=== PATIENT | male | born 1960 | race American Indian/Alaskan Native ===

== ENCOUNTER 2024-01-06 06:36 | Inpatient (IN) | payer MEDICAID, MEDICARE, OTHER ==
[~2024-01-06] VITALS: Ht 188 cm; Wt 108.5 kg
[2024-01-06] VITALS (63 sets, daily range): BP systolic 81–131; BP diastolic 34–87; PULSE 62–128; RESP 12–26; TEMP 96.3–98.6; O2SAT 79–99
[2024-01-06] MEDS: ROCURONIUM 10MG/ML 10ML VIAL IV ONE ×2 (06:48→06:50)
[2024-01-06] MEDS: ETOMIDATE (2MG/ML) 20ML VIAL IV ONE ×2 (06:48→06:50)
[2024-01-06] MEDS: MIDAZOLAM HCL 5 MG/ML-1ML VIAL IV ONE (06:55)
[2024-01-06] MEDS: MIDAZOLAM DRIP 50 mg/50mL 50 ML IV ONE ×3 (06:55→16:11)
[2024-01-06] MEDS: MIDAZOLAM DRIP 50 mg/50mL 50 ML IV SCH (06:55)
[2024-01-06] MEDS ORDERED: ALBUTEROL SULF 2.5 MG/0.5ML(0.5%) NEB SOLN NEB ONE (07:00)
[2024-01-06] MEDS: IPRATROPIUM BROM 0.5 MG/2.5ML INH SOL NEB ONE (07:02)
[2024-01-06] MEDS: ALBUTEROL SULF 2.5 MG/0.5ML(0.5%) NEB SOLN NEB ONE (07:03)
[2024-01-06] MEDS: FUROSEMIDE 40 MG/4 ML VIAL IV ONE (07:07)
[2024-01-06] MEDS: methylPREDNISolone SOD SUCC 125 MG/2 ML VL IV ONE (07:07)
--- NOTE | 2024-01-06 07:13 | ED.PDOC ---
History of Present Illness HPI Comments 63 y/o, with a Hx of ascites w/paracentesis, liver cirrhosis, COPD, GERD, and esophageal disorder, is BIBA for c/o ALOC w/abnormal behavior, shortness of breath, and abdominal distension, today. Per EMS report, patient's family called after finding patient in altered state on the floor after having an unwitnessed ground-level fall, this morning, after c/o of other remaining symptoms for 1.5x days. Patient is stated to only say "baby" only on scene in addition to last receiving paracentesis on 01/04/24. Further Hx cannot be obtained at this time, due to patient's altered state and absence of family/terminal make up operator historians. Chief Complaint: ALOC Time Seen by MD: 06:36 Reviewed Notes: Nurses Notes, Pastry Artist Notes, Medications, Allergies Allergies: Coded Allergies: UNOBTAINABLE (Unverified , 01/06/24) Information Source: Emergency Med Personnel Mode of Arrival: EMS Severity: Moderate Timing: Hours Duration: Since onset Prehospital treatment: 12 Lead EKG, Accucheck, Breathing Tx, Band Presser, Oxygen Past Medical History PAST MEDICAL HISTORY: COPD, GERD, Liver (cirrhosis) Past Medical History (Other): ascites, esophageal disorder Surgical History (Other): paracentesis Family History Family History: Unknown, Unobtainable Social History Smoker: Unknown, Unobtainable Alcohol: Unknown, Unobtainable Drugs: Unknown, Unobtainable Lives In: Home Constitutional: denies: chills, diaphoresis, fatigue, fever, malaise, sweats, weakness, others EENTM: denies: blurred vision, double vision, ear bleeding, ear discharge, ear drainage, ear pain, ear ringing, eye pain, eye redness, hearing loss, mouth pain, mouth swelling, nasal discharge, nose bleeding, nose congestion, nose pain, photophobia, tearing, throat pain, throat swelling, voice changes, others Respiratory: reports: shortness of breath; denies: cough, hemoptysis, orthopnea, SOB at rest, SOB with excertion, stridor, wheezing, others Cardiovascular: denies: chest pain, dizzy spells, diaphoresis, Dyspnea on exertion, edema, irregular heart beat, left arm pain, lightheadedness, palpitations, PND, syncope, others Gastrointestinal: reports: abdomen distended; denies: abdominal pain, blood streaked bowels, constipated, diarrhea, dysphagia, difficulty swallowing, hematemesis, melena, nausea, poor appetite, poor fluid intake, rectal bleeding, rectal pain, vomiting, others Genitourinary: denies: burning, dysuria, flank pain, frequency, hematuria, incontinence, penile discharge, penile sore, pain, testicle pain, testicle swelling, urgency, others Neurological: reports: others (ALOC); denies: dizziness, fainting, headache, left sided numbness, left sided weakness, numbness, paresthesia, pre-existing deficit, right sided numbness, right sided weakness, seizure, speech problems, tingling, tremors, weakness Musculoskeletal: denies: back pain, gout, joint pain, joint swelling, muscle pain, muscle stiffness, neck pain, others Integumetry: denies: bruises, change in color, change in hair/nails, dryness, laceration, lesions, lumps, rash, wounds, others Allergic/Immunocompromised: denies: Difficulty Healing, Frequent Infections, Hives, Itching, others Hematologic/Lymphatic: denies: anemia, blood clots, easy bleeding, easy bruising, swollen glands, others Endocrine: denies: excessive hunger, excessive sweating, excessive thirst, excessive urination, flushing, intolerance to cold, intolerance to heat, un explained weight gain, unexplained weight loss, others Psychiatric: denies: anxiety, bipolar disorder, depression, hopeless, panic disorder, schizophrenia, sleepless, suicidal, others All Other Systems: Reviewed and Negative Physical Exam General Appearance: Severe Distress HEENT: Normal ENT Inspection, Pharynx Normal, TMs Normal Neck: Full Range of Motion, Non-Tender, Normal, Normal Inspection Respiratory: Accessory Muscle Use, Respiratory Distress, Wheezing Cardiovascular: Tachycardia Breast Exam: Deferred Gastrointestinal: Distended, Other (Hernia) Genitalia: Deferred Pelvic: Deferred Rectal: Deferred Extremities: No calf tenderness, Normal capillary refill, Normal inspection, Normal range of motion, Non-tender, No pedal edema Musculoskeletal : Apperance: Normal Neurologic: Disoriented Cerebellar Function: NOT DONE Reflexes: NOT DONE Skin: Pallor Peripheral Pulses: 3+ Radial (R), 3+ Radial (L) Lymphatic: No Adenopathy Was a procedure done? Was a procedure done?: Yes Sedation Sedation?: Yes Informed consent obtained: No Sedation start time: 06:40 Sedation end time: 07:05 Sedation total time: 15 minutes Central Line Recorder of insertion practice: Fusion Operator Occupation of electric well logging operator: Other medical staff (Monitoring the resident teaching), Name of electric well logging operator (resident Win Leyva M.D.) Indication: Inability to obtain IV Room prepared for procedure: Yes Maximal sterile barrier precau: Mask/Eye shield, Sterile gown, Cap, Sterlie gloves, Large sterlie drape Skin Preparation: Chlorhexidine gluconate Skin preparation completely dr: Yes Insertion site: Right, Internal jugular Central line catheter type: [id number] dialysis Number of lumens: 3 Central line exchanged over a: No Antiseptic ointment applied to: No Post Assessment: Chest X-Ray, Proper placement Informed consent obtained: No Risks/benefits/alt described: No Intubation Indication: Respiratory Insufficiency, Altered Mental Status, Airway Protection Prep: Preoxygenation Pretreated with: Sedation Medicated with: Other (etomidate and rocuronium) Intubation Approach: Orotracheal (8.0) Intubation size: cm (24 cm at the lip) Informed consent obtained: No Risks/benefits/alt described: No Notes intubated at 0650, observed resident performing EKG EKG : Pulse Rate (adult): 125 [place]: Normal Cardiac Rhythm: ST Block: None Hypertrophy: None ST: Normal Differential Dx Considerations may include: viral syndrome, electrolyte imbalance, fluid overload, ascites, liver cirrhosis, COPD exacerbation X-Ray, Labs, Meds, VS Vital Signs Date Time Temp Pulse Resp B/P (MAP) Pulse Ox O2 Delivery O2 Flow Rate FiO2 01/06/24 07:31 62 19 97 Room Air* 0 21 01/06/24 07:30 97.6 62 19 136/64 (88) 97 97.6 01/06/24 07:25 146/76 01/06/24 07:13 125 01/06/24 07:07 146/76 01/06/24 07:02 125 01/06/24 06:55 138/88 01/06/24 06:50 126 18 146/76 (99) 99 60 01/06/24 06:48 138/88 01/06/24 06:45 120 24 138/88 (105) 95 01/06/24 06:45 114 22 118/68 (85) 94 01/06/24 06:45 120 26 95 Non-Rebreather 10 N/A Lab Test 01/06/24 07:15 Range/Units White Blood Count Pending Red Blood Count Pending Hemoglobin Pending Hematocrit Pending Mean Corpuscular Volume Pending Mean Corpuscular Hemoglobin Pending Mean Corpuscular Hemoglobin Concent Pending Red Cell Distribution Width Pending Platelet Count Pending Mean Platelet Volume Pending Neutrophils (%) (Auto) Pending Lymphocytes (%) (Auto) Pending Monocytes (%) (Auto) Pending Basophils (%) (Auto) Pending Neutrophils # (Auto) Pending Lymphocytes # (Auto) Pending Monocytes # (Auto) Pending Prothrombin Time Pending Prothrombin Time INR Pending Activated Partial Thromboplast Time Pending Sodium Level Pending Potassium Level Pending Chloride Level Pending Carbon Dioxide Level Pending Anion Gap Pending Blood Urea Nitrogen Pending Creatinine Pending Glomerular Filtration Rate Calc Pending BUN/Creatinine Ratio Pending Serum Glucose Pending Lactic Acid Level Pending Calcium Level Pending Total Bilirubin Pending Aspartate Amino Transferase (AST) Pending Alanine Aminotransferase (ALT) Pending Alkaline Phosphatase Pending Ammonia Pending Troponin I High Sensitivity Pending Total Protein Pending Albumin Pending Plasma/Serum Blood Alcohol Pending Current Medications Medications (Trade) Dose Ordered Sig/Salena Route Start Time Stop Time Status Last Admin Albuterol (Ventolin Medneb) 10 mg ONCE ONCE NEB 01/06/24 06:45 01/06/24 06:46 DC 01/06/24 07:03 Etomidate 20 mg ONCE ONCE IV 01/06/24 07:00 01/06/24 07:01 DC 01/06/24 06:48 Rocuronium [place] 100 mg ONCE ONCE IV 01/06/24 07:00 01/06/24 07:01 DC 01/06/24 06:48 Midazolam HCl (Versed Injection) 5 mg ONCE ONCE IV 01/06/24 07:00 01/06/24 07:01 DC 01/06/24 06:55 Midazolam HCl 50 ml @ 1 mls/hr Q24H IV 01/06/24 07:00 01/06/24 06:55 Methylprednisolone Sodium Succinate (Solu Medrol) 125 mg ONCE ONCE IV 01/06/24 07:00 01/06/24 07:01 DC 01/06/24 07:07 Ipratropium [place] (Atrovent Medneb) 0.5 mg ONCE ONCE NEB 01/06/24 07:00 01/06/24 07:01 DC 01/06/24 07:02 Furosemide (Lasix Injection) 40 mg ONCE ONCE IV 01/06/24 07:00 01/06/24 07:01 DC 01/06/24 07:07 Patient disoriented. Unable to answering any questions. Acute respiratory distress. Using accessory muscles. Establish intravenous access. Was given sedation. Intubated the patient. Central line. Ventilator settings. Was given Lasix. Was given breathing treatment. Was given steroid. He did have a run of V-tach possibly from wire insertion into the ventricle. Sinus rhythm after the line was pulled. EKG reviewed does not show any acute changes. Reviewed his previous visit. Liver disease. Recently had paracentesis. Possible hepatic encephalopathy. Possibly will need paracentesis. Time of 1ST Reevaluation: 07:06 Reevaluation 1ST: Unchanged Patient Education/Counseling: Other (patient is altered ) Family Education/Counseling: No Family Present Departure 1 Departure Time of Disposition: 07:57 Impression: Primary Impression: Acute respiratory failure Qualified Codes: J96.01 - Acute respiratory failure with hypoxia Additional Impressions: Hepatic encephalopathy Liver disease Disposition: ADMITTED INPATIENT Admit to: ICU Condition: Guarded Critical Care Note Critical Care Time?: Yes (55 min-critical care time only) Stability Stability form required: No Heart Score Heart Score: Heart Score Response (Comments) Value History Highly Suspicious 2 EKG Normal 0 Age 45-64 1 Risk Factors >3 or Hx ASHD 2 Troponin Normal limit 0 Total 5 I personally scribed for ANTHONY NEWMAN MD ([email or web address]) on 01/06/24 at 07:13. Electronically submitted by Jr Ruff ([email or web address]). I personally scribed for ANTHONY NEWMAN MD ([email or web address]) on 01/06/24 at 07:25. Electronically submitted by Jr Ruff ([email or web address]). ANTHONY NEWMAN MD Jan 06, 2024 07:13
--- NOTE | 2024-01-06 07:13 | ECG ---
[facility] Test Date: 2024-01-06 Test Time: 07:02:14 Pat Name: YASEMIN CAR Department: ED Room: [address] [place] [address] Gender: M Passenger Rate Clerk: ALKA : 1960 Requested By: ANTHONY NEWMAN Order Number: [id number] Reading MD: Joon Zhang Measurements Intervals [place] Rate: 125 P: 84 CA: 192 QRS: 69 QRSD: 76 T: 224 QT: 258 QTc: 372 Interpretive Statements Sinus tachycardia Low voltage, extremity and precordial leads Anteroseptal infarct, old Nonspecific T abnormalities, lateral leads Baseline wander in lead(s) V1 Electronically Signed On 01-08-2024 11:52:57 PST by Joon Zhang Please click the below link to view image of tracing.
--- NOTE | 2024-01-06 07:38 | DVH ---
CLINICAL INFORMATION: 63 years old, Male; shortness of breath. TECHNIQUE: Single AP portable chest radiograph was obtained. COMPARISON: Chest radiographs dated 05/28/2023. FINDINGS: Lungs: Atelectasis in the lung bases. No focal consolidation visualized. No pneumothorax. No visualiz ed pleural effusion. Cardiac: Heart size is within normal limits. Pulmonary vasculature: Unremarkable. Mediastinum/shiv: Distal tip of the endotracheal tube is 6 cm above the level of the john. Enteric tube reaches the stomach and extends below the [id number]-swis of the exam. Bones: No acute osseous abnormality identified. Other: No other significant findings. IMPRESSION: 1. Endotracheal tube is approximately 6 cm above the level of the john. Advancement by 2 cm could b e considered to optimize positioning. 2. Enteric tube reaches the stomach. 3. Atelectasis in the lung bases. No focal consolidation or other acute radiographic abnormality iden tified in the chest.
[2024-01-06 08:10] LABS: Alanine Aminotransferase 45 U/L (7-40); Albumin 2.4 g/dL (3.2-4.8); Alkaline Phosphatase 192 U/L (46-116); Anion Gap 13 (5-15); Aspartate Aminotransferase 87 U/L (13-40); BUN/Creatinine Ratio 24.3 (10.0-20.0); Blood Alcohol < 3.0 mg/dL (<10); Blood Urea Nitrogen 25 mg/dL (9-23); Calcium 8.9 mg/dL (8.7-10.4); Carbon Dioxide 19 mmol/L (20-31); Chloride 109 mmol/L (98-107); Glucose 118 mg/dL (74-106); Potassium 4.5 mmol/L (3.5-5.1); Sodium 141 mmol/L (136-145)
[2024-01-06 08:11] LABS: Bilirubin, Total 3.7 mg/dL (0.2-1.0); Total Protein 6.3 g/dL (5.7-8.2)
[2024-01-06 08:33] LABS: INR 1.43 (0.9-1.15); Partial Thromboplastin Time 29.9 SEC (24.5-34.5); Prothrombin Time 14.8 sec (9.3-11.8)
[2024-01-06 08:38] LABS: Lactic Acid w/Reflex 6.5 mmol/L (0.4-2.0)
[2024-01-06 08:46] LABS: Nucleated Red Blood Cells % 0.2 %
[2024-01-06 08:48] LABS: Basophils # (auto) 0 10 ^3/uL (0-0.2); Basophils % (auto) 0.1 % (0.0-2.0); Eosinophils # (auto) 0 10 ^3/uL (0-0.8); Eosinophils % (auto) 0.2 % (0.0-7.0); Hematocrit 40.1 % (41.0-53.0); Hemoglobin 13.5 g/dL (13.5-17.5); Lymphocytes # (auto) 0.5 10 ^3/uL (0.4-5.4); Lymphocytes % (auto) 6.3 % (10.0-50.0); Mean Corpuscular Hgb Conc. 33.7 g/dL (32.0-36.0); Mean Corpuscular Volume 109.7 fL (80.0-100.0); Monocytes # (auto) 0.4 10 ^3/uL (0-1.3); Monocytes % (auto) 4.7 % (0.0-12.0); Neutrophils # (auto) 6.6 10 ^3/uL (1.6-8.6); Neutrophils % (auto) 88.7 % (37.0-80.0); Red Blood Cells 3.66 10^6/uL (4.5-5.90); Red Cell Distribution Width 15.2 % (11.8-14.3); White Blood Cell 7.5 10^3/uL (4.4-10.8)
[2024-01-06 08:52] LABS: Platelet Count (auto) 106 10^3/uL (140-450)
[2024-01-06] MEDS ORDERED: IBUPROFEN 100MG/5ML ORAL SUSP 100 MG/5 ML UD NG PRN (09:00)
[2024-01-06] MEDS ORDERED: ONDANSETRON HCL 4 MG/2 ML VIAL IV PRN (09:00)
[2024-01-06] MEDS: fentaNYL Drip 2500mCg/250mlNS 250 ML IV SCH (09:01)
[2024-01-06 09:31] LABS: Urine Bacteria None Seen /hpf (None Seen)
[2024-01-06 09:35] LABS: Base Excess -5.7 mmol/L (-2.0-3.0)
--- NOTE | 2024-01-06 09:36 | DVHNC2 ---
Intubation Indication: Altered Mental Status, Airway Protection Prep: Preoxygenation Pretreated with: Sedation Medicated with: Other (Etomidate and rocuronium) Intubation Approach: Orotracheal Intubation size: cm (Eight) Informed consent obtained: Yes Risks/benefits/alt described: Yes Notes Supervised by Dr. Newman Date of Service: Jan 06, 2024 Billing Provider: ANTHONY NEWMAN MD Common Visit Codes: PROCEDURE ONLY TERESA OLVERA RESIDENT Jan 06, 2024 09:36
--- NOTE | 2024-01-06 09:38 | DVHNC2 ---
Arterial Puncture Indication: Assess ventilatory status, Assess acid-base status Procedure: Sterile Preparation, Arterial Punct Obtained Location: Right Radial Informed consent obtained: Yes Risks/benefits/alt described: Yes Notes Supervised by Dr. Newman Date of Service: Jan 06, 2024 Billing Provider: ANTHONY NEWMAN MD Common Visit Codes: PROCEDURE ONLY TERESA OLVERA RESIDENT Jan 06, 2024 09:38
--- NOTE | 2024-01-06 09:38 | DVHNC2 ---
Central Line Recorder of insertion practice: Assembler [employer] Battery Occupation of pallet stone inserter: Attending Physician, Name of pallet stone inserter (Dr. Leyva) Indication: Hypotension, CVP monitoring, Volume resuscitation Room prepared for procedure: Yes Assembler [employer] Cell [employer] performed hand hygien: Yes Maximal sterile barrier precau: Mask/Eye shield, Sterile gown, Cap, Sterlie gloves, Large sterlie drape Skin Preparation: Providine iodine Skin preparation completely dr: Yes Insertion site: Right, Internal jugular Central line catheter type: [id number] dialysis Number of lumens: 3 Central line exchanged over a: No Antiseptic ointment applied to: No Post Assessment: Chest X-Ray, Proper placement, No Pneumothorax Informed consent obtained: Yes Notes Supervised by Date of Service: Jan 06, 2024 Billing Provider: ANTHONY NEWMAN MD Common Visit Codes: PROCEDURE ONLY TERESA OLVERA RESIDENT Jan 06, 2024 09:38
[2024-01-06 09:40] LABS: Urine Blood Negative /uL (Negative); Urine Clarity Clear (Clear); Urine Color Yellow (Yellow); Urine Hyaline Cast MANY /lpf (0 - 2); Urine Mucus FEW (None Seen); Urine Protein, UAD TRACE (Negative); Urine Specific Gravity 1.025 (1.001-1.035); Urine Urobilinogen 8 mg/dL (Negative); Urine WBC 2 /hpf (0 - 3); Urine pH 6.5 (5.0-9.0)
[2024-01-06] MEDS: fentaNYL Drip 2500mCg/250mlNS 250 ML IV ONE ×2 (09:43→16:10)
[2024-01-06] MEDS ORDERED: NOREPINEPHRINE 8 MG/250ML KIT 250 ML IV SCH (09:45)
[2024-01-06] MEDS: metroNIDAZOLE 500MG/100ML 100 ML IV ONE (09:53)
[2024-01-06] MEDS: FUROSEMIDE 40 MG/4 ML VIAL IV SCH (10:00)
[2024-01-06] MEDS: PROPOFOL 100 ML IV SCH (10:00)
[2024-01-06] MEDS: SPIRONOLACTONE 25 MG TAB PO SCH (10:00)
--- NOTE | 2024-01-06 10:14 | DVH ---
EXAM: XY CHEST XRAY 1 VIEW Indication:CHECK PLACEMENT OF CENTRAL LINE AND NG TUBE Technique: Single AP portable chest radiograph was obtained. Comparison: XY CHEST PORTABLE on DOS: 01/06/24, XY CHEST PORTABLE on DOS: 01/06/24 FINDINGS: Lungs: Atelectasis in the lung bases. No focal consolidation visualized. No pneumothorax. No visualiz ed pleural effusion. Cardiac: Heart size is within normal limits. Pulmonary vasculature: Unremarkable. Mediastinum/shiv: Distal tip of the endotracheal tube is 6 cm above the level of the john. Enteric tube reaches the stomach and extends below the [id number] of the exam. Right internal jugular cent ral venous catheter tip projects over the superior vena cava. Bones: No acute osseous abnormality identified. Other: No other significant findings. IMPRESSION: Interval placement of a right internal jugular central venous catheter with tip in appropriate positi on. Otherwise no significant change compared to prior exam.
[2024-01-06] MEDS: PHENYLEPHRINE IV 250 ML IV SCH (10:20)
[2024-01-06] MEDS: ALBUMIN 25% 100 ML IV ONE (10:20)
--- NOTE | 2024-01-06 10:35 | DVHHP2 ---
History of Present Illness Reason for Visit: Acute respiratory failure History of Present Illness The patient is a 63-year-old male with past medical history of liver cirrhosis, ascites, esophageal disorder, GERD, and COPD who presented to [facility] ED for evaluation of altered level of consciousness. As reported by EMS, patient's family called finding patient in altered state on the floor after having an unwitnessed ground level fall, shortness of breaths, abdominal distention, getting worse that prompted this visit. Patient's last paracentesis was on 01/04/2024. Patient was seen and evaluated in the ED, he continues to be disoriented, unable to answering any question, develop acute respiratory distress, using accessory muscles, and subsequently intubated. Laboratory data shows WBC 7.5, platelets 106, sodium 141, potassium 4.5 BUN 25, creatinine 103, glucose 118, lactic acid 7.3, albumin 2.4, troponin 6, total bilirubin 3.7, AST 87, ALT 45, ammonia 330, blood pressure 131/69, heart rate 62, temperature 97.6, O2 saturation 97% on ventilator. Please see medication orders section in the computer. On my assessment, patient is fully intubated, no diaphoresis, no vomiting, no fever, no chills. Patient was admitted for further evaluation and medical management. Past Medical History COPD, GERD, Liver (cirrhosis), ascites, esophageal disorder Past Surgical History Paracentesis Family History Reviewed, noncontributory to the management of this case. Past Social History The patient lives at home, denies smoking, alcohol or illicit drugs abuse. Review of Systems Constitutional: Yes: Weakness; No: Fever, Chills, Sweats, Malaise, Other Eyes: No: Pain, Vision change, Conjunctivae inflammation, Eyelid inflammation, Other, Redness ENT: No: Ear pain, Ear discharge, Nose pain, Nose discharge, Nose congestion, Mouth pain, Mouth swelling, Throat pain, Throat swelling, Other Respiratory: Shortness of breath, SOB with excertion; No: Cough, Dry, Wheezing, Hemoptysis, Pleuritic Pain, Sputum, Wheezing, Other Cardiovascular: No: Chest Pain, Palpitations, Orthopnea, Paroxysmal Noc. Dyspnea, Edema, Lt Headedness, Other Gastrointestinal: No: Nausea, Vomiting, Abdominal Pain, Diarrhea, Constipation, Melena, Hematochezia, Other Genitourinary: No Dysuria, No Frequency, No Incontinence, No Hematuria, No Retention, No Other Musculoskeletal: No: other, neck pain, shoulder pain, arm pain, back pain, hand pain, leg pain, foot pain Skin: No: Rash, Lesions, Jaundice, Bruising, Other Neurological: No: Weakness, Numbness, Incoordination, Change in speech, Confusion, Seizures, Other Allergies: Coded Allergies: UNOBTAINABLE (Unverified , 01/06/24) Medications Current Medications Medications Dose Ordered Sig/Salena Route Start Time Stop Time Status Last Admin Dose Admin Midazolam HCl 50 ml @ 1 mls/hr Q24H IV 01/06/24 07:00 01/06/24 06:55 1 MLS/HR Fentanyl Citrate 250 ml @ 2.5 mls/hr Q24H IV 01/06/24 08:30 01/06/24 09:01 2.5 MLS/HR Furosemide 40 mg DAILY IV 01/06/24 10:00 Spironolactone 25 mg DAILY PO 01/06/24 10:00 Methylprednisolone Sodium Succinate 40 mg Q8HR IV 01/06/24 14:00 Ibuprofen 600 mg Q6HP PRN NG 01/06/24 09:00 Sodium Chloride 10 ml Q8HR IV 01/06/24 14:00 Ondansetron HCl 4 mg Q4HP PRN IV 01/06/24 09:00 Famotidine 20 mg DAILY IV 01/06/24 10:00 Phenylephrine HCl 250 ml @ 30 mls/hr Q8H20M IV 01/06/24 10:00 01/06/24 10:20 30 MLS/HR Propofol 100 ml @ 3.135 mls/ hr Q24H IV 01/06/24 10:00 Exam Vital Signs Vital Signs Date Time Temp Pulse Resp B/P (MAP) Pulse Ox O2 Delivery O2 Flow Rate FiO2 01/06/24 10:25 84/37 01/06/24 10:23 103 21 97 Mechanical Ventilator+ 40 40 01/06/24 06:45 10 General Appearance: Other (Fully intubated) HEENT: Atraumatic, PERRLA, EOMI, Mucous membr. moist/pink Respiratory: Clear to auscultation, Normal air movement Cardiovascular: Regular rate, Normal S1, Normal S2, No murmurs Abdominal: Normal bowel sounds, Soft, No tenderness, No hepatospenomegaly, No masses, Other (Distended abdomen) Extremities: No clubbing, No cyanosis, No edema, Normal pulses, No tenderness/swelling Skin: No rashes, No breakdown, No significant lesion Neuro: Normal tone, Sensation intact, Other (Generalized weakness) Psych/Mental Status: Mental status NL, Mood NL Labs/Xrays Labs Test 01/06/24 09:28 01/06/24 09:15 01/06/24 08:42 01/06/24 08:22 Range/Units Blood Gas Specimen Type Arterial Blood Gas Sample Site Arterial line Blood Gas Patient Temperature 37.0 Arterial Blood Date Drawn [id number] Arterial Blood pH 7.400 7.350-7.450 Arterial Blood Partial Pressure CO2 29.4 L 35.0-48.0 mmHg Arterial Blood Partial Pressure O2 121.8 H 83.0-108.0 mmHg Arterial Blood HCO3 17.8 L 21.0-28.0 mmol/L Arterial Blood Oxygen Saturation 98.3 H 94.0-98.0 % Arterial Blood Base Excess -5.7 L -2.0-3.0 mmol/L Arterial Blood Oxyhemoglobin 96.6 94.0-98.0 % Arterial Blood Carboxyhemoglobin 1.0 0.5-1.5 % Arterial Blood Methemoglobin 0.7 0.0-1.5 % Dusty Test N/a Blood Gas Total Hemoglobin 13.70 13.5-17.5 g/dL Blood Gas Set Respiration Rate 18.0 Blood Gas Modality Vent - ac FiO2 % 60.0 Blood Gas Tidal Volume 600.0 Blood Gas PEEP or CPAP 5.0 Lactic Acid Level 7.3 *H 0.4-2.0 mmol/L Urine Color Yellow Yellow Urine Clarity Clear Clear Urine pH 6.5 5.0-9.0 Urine Specific [place] 1.025 1.001-1.035 Urine Protein Trace H Negative Urine Ketones Trace Negative Urine Blood Negative Negative /uL Urine Nitrite Negative Negative Urine Bilirubin Negative Negative Urine Urobilinogen 8 H Negative mg/dL Urine Leukocyte Esterase Negative Negative /uL Urine RBC 1 0 - 3 /hpf Urine WBC 2 0 - 3 /hpf Urine Squamous Epithelial Cells Few <5 /hpf Urine Bacteria None seen None Seen /hpf Urine Hyaline Casts Many 0 - 2 /lpf Urine Mucus Few None Seen Urine Glucose Normal Normal mg/dL White Blood Count 7.5 4.4-10.8 10^3/uL Red Blood Count 3.66 L 4.5-5.90 10^6/uL Hemoglobin 13.5 13.5-17.5 g/dL Hematocrit 40.1 L 41.0-53.0 % Mean Corpuscular Volume 109.7 H 80.0-100.0 fL Mean Corpuscular Hemoglobin 37.0 H 28.0-32.0 pg Mean Corpuscular Hemoglobin Concent 33.7 32.0-36.0 g/dL Red Cell Distribution Width 15.2 H 11.8-14.3 % Platelet Count 106 L 140-450 10^3/uL Mean Platelet Volume 8.8 6.9-10.8 fL Neutrophils (%) (Auto) 88.7 H 37.0-80.0 % Lymphocytes (%) (Auto) 6.3 L 10.0-50.0 % Monocytes (%) (Auto) 4.7 0.0-12.0 % Eosinophils (%) (Auto) 0.2 0.0-7.0 % Basophils (%) (Auto) 0.1 0.0-2.0 % Neutrophils # (Auto) 6.6 1.6-8.6 10 ^3/uL Lymphocytes # (Auto) 0.5 0.4-5.4 10 ^3/uL Monocytes # (Auto) 0.4 0-1.3 10 ^3/uL Eosinophils # (Auto) 0 0-0.8 10 ^3/uL Basophils # (Auto) 0 0-0.2 10 ^3/uL Nucleated Red Blood Cells 0.2 % Test 01/06/24 07:15 Range/Units Prothrombin Time 14.8 H 9.3-11.8 sec Prothrombin Time INR 1.43 H 0.9-1.15 Activated Partial Thromboplast Time 29.9 24.5-34.5 SEC Sodium Level 141 136-145 mmol/L Potassium Level 4.5 3.5-5.1 mmol/L Chloride Level 109 H 98-107 mmol/L Carbon Dioxide Level 19 L 20-31 mmol/L Anion Gap 13 5-15 Blood Urea Nitrogen 25 H 9-23 mg/dL Creatinine 1.03 0.700-1.30 mg/dL Glomerular Filtration Rate Calc 81 >90 mL/min BUN/Creatinine Ratio 24.3 H 10.0-20.0 Serum Glucose 118 H 74-106 mg/dL Calcium Level 8.9 8.7-10.4 mg/dL Total Bilirubin 3.7 H 0.2-1.0 mg/dL Aspartate Amino Transferase (AST) 87 H 13-40 U/L Alanine Aminotransferase (ALT) 45 H 7-40 U/L Alkaline Phosphatase 192 H 46-116 U/L Ammonia 330 *H 11-32 umol/L Troponin I High Sensitivity 6 </=54 ng/L Total Protein 6.3 5.7-8.2 g/dL Albumin 2.4 L 3.2-4.8 g/dL Plasma/Serum Blood Alcohol < 3.0 <10 mg/dL PATIENT: YASEMIN CAR ACCT: [id number] UNIT: [id number] : 1960 LOC: ER ROOM / BED: / AGE / SEX: 63 / M ADM STATUS: REG ER SERVICE [id number] ORDERING PHYSICIAN: ANTHONY NEWMAN MD PROCEDURE(s): CXRP - CHEST PORTABLE REASON: sob ORDER NUMBER(s): [id number], ACCESSION NUMBER(s): [id number] CLINICAL INFORMATION: 63 years old, Male; shortness of breath. TECHNIQUE: Single AP portable chest radiograph was obtained. COMPARISON: Chest radiographs dated 05/28/2023. FINDINGS: Lungs: Atelectasis in the lung bases. No focal consolidation visualized. No pneumothorax. No visualized pleural effusion. Cardiac: Heart size is within normal limits. Pulmonary vasculature: Unremarkable. Mediastinum/shiv: Distal tip of the endotracheal tube is 6 cm above the level of the john. Enteric tube reaches the stomach and extends below the [id number] of the exam. Bones: No acute osseous abnormality identified. Other: No other significant findings. IMPRESSION: 1. Endotracheal tube is approximately 6 cm above the level of the john. Adva ncement by 2 cm could be considered to optimize positioning. 2. Enteric tube reaches the stomach. 3. Atelectasis in the lung bases. No focal consolidation or other acute radiographic abnormality identified in the chest. ORDERING PHYSICIAN: ANTHONY NEWMAN MD PROCEDURE(s): CXR1 - CHEST XRAY 1 VIEW REASON: CHECK PLACEMENT OF CENTRAL LINE AND NG TUBE ORDER NUMBER(s): [id number], ACCESSION NUMBER(s): [id number] EXAM: XY CHEST XRAY 1 VIEW Indication:CHECK PLACEMENT OF CENTRAL LINE AND NG TUBE Technique: Single AP portable chest radiograph was obtained. Comparison: XY CHEST PORTABLE on DOS: 01/06/24, XY CHEST PORTABLE on DOS: 01/06/24 FINDINGS: Lungs: Atelectasis in the lung bases. No focal consolidation visualized. No pneumothorax. No visualized pleural effusion. Cardiac: Heart size is within normal limits. Pulmonary vasculature: Unremarkable. Mediastinum/shiv: Distal tip of the endotracheal tube is 6 cm above the level of the john. Enteric tube reaches the stomach and extends below the [id number] of the exam. Right internal jugular central venous catheter tip projects over the superior vena cava. Bones: No acute osseous abnormality identified. Other: No other significant findings. IMPRESSION: Interval placement of a right internal jugular central venous catheter with tip in appropriate position. Otherwise no significant change compared to prior exam. Assessment/Plan Assessment/Plan Acute respiratory failure Liver disease Hepatic encephalopathy Elevated lactic acid Hypoalbuminemia Elevated liver enzymes Generalized weakness Acute respiratory failure with hypoxia Plan 1. Admit to intensive care unit 2. Breathing treatment 3. Pain control management 4. IV antibiotic management 5. Management of fluids and electrolytes 6. Consultation for GI/pulmonology 7. Diagnostic test chest x-ray 8. DVT prophylaxis-on SCDs 9. Repeat labs CBC, CMP in a.m. 10. Home medication reviewed and reconciled 11. Continue with current medical management 12. Treatment plan discussed with patient and RN. Patient verbalized understanding. Plan discussed with: Patient, Other (RN) My Orders Orders - CISCO LEGGETT DNP Procedure Category Date Status Time Furosemide Injection PHA 01/06/24 In Process (Lasix Injection) 10:00 Spironolactone PHA 01/06/24 In Process (Aldactone) 10:00 Methylprednisolone PHA 01/06/24 In Process Sod Succ (Solu Medrol 14:00 Ibuprofen 100mg/5 Ml PHA 01/06/24 In Process Oral Susp (Motrin 1 09:00 Allergies RAKESH 01/06/24 In Process 08:53 Code Status CODE 01/06/24 Transmitted 08:53 Sodium Chloride Lock PHA 01/06/24 In Process (Saline Lock Ns) 14:00 Oxygen Per Hour RT 01/06/24 Transmitted 08:53 Ondansetron Hcl PHA 01/06/24 In Process (Zofran) 09:00 Fall Risk Precautions RAKESH 01/06/[address] 08:53 Complete Blood Count LAB 01/07/24 Verified 04:00 Comprehensive LAB 01/07/24 Verified Metabolic Panel 04:00 Cardiac DIET 01/06/24 Transmitted Diet-2gna,Lofat,Lochol Breakfast Condition: Serious RAKESH 01/06/24 In Process 08:53 Sequential RAKESH 01/06/24 In Process Compression Device Famotidine Injection PHA 01/06/24 In Process (Pepcid Injection) 10:00 Problem List: (1) Generalized weakness (2) Hypoalbuminemia (3) Elevated lactic acid level (4) Hepatic encephalopathy (5) Liver disease (6) Acute respiratory failure (7) Acute respiratory failure with hypoxia (8) Elevated liver enzymes Date of Service: Jan 06, 2024 Billing Provider: CISCO LEGGETT DNP Common Visit Codes: [id number] INP/OBS CARE (HIGH) CISCO LEGGETT DNP Jan 06, 2024 10:35
[2024-01-06] MEDS ORDERED: MORPHINE SULFATE INJ 2 MG/ml SYRG IV PRN (10:45)
[2024-01-06] MEDS ORDERED: NITROGLYCERIN 0.4 MG SL TAB SL PRN (10:45)
[2024-01-06] MEDS: PIPERACILLIN-TAZOB 3.375GM 100 ML IV ONE (10:49)
[2024-01-06] MEDS: FAMOTIDINE (10MG/ML) 2ML VL IV SCH (10:49)
[2024-01-06] MEDS: PHENYLEPHRINE IV 250 ML IV ONE ×2 (11:05→16:10)
--- NOTE | 2024-01-06 13:14 | DVH ---
EXAM: CT HEAD WITHOUT CONTRAST HISTORY: altered COMPARISON: None TECHNIQUE: Axial images were obtained and reformatted in coronal and sagittal planes. All CT scans at this medical facility are performed using dose modulation techniques as appropriate t o a performed exam including the following: Automated exposure control was utilized; adjustment of th e MA and/or KV according to patient size; and use of iterative reconstruction technique. CT Dose: CTDI volume is 64.96 mGy. Dose-length product is 1279.89 mGy*cm FINDINGS: There is no evidence of acute intracranial hemorrhage, mass, mass effect midline shift. There is no h ydrocephalus or extra-axial fluid collection. Fabian-white matter differentiation is maintained.. Calvarium is intact. The visualized paranasal sinuses and mastoid air cells are clear. The nasal pass ageway is obstructed. An endotracheal tube in place. IMPRESSION: 1. No acute intracranial process. HS:Y
[2024-01-06] MEDS: methylPREDNISolone SOD SUCC 40 MG/ML VL IV SCH (16:19)
[2024-01-06] MEDS: PIPERACILLIN-TAZOB 3.375GM 100 ML IV SCH (16:20)
[2024-01-06] MEDS: SODIUM CHLOR 0.9% PF (SALINE LOCK) 10ML VIAL/SYR IV SCH (16:37)
[2024-01-06] MEDS ORDERED: LACTULOSE 10g/15ml SOLN 473ML PR SCH (18:00)
[2024-01-06] MEDS: SODIUM CHLORIDE 0.9% 500 ML IV ONE ×3 (18:38→20:26)
[2024-01-06 19:13] LABS: Basophils # (auto) 0 10 ^3/uL (0-0.2); Eosinophils # (auto) 0 10 ^3/uL (0-0.8); Monocytes # (auto) 0.4 10 ^3/uL (0-1.3); Nucleated Red Blood Cells % 0.1 %; White Blood Cell 11.1 10^3/uL (4.4-10.8)
[2024-01-06 19:15] LABS: Basophils % (auto) 0.1 % (0.0-2.0); Hematocrit 35.6 % (41.0-53.0); Lymphocytes # (auto) 0.7 10 ^3/uL (0.4-5.4); Lymphocytes % (auto) 6.1 % (10.0-50.0); Mean Corpuscular Hemoglobin 37.2 pg (28.0-32.0); Mean Corpuscular Hgb Conc. 33.7 g/dL (32.0-36.0); Mean Corpuscular Volume 110.4 fL (80.0-100.0); Monocytes % (auto) 3.9 % (0.0-12.0); Neutrophils % (auto) 89.9 % (37.0-80.0); Platelet Count (auto) 118 10^3/uL (140-450); Red Blood Cells 3.23 10^6/uL (4.5-5.90); Red Cell Distribution Width 15.4 % (11.8-14.3)
[2024-01-06 19:32] LABS: Alanine Aminotransferase 35 U/L (7-40); Alkaline Phosphatase 151 U/L (46-116); Anion Gap 12 (5-15); Aspartate Aminotransferase 63 U/L (13-40); BUN/Creatinine Ratio 14.4 (10.0-20.0); Blood Urea Nitrogen 24 mg/dL (9-23); Carbon Dioxide 19 mmol/L (20-31); Chloride 111 mmol/L (98-107); Glucose 142 mg/dL (74-106); Potassium 4.9 mmol/L (3.5-5.1); Sodium 142 mmol/L (136-145)
[2024-01-06 19:33] LABS: Albumin 2.3 g/dL (3.2-4.8); Magnesium 1.9 mg/dL (1.6-2.6)
[2024-01-06 19:34] LABS: Bilirubin, Total 3.6 mg/dL (0.2-1.0); Phosphorus 6.4 mg/dL (2.4-5.1); Total Protein 5.8 g/dL (5.7-8.2)
[2024-01-06 19:46] LABS: Lactic Acid w/Reflex 8.4 mmol/L (0.4-2.0)
[2024-01-06 19:55] LABS: Amphetamine Screen, Urine Neg (NEGATIVE); Barbiturate Scree,Urine Neg (NEGATIVE); Benzodiazephine Screen, Urine Pos (NEGATIVE); Cannabinoid Screen, Urine Neg (NEGATIVE); Cocaine Screen, Urine Neg (NEGATIVE); Opiate Scree,Urine Neg (NEGATIVE); Phencyclidine Screen, Urine Neg (NEGATIVE)
[2024-01-06] MEDS: VASOPRESSIN 20 UNITS in SODIUM CHL 0.9% 99 ML IV SCH (20:10)
--- NOTE | 2024-01-06 21:02 | DVHINCON2 ---
Date of service: Jan 06, 2024 Referring Physician Damian Watson NP Reason for Consultation Acute hypoxic respiratory failure requiring mechanical ventilator. History of Present Illness A 63-year-old man with past medical history of COPD, liver cirrhosis, ascites, esophageal disorder and GERD, who presented to the ED today for evaluation of altered level of consciousness. As reported by EMS, patient's family found patient in altered state on the floor s/p unwitnessed ground level fall. He was noted to have shortness of breath and abdominal distention, getting worse that prompted this visit. Patient's last paracentesis was on 01/04/2024. In the ED, patient developed acute respiratory distress and subsequently was intubated and placed on mechanical vent. Patient was admitted for further care and pulmonary consultation is requested for evaluation and management due to these findings. Review of Systems: Unable to be obtained due to intubated status. Past Medical History: COPD, GERD, Liver (cirrhosis), ascites, esophageal disorder. Past Surgical History: Paracentesis. Medications: Reviewed. Allergies: Unobtainable. Family History: No family history of premature CAD. No family history of lung disorders. Social History: Nonsmoker. No alcohol or illicit drug use. Allergies: Coded Allergies: UNOBTAINABLE (Unverified , 01/06/24) Current Medications Current Medications Medications (Trade) Dose Ordered Sig/Salena Route PRN Reason Start Time Stop Time Status Last Admin Midazolam HCl 50 ml @ 1 mls/hr Q24H IV 01/06/24 07:00 01/06/24 18:55 Fentanyl Citrate 250 ml @ 2.5 mls/hr Q24H IV 01/06/24 08:30 01/06/24 15:47 Furosemide (Lasix Injection) 40 mg DAILY IV 01/06/24 10:00 Spironolactone (Aldactone) 25 mg DAILY PO 01/06/24 10:00 Methylprednisolone Sodium Succinate (Solu Medrol) 40 mg Q8HR IV 01/06/24 14:00 01/06/24 16:19 Ibuprofen (MOTRIN 100MG/5 mL ORAL SUSP) 600 mg Q6HP PRN NG TEMP GREATER THAN 100.4 01/06/24 09:00 Sodium Chloride (Saline Lock Ns) 10 ml Q8HR IV 01/06/24 14:00 01/06/24 16:37 Ondansetron HCl (Zofran) 4 mg Q4HP PRN IV NAUSEA / VOMITING 01/06/24 09:00 Famotidine (Pepcid Injection) 20 mg DAILY IV 01/06/24 10:00 01/06/24 10:49 Norepinephrine Bitartrate 250 ml @ 3.75 mls/hr Q24H IV 01/06/24 09:45 01/06/24 09:52 DC Phenylephrine HCl 250 ml @ 30 mls/hr Q8H20M IV 01/06/24 10:00 01/06/24 18:55 Propofol 100 ml @ 3.135 mls/ hr Q24H IV 01/06/24 10:00 Nitroglycerin (Ntrostat Sublingual) 0.4 mg Q5MINP PRN SL FOR CHEST PAIN 01/06/24 10:45 Morphine Sulfate 2 mg Q30M PRN IV FOR CHEST PAIN 01/06/24 10:45 Lactulose 300 ml Q6HR IA 01/06/24 18:00 01/06/24 18:09 DC Piperacillin Sod/ Tazobactam Sod 100 ml @ 25 mls/hr Q8HR IV 01/06/24 14:00 01/06/24 16:20 Lactulose 30 ml Q6HR PO 01/07/24 00:00 Vasopressin 20 units/Sodium Chloride 100 ml @ 9 mls/hr Q11H7M IV 01/06/24 19:45 01/06/24 20:10 Vital Signs Vital Signs Date Time Temp Pulse Resp B/P (MAP) Pulse Ox O2 Delivery O2 Flow Rate FiO2 01/06/24 20:20 90 18 93/54 (67) 93 40 01/06/24 19:30 98.2 208.8 01/06/24 18:55 Mechanical Ventilator+ 40 Physical Exam Gen.: Patient lying in bed in medical ICU. Sedated, intubated on mechanical ventilator. Head: Normocephalic, atraumatic. Eyes: PERRLA. Ears: Normal external anatomy. Throat: Endotracheal tube and orogastric tube in place. Neck: Supple, trachea midline. Chest: Transmitted breath sounds bilaterally. Decreased air entry bilaterally. No wheezing. Bibasilar crackles. Cardiovascular: Positive S1, positive S2. Regular rate and rhythm. Abdomen: Positive bowel sounds in all 4 quadrants. Soft, nontender, nondistended. : Sunshine in place. Normal external genitalia. Rectal: Deferred. Skin: Warm, dry. Intact. Extremities: 2+ radial pulses bilaterally. No lower extremity edema. Neuro: Sedated. Labs/Diagnostic Data Labs Test 01/06/24 18:44 01/06/24 09:28 01/06/24 08:42 01/06/24 07:15 Range/Units White Blood Count 11.1 #H 4.4-10.8 10^3/uL Red Blood Count 3.23 L 4.5-5.90 10^6/uL Hemoglobin 12.0 L 13.5-17.5 g/dL Hematocrit 35.6 #L 41.0-53.0 % Mean Corpuscular Volume 110.4 H 80.0-100.0 fL Mean Corpuscular Hemoglobin 37.2 H 28.0-32.0 pg Mean Corpuscular Hemoglobin Concent 33.7 32.0-36.0 g/dL Red Cell Distribution Width 15.4 H 11.8-14.3 % Platelet Count 118 L 140-450 10^3/uL Mean Platelet Volume 8.5 6.9-10.8 fL Neutrophils (%) (Auto) 89.9 H 37.0-80.0 % Lymphocytes (%) (Auto) 6.1 L 10.0-50.0 % Monocytes (%) (Auto) 3.9 0.0-12.0 % Eosinophils (%) (Auto) 0.0 0.0-7.0 % Basophils (%) (Auto) 0.1 0.0-2.0 % Neutrophils # (Auto) 10.0 H 1.6-8.6 10 ^3/uL Lymphocytes # (Auto) 0.7 0.4-5.4 10 ^3/uL Monocytes # (Auto) 0.4 0-1.3 10 ^3/uL Eosinophils # (Auto) 0 0-0.8 10 ^3/uL Basophils # (Auto) 0 0-0.2 10 ^3/uL Nucleated Red Blood Cells 0.1 % Sodium Level 142 136-145 mmol/L Potassium Level 4.9 3.5-5.1 mmol/L Chloride Level 111 H 98-107 mmol/L Carbon Dioxide Level 19 L 20-31 mmol/L Anion Gap 12 5-15 Blood Urea Nitrogen 24 H 9-23 mg/dL Creatinine 1.67 H 0.700-1.30 mg/dL Glomerular Filtration Rate Calc 45 >90 mL/min BUN/Creatinine Ratio 14.4 10.0-20.0 Serum Glucose 142 H 74-106 mg/dL Lactic Acid Level 8.4 *H 0.4-2.0 mmol/L Calcium Level 8.0 L 8.7-10.4 mg/dL Phosphorus Level 6.4 H 2.4-5.1 mg/dL Magnesium Level 1.9 1.6-2.6 mg/dL Total Bilirubin 3.6 H 0.2-1.0 mg/dL Aspartate Amino Transferase (AST) 63 H 13-40 U/L Alanine Aminotransferase (ALT) 35 7-40 U/L Alkaline Phosphatase 151 H 46-116 U/L Total Protein 5.8 5.7-8.2 g/dL Albumin 2.3 L 3.2-4.8 g/dL Blood Gas Specimen Type Arterial Blood Gas Sample Site Arterial line Blood Gas Patient Temperature 37.0 Arterial Blood Date Drawn [id number] Arterial Blood pH 7.400 7.350-7.450 Arterial Blood Partial Pressure CO2 29.4 L 35.0-48.0 mmHg Arterial Blood Partial Pressure O2 121.8 H 83.0-108.0 mmHg Arterial Blood HCO3 17.8 L 21.0-28.0 mmol/L Arterial Blood Oxygen Saturation 98.3 H 94.0-98.0 % Arterial Blood Base Excess -5.7 L -2.0-3.0 mmol/L Arterial Blood Oxyhemoglobin 96.6 94.0-98.0 % Arterial Blood Carboxyhemoglobin 1.0 0.5-1.5 % Arterial Blood Methemoglobin 0.7 0.0-1.5 % Dusty Test N/a Blood Gas Total Hemoglobin 13.70 13.5-17.5 g/dL Blood Gas Set Respiration Rate 18.0 Blood Gas Modality Vent - ac FiO2 % 60.0 Blood Gas Tidal Volume 600.0 Blood Gas PEEP or CPAP 5.0 Urine Color Yellow Yellow Urine Clarity Clear Clear Urine pH 6.5 5.0-9.0 Urine Specific [place] 1.025 1.001-1.035 Urine Protein Trace H Negative Urine Ketones Trace Negative Urine Blood Negative Negative /uL Urine Nitrite Negative Negative Urine Bilirubin Negative Negative Urine Urobilinogen 8 H Negative mg/dL Urine Leukocyte Esterase Negative Negative /uL Urine RBC 1 0 - 3 /hpf Urine WBC 2 0 - 3 /hpf Urine Squamous Epithelial Cells Few <5 /hpf Urine Bacteria None seen None Seen /hpf Urine Hyaline Casts Many 0 - 2 /lpf Urine Mucus Few None Seen Urine Glucose Normal Normal mg/dL Urine Opiates Screen Neg NEGATIVE Urine Fentanyl Screen Neg NEGATIVE Urine Barbiturates Screen Neg NEGATIVE Urine Phencyclidine Screen Neg NEGATIVE Urine Amphetamines Screen Neg NEGATIVE Urine Benzodiazepines Screen Pos NEGATIVE Urine Cocaine Screen Neg NEGATIVE Urine Cannabinoids Screen Neg NEGATIVE Prothrombin Time 14.8 H 9.3-11.8 sec Prothrombin Time INR 1.43 H 0.9-1.15 Activated Partial Thromboplast Time 29.9 24.5-34.5 SEC Ammonia 330 *H 11-32 umol/L Troponin I High Sensitivity 6 </=54 ng/L Plasma/Serum Blood Alcohol < 3.0 <10 mg/dL Assessment Impression: Acute hypoxic respiratory failure On mechanical ventilator Shock Elevated ammonia Lactic acidosis Metabolic acidosis Lower GI hemorrhage Cirrhosis Ascites IV drug use (methamphetamine) Overweight, BMI 29.6 Plan: s/p intubation on mechanical ventilator. Obtain STAT labs including CBC, BMP, mag and phos. CXR image and report reviewed. Devices in place. Atelectasis in the lung bases. No focal consolidation. No pneumothorax. No pleural effusion. ABG reviewed. Obtain CVP measurements. On AC mode; RR 18, VT 600, PEEP 5, FiO2 of 40%. Titrate FIO2 to keep O2 saturation above 90%. VAP bundle. Daily ABG and CXR while intubated Sedated for ventilatory synchrony Bronchodilators. Continue antibiotics - Zosyn. Continue IV steroids On pressors for hemodynamic support Michael-Synephrine 165 mcg/min Titrate to keep mean arterial pressure greater than 65 mmHg Lactulose Repeat LA level. Repeat BMP. Monitor hemoglobin Transfuse if less than 7.0 g/dL Monitor renal function Monitor electrolytes. Supplement as necessary. Monitor ins and outs. Maintain euvolemia. GI prophylaxis. DVT prophylaxis. Prognosis: Poor given patient's multiple co-morbidities. Condition: Critical Rest of plan per hospitalist and other consultants. A total of 36 minutes of critical care time was spent reviewing the patient record, examining the patient, making a diagnostic and therapeutic plan, discussing this plan with the medical personnel, following up on diagnostic kathleen dies and following the patient for clinical stability excluding any and all procedures. At least 50% of this time was spent in direct, [id number] contact. Thank you Damian Watson NP, for allowing me to participate in this patient's care. Further recommendations will depend on the patient's clinical course. Please do not hesitate to contact me if you have any questions or concerns. This medical document was created using an electronic medical record system with [employer] computerized dictation system. Although these documentations are being carefully reviewed, there may still be some phonetic and typographical changes. The errors are purely typographical, due to imperfection on the software program, and do not reflect any compromise in the patient's medical care. Plan discussed with: Other (KIRILL Hanna, AZIZA Watson MD) PETEY SOLANO MD Jan 06, 2024 21:02
[2024-01-06 21:38] LABS: Base Excess -11.3 mmol/L (-2.0-3.0)
[2024-01-06 22:09] LABS: Lactic Acid w/Reflex 7.5 mmol/L (0.4-2.0)
[2024-01-07] VITALS (104 sets, daily range): BP systolic 86–121; BP diastolic 35–112; PULSE 63–97; RESP 12–21; TEMP 96.3–98.8; O2SAT 88–100
[2024-01-07] MEDS: LACTULOSE 20Gm/30ML SOLN PO SCH ×2 (00:11→14:00)
[2024-01-07 03:41] LABS: Basophils # (auto) 0 10 ^3/uL (0-0.2); Basophils % (auto) 0.1 % (0.0-2.0); Eosinophils # (auto) 0 10 ^3/uL (0-0.8); Hematocrit 34.2 % (41.0-53.0); Hemoglobin 11.5 g/dL (13.5-17.5); Lymphocytes # (auto) 0.9 10 ^3/uL (0.4-5.4); Lymphocytes % (auto) 4.6 % (10.0-50.0); Mean Corpuscular Hemoglobin 37.1 pg (28.0-32.0); Mean Corpuscular Hgb Conc. 33.7 g/dL (32.0-36.0); Monocytes # (auto) 0.7 10 ^3/uL (0-1.3); Monocytes % (auto) 3.9 % (0.0-12.0); Neutrophils # (auto) 17.5 10 ^3/uL (1.6-8.6); Neutrophils % (auto) 91.4 % (37.0-80.0); Nucleated Red Blood Cells % 0.1 %; Platelet Count (auto) 101 10^3/uL (140-450); Red Blood Cells 3.11 10^6/uL (4.5-5.90); Red Cell Distribution Width 15.4 % (11.8-14.3); White Blood Cell 19.1 10^3/uL (4.4-10.8)
[2024-01-07 03:46] LABS: Alanine Aminotransferase 32 U/L (7-40); Albumin 2.3 g/dL (3.2-4.8); Alkaline Phosphatase 138 U/L (46-116); Anion Gap 8 (5-15); Aspartate Aminotransferase 63 U/L (13-40); BUN/Creatinine Ratio 14.8 (10.0-20.0); Blood Urea Nitrogen 24 mg/dL (9-23); Carbon Dioxide 21 mmol/L (20-31); Chloride 111 mmol/L (98-107); Glucose 153 mg/dL (74-106); Magnesium 1.8 mg/dL (1.6-2.6); Potassium 5.2 mmol/L (3.5-5.1); Sodium 140 mmol/L (136-145)
[2024-01-07 03:47] LABS: Bilirubin, Total 3.8 mg/dL (0.2-1.0); Total Protein 5.4 g/dL (5.7-8.2)
[2024-01-07 04:08] LABS: Lactic Acid w/Reflex 5.5 mmol/L (0.4-2.0)
--- NOTE | 2024-01-07 04:42 | DVH ---
CHEST RADIOGRAPH Indication:INTUBATED Technique: Single frontal view of the chest was obtained Comparison: XY CHEST XRAY 1 VIEW on DOS: 01/06/24 FINDINGS: Lines and Tubes: The endotracheal tube terminates 2.6 cm above the john. The right central venous catheter terminates in the superior vena cava. The enteric tube courses below the left hemidiaphragm and the tip extends outside the field of view. Lungs: Bibasilar atelectasis. Pleura: No effusion. No pneumothorax. Cardiomediastinal contours: Unremarkable Bones: No acute osseous abnormality. IMPRESSION: 1. Endotracheal tube terminates 2.6 cm above the john. 2. Bibasilar atelectasis similar to prior study.
[2024-01-07] MEDS: SODIUM ZIRCONIUM CYCL 10 GM PAK PO ONE (06:13)
[2024-01-07] MEDS: MAGNESIUM SULFATE 1GM/100ML 100 ML IV ONE (06:14)
[2024-01-07] MEDS: ACCU-CHEK COMFORT CURVE STRIP VI SCH (07:00)
[2024-01-07] MEDS: MEROPENEM 1GM IVPB 50 ML IV ONE (07:30)
[2024-01-07] MEDS ORDERED: SODIUM BICARB 50mEq/50ml Vial 150 ML in D5W 5% 1,000 ML IV SCH (07:30)
[2024-01-07] MEDS ORDERED: VANCOMYCIN PER PHARMACY 0 MG IV SCH (07:30)
[2024-01-07 08:01] LABS: Base Excess -4.1 mmol/L (-2.0-3.0)
[2024-01-07] MEDS: DEXTROSE (50%) 50ML SYRG IV ONE (08:15)
--- NOTE | 2024-01-07 09:16 | DVH ---
INDICATION: Cirrhosis. Ascites. TECHNIQUE: Multiple real-time sonographic images of the abdomen were obtained. COMPARISON: None FINDINGS: The liver is nodular in contour an echogenic. The liver measures 10.0 cm. No intrahepatic biliary ductal dilatation is noted. Turbulent flow in the main portal vein. The gallbladder wall measures 0.4 cm and is unremarkable. Sludge and stones in the gallbladder. Th e common duct is not visualized. Negative sonographic alexis's sign. The right kidney measures 11.9 cm. No hydronephrosis. The left kidney measures 12.0 cm. No hydronep hrosis. The spleen measures 13.2 cm, within normal limits. The echogenicity is within normal limits. Hypoechoic mass near the pancreatic tail versus bowel loop. The visualized portions of the IVC and aorta are grossly unremarkable. Moderate ascites. IMPRESSION: 1. Cirrhosis. Turbulent flow in the main portal vein. 2. Moderate ascites. 3. Cholelithiasis and sludge. 4. Hypoechoic mass in the pancreas versus a bowel loop. CT of the abdomen pelvis with IV contrast is recommended.
[2024-01-07] MEDS: VANCOMYCIN 1GM/200ML PREMIX 200 ML IV SCH (09:56)
[2024-01-07] MEDS: ALBUTEROL SULF 2.5 MG/0.5ML(0.5%) NEB SOLN NEB ONE (10:00)
[2024-01-07] MEDS ORDERED: HYDROCORTISONE SOD SUCC 100 MG/2ML INJ VIAL IV SCH ×2 (10:00→12:00)
[2024-01-07] MEDS ORDERED: ALBUMIN 25% 100 ML IV SCH (10:00)
--- NOTE | 2024-01-07 11:25 | DVHINCON2 ---
GI Consult Consult Note GI consult note Date of Consultation: 01/07/2024 Chief Complaint: Elevated ammonia levels Referring Physician: Walter ERVIN H&P: 63-year-old male admitted with altered level of consciousness. Patient is intubated and sedated. History from chart,, RN and girlfriend at bedside Patient has history of liver cirrhosis, history of alcohol use, sober for one year now Recent admission to [facility], , discharged on Friday status post paracentesis with 4 L removed Slight red blood noted one time with BM per RN, none now. No melena Past Medical History: COPD, GERD, Liver (cirrhosis), ascites, esophageal disorder Past Surgical History: Paracentesis Social History: NO smoking, sober drinking ETOH Family History: Noncontributory Review of Systems: Constitutional: no fever, chill, weight loss Heart: no chest pain, no chest pressure Lung: no cough, no dyspnea with exertion Abdomen: see HPI Physical exam: General: NAD, AAOX3 Chest: lung lópez clear to auscultation Heart: RRR, no murmur Abdomen: Mild-distended, soft, +BS Labs: Labs/Diagnostic Data Labs Test 01/06/24 18:44 01/06/24 09:28 01/06/24 08:42 01/06/24 07:15 Range/Units White Blood Count 11.1 #H 4.4-10.8 10^3/uL Red Blood Count 3.23 L 4.5-5.90 10^6/uL Hemoglobin 12.0 L 13.5-17.5 g/dL Hematocrit 35.6 #L 41.0-53.0 % Mean Corpuscular Volume 110.4 H 80.0-100.0 fL Mean Corpuscular Hemoglobin 37.2 H 28.0-32.0 pg Mean Corpuscular Hemoglobin Concent 33.7 32.0-36.0 g/dL Red Cell Distribution Width 15.4 H 11.8-14.3 % Platelet Count 118 L 140-450 10^3/uL Mean Platelet Volume 8.5 6.9-10.8 fL Neutrophils (%) (Auto) 89.9 H 37.0-80.0 % Lymphocytes (%) (Auto) 6.1 L 10.0-50.0 % Monocytes (%) (Auto) 3.9 0.0-12.0 % Eosinophils (%) (Auto) 0.0 0.0-7.0 % Basophils (%) (Auto) 0.1 0.0-2.0 % Neutrophils # (Auto) 10.0 H 1.6-8.6 10 ^3/uL Lymphocytes # (Auto) 0.7 0.4-5.4 10 ^3/uL Monocytes # (Auto) 0.4 0-1.3 10 ^3/uL Eosinophils # (Auto) 0 0-0.8 10 ^3/uL Basophils # (Auto) 0 0-0.2 10 ^3/uL Nucleated Red Blood Cells 0.1 % Sodium Level 142 136-145 mmol/L Potassium Level 4.9 3.5-5.1 mmol/L Chloride Level 111 H 98-107 mmol/L Carbon Dioxide Level 19 L 20-31 mmol/L Anion Gap 12 5-15 Blood Urea Nitrogen 24 H 9-23 mg/dL Creatinine 1.67 H 0.700-1.30 mg/dL Glomerular Filtration Rate Calc 45 >90 mL/min BUN/Creatinine Ratio 14.4 10.0-20.0 Serum Glucose 142 H 74-106 mg/dL Lactic Acid Level 8.4 *H 0.4-2.0 mmol/L Calcium Level 8.0 L 8.7-10.4 mg/dL Phosphorus Level 6.4 H 2.4-5.1 mg/dL Magnesium Level 1.9 1.6-2.6 mg/dL Total Bilirubin 3.6 H 0.2-1.0 mg/dL Aspartate Amino Transferase (AST) 63 H 13-40 U/L Alanine Aminotransferase (ALT) 35 7-40 U/L Alkaline Phosphatase 151 H 46-116 U/L Total Protein 5.8 5.7-8.2 g/dL Albumin 2.3 L 3.2-4.8 g/dL Blood Gas Specimen Type Arterial Blood Gas Sample Site Arterial line Blood Gas Patient Temperature 37.0 Arterial Blood Date Drawn [id number] Arterial Blood pH 7.400 7.350-7.450 Arterial Blood Partial Pressure CO2 29.4 L 35.0-48.0 mmHg Arterial Blood Partial Pressure O2 121.8 H 83.0-108.0 mmHg Arterial Blood HCO3 17.8 L 21.0-28.0 mmol/L Arterial Blood Oxygen Saturation 98.3 H 94.0-98.0 % Arterial Blood Base Excess -5.7 L -2.0-3.0 mmol/L Arterial Blood Oxyhemoglobin 96.6 94.0-98.0 % Arterial Blood Carboxyhemoglobin 1.0 0.5-1.5 % Arterial Blood Methemoglobin 0.7 0.0-1.5 % Dusty Test N/a Blood Gas Total Hemoglobin 13.70 13.5-17.5 g/dL Blood Gas Set Respiration Rate 18.0 Blood Gas Modality Vent - ac FiO2 % 60.0 Blood Gas Tidal Volume 600.0 Blood Gas PEEP or CPAP 5.0 Urine Color Yellow Yellow Urine Clarity Clear Clear Urine pH 6.5 5.0-9.0 Urine Specific Rayle 1.025 1.001-1.035 Urine Protein Trace H Negative Urine Ketones Trace Negative Urine Blood Negative Negative /uL Urine Nitrite Negative Negative Urine Bilirubin Negative Negative Urine Urobilinogen 8 H Negative mg/dL Urine Leukocyte Esterase Negative Negative /uL Urine RBC 1 0 - 3 /hpf Urine WBC 2 0 - 3 /hpf Urine Squamous Epithelial Cells Few <5 /hpf Urine Bacteria None seen None Seen /hpf Urine Hyaline Casts Many 0 - 2 /lpf Urine Mucus Few None Seen Urine Glucose Normal Normal mg/dL Urine Opiates Screen Neg NEGATIVE Urine Fentanyl Screen Neg NEGATIVE Urine Barbiturates Screen Neg NEGATIVE Urine Phencyclidine Screen Neg NEGATIVE Urine Amphetamines Screen Neg NEGATIVE Urine Benzodiazepines Screen Pos NEGATIVE Urine Cocaine Screen Neg NEGATIVE Urine Cannabinoids Screen Neg NEGATIVE Prothrombin Time 14.8 H 9.3-11.8 sec Prothrombin Time INR 1.43 H 0.9-1.15 Activated Partial Thromboplast Time 29.9 24.5-34.5 SEC Ammonia 330 *H 11-32 umol/L Troponin I High Sensitivity 6 </=54 ng/L Plasma/Serum Blood Alcohol < 3.0 <10 mg/dL Imaging: Abdominal ultrasound IMPRESSION: 1. Cirrhosis. Turbulent flow in the main portal vein. 2. Moderate ascites. 3. Cholelithiasis and sludge. 4. Hypoechoic mass in the pancreas versus a bowel loop. CT of the abdomen pelvis with IV contrast is recommended. Assessment: Liver cirrhosis Ascites History heavy alcohol Acute respiratory failure Elevated ammonia Plan: -discussed with Dr. Britt hepatitis panel ,ammonia level, monitor labs Protonix IV Lactulose Paracentesis Discussed plan with girlfriend at bedside and RN Thank you for this consult Date of Service: Jan 07, 2024 Billing Provider: CHRIS MADERA Common Visit Codes: CONSULT ONLY Consultation Codes: [id number] CONSULT <60MIN CHRIS MADERA Jan 07, 2024 11:25
[2024-01-07] MEDS: NOREPINEPHRINE 8 MG/250ML KIT 250 ML IV SCH (11:33)
[2024-01-07] MEDS: rifAXIMin 550 MG TAB PO ONE (12:21)
[2024-01-07 12:31] LABS: Basophils # (auto) 0 10 ^3/uL (0-0.2); Eosinophils # (auto) 0 10 ^3/uL (0-0.8); Hematocrit 28.8 % (41.0-53.0); Hemoglobin 9.6 g/dL (13.5-17.5); Lymphocytes # (auto) 0.5 10 ^3/uL (0.4-5.4); Mean Corpuscular Hgb Conc. 33.4 g/dL (32.0-36.0); Monocytes # (auto) 0.6 10 ^3/uL (0-1.3); Monocytes % (auto) 3.8 % (0.0-12.0); Red Cell Distribution Width 15.3 % (11.8-14.3); White Blood Cell 14.7 10^3/uL (4.4-10.8)
[2024-01-07 12:34] LABS: Basophils % (auto) 0.1 % (0.0-2.0); Lymphocytes % (auto) 3.3 % (10.0-50.0); Mean Corpuscular Hemoglobin 36.7 pg (28.0-32.0); Neutrophils # (auto) 13.7 10 ^3/uL (1.6-8.6); Neutrophils % (auto) 92.8 % (37.0-80.0); Platelet Count (auto) 71 10^3/uL (140-450); Red Blood Cells 2.62 10^6/uL (4.5-5.90)
[2024-01-07 13:06] LABS: Partial Thromboplastin Time 46.6 SEC (24.5-34.5); Prothrombin Time 21.6 sec (9.3-11.8)
[2024-01-07 13:08] LABS: INR 2.16 (0.9-1.15)
[2024-01-07 13:09] LABS: Lactic Acid w/Reflex 2.9 mmol/L (0.4-2.0)
[2024-01-07 13:11] LABS: Alanine Aminotransferase 24 U/L (7-40); Alkaline Phosphatase 102 U/L (46-116); Anion Gap 6 (5-15); Blood Urea Nitrogen 25 mg/dL (9-23); Calcium 6.2 mg/dL (8.7-10.4); Carbon Dioxide 20 mmol/L (20-31); Chloride 118 mmol/L (98-107); Glucose 122 mg/dL (74-106); Potassium 3.9 mmol/L (3.5-5.1); Sodium 144 mmol/L (136-145)
[2024-01-07 13:12] LABS: Albumin 1.8 g/dL (3.2-4.8); Aspartate Aminotransferase 50 U/L (13-40); BUN/Creatinine Ratio 19.7 (10.0-20.0); Bilirubin, Total 2.4 mg/dL (0.2-1.0); Total Protein 4.2 g/dL (5.7-8.2)
[2024-01-07] MEDS: MEROPENEM 1GM IVPB 50 ML IV SCH (13:49)
--- NOTE | 2024-01-07 14:25 | DVH ---
US PARACENTESIS, HISTORY: ASCITES PROCEDURE: Informed consent was obtained. The patient was placed in supine position. A limited locali zation ultrasound of the abdomen was obtained, and the skin site over the largest pocket of fluid was marked and entry site was prepped with chlorhexidine which was allowed to dry and draped in the usua l sterile fashion. Time out was performed. Following administration of 1% lidocaine local anesthetic, a 5 Iraqi centesis needle catheter was percutaneously inserted into the peritoneal collection until fluid was aspirated. The catheter was advanced into the fluid collection and the needle removed. Abo ut 3000 cc of fluid was aspirated and specimen sent for appropriate cultures/cytology/cultures and cy tology. The catheter was then removed and a sterile dressing applied. No immediate complication was identified. FINDINGS: Limited ultrasound imaging demonstrates mild ascites. Aspirated fluid was clear and serous. IMPRESSION: US-guided paracentesis with 3L removed.
--- NOTE | 2024-01-07 15:16 | DVH ---
CT CT AB PEL WO CON-NO ORAL OR IV INDICATION: : 63 old Male PANCREATIC MASS EXAM DATE: 01/07/2024 02:38 PM COMPARISON: 01/06 RADIATION DOSE: CTDIvol: 25.2 mGy, DLP: 1764.09 mGy*cm PROCEDURE: Helical CT images were obtained of the abdomen and pelvis without IV contrast Sagittal an d coronal reconstructions are provided. ORAL CONTRAST: None. ADDITIONAL IMAGES / REFORMATS: None All CT scans at this medical facility are performed using dose modulation techniques as appropriate t o a performed exam including the following: Automated exposure control was utilized; adjustment of th e MA and/or KV according to patient size; and use of iterative reconstruction technique. FINDINGS: LUNG BASE: Bibasilar consolidation is seen with trace pleural effusion. LIVER: Shrunken cirrhotic liver with small adjacent portosytemic collaterals. GALLBLADDER AND BILIARY TREE: Gallstone at the neck of the gallbladder. No intra- or extrahepatic wilfredo iary ductal dilation. PANCREAS: Normal. SPLEEN: Normal. BOWEL: No small bowel dilation. Thickened colonic galeas likely secondary to decompression. ADRENALS: Normal. KIDNEYS AND URETER: Normal. BLADDER: Sunshine in the bladder. REPRODUCTIVE ORGANS: Normal. LYMPH NODES:No lymphadenopathy. PERITONEUM: Trace ascites. VESSELS: Scattered atherosclerotic calcifications are noted. RETROPERITONEUM: Normal. ABDOMINAL WALL: Anasarca. Fat containing umbilical hernia. BONES: Scattered osseous degenerative changes are noted. IMPRESSION: Shrunken cirrhotic liver with small adjacent portosytemic collaterals. Trace ascites. Gallstone at the neck of the gallbladder. Bibasilar consolidation is seen with trace pleural effusion. Thickened colonic galeas likely secondary to decompression or portal colopathy. No mass seen at the pancreas.
[2024-01-07 16:36] LABS: Body Fluid Polymorphonuclear 90 % (0-25); Body Fluid Red Blood Cells 77 CUMM (0-2000); Body Fluid White Blood Cells 191 CUMM (0-200)
--- NOTE | 2024-01-07 16:39 | DVHSR ---
APPROVED REPORT EXAM: Two-dimensional and M-mode echocardiogram with Doppler and color Doppler. Blood Pressure: 105/53 mmHg INDICATION Heart Failure RISK FACTORS Height: 6'2", Weight: 230 DIMENSIONS LVDd4.9 (3.8-5.7cm)LA (2D)5.2 (1.9-4.0cm)Aortic Root (2.0-3.7cm) LVDs2.7 (2.5-4.0cm)LA (MM) (1.9-4.0cm)Aortic Cusp Exc (1.5-2.0cm) EF (%) 76.0 (55-70%)Rt. Atrium5.5 (1.9-4.0cm)Asc. Aorta cm IVSd0.9 (0.7-1.1cm)RV (D) (1.8-2.4cm) Mitral Valve MitralMitral Stenosis E wave0.99m/sMV Mean GR.mmHg A wave1.03m/sMV Peak GR.mmHg E/A ratio1.02D MVAcm2 DECEL [id number] 1/2 Timems Aortic Valve Aortic ValveAortic Stenosis V11.42m/Devika Mean GR.6mmHg V21.59m/Devika Peak GR.10mmHg LVOT Diameter2.0 (1.8-2.4cm)Doppler AVA2.80cm2 Other Information Quality : Technically LimitedRhythm : Technically limited study due to body habitus and on vent. Conclusion Normal left ventricular size and dimension. Normal left ventricular systolic function estimated ejec tion fraction 55%. There is a grade 1 diastolic dysfunction. Normal right ventricular size and dimension. Normal right ventricular systolic function. Normal biatrial size and dimension. Normal aortic valve structure and function. Normal mitral valve structure and function. Normal tricuspid valve structure and function. The pulmonary valve is grossly normal. No pericardial effusion.
--- NOTE | 2024-01-07 17:40 | DVHNC2 ---
Procedure - Tailings Man: Dr Gregory PGY1: Robert Mcnamara handwash prior to starting sterile technique. A time out was performed. My hands were washed immediately prior to the procedure. I wore a surgical cap, mask with protective eyewear, full gown and sterile gloves throughout the procedure. The patient was placed in Trendelenburg position. LEFT chest region was prepped using chlorhexidine scrub and draped in sterile fashion using a full drape and sterile probe cover and sterile gel employed. The medial and lateral heads of the sternocleidomastoid muscle were identified as was the carotid pulse. The Internal Jugular vein was identified using the ultrasound. Anesthesia was achieved over the vein using 1% lidocaine. Using real-time out of plane guidance, the introducer needle was inserted into the Internal Jugular vein under direct ultrasound visualization. Venous blood was withdrawn. The syringe was removed and a guidewire was advanced into the introducer needle. The guidewire was visualized in the Internal Jugular Vein by ultrasound. A small incision was made at the skin surface with a scalpel and the introducer needle was exchanged for a dilator over the guidewire. After appropriate dilation was obtained, the dilator was exchanged over the wire for a central venous catheter. The wire was removed and the catheter was sutured in place at 20 cm. A sterile sorbaview shield was placed over the catheter at the insertion site. The patient tolerated the procedure without any hemodynamic compromise. At time of procedure completion, all ports aspirated and flushed properly. Post-procedure chest x-ray is pending at this time. Estimated blood loss is 50 cc. GRACE MARROQUIN RESIDENT Jan 07, 2024 17:40
--- NOTE | 2024-01-07 17:51 | DVHPNRES ---
Progress Note Date Seen: Jan 07, 2024 Resident Creating Document: GRACE MARROQUIN RESIDENT Has the PT tested + for MRSA If YES, has PT been informed?: No Medical Necessity Reason Pt with a Central, PICC or Fol: No Subjective Review of Systems A 63-year-old with past medical history of cirrhosis previous alcohol abuse GERD, COPD, who came to the ED for altered mental status. Patient was admitted on send Maggie on January 03 for paracentesis, 4 L removed. Due to your the use of accessory muscles and unable to maintain airway patient was intubated in the ED. Home meds furosemide spironolactone omeprazole Trelegy Patient is being sober for 1 year Objective vital signs Vital Sign Date Time Temp Pulse Resp B/P (MAP) Pulse Ox O2 Delivery O2 Flow Rate FiO2 01/07/24 16:00 80 01/07/24 16:00 40 01/07/24 15:47 18 97/43 (61) 94 01/07/24 14:55 96.3 96.3 01/07/24 08:00 Mechanical Ventilator+ 01/06/24 20:55 40 Total Intake and Output 01/06/24 01/06/24 01/07/24 15:00 23:00 07:00 Intake Total 723.75 ml 1179.50 ml 1184.25 ml Output Total 525 ml 1400 ml Balance 198.75 ml 1179.50 ml -215.75 ml medications Current Medications Medications Dose Ordered Sig/Salena Route Start Time Stop Time Status Last Admin Dose Admin Midazolam HCl 50 ml @ 1 mls/hr Q24H IV 01/06/24 07:00 01/07/24 15:22 14 MLS/HR Fentanyl Citrate 250 ml @ 2.5 mls/hr Q24H IV 01/06/24 08:30 01/07/24 11:48 32.5 MLS/HR Sodium Chloride 10 ml Q8HR IV 01/06/24 14:00 01/07/24 14:00 10 ML Ondansetron HCl 4 mg Q4HP PRN IV 01/06/24 09:00 Phenylephrine HCl 250 ml @ 30 mls/hr Q8H20M IV 01/06/24 10:00 01/07/24 08:32 67.5 MLS/HR Propofol 100 ml @ 3.135 mls/ hr Q24H IV 01/06/24 10:00 Nitroglycerin 0.4 mg Q5MINP PRN SL 01/06/24 10:45 Morphine Sulfate 2 mg Q30M PRN IV 01/06/24 10:45 Vasopressin 20 units/Sodium Chloride 100 ml @ 9 mls/hr Q11H7M IV 01/06/24 19:45 01/07/24 09:54 9 MLS/HR Meropenem 50 ml @ 17 mls/hr Q8HR IV 01/07/24 14:00 01/07/24 13:49 17 MLS/HR Norepinephrine Bitartrate 250 ml @ 3.75 mls/hr Q24H IV 01/07/24 08:15 01/07/24 11:33 3.75 MLS/HR Diagnostic Test (Pha) 1 strip Q6HR 01/07/24 07:00 01/07/24 12:26 1 STRIP Lactulose 30 ml Q4HR PO 01/07/24 14:00 Pantoprazole Sodium 40 mg BID IV 01/07/24 22:00 Rifaximin 550 mg BID PO 01/07/24 22:00 Examination GEN: intubated -Head: ETT on place NECK: Supple, with no masses. CV: RRR, no m/r/g. LUNGS: diminished breath sound in bases ABD: Anasarca. Fat containing umbilical hernia. EXT: edema 4 ext NEURO:unable to asses laboratory and microbiology Laboratory Tests 01/07/24 12:15 Test 01/07/24 12:15 Range/Units Serum Glucose 122 H 74-106 mg/dL Microbiology Date/Time Source Procedure Growth Status 01/06/24 16:13 Nose MRSA Screen - Final Complete 01/06/24 07:15 Blood Blood Culture - Preliminary NO GROWTH AFTER 24 HOURS OF INCUBATION. Resulted 01/06/24 07:10 Sputum Gram Stain - Final Resulted 01/06/24 07:10 Sputum Respiratory Culture - Preliminary Resulted Problem List/Assessment/Plan Problem List/Assessment/Plan Neurologic: #Acute metabolic encephalopathy due to hyperammonemia and septic shock. Ammonia level: 330-68 Lactulose 30 ml q4h Rifaximin 550 mg BID Normal head CT scan Respiratory: # Acute hypoxic respiratory failure secondary to septic shock and decompensated cirrhosis. #Septic shock due to pneumonia gram+/gram - Patient is on fentanyl and propofol RASS -4 mechanical ventilation RR 18 VT 600 PEEP 5 Fio2 30% xray: Bilateral lower lung zone hazy opacification which may represent pleural effusions or atelectasis with superimposed infection not excluded. No pneumothorax. Pt is on meropenem Cardiovascular: #Septic shock due to pneumonia gram+/gram - Patient on Levophed, Vasopressin, Phenylephrine ECHO: Normal left ventricular size and dimension. Normal left ventricular systolic function estimated ejection fraction 55%. 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 # Lower GI bleeding: episode of hematochezia rectal exam: small amount of blood in the stool, no external hemorroids hb: 11.5 - 9.6 stool occult blood ordered GI on the case #Gallstone at the neck of the gallbladder. #Thickened colonic galeas likely secondary to decompression or portal colopathy. #Umbilical hernia No mass seen at the pancreas. Endocrine/Metabolic: # Severe metabolic acidosis due to septic shock resolved # Hyperkalemia resolved #Hypocalcemia #Hyperphosphatemia PTH is ordered Infectious Disease: # septic shock due to pneumonia Continue Meropenem , monitor culture results, and adjust antibiotics based on sensitivities. Renal: # Acute kidney injury hemodinamically mediated Creatinine increased from 1.27 - 1.62 - 1.67 urinary output 0.5 ml/kg/hr Hematology: # Thrombocytopenia secondary to liver cirrhosis and hypersplenism . Hold on DVT prophylaxis General: Full code until now Critical care spent 81 min Case discussed with Dr Laird Plan discussed with: Patient, Other (rn) My Orders My Orders Orders - GRACE MARROQUIN RESIDENT Procedure Category Date Status Time Meropenem 1gm Ivpb PHA 01/07/24 In Process (Merrem 1gm/ Ns) 14:00 Abdomen Complete US 01/07/24 Resulted Sonogram 07:43 Echo 2d Mode Cardiac US 01/07/24 Resulted DOP 07:44 Norepinephrine 8 PHA 01/07/24 In Process Mg/250ml Kit 08:15 Stool Occult Blood LAB 01/07/24 Uncollected 08:05 Stool Bacterial CORTNEY 01/07/24 Uncollected Culture 08:05 Glucose Blood PHA 01/07/24 In Process (Accu-Chek Comfort 07:00 Basic Metabolic Panel LAB 11/7/24 Verified 04:00 Paracentesis US 01/07/24 Resulted 09:55 Urine Bacterial CORTNEY 01/07/24 Uncollected Culture 10:26 Chest Xray 1 View XY 01/07/24 Taken 17:30 Communication Order ORDERS 01/07/24 Transmitted 17:44 Communication Order ORDERS 01/07/24 Transmitted 17:44 Dietary Evaluation Review Comments: 1) I GI is accessible consider Jevity 1.2 @ 45ml/hr goal rate as tolerated 2) If pt remains NPO >7 days consider TPN to meet at least 75% of estimated needs 3) Continue current plan of care Expected Outcomes/Goals: 1) Pt to receive nutrition support within 7 days of NPO status 2) F/U in 2-3 days Date of Service: Jan 07, 2024 Billing Provider: KRISTOFER LAIRD MD Common Visit Codes: [id number] CARE 30-74 MIN, [id number] CARE-EACH +30MIN GRACE MARROQUIN RESIDENT Jan 07, 2024 17:51 KRISTOFER LAIRD MD Jan 08, 2024 09:27
--- NOTE | 2024-01-07 18:06 | DVH ---
CHEST RADIOGRAPH Indication:post central line Technique: Single frontal view of the chest was obtained Comparison: XY CHEST PORTABLE on DOS: 01/07/24, XY CHEST XRAY 1 VIEW on DOS: 01/06/24, XY CHEST PORTABL E on DOS: 01/06/24 Findings/ IMPRESSION: Endotracheal tube projects 3.7 cm superior to the john. Right IJ CVC with tip terminating near the cavoatrial junction. Left IJ CVC terminating in the SVC. Enteric tube projects below the GE junction. Bilateral lower lung zone hazy opacification which may represent pleural effusions or atelectasis wi th superimposed infection not excluded. No pneumothorax.
[2024-01-07] MEDS: PANTOPRAZOLE 40 MG/10 ML VIAL INJ IV SCH (21:04)
[2024-01-07] MEDS: rifAXIMin 550 MG TAB PO SCH (21:05)
[2024-01-08] VITALS (109 sets, daily range): BP systolic 88–132; BP diastolic 41–70; PULSE 59–96; RESP 13–32; TEMP 97.3–98.2; O2SAT 93–100
[2024-01-08 04:02] LABS: Basophils # (auto) 0 10 ^3/uL (0-0.2); Eosinophils # (auto) 0 10 ^3/uL (0-0.8); Platelet Count (auto) 90 10^3/uL (140-450)
[2024-01-08 04:04] LABS: Basophils % (auto) 0.1 % (0.0-2.0); Hematocrit 34.4 % (41.0-53.0); Hemoglobin 11.9 g/dL (13.5-17.5); Lymphocytes # (auto) 0.6 10 ^3/uL (0.4-5.4); Lymphocytes % (auto) 3.1 % (10.0-50.0); Mean Corpuscular Hemoglobin 37.3 pg (28.0-32.0); Mean Corpuscular Hgb Conc. 34.5 g/dL (32.0-36.0); Mean Corpuscular Volume 108.2 fL (80.0-100.0); Monocytes # (auto) 0.8 10 ^3/uL (0-1.3); Monocytes % (auto) 4.6 % (0.0-12.0); Neutrophils # (auto) 16.9 10 ^3/uL (1.6-8.6); Neutrophils % (auto) 92.2 % (37.0-80.0); Red Blood Cells 3.18 10^6/uL (4.5-5.90); Red Cell Distribution Width 15.1 % (11.8-14.3); White Blood Cell 18.4 10^3/uL (4.4-10.8)
[2024-01-08 04:07] LABS: Alanine Aminotransferase 34 U/L (7-40); Albumin 2.2 g/dL (3.2-4.8); Alkaline Phosphatase 140 U/L (46-116); Anion Gap 6 (5-15); Aspartate Aminotransferase 57 U/L (13-40); BUN/Creatinine Ratio 23.2 (10.0-20.0); Bilirubin, Total 2.7 mg/dL (0.2-1.0); Calcium 8.1 mg/dL (8.7-10.4); Carbon Dioxide 24 mmol/L (20-31); Chloride 110 mmol/L (98-107); Glucose 153 mg/dL (74-106); Phosphorus 3.9 mg/dL (2.4-5.1); Potassium 4.8 mmol/L (3.5-5.1); Sodium 140 mmol/L (136-145); Total Protein 5.6 g/dL (5.7-8.2)
[2024-01-08 04:12] LABS: Blood Urea Nitrogen 41 mg/dL (9-23)
--- NOTE | 2024-01-08 05:43 | DVH ---
CHEST RADIOGRAPH Indication:dyspnea Technique: Single frontal view of the chest was obtained Comparison: XY CHEST XRAY 1 VIEW on DOS: 01/07/24 FINDINGS: Lines and Tubes: The endotracheal tube terminates 3.9 cm above the john. Left central venous cathet er terminates in the superior vena cava. The enteric tube courses below the left hemidiaphragm and th e tip extends outside the field of view. Lungs: Patchy bilateral opacities. Pleura: No effusion. No pneumothorax. Cardiomediastinal contours: Unremarkable Bones: No acute osseous abnormality. IMPRESSION: 1. Stable position of the support lines and tubes. 2. Patchy bilateral airspace disease.
--- NOTE | 2024-01-08 07:36 | DVHPN2 ---
Progress Note - Dictate Date Seen: Jan 08, 2024 Has the PT tested + for MRSA If YES, has PT been informed?: No Medical Necessity Reason Pt with a Central, PICC or Fol: No Subjective No new complaints Patient is intubated sedated in the ICU 105 History of liver cirrhosis due to alcohol sober for one year Recent paracentesis for ascites Patient admitted with hepatic encephalopathy and respiratory failure requiring intubation Small amount of rectal bleeding that has since resolved NG tube output is bilious; hemoglobin stable at 11.9 vital signs Vital Sign Date Time Temp Pulse Resp B/P (MAP) Pulse Ox O2 Delivery O2 Flow Rate FiO2 01/08/24 06:45 67 18 117/57 (77) 96 01/08/24 06:00 40 01/08/24 04:00 97.3 97.3 01/07/24 20:00 Mechanical Ventilator+ 01/06/24 20:55 40 Total Intake and Output 01/07/24 01/07/24 01/08/24 15:00 23:00 07:00 Intake Total 771.5 ml 659.6 ml 422.5 ml Output Total 825 ml 775 ml Balance 771.5 ml -165.4 ml -352.5 ml medications Current Medications Medications Dose Ordered Sig/Salena Route Start Time Stop Time Status Last Admin Dose Admin Midazolam HCl 50 ml @ 1 mls/hr Q24H IV 01/06/24 07:00 01/08/24 02:34 4 MLS/HR Fentanyl Citrate 250 ml @ 2.5 mls/hr Q24H IV 01/06/24 08:30 01/07/24 21:33 25 MLS/HR Sodium Chloride 10 ml Q8HR IV 01/06/24 14:00 01/08/24 05:31 10 ML Phenylephrine HCl 250 ml @ 30 mls/hr Q8H20M IV 01/06/24 10:00 01/07/24 08:32 67.5 MLS/HR Propofol 100 ml @ 3.135 mls/ hr Q24H IV 01/06/24 10:00 Vasopressin 20 units/Sodium Chloride 100 ml @ 9 mls/hr Q11H7M IV 01/06/24 19:45 01/07/24 22:56 9 MLS/HR Meropenem 50 ml @ 17 mls/hr Q8HR IV 01/07/24 14:00 01/08/24 05:31 17 MLS/HR Norepinephrine Bitartrate 250 ml @ 3.75 mls/hr Q24H IV 01/07/24 08:15 01/08/24 02:35 15 MLS/HR Diagnostic Test (Pha) 1 strip Q6HR 01/07/24 07:00 01/08/24 06:00 1 STRIP Lactulose 30 ml Q4HR PO 01/07/24 14:00 01/08/24 05:31 30 ML Pantoprazole Sodium 40 mg BID IV 01/07/24 22:00 01/07/24 21:04 40 MG Rifaximin 550 mg BID PO 01/07/24 22:00 01/07/24 21:05 550 MG objective General: NAD, AAOX3 Chest: lung lópez clear to auscultation Heart: RRR, no murmur Abdomen: Mild-distended, soft, +BS laboratory and microbiology Laboratory Tests 01/08/24 03:17 Test 01/08/24 03:17 Range/Units Serum Glucose 153 H 74-106 mg/dL Problems(with codes): (1) Elevated liver enzymes (2) Acute respiratory failure with hypoxia (3) Elevated lactic acid level (4) Generalized weakness (5) Hepatic encephalopathy (6) Liver disease (7) Acute respiratory failure Prognosis Assessment plan Continue sepsis workup, IV antibiotics Continue lactulose 30 mL via NG tube q.8 hours Correct coagulopathy with vitamin K Ascitic fluid does not show any evidence of peritonitis His MELD score is 24 points with a fair prognosis IV Protonix 40 mg daily Dietary Evaluation Review Comments: 1) I GI is accessible consider Jevity 1.2 @ 45ml/hr goal rate as tolerated 2) If pt remains NPO >7 days consider TPN to meet at least 75% of estimated needs 3) Continue current plan of care Expected Outcomes/Goals: 1) Pt to receive nutrition support within 7 days of NPO status 2) F/U in 2-3 days Plan discussed with: Other (Viktoria Spencer; ICU Nurse) JOSÉ MIGUEL COLLIER MD Jan 08, 2024 07:36
[2024-01-08 08:04] LABS: Base Excess -1.2 mmol/L (-2.0-3.0)
[2024-01-08] MEDS: phytonadione 10 MG in SODIUM CHL 0.9% 50 ML IV ONE (08:18)
[2024-01-08] MEDS: ACCU-CHEK COMFORT CURVE STRIP VI SCH (09:13)
[2024-01-08 09:34] LABS: Hepatitis B Core Total AB Negative (Negative)
[2024-01-08 11:39] LABS: Hepatitis A Total Antibody Negative (Negative); Hepatitis B Surface Antibody Negative (Negative); Hepatitis B Surface Antigen Negative (Negative); Hepatitis C Antibody Negative (Negative)
[2024-01-08] MEDS ORDERED: POLYETHYLENE GLYCOL 17 GM PWDR PO PRN (12:00)
[2024-01-08] MEDS: DOXYCYCLINE 100MG/250ML 250 ML IV SCH (12:00)
[2024-01-08] MEDS: FLEET ENEMA(ADULT) 135 ML PR ONE (12:00)
[2024-01-08] MEDS: ALBUMIN 25% 100 ML IV SCH (12:00)
[2024-01-08 14:06] LABS: Protein, Body Fluid 0.8 g/dL (.)
--- NOTE | 2024-01-08 19:14 | DVHINCON2 ---
Date of service: Jan 08, [address] Edwards Reason for Consultation Acute kidney injury History of Present Illness Patient is 63-year-old obese male with past medical history significant for COPD, GERD, decompensated liver cirrhosis, GERD and esophageal disorder who is admitted for altered level of consciousness shortness of breath. Patient currently intubated on mechanical ventilation, patient was found to have elevated BUN creatinine nephrology is consulted for acute kidney injury Past Medical History COPD, GERD, liver cirrhosis , ascites, esophageal disorder Past Surgical History Paracentesis Allergies: Coded Allergies: UNOBTAINABLE (Unverified , 01/06/24) Current Medications Current Medications Medications (Trade) Dose Ordered Sig/Salena Route PRN Reason Start Time Stop Time Status Last Admin Doxycycline Hyclate 250 ml @ 125 mls/hr Q12H IV 01/08/24 12:00 01/08/24 15:32 Albumin Human 100 ml @ 100 mls/hr Q6HR IV 01/08/24 12:00 01/09/24 06:59 DC 01/09/24 05:13 Polyethylene Glycol (Miralax 17GM Powder) 17 gm DAILYPRN PRN PO FOR CONSTIPATION 01/08/24 12:00 Octreotide Acetate (SandoSTATIN) 100 mcg TID SUBCUT 01/08/24 22:00 01/09/24 05:15 Sodium Bicarbonate 50 ml/ Sodium Chloride 1,050 ml @ 100 mls/hr [id number] IV 01/08/24 19:30 01/09/24 10:34 DC 01/09/24 07:24 Albumin Human 100 ml @ 100 mls/hr Q8H IV 01/08/24 19:30 01/09/24 12:29 Cancel Review of Systems Can not be obtained H&P Exam Vital Signs/I&O Vital Sign Date Time Temp Pulse Resp B/P (MAP) Pulse Ox O2 Delivery O2 Flow Rate FiO2 01/09/24 10:33 73 18 112/49 (70 94 40 01/09/24 08:00 Mechanical Ventilator+ 01/09/24 07:45 98.1 98.1 Intake and Output 01/08/24 01/09/24 19:00 07:00 Intake Total 707.00 ml 1786.25 ml Output Total 775 ml 800 ml Balance -68.00 ml 986.25 ml Intake Oral 110 ml 310 ml IV Total 597.00 ml 1476.25 ml Output Urine Total 325 ml 650 ml Gastric Drainage Total 450 ml 150 ml Physical Exam Obese male intubated on ventilator Lungs clear to auscultation bilaterally Cardiac exam regular rate and rhythm GI obese positive ascites Sunshine catheter Extremity 1+ edema Neuro patient is sedated Labs/Diagnostic Data Labs/Diagnostic Data Laboratory Tests Test 01/09/24 10:43 01/09/24 08:51 01/09/24 06:43 01/09/24 03:05 Range/Units POC Glucose 103 70-106 mg/dl Blood Gas Specimen Type Arterial Blood Gas Sample Site Right radial Blood Gas Patient Temperature 37.0 Arterial Blood Date Drawn [id number] Arterial Blood pH 7.352 7.350-7.450 Arterial Blood Partial Pressure CO2 50.3 H 35.0-48.0 mmHg Arterial Blood Partial Pressure O2 73.8 L 83.0-108.0 mmHg Arterial Blood HCO3 27.3 21.0-28.0 mmol/L Arterial Blood Oxygen Saturation 93.5 L 94.0-98.0 % Arterial Blood Base Excess 1.1 -2.0-3.0 mmol/L Arterial Blood Oxyhemoglobin 92.5 L 94.0-98.0 % Arterial Blood Carboxyhemoglobin 0.8 0.5-1.5 % Arterial Blood Methemoglobin 0.3 0.0-1.5 % Dusty Test Modified Blood Gas Total Hemoglobin 11.40 L 13.5-17.5 g/dL Blood Gas Set Respiration Rate 18.0 Blood Gas Modality Vent - ac FiO2 % 40.0 Blood Gas Tidal Volume 500.0 Blood Gas PEEP or CPAP 5.0 White Blood Count 12.6 #H 4.4-10.8 10^3/uL Red Blood Count 3.00 L 4.5-5.90 10^6/uL Hemoglobin 11.0 L 13.5-17.5 g/dL Hematocrit 32.7 L 41.0-53.0 % Mean Corpuscular Volume 109.0 H 80.0-100.0 fL Mean Corpuscular Hemoglobin 36.7 H 28.0-32.0 pg Mean Corpuscular Hemoglobin Concent 33.7 32.0-36.0 g/dL Red Cell Distribution Width 15.1 H 11.8-14.3 % Platelet Count 63 L 140-450 10^3/uL Mean Platelet Volume 8.1 6.9-10.8 fL Neutrophils (%) (Auto) 87.4 H 37.0-80.0 % Lymphocytes (%) (Auto) 4.8 L 10.0-50.0 % Monocytes (%) (Auto) 7.7 0.0-12.0 % Eosinophils (%) (Auto) 0.0 0.0-7.0 % Basophils (%) (Auto) 0.1 0.0-2.0 % Neutrophils # (Auto) 11.0 H 1.6-8.6 10 ^3/uL Lymphocytes # (Auto) 0.6 0.4-5.4 10 ^3/uL Monocytes # (Auto) 1.0 0-1.3 10 ^3/uL Eosinophils # (Auto) 0 0-0.8 10 ^3/uL Basophils # (Auto) 0 0-0.2 10 ^3/uL Nucleated Red Blood Cells 0.0 % Sodium Level 141 136-145 mmol/L Potassium Level 5.5 H 3.5-5.1 mmol/L Chloride Level 112 H 98-107 mmol/L Carbon Dioxide Level 29 20-31 mmol/L Anion Gap 0 L 5-15 Blood Urea Nitrogen 40 H 9-23 mg/dL Creatinine 1.57 H 0.700-1.30 mg/dL Glomerular Filtration Rate Calc 49 >90 mL/min BUN/Creatinine Ratio 25.5 H 10.0-20.0 Serum Glucose 104 74-106 mg/dL Calcium Level 8.4 L 8.7-10.4 mg/dL Total Bilirubin 4.3 H 0.2-1.0 mg/dL Aspartate Amino Transferase (AST) 52 H 13-40 U/L Alanine Aminotransferase (ALT) 27 7-40 U/L Alkaline Phosphatase 103 46-116 U/L Ammonia 120 *H 11-32 umol/L Total Protein 5.7 5.7-8.2 g/dL Albumin 3.0 L 3.2-4.8 g/dL Test 01/08/24 21:33 01/08/24 17:42 01/08/24 10:20 01/08/24 09:17 Range/Units POC Glucose 116 H 117 H 151 H 70-106 mg/dl Ammonia 57 H 11-32 umol/L Test 01/08/24 07:17 01/08/24 05:28 01/08/24 03:17 01/07/24 23:50 Range/Units Blood Gas Specimen Type Arterial Blood Gas Sample Site Right radial Blood Gas Patient Temperature 37.0 Arterial Blood Date Drawn [id number] Arterial Blood pH 7.422 7.350-7.450 Arterial Blood Partial Pressure CO2 35.8 35.0-48.0 mmHg Arterial Blood Partial Pressure O2 78.5 L 83.0-108.0 mmHg Arterial Blood HCO3 22.8 21.0-28.0 mmol/L Arterial Blood Oxygen Saturation 94.1 94.0-98.0 % Arterial Blood Base Excess -1.2 -2.0-3.0 mmol/L Arterial Blood Oxyhemoglobin 93.4 L 94.0-98.0 % Arterial Blood Carboxyhemoglobin 0.5 0.5-1.5 % Arterial Blood Methemoglobin 0.2 0.0-1.5 % Dusty Test Modified Blood Gas Total Hemoglobin 13.00 L 13.5-17.5 g/dL Blood Gas Set Respiration Rate 18.0 Blood Gas Modality Vent - ac Blood Gas Spontaneous Rate 18 FiO2 % 40.0 Blood Gas Tidal Volume 600.0 Blood Gas Inspiratory Pressure 17.0 Bl Gas Inspiratory/Expiratory Ratio 1:2.0 Specimen Drawn By alma hardin POC Glucose 120 H 153 H 70-106 mg/dl White Blood Count 18.4 #H 4.4-10.8 10^3/uL Red Blood Count 3.18 L 4.5-5.90 10^6/uL Hemoglobin 11.9 #L 13.5-17.5 g/dL Hematocrit 34.4 #L 41.0-53.0 % Mean Corpuscular Volume 108.2 H 80.0-100.0 fL Mean Corpuscular Hemoglobin 37.3 H 28.0-32.0 pg Mean Corpuscular Hemoglobin Concent 34.5 32.0-36.0 g/dL Red Cell Distribution Width 15.1 H 11.8-14.3 % Platelet Count 90 L 140-450 10^3/uL Mean Platelet Volume 8.9 6.9-10.8 fL Neutrophils (%) (Auto) 92.2 H 37.0-80.0 % Lymphocytes (%) (Auto) 3.1 L 10.0-50.0 % Monocytes (%) (Auto) 4.6 0.0-12.0 % Eosinophils (%) (Auto) 0.0 0.0-7.0 % Basophils (%) (Auto) 0.1 0.0-2.0 % Neutrophils # (Auto) 16.9 H 1.6-8.6 10 ^3/uL Lymphocytes # (Auto) 0.6 0.4-5.4 10 ^3/uL Monocytes # (Auto) 0.8 0-1.3 10 ^3/uL Eosinophils # (Auto) 0 0-0.8 10 ^3/uL Basophils # (Auto) 0 0-0.2 10 ^3/uL Nucleated Red Blood Cells 0.0 % Sodium Level 140 136-145 mmol/L Potassium Level 4.8 3.5-5.1 mmol/L Chloride Level 110 H 98-107 mmol/L Carbon Dioxide Level 24 20-31 mmol/L Anion Gap 6 5-15 Blood Urea Nitrogen 41 #H 9-23 mg/dL Creatinine 1.77 H 0.700-1.30 mg/dL Glomerular Filtration Rate Calc 42 >90 mL/min BUN/Creatinine Ratio 23.2 H 10.0-20.0 Serum Glucose 153 H 74-106 mg/dL Calcium Level 8.1 L 8.7-10.4 mg/dL Phosphorus Level 3.9 2.4-5.1 mg/dL Total Bilirubin 2.7 H 0.2-1.0 mg/dL Aspartate Amino Transferase (AST) 57 H 13-40 U/L Alanine Aminotransferase (ALT) 34 7-40 U/L Alkaline Phosphatase 140 H 46-116 U/L Total Protein 5.6 L 5.7-8.2 g/dL Albumin 2.2 L 3.2-4.8 g/dL Vitamin D 25-Hydroxy 25.5 L 30.0-100 ng/mL Test 01/07/24 18:19 01/07/24 14:10 01/07/24 12:15 01/07/24 12:02 Range/Units POC Glucose 135 H 139 H 70-106 mg/dl Body Fluid Source Peritoneal fluid Body Fluid pH 8.0 Body Fluid WBC (Manual) 191 0-200 CUMM Body Fluid RBC (Manual) 77 0-2000 CUMM Body Fluid Mononuclear Cells 10 % Body Fluid Polymorphonuclear Cells 90 H 0-25 % Body Fluid Glucose 156 . mg/dL Body Fluid Total Protein 0.8 . g/dL Body Fluid Lactate Dehydrogenase 56 . IU/L White Blood Count 14.7 H 4.4-10.8 10^3/uL Red Blood Count 2.62 L 4.5-5.90 10^6/uL Hemoglobin 9.6 #L 13.5-17.5 g/dL Hematocrit 28.8 #L 41.0-53.0 % Mean Corpuscular Volume 110.0 H 80.0-100.0 fL Mean Corpuscular Hemoglobin 36.7 H 28.0-32.0 pg Mean Corpuscular Hemoglobin Concent 33.4 32.0-36.0 g/dL Red Cell Distribution Width 15.3 H 11.8-14.3 % Platelet Count 71 L 140-450 10^3/uL Mean Platelet Volume 8.6 6.9-10.8 fL Neutrophils (%) (Auto) 92.8 H 37.0-80.0 % Lymphocytes (%) (Auto) 3.3 L 10.0-50.0 % Monocytes (%) (Auto) 3.8 0.0-12.0 % Eosinophils (%) (Auto) 0.0 0.0-7.0 % Basophils (%) (Auto) 0.1 0.0-2.0 % Neutrophils # (Auto) 13.7 H 1.6-8.6 10 ^3/uL Lymphocytes # (Auto) 0.5 0.4-5.4 10 ^3/uL Monocytes # (Auto) 0.6 0-1.3 10 ^3/uL Eosinophils # (Auto) 0 0-0.8 10 ^3/uL Basophils # (Auto) 0 0-0.2 10 ^3/uL Nucleated Red Blood Cells 0.0 % Prothrombin Time 21.6 H 9.3-11.8 sec Prothrombin Time INR 2.16 H 0.9-1.15 Activated Partial Thromboplast Time 46.6 H 24.5-34.5 SEC Sodium Level 144 136-145 mmol/L Potassium Level 3.9 3.5-5.1 mmol/L Chloride Level 118 H 98-107 mmol/L Carbon Dioxide Level 20 20-31 mmol/L Anion Gap 6 5-15 Blood Urea Nitrogen 25 H 9-23 mg/dL Creatinine 1.27 0.700-1.30 mg/dL Glomerular Filtration Rate Calc 63 >90 mL/min BUN/Creatinine Ratio 19.7 10.0-20.0 Serum Glucose 122 H 74-106 mg/dL Hemoglobin A1c < 4.0 <5.7 % A1C Lactic Acid Level 2.9 *H 0.4-2.0 mmol/L Calcium Level 6.2 L 8.7-10.4 mg/dL Total Bilirubin 2.4 H 0.2-1.0 mg/dL Aspartate Amino Transferase (AST) 50 H 13-40 U/L Alanine Aminotransferase (ALT) 24 7-40 U/L Alkaline Phosphatase 102 46-116 U/L Ammonia 68 H 11-32 umol/L Total Protein 4.2 L 5.7-8.2 g/dL Albumin 1.8 L 3.2-4.8 g/dL Thyroid Stimulating Hormone (TSH) 0.19 L 0.55-4.78 uIU/mL Parathyroid Hormone (Intact) 91.8 H 18.4-80.1 pg/mL Hepatitis A Antibody Total Negative Negative Hepatitis B Surface Antigen Negative Negative Hepatitis B Surface Antibody Negative Negative Hepatitis B Core Total Antibody Negative Negative Hepatitis C Antibody Negative Negative Test 01/07/24 08:42 01/07/24 07:31 01/07/24 03:13 01/06/24 21:30 Range/Units POC Glucose 148 H 70-106 mg/dl Blood Gas Specimen Type Arterial Blood Gas Sample Site Arterial line Blood Gas Patient Temperature 37.0 Arterial Blood Date Drawn [id number] Arterial Blood pH 7.395 7.350-7.450 Arterial Blood Partial Pressure CO2 33.3 L 35.0-48.0 mmHg Arterial Blood Partial Pressure O2 66.9 L 83.0-108.0 mmHg Arterial Blood HCO3 19.9 L 21.0-28.0 mmol/L Arterial Blood Oxygen Saturation 92.4 L 94.0-98.0 % Arterial Blood Base Excess -4.1 L -2.0-3.0 mmol/L Arterial Blood Oxyhemoglobin 91.8 L 94.0-98.0 % Arterial Blood Carboxyhemoglobin 0.1 L 0.5-1.5 % Arterial Blood Methemoglobin 0.5 0.0-1.5 % Dusty Test N/a Blood Gas Total Hemoglobin 12.60 L 13.5-17.5 g/dL Blood Gas Set Respiration Rate 18.0 Blood Gas Modality Vent - ac FiO2 % 30.0 Blood Gas Tidal Volume 600.0 Blood Gas PEEP or CPAP 5.0 White Blood Count 19.1 #H 4.4-10.8 10^3/uL Red Blood Count 3.11 L 4.5-5.90 10^6/uL Hemoglobin 11.5 L 13.5-17.5 g/dL Hematocrit 34.2 L 41.0-53.0 % Mean Corpuscular Volume 110.0 H 80.0-100.0 fL Mean Corpuscular Hemoglobin 37.1 H 28.0-32.0 pg Mean Corpuscular Hemoglobin Concent 33.7 32.0-36.0 g/dL Red Cell Distribution Width 15.4 H 11.8-14.3 % Platelet Count 101 L 140-450 10^3/uL Mean Platelet Volume 8.3 6.9-10.8 fL Neutrophils (%) (Auto) 91.4 H 37.0-80.0 % Lymphocytes (%) (Auto) 4.6 L 10.0-50.0 % Monocytes (%) (Auto) 3.9 0.0-12.0 % Eosinophils (%) (Auto) 0.0 0.0-7.0 % Basophils (%) (Auto) 0.1 0.0-2.0 % Neutrophils # (Auto) 17.5 H 1.6-8.6 10 ^3/uL Lymphocytes # (Auto) 0.9 0.4-5.4 10 ^3/uL Monocytes # (Auto) 0.7 0-1.3 10 ^3/uL Eosinophils # (Auto) 0 0-0.8 10 ^3/uL Basophils # (Auto) 0 0-0.2 10 ^3/uL Nucleated Red Blood Cells 0.1 % Sodium Level 140 136-145 mmol/L Potassium Level 5.2 H 3.5-5.1 mmol/L Chloride Level 111 H 98-107 mmol/L Carbon Dioxide Level 21 20-31 mmol/L Anion Gap 8 5-15 Blood Urea Nitrogen 24 H 9-23 mg/dL Creatinine 1.62 H 0.700-1.30 mg/dL Glomerular Filtration Rate Calc 47 >90 mL/min BUN/Creatinine Ratio 14.8 10.0-20.0 Serum Glucose 153 H 74-106 mg/dL Lactic Acid Level 5.5 *H 7.5 *H 0.4-2.0 mmol/L Calcium Level 8.0 L 8.7-10.4 mg/dL Magnesium Level 1.8 1.6-2.6 mg/dL Total Bilirubin 3.8 H 0.2-1.0 mg/dL Aspartate Amino Transferase (AST) 63 H 13-40 U/L Alanine Aminotransferase (ALT) 32 7-40 U/L Alkaline Phosphatase 138 H 46-116 U/L Total Protein 5.4 L 5.7-8.2 g/dL Albumin 2.3 L 3.2-4.8 g/dL Test 01/06/24 19:10 01/06/24 18:44 01/06/24 09:28 01/06/24 09:15 Range/Units Blood Gas Specimen Type Arterial Arterial Blood Gas Sample Site Arterial line Arterial line Blood Gas Patient Temperature 37.0 37.0 Arterial Blood Date Drawn [id number] Arterial Blood pH 7.197 *L 7.400 7.350-7.450 Arterial Blood Partial Pressure CO2 43.1 29.4 L 35.0-48.0 mmHg Arterial Blood Partial Pressure O2 83.3 121.8 H 83.0-108.0 mmHg Arterial Blood HCO3 16.4 L 17.8 L 21.0-28.0 mmol/L Arterial Blood Oxygen Saturation 93.1 L 98.3 H 94.0-98.0 % Arterial Blood Base Excess -11.3 L -5.7 L -2.0-3.0 mmol/L Arterial Blood Oxyhemoglobin 92.4 L 96.6 94.0-98.0 % Arterial Blood Carboxyhemoglobin 0.3 L 1.0 0.5-1.5 % Arterial Blood Methemoglobin 0.4 0.7 0.0-1.5 % Dusty Test N/a N/a Blood Gas Total Hemoglobin 12.50 L 13.70 13.5-17.5 g/dL Blood Gas Set Respiration Rate 18.0 18.0 Blood Gas Modality Vent - ac Vent - ac Blood Gas Spontaneous Rate 18 FiO2 % 40.0 60.0 Blood Gas Tidal Volume 600.0 600.0 Blood Gas Spontaneous Tidal Volume 669 Blood Gas Inspiratory Pressure 23.0 Blood Gas PEEP or CPAP 5.0 5.0 Bl Gas Inspiratory/Expiratory Ratio 1:2.0 Specimen Drawn By [employer] Head. l singh Blood Gas Critical Value Read Back Yes Blood Gas Notified Whom Md. daphne ortiz Blood Gas Notified Time [id number] Blood Gas Notified By [employer] Head. kwabena singh White Blood Count 11.1 #H 4.4-10.8 10^3/uL Red Blood Count 3.23 L 4.5-5.90 10^6/uL Hemoglobin 12.0 L 13.5-17.5 g/dL Hematocrit 35.6 #L 41.0-53.0 % Mean Corpuscular Volume 110.4 H 80.0-100.0 fL Mean Corpuscular Hemoglobin 37.2 H 28.0-32.0 pg Mean Corpuscular Hemoglobin Concent 33.7 32.0-36.0 g/dL Red Cell Distribution Width 15.4 H 11.8-14.3 % Platelet Count 118 L 140-450 10^3/uL Mean Platelet Volume 8.5 6.9-10.8 fL Neutrophils (%) (Auto) 89.9 H 37.0-80.0 % Lymphocytes (%) (Auto) 6.1 L 10.0-50.0 % Monocytes (%) (Auto) 3.9 0.0-12.0 % Eosinophils (%) (Auto) 0.0 0.0-7.0 % Basophils (%) (Auto) 0.1 0.0-2.0 % Neutrophils # (Auto) 10.0 H 1.6-8.6 10 ^3/uL Lymphocytes # (Auto) 0.7 0.4-5.4 10 ^3/uL Monocytes # (Auto) 0.4 0-1.3 10 ^3/uL Eosinophils # (Auto) 0 0-0.8 10 ^3/uL Basophils # (Auto) 0 0-0.2 10 ^3/uL Nucleated Red Blood Cells 0.1 % Sodium Level 142 136-145 mmol/L Potassium Level 4.9 3.5-5.1 mmol/L Chloride Level 111 H 98-107 mmol/L Carbon Dioxide Level 19 L 20-31 mmol/L Anion Gap 12 5-15 Blood Urea Nitrogen 24 H 9-23 mg/dL Creatinine 1.67 H 0.700-1.30 mg/dL Glomerular Filtration Rate Calc 45 >90 mL/min BUN/Creatinine Ratio 14.4 10.0-20.0 Serum Glucose 142 H 74-106 mg/dL Lactic Acid Level 8.4 *H 7.3 *H 0.4-2.0 mmol/L Calcium Level 8.0 L 8.7-10.4 mg/dL Phosphorus Level 6.4 H 2.4-5.1 mg/dL Magnesium Level 1.9 1.6-2.6 mg/dL Total Bilirubin 3.6 H 0.2-1.0 mg/dL Aspartate Amino Transferase (AST) 63 H 13-40 U/L Alanine Aminotransferase (ALT) 35 7-40 U/L Alkaline Phosphatase 151 H 46-116 U/L Total Protein 5.8 5.7-8.2 g/dL Albumin 2.3 L 3.2-4.8 g/dL Test 01/06/24 08:42 01/06/24 08:22 01/06/24 07:15 Range/Units Urine Color Yellow Yellow Urine Clarity Clear Clear Urine pH 6.5 5.0-9.0 Urine Specific [place] 1.025 1.001-1.035 Urine Protein Trace H Negative Urine Ketones Trace Negative Urine Blood Negative Negative /uL Urine Nitrite Negative Negative Urine Bilirubin Negative Negative Urine Urobilinogen 8 H Negative mg/dL Urine Leukocyte Esterase Negative Negative /uL Urine RBC 1 0 - 3 /hpf Urine WBC 2 0 - 3 /hpf Urine Squamous Epithelial Cells Few <5 /hpf Urine Bacteria None seen None Seen /hpf Urine Hyaline Casts Many 0 - 2 /lpf Urine Mucus Few None Seen Urine Glucose Normal Normal mg/dL Urine Opiates Screen Neg NEGATIVE Urine Fentanyl Screen Neg NEGATIVE Urine Barbiturates Screen Neg NEGATIVE Urine Phencyclidine Screen Neg NEGATIVE Urine Amphetamines Screen Neg NEGATIVE Urine Benzodiazepines Screen Pos NEGATIVE Urine Cocaine Screen Neg NEGATIVE Urine Cannabinoids Screen Neg NEGATIVE White Blood Count 7.5 4.4-10.8 10^3/uL Red Blood Count 3.66 L 4.5-5.90 10^6/uL Hemoglobin 13.5 13.5-17.5 g/dL Hematocrit 40.1 L 41.0-53.0 % Mean Corpuscular Volume 109.7 H 80.0-100.0 fL Mean Corpuscular Hemoglobin 37.0 H 28.0-32.0 pg Mean Corpuscular Hemoglobin Concent 33.7 32.0-36.0 g/dL Red Cell Distribution Width 15.2 H 11.8-14.3 % Platelet Count 106 L 140-450 10^3/uL Mean Platelet Volume 8.8 6.9-10.8 fL Neutrophils (%) (Auto) 88.7 H 37.0-80.0 % Lymphocytes (%) (Auto) 6.3 L 10.0-50.0 % Monocytes (%) (Auto) 4.7 0.0-12.0 % Eosinophils (%) (Auto) 0.2 0.0-7.0 % Basophils (%) (Auto) 0.1 0.0-2.0 % Neutrophils # (Auto) 6.6 1.6-8.6 10 ^3/uL Lymphocytes # (Auto) 0.5 0.4-5.4 10 ^3/uL Monocytes # (Auto) 0.4 0-1.3 10 ^3/uL Eosinophils # (Auto) 0 0-0.8 10 ^3/uL Basophils # (Auto) 0 0-0.2 10 ^3/uL Nucleated Red Blood Cells 0.2 % Prothrombin Time 14.8 H 9.3-11.8 sec Prothrombin Time INR 1.43 H 0.9-1.15 Activated Partial Thromboplast Time 29.9 24.5-34.5 SEC Sodium Level 141 136-145 mmol/L Potassium Level 4.5 3.5-5.1 mmol/L Chloride Level 109 H 98-107 mmol/L Carbon Dioxide Level 19 L 20-31 mmol/L Anion Gap 13 5-15 Blood Urea Nitrogen 25 H 9-23 mg/dL Creatinine 1.03 0.700-1.30 mg/dL Glomerular Filtration Rate Calc 81 >90 mL/min BUN/Creatinine Ratio 24.3 H 10.0-20.0 Serum Glucose 118 H 74-106 mg/dL Lactic Acid Level 6.5 *H 0.4-2.0 mmol/L Calcium Level 8.9 8.7-10.4 mg/dL Total Bilirubin 3.7 H 0.2-1.0 mg/dL Aspartate Amino Transferase (AST) 87 H 13-40 U/L Alanine Aminotransferase (ALT) 45 H 7-40 U/L Alkaline Phosphatase 192 H 46-116 U/L Ammonia 330 *H 11-32 umol/L Troponin I High Sensitivity 6 </=54 ng/L Total Protein 6.3 5.7-8.2 g/dL Albumin 2.4 L 3.2-4.8 g/dL Plasma/Serum Blood Alcohol < 3.0 <10 mg/dL Microbiology Date/Time Source Procedure Growth Status 01/06/24 16:13 Nose MRSA Screen - Final Complete Assessment Acute kidney injury superimposed Chronic Kidney Disease secondary hemodynamic mediated Hepatorenal syndrome Acute respiratory failure, patient intubated on ventilator Decompensated liver cirrhosis Hepatic encephalopathy Septic shock GI bleeding Anemia due to blood loss Thrombocytopenia Metabolic acidosis Recommendations Closely monitor fluid and electrolytes Avoid nephrotoxic medications Sunshine catheter Strict I&Os IVF / NS with 50 mEq sodium bicarb at 100 cc/hour Check urine electrolytes Kidney reported within normal limit on the CT scan Octreotide IV pressors Albumin 25% IV piggyback Transfused packed red blood cell p.r.n. Lactulose We will continue to follow Patient seen and examined by myself ICU bed five. I discussed my plan of care with the primary nurse at the bedside I would like to thank for the consult, will follow up Plan discussed with: Other (Nurse) ZAC GENAO MD Jan 08, 2024 19:14
[2024-01-08] MEDS ORDERED: ALBUMIN 25% 100 ML IV SCH (19:30)
--- NOTE | 2024-01-08 20:16 | DVHPNRES ---
Progress Note Date Seen: Jan 08, 2024 Resident Creating Document: GRACE MARROQUIN RESIDENT Has the PT tested + for MRSA If YES, has PT been informed?: No Medical Necessity Reason Pt with a Central, PICC or Fol: No Subjective Review of Systems A 63-year-old with past medical history of cirrhosis previous alcohol abuse GERD, COPD, who came to the ED for altered mental status. Patient was admitted on send on January 03 for paracentesis, 4 L removed. Due to your the use of accessory muscles and unable to maintain airway patient was intubated in the ED. Home meds furosemide spironolactone omeprazole Trelegy Patient is being sober for 1 year Objective vital signs Vital Sign Date Time Temp Pulse Resp B/P (MAP) Pulse Ox O2 Delivery O2 Flow Rate FiO2 01/08/24 19:00 62 18 117/57 (77) 97 01/08/24 18:23 35 01/08/24 16:30 97.9 97.9 01/08/24 08:00 Mechanical Ventilator+ 01/06/24 20:55 40 Total Intake and Output 01/07/24 01/07/24 01/08/24 15:00 23:00 07:00 Intake Total 771.5 ml 659.6 ml 460.5 ml Output Total 825 ml 775 ml Balance 771.5 ml -165.4 ml -314.5 ml medications Current Medications Medications Dose Ordered Sig/Salena Route Start Time Stop Time Status Last Admin Dose Admin Midazolam HCl 50 ml @ 1 mls/hr Q24H IV 01/06/24 07:00 01/08/24 02:34 4 MLS/HR Fentanyl Citrate 250 ml @ 2.5 mls/hr Q24H IV 01/06/24 08:30 01/07/24 21:33 25 MLS/HR Sodium Chloride 10 ml Q8HR IV 01/06/24 14:00 01/08/24 14:00 10 ML Phenylephrine HCl 250 ml @ 30 mls/hr Q8H20M IV 01/06/24 10:00 01/07/24 08:32 67.5 MLS/HR Propofol 100 ml @ 3.135 mls/ hr Q24H IV 01/06/24 10:00 Vasopressin 20 units/Sodium Chloride 100 ml @ 9 mls/hr Q11H7M IV 01/06/24 19:45 01/07/24 22:56 9 MLS/HR Meropenem 50 ml @ 17 mls/hr Q8HR IV 01/07/24 14:00 01/08/24 14:00 17 MLS/HR Norepinephrine Bitartrate 250 ml @ 3.75 mls/hr Q24H IV 01/07/24 08:15 01/08/24 02:35 15 MLS/HR Lactulose 30 ml Q4HR PO 01/07/24 14:00 01/08/24 18:07 30 ML Pantoprazole Sodium 40 mg BID IV 01/07/24 22:00 01/08/24 09:12 40 MG Rifaximin 550 mg BID PO 01/07/24 22:00 01/08/24 09:13 550 MG Diagnostic Test (Pha) 1 strip Q12HR 01/08/24 10:00 01/08/24 09:13 1 STRIP Doxycycline Hyclate 250 ml @ 125 mls/hr Q12H IV 01/08/24 12:00 01/08/24 15:32 125 MLS/HR Albumin Human 100 ml @ 100 mls/hr Q6HR IV 01/08/24 12:00 01/09/24 06:59 01/08/24 18:08 100 MLS/HR Polyethylene Glycol 17 gm DAILYPRN PRN PO 01/08/24 12:00 Octreotide Acetate 100 mcg TID SUBCUT 01/08/24 22:00 Sodium Bicarbonate 50 ml/ Sodium Chloride 1,050 ml @ 100 mls/hr [id number] IV 01/08/24 19:30 Albumin Human 100 ml @ 100 mls/hr Q8H IV 01/08/24 19:30 01/09/24 12:29 Examination GEN: intubated -Head: ETT on place NECK: Supple, with no masses. CV: RRR, no m/r/g. LUNGS: diminished breath sound in bases ABD: Anasarca. Fat containing umbilical hernia. EXT: edema 4 ext NEURO:unable to asses laboratory and microbiology Laboratory Tests 01/08/24 03:17 Test 01/08/24 03:17 Range/Units Serum Glucose 153 H 74-106 mg/dL Microbiology Date/Time Source Procedure Growth Status 01/07/24 19:28 Voided Urine Urine Culture - Preliminary Resulted 01/07/24 14:10 Ascities Fluid Gram Stain - Final Resulted 01/07/24 14:10 Ascities Fluid Body Fluid Culture - Preliminary Resulted 01/06/24 16:13 Nose MRSA Screen - Final Complete 01/06/24 07:15 Blood Blood Culture - Preliminary NO GROWTH AFTER 48 HOURS OF INCUBATION. Resulted 01/06/24 07:10 Sputum Gram Stain - Final Resulted 01/06/24 07:10 Sputum Respiratory Culture - Preliminary Resulted Problem List/Assessment/Plan Problem List/Assessment/Plan Neurologic: #Acute metabolic encephalopathy due to hyperammonemia and septic shock. Ammonia level: 330-68-57 Lactulose 30 ml q4h Rifaximin 550 mg BID Normal head CT scan Pt is off sedation: miralax and enema prescribed: no bowel movements Respiratory: # Acute hypoxic respiratory failure secondary to septic shock and decompensated cirrhosis. #Septic shock due to pneumonia gram+/gram - Patient is on fentanyl and propofol RASS -4 mechanical ventilation RR 18 VT 600 PEEP 5 Fio2 30% : we will decrease the VT xray: Bilateral lower lung zone hazy opacification which may represent pleural effusions or atelectasis with superimposed infection not excluded. No pneumothorax. Ct scan: Bibasilar consolidation is seen with trace pleural effusion. Pt is on meropenem Start doxycicline Cardiovascular: #Septic shock due to pneumonia gram+/gram - Patient on Levophed ECHO: Normal left ventricular size and dimension. Normal left ventricular systolic function estimated ejection fraction 55%. 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 Vitamin K per gastro # Lower GI bleeding: episode of hematochezia no new episodes rectal exam: small amount of blood in the stool, no external hemorroids hb: 11.5 - 9.6 - 11.9 stool occult blood ordered GI on the case #Gallstone at the neck of the gallbladder. #Thickened colonic galeas likely secondary to decompression or portal colopathy. #Umbilical hernia No mass seen at the pancreas. Endocrine/Metabolic: # Severe metabolic acidosis due to septic shock resolved # Hyperkalemia resolved #Hyperphosphatemia resolved #Hyperparathyroidism Nephrology on board Infectious Disease: # septic shock due to pneumonia Continue Meropenem , monitor culture results, and adjust antibiotics based on sensitivities. Renal: # Acute kidney injury hemodinamically mediated #Hepatorenal syndrome Creatinine 1.77 urinary output 0.3 ml/kg/hr decreased compread to yesterday Nephrology on board Albumin and octeotride per nephrology Hematology: # Thrombocytopenia secondary to liver cirrhosis and hypersplenism . Hold on DVT prophylaxis General: Full code until now Critical care spent 81 min Case discussed with Dr Reinoso Plan discussed with: Spouse, Other (rn) My Orders My Orders Orders - GRACE MARROQUIN RESIDENT Procedure Category Date Status Time Doxycycline PHA 01/08/24 In Process 100mg/250ml 12:00 Albumin 25% (Albutein) PHA 01/08/24 In Process 12:00 Polyethylene Glycol PHA 01/08/24 In Process 17g Powder (Miralax 12:00 Urine Sodium LAB 01/08/24 Logged 12:06 Dietary Evaluation Review Comments: 1) I GI is accessible consider Jevity 1.2 @ 45ml/hr goal rate as tolerated 2) If pt remains NPO >7 days consider TPN to meet at least 75% of estimated needs 3) Continue current plan of care Expected Outcomes/Goals: 1) Pt to receive nutrition support within 7 days of NPO status 2) F/U in 2-3 days Date of Service: Jan 08, 2024 Billing Provider: STALIN REINOSO MD Common Visit Codes: [id number] CARE 30-74 MIN GRACE MARROQUIN RESIDENT Jan 08, 2024 20:16 STALIN REINOSO MD Jan 09, 2024 17:38
[2024-01-08] MEDS: SODIUM BICARB 50mEq/50ml Vial 50 ML in SOD CHL 0.45% 1,000 ML IV SCH (20:48)
[2024-01-08] MEDS: OCTREOTIDE ACETATE 100 MCG/ML VL SUBCUT SCH (21:33)
[2024-01-09] VITALS (111 sets, daily range): BP systolic 110–131; BP diastolic 49–76; PULSE 61–104; RESP 13–32; TEMP 97.3–99; O2SAT 90–95
[2024-01-09 03:48] LABS: Basophils # (auto) 0 10 ^3/uL (0-0.2); Basophils % (auto) 0.1 % (0.0-2.0); Eosinophils # (auto) 0 10 ^3/uL (0-0.8); Lymphocytes # (auto) 0.6 10 ^3/uL (0.4-5.4); Lymphocytes % (auto) 4.8 % (10.0-50.0)
[2024-01-09 03:51] LABS: Hematocrit 32.7 % (41.0-53.0); Mean Corpuscular Hemoglobin 36.7 pg (28.0-32.0); Mean Corpuscular Hgb Conc. 33.7 g/dL (32.0-36.0); Monocytes % (auto) 7.7 % (0.0-12.0); Neutrophils % (auto) 87.4 % (37.0-80.0); Platelet Count (auto) 63 10^3/uL (140-450); Red Cell Distribution Width 15.1 % (11.8-14.3); White Blood Cell 12.6 10^3/uL (4.4-10.8)
[2024-01-09 03:59] LABS: Alanine Aminotransferase 27 U/L (7-40); Alkaline Phosphatase 103 U/L (46-116); Anion Gap 0 (5-15); Aspartate Aminotransferase 52 U/L (13-40); BUN/Creatinine Ratio 25.5 (10.0-20.0); Bilirubin, Total 4.3 mg/dL (0.2-1.0); Blood Urea Nitrogen 40 mg/dL (9-23); Calcium 8.4 mg/dL (8.7-10.4); Carbon Dioxide 29 mmol/L (20-31); Chloride 112 mmol/L (98-107); Glucose 104 mg/dL (74-106); Potassium 5.5 mmol/L (3.5-5.1); Sodium 141 mmol/L (136-145); Total Protein 5.7 g/dL (5.7-8.2)
--- NOTE | 2024-01-09 05:28 | DVH ---
CHEST RADIOGRAPH Indication:dyspnea Technique: Single frontal view of the chest was obtained COMPARISON: XY CHEST XRAY 1 VIEW on DOS: 01/08/24, XY CHEST XRAY 1 VIEW on DOS: 01/07/24, XY CHEST PORT ABLE on DOS: 01/07/24 FINDINGS: Lines and Tubes: Endotracheal tube, enteric catheter and left central venous catheter in satisfactory position. Lungs: Multifocal airspace disease. Pleura: No effusion. No pneumothorax. Cardiomediastinal contours: Unremarkable Bones: Unremarkable IMPRESSION: Lines and tubes in satisfactory position. No significant interval change.
[2024-01-09 06:47] LABS: Base Excess 1.1 mmol/L (-2.0-3.0)
[2024-01-09] MEDS: CALCIUM GLUC 1,000mg/50ml-NS 50 ML IV ONE ×2 (07:24→18:40)
[2024-01-09] MEDS: SODIUM BICARB 8.4% 50Meq/50ml SYR INJ IV ONE ×2 (07:24→18:40)
[2024-01-09] MEDS: FUROSEMIDE 20 MG/2 ML VIAL IV ONE ×3 (07:25→18:40)
[2024-01-09] MEDS: LACTULOSE 10g/15ml SOLN 473ML PR ONE (09:29)
--- NOTE | 2024-01-09 11:32 | DVHPN2 ---
Progress Note Date Seen: Jan 09, 2024 Has the PT tested + for MRSA If YES, has PT been informed?: No Medical Necessity Reason Pt with a Central, PICC or Fol: No Subjective Review of Systems: RESPIRATORY:Abnormal Other Systems: Patient seen and examined by myself, patient remained intubated on ventilator Objective vital signs Vital Sign Date Time Temp Pulse Resp B/P (MAP) Pulse Ox O2 Delivery O2 Flow Rate FiO2 01/09/24 10:33 73 18 112/49 (70) 94 40 01/09/24 08:00 Mechanical Ventilator+ 01/09/24 07:45 98.1 98.1 Total Intake and Output 01/08/24 01/08/24 01/09/24 15:00 23:00 07:00 Intake Total 140.75 ml 886.75 ml 1465.75 ml Output Total 775 ml 800 ml Balance 140.75 ml 111.75 ml 665.75 ml medications Current Medications Medications Dose Ordered Sig/Salena Route Start Time Stop Time Status Last Admin Dose Admin Midazolam HCl 50 ml @ 1 mls/hr Q24H IV 01/06/24 07:00 01/08/24 02:34 Fentanyl Citrate 250 ml @ 2.5 mls/hr Q24H IV 01/06/24 08:30 01/07/24 21:33 Sodium Chloride 10 ml Q8HR IV 01/06/24 14:00 01/09/24 08:46 Phenylephrine HCl 250 ml @ 30 mls/hr Q8H20M IV 01/06/24 10:00 01/07/24 08:32 Propofol 100 ml @ 3.135 mls/ hr Q24H IV 01/06/24 10:00 Vasopressin 20 units/Sodium Chloride 100 ml @ 9 mls/hr Q11H7M IV 01/06/24 19:45 01/07/24 22:56 Meropenem 50 ml @ 17 mls/hr Q8HR IV 01/07/24 14:00 01/09/24 06:00 Norepinephrine Bitartrate 250 ml @ 3.75 mls/hr Q24H IV 01/07/24 08:15 01/09/24 06:00 Lactulose 30 ml Q4HR PO 01/07/24 14:00 01/09/24 07:25 Pantoprazole Sodium 40 mg BID IV 01/07/24 22:00 01/09/24 07:25 Rifaximin 550 mg BID PO 01/07/24 22:00 01/09/24 07:25 Diagnostic Test (Pha) 1 strip Q12HR 01/08/24 10:00 01/09/24 09:08 Doxycycline Hyclate 250 ml @ 125 mls/hr Q12H IV 01/08/24 12:00 01/08/24 15:32 Polyethylene Glycol 17 gm DAILYPRN PRN PO 01/08/24 12:00 Octreotide Acetate 100 mcg TID SUBCUT 01/08/24 22:00 01/09/24 05:15 Albumin Human 100 ml @ 100 mls/hr Q8H IV 01/08/24 19:30 01/09/24 12:29 Cancel Examination: LUNGS:Normal, CVS:Normal, MSK:Normal laboratory and microbiology Laboratory Tests 01/09/24 03:05 Test 01/09/24 03:05 Range/Units Serum Glucose 104 74-106 mg/dL Microbiology Date/Time Source Procedure Growth Status 01/07/24 19:28 Voided Urine Urine Culture - Preliminary Resulted 01/07/24 14:10 Ascities Fluid Gram Stain - Final Resulted 01/07/24 14:10 Ascities Fluid Body Fluid Culture - Preliminary Resulted 01/06/24 16:13 Nose MRSA Screen - Final Complete 01/06/24 07:15 Blood Blood Culture - Preliminary NO GROWTH AFTER 72 HOURS OF INCUBATION. Resulted 01/06/24 07:10 Sputum Gram Stain - Final Resulted 01/06/24 07:10 Sputum Respiratory Culture - Preliminary Resulted Problem List/Assessment/Plan Problem List/Assessment/Plan Acute kidney injury superimposed Chronic Kidney Disease secondary hemodynamic mediated Hepatorenal syndrome Acute respiratory failure, patient intubated on ventilator Decompensated liver cirrhosis Hepatic encephalopathy Septic shock GI bleeding Anemia due to blood loss Thrombocytopenia Metabolic acidosis Recommendations Kidney function is improving Sunshine catheter Check urine electrolytes Kidney reported within normal limit on the CT scan Octreotide IV pressors Albumin 25% IV piggyback Transfused packed red blood cell p.r.n. Lactulose We will continue to follow Plan discussed with: Other (Nurse) My Orders My Orders Orders - ZAC GENAO MD Procedure Category Date Status Time Octreotide Acetate PHA 01/08/24 In Process (Sandostatin) 22:00 Urine Sodium LAB 01/09/24 Logged 11:05 Urine LAB 01/09/24 Logged Protein/Creatinine Dietary Evaluation Review Comments: 1) I GI is accessible consider Jevity 1.2 @ 45ml/hr goal rate as tolerated 2) If pt remains NPO >7 days consider TPN to meet at least 75% of estimated needs 3) Continue current plan of care Expected Outcomes/Goals: 1) Pt to receive nutrition support within 7 days of NPO status 2) F/U in 2-3 days ZAC GENAO MD Jan 09, 2024 11:32
[2024-01-09 12:05] LABS: Protein, Urine 18.1 mg/dL (1-14)
[2024-01-09 12:08] LABS: Creatinine, Urine 70.72 mg/dL (30.0-125.0); Urine Protein/Creatinine Ratio 0.26
[2024-01-09] MEDS: SODIUM ZIRCONIUM CYCL 10 GM PAK PO ONE (13:01)
--- NOTE | 2024-01-09 16:57 | DVHPNRES ---
Progress Note Date Seen: Jan 09, 2024 Resident Creating Document: GRACE MARROQUIN RESIDENT Has the PT tested + for MRSA If YES, has PT been informed?: No Medical Necessity Reason Pt with a Central, PICC or Fol: No Subjective Review of Systems A 63-year-old with past medical history of cirrhosis previous alcohol abuse GERD, COPD, who came to the ED for altered mental status. Patient was admitted on send Maggie on January 03 for paracentesis, 4 L removed. Due to your the use of accessory muscles and unable to maintain airway patient was intubated in the ED. Home meds furosemide spironolactone omeprazole Trelegy Patient is being sober for 1 year Objective vital signs Vital Sign Date Time Temp Pulse Resp B/P (MAP) Pulse Ox O2 Delivery O2 Flow Rate FiO2 01/09/24 16:53 130/76 01/09/24 16:30 97.4 76 18 93 97.4 01/09/24 16:30 40 01/09/24 08:00 Mechanical Ventilator+ Total Intake and Output 01/08/24 01/08/24 01/09/24 15:00 23:00 07:00 Intake Total 140.75 ml 886.75 ml 1465.75 ml Output Total 775 ml 800 ml Balance 140.75 ml 111.75 ml 665.75 ml medications Current Medications Medications Dose Ordered Sig/Salena Route Start Time Stop Time Status Last Admin Dose Admin Midazolam HCl 50 ml @ 1 mls/hr Q24H IV 01/06/24 07:00 01/08/24 02:34 4 MLS/HR Fentanyl Citrate 250 ml @ 2.5 mls/hr Q24H IV 01/06/24 08:30 01/07/24 21:33 25 MLS/HR Sodium Chloride 10 ml Q8HR IV 01/06/24 14:00 01/09/24 08:46 10 ML Phenylephrine HCl 250 ml @ 30 mls/hr Q8H20M IV 01/06/24 10:00 01/07/24 08:32 67.5 MLS/HR Propofol 100 ml @ 3.135 mls/ hr Q24H IV 01/06/24 10:00 Vasopressin 20 units/Sodium Chloride 100 ml @ 9 mls/hr Q11H7M IV 01/06/24 19:45 01/07/24 22:56 9 MLS/HR Meropenem 50 ml @ 17 mls/hr Q8HR IV 01/07/24 14:00 01/09/24 13:00 17 MLS/HR Norepinephrine Bitartrate 250 ml @ 3.75 mls/hr Q24H IV 01/07/24 08:15 01/09/24 06:00 18.75 MLS/HR Lactulose 30 ml Q4HR PO 01/07/24 14:00 01/09/24 16:52 30 ML Pantoprazole Sodium 40 mg BID IV 01/07/24 22:00 01/09/24 07:25 40 MG Rifaximin 550 mg BID PO 01/07/24 22:00 01/09/24 07:25 550 MG Diagnostic Test (Pha) 1 strip Q12HR 01/08/24 10:00 01/09/24 09:08 1 STRIP Doxycycline Hyclate 250 ml @ 125 mls/hr Q12H IV 01/08/24 12:00 01/09/24 11:08 125 MLS/HR Polyethylene Glycol 17 gm DAILYPRN PRN PO 01/08/24 12:00 Octreotide Acetate 100 mcg TID SUBCUT 01/08/24 22:00 01/09/24 13:00 100 MCG Albumin Human 100 ml @ 100 mls/hr Q8H IV 01/08/24 19:30 01/09/24 12:29 Cancel Furosemide 20 mg DAILY IV 01/10/24 10:00 Examination GEN: intubated -Head: ETT on place NECK: Supple, with no masses. CV: RRR, no m/r/g. LUNGS: diminished breath sound in bases ABD: Anasarca. Fat containing umbilical hernia. EXT: edema 4 ext NEURO:unable to asses laboratory and microbiology Laboratory Tests 01/09/24 10:43 01/09/24 03:05 Test 01/09/24 03:05 Range/Units Serum Glucose 104 74-106 mg/dL Microbiology Date/Time Source Procedure Growth Status 01/07/24 19:28 Voided Urine Urine Culture - Preliminary Resulted 01/07/24 14:10 Ascities Fluid Gram Stain - Final Resulted 01/07/24 14:10 Ascities Fluid Body Fluid Culture - Preliminary Resulted 01/06/24 16:13 Nose MRSA Screen - Final Complete 01/06/24 07:15 Blood Blood Culture - Preliminary NO GROWTH AFTER 72 HOURS OF INCUBATION. Resulted 01/06/24 07:10 Sputum Gram Stain - Final Complete 01/06/24 07:10 Sputum Respiratory Culture - Final Complete Problem List/Assessment/Plan Problem List/Assessment/Plan Neurologic: #Acute metabolic encephalopathy due to hyperammonemia and septic shock. Ammonia level: 897-72-35-86 Lactulose 30 ml q4h Rifaximin 550 mg BID Normal head CT scan Pt is off sedation: miralax and enema prescribed Rectal lactulose per Dr Britt Respiratory: # Acute hypoxic respiratory failure secondary to septic shock and decompensated cirrhosis. #Septic shock due to pneumonia gram+/gram - mechanical ventilation RR 18 VT 500 PEEP 5 Fio2 40% xray: Bilateral lower lung zone hazy opacification which may represent pleural effusions or atelectasis with superimposed infection not excluded. No pneumothorax. Ct scan: Bibasilar consolidation is seen with trace pleural effusion. Pt is on meropenem and doxycicline Cardiovascular: #Septic shock due to pneumonia gram+/gram - Patient on Levophed ECHO: Normal left ventricular size and dimension. Normal left ventricular systolic function estimated ejection fraction 55%. 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 Vitamin K per gastro # Lower GI bleeding: episode of hematochezia no new episodes rectal exam: small amount of blood in the stool, no external hemorroids hb: 11.5 - 9.6 - 11.9 - 11 stool occult blood pending GI on the case #Gallstone at the neck of the gallbladder. #Thickened colonic galeas likely secondary to decompression or portal colopathy. #Umbilical hernia No mass seen at the pancreas. Endocrine/Metabolic: # Severe metabolic acidosis due to septic shock resolved # Hyperkalemia #Hyperphosphatemia resolved #Hyperparathyroidism hyperkalemia protocol furosemide, calcium Nephrology on board Infectious Disease: # septic shock due to pneumonia Continue Meropenem , monitor culture results, and adjust antibiotics based on sensitivities. Renal: # Acute kidney injury hemodinamically mediated #Hepatorenal syndrome Creatinine 1.53 urinary output improving Nephrology on board Albumin and octeotride per nephrology Hematology: # Thrombocytopenia secondary to liver cirrhosis and hypersplenism . Hold on DVT prophylaxis General: Full code until now Critical care spent 81 min Case discussed with Dr Edwards Plan discussed with: Spouse, Other (rn) My Orders My Orders Orders - GRACE MARROQUIN RESIDENT Procedure Category Date Status Time Chest Xray 1 View XY 01/09/24 Resulted 04:00 Abg W/ Co-Ox RT 01/09/24 Logged 04:00 Ammonia LAB 01/09/24 Logged 18:00 Potassium LAB 01/09/24 Logged 18:00 Furosemide Injection PHA 01/10/24 In Process (Lasix Injection) 10:00 Complete Blood Count LAB 01/10/24 Verified 04:00 Comprehensive LAB 01/10/24 Verified Metabolic Panel 04:00 Magnesium LAB 01/10/24 Verified 04:00 Phosphorus LAB 01/10/24 Verified 04:00 Ammonia LAB 01/10/24 Verified 04:00 Chest Portable XY 01/10/24 Logged 04:00 Dietary Evaluation Review Comments: 1) I GI is accessible consider Jevity 1.2 @ 45ml/hr goal rate as tolerated 2) If pt remains NPO >7 days consider TPN to meet at least 75% of estimated needs 3) Continue current plan of care Expected Outcomes/Goals: 1) Pt to receive nutrition support within 7 days of NPO status 2) F/U in 2-3 days Date of Service: Jan 09, 2024 Billing Provider: STALIN EDWARDS MD Common Visit Codes: [id number] CARE 30-74 MIN GRACE MARROQUIN RESIDENT Jan 09, 2024 16:57 STALIN EDWARDS MD Jan 12, 2024 14:24
[2024-01-09] MEDS: LACTULOSE 10g/15ml SOLN 473ML PR SCH (17:52)
--- NOTE | 2024-01-09 17:52 | DVHPN2 ---
Progress Note - Dictate Date Seen: Jan 09, 2024 Has the PT tested + for MRSA If YES, has PT been informed?: No Medical Necessity Reason Pt with a Central, PICC or Fol: No Subjective No new complaints Patient is intubated off sedation FiO2 40% peep of five History of liver cirrhosis due to alcohol sober for one year Underwent paracentesis with removal of 3 L, ascitic fluid did not show evidence of any bacterial peritonitis Patient admitted with hepatic encephalopathy and respiratory failure requiring intubation Small amount of rectal bleeding that has since resolved NG tube output is bilious; hemoglobin stable at 11.0 Patient has not had a bowel movement despite multiple doses of lactulose His ammonia level has gone up to 120 vital signs Vital Sign Date Time Temp Pulse Resp B/P (MAP) Pulse Ox O2 Delivery O2 Flow Rate FiO2 01/09/24 17:45 85 16 124/63 (83) 92 01/09/24 17:38 40 01/09/24 16:30 97.4 97.4 01/09/24 08:00 Mechanical Ventilator+ Total Intake and Output 01/08/24 01/08/24 01/09/24 15:00 23:00 07:00 Intake Total 140.75 ml 886.75 ml 1465.75 ml Output Total 775 ml 800 ml Balance 140.75 ml 111.75 ml 665.75 ml medications Current Medications Medications Dose Ordered Sig/Salena Route Start Time Stop Time Status Last Admin Dose Admin Midazolam HCl 50 ml @ 1 mls/hr Q24H IV 01/06/24 07:00 01/08/24 02:34 4 MLS/HR Fentanyl Citrate 250 ml @ 2.5 mls/hr Q24H IV 01/06/24 08:30 01/07/24 21:33 25 MLS/HR Sodium Chloride 10 ml Q8HR IV 01/06/24 14:00 01/09/24 08:46 10 ML Phenylephrine HCl 250 ml @ 30 mls/hr Q8H20M IV 01/06/24 10:00 01/07/24 08:32 67.5 MLS/HR Propofol 100 ml @ 3.135 mls/ hr Q24H IV 01/06/24 10:00 Vasopressin 20 units/Sodium Chloride 100 ml @ 9 mls/hr Q11H7M IV 01/06/24 19:45 01/07/24 22:56 9 MLS/HR Meropenem 50 ml @ 17 mls/hr Q8HR IV 01/07/24 14:00 01/09/24 13:00 17 MLS/HR Norepinephrine Bitartrate 250 ml @ 3.75 mls/hr Q24H IV 01/07/24 08:15 01/09/24 06:00 18.75 MLS/HR Pantoprazole Sodium 40 mg BID IV 01/07/24 22:00 01/09/24 07:25 40 MG Rifaximin 550 mg BID PO 01/07/24 22:00 01/09/24 07:25 550 MG Diagnostic Test (Pha) 1 strip Q12HR 01/08/24 10:00 01/09/24 09:08 1 STRIP Doxycycline Hyclate 250 ml @ 125 mls/hr Q12H IV 01/08/24 12:00 01/09/24 11:08 125 MLS/HR Polyethylene Glycol 17 gm DAILYPRN PRN PO 01/08/24 12:00 Octreotide Acetate 100 mcg TID SUBCUT 01/08/24 22:00 01/09/24 13:00 100 MCG Albumin Human 100 ml @ 100 mls/hr Q8H IV 01/08/24 19:30 01/09/24 12:29 Cancel Furosemide 20 mg DAILY IV 01/10/24 10:00 Lactulose 300 ml Q4HR MD 01/09/24 18:00 objective General: NAD, AAOX3 Chest: lung lópez clear to auscultation Heart: RRR, no murmur Abdomen: Mild-distended, soft, +BS laboratory and microbiology Laboratory Tests 01/09/24 10:43 01/09/24 03:05 Test 01/09/24 03:05 Range/Units Serum Glucose 104 74-106 mg/dL Problems(with codes): (1) Elevated liver enzymes (2) Acute respiratory failure with hypoxia (3) Elevated lactic acid level (4) Generalized weakness (5) Hepatic encephalopathy (6) Liver disease (7) Acute respiratory failure Prognosis Plan Continue oral lactulose 30 mL via NG tube q.6 hours We will give him one lactulose enema 200 mg and 300 mL of water Continue rifaximin Correct coagulopathy with vitamin K Monitor labs I will follow up patient with you Dietary Evaluation Review Comments: 1) I GI is accessible consider Jevity 1.2 @ 45ml/hr goal rate as tolerated 2) If pt remains NPO >7 days consider TPN to meet at least 75% of estimated needs 3) Continue current plan of care Expected Outcomes/Goals: 1) Pt to receive nutrition support within 7 days of NPO status 2) F/U in 2-3 days Plan discussed with: Other (Dr Jones) JOSÉ MIGUEL COLLIER MD Jan 09, 2024 17:52
[2024-01-09] MEDS: DEXTROSE (50%) 50ML SYRG IV ONE (18:40)
[2024-01-09] MEDS: ALBUTEROL SULF 2.5 MG/0.5ML(0.5%) NEB SOLN NEB ONE (18:52)
[2024-01-10] VITALS (112 sets, daily range): BP systolic 110–140; BP diastolic 48–73; PULSE 73–176; RESP 13–32; TEMP 98.5–99.7; O2SAT 76–100
--- NOTE | 2024-01-10 05:24 | DVH ---
CHEST RADIOGRAPH Indication:intubated Technique: Single frontal view of the chest was obtained Comparison: XY CHEST XRAY 1 VIEW on DOS: 01/09/24, XY CHEST XRAY 1 VIEW on DOS: 01/08/24, XY CHEST XRAY 1 VIEW on DOS: 01/07/24, XY CHEST PORTABLE on DOS: 01/07/24, XY CHEST XRAY 1 VIEW on DOS: 01/06/24, XY CHEST XRAY 1 VIEW on DOS: 01/09/24 FINDINGS: Lines and Tubes: Endotracheal tube, enteric catheter and left central venous catheter in satisfactory position. Lungs: Multifocal airspace disease. Pleura: No effusion. No pneumothorax. Cardiomediastinal contours: Unremarkable Bones: Unremarkable IMPRESSION: Lines and tubes in satisfactory position. No significant interval change.
[2024-01-10 06:22] LABS: Basophils # (auto) 0 10 ^3/uL (0-0.2); Basophils % (auto) 0.2 % (0.0-2.0); Eosinophils # (auto) 0 10 ^3/uL (0-0.8); Eosinophils % (auto) 0.4 % (0.0-7.0); Hematocrit 33.8 % (41.0-53.0); Hemoglobin 11.5 g/dL (13.5-17.5); Lymphocytes # (auto) 0.6 10 ^3/uL (0.4-5.4); Lymphocytes % (auto) 11.1 % (10.0-50.0); Mean Corpuscular Volume 108.7 fL (80.0-100.0); Monocytes # (auto) 0.6 10 ^3/uL (0-1.3); Monocytes % (auto) 11.6 % (0.0-12.0); Neutrophils # (auto) 4.1 10 ^3/uL (1.6-8.6); Neutrophils % (auto) 76.7 % (37.0-80.0); Nucleated Red Blood Cells % 0.2 %; Platelet Count (auto) 39 10^3/uL (140-450); Red Blood Cells 3.11 10^6/uL (4.5-5.90); Red Cell Distribution Width 15.9 % (11.8-14.3); White Blood Cell 5.4 10^3/uL (4.4-10.8)
[2024-01-10 06:35] LABS: Alanine Aminotransferase 26 U/L (7-40); Alkaline Phosphatase 100 U/L (46-116); Anion Gap 6 (5-15); BUN/Creatinine Ratio 28.1 (10.0-20.0); Blood Urea Nitrogen 43 mg/dL (9-23); Calcium 9.2 mg/dL (8.7-10.4); Carbon Dioxide 30 mmol/L (20-31); Chloride 110 mmol/L (98-107); Glucose 123 mg/dL (74-106); Magnesium 2.5 mg/dL (1.6-2.6); Potassium 4.5 mmol/L (3.5-5.1)
[2024-01-10 06:36] LABS: Albumin 2.9 g/dL (3.2-4.8); Aspartate Aminotransferase 54 U/L (13-40); Bilirubin, Total 5.1 mg/dL (0.2-1.0); Phosphorus 2.4 mg/dL (2.4-5.1); Total Protein 5.5 g/dL (5.7-8.2)
[2024-01-10 06:37] LABS: Sodium 146 mmol/L (136-145)
[2024-01-10] MEDS: FUROSEMIDE 20 MG/2 ML VIAL IV SCH (07:30)
[2024-01-10 07:37] LABS: Base Excess 2.1 mmol/L (-2.0-3.0)
--- NOTE | 2024-01-10 10:06 | DVHPN2 ---
Progress Note Date Seen: Jan 10, 2024 Has the PT tested + for MRSA If YES, has PT been informed?: No Medical Necessity Reason Pt with a Central, PICC or Fol: No Subjective Review of Systems: RESPIRATORY:Abnormal Other Systems: Patient seen and examined by myself today in follow-up, patient remained intubated on ventilator Objective vital signs Vital Sign Date Time Temp Pulse Resp B/P (MAP) Pulse Ox O2 Delivery O2 Flow Rate FiO2 01/10/24 09:09 95 22 128/55 (79) 96 40 01/10/24 07:56 Mechanical Ventilator+ 01/10/24 07:45 98.9 98.9 Total Intake and Output 01/09/24 01/09/24 01/10/24 15:00 23:00 07:00 Intake Total 505.00 ml 598.75 ml 468.75 ml Output Total 2650 ml 4700 ml Balance 505.00 ml -2051.25 ml -4231.25 ml medications Current Medications Medications Dose Ordered Sig/Salena Route Start Time Stop Time Status Last Admin Dose Admin Midazolam HCl 50 ml @ 1 mls/hr Q24H IV 01/06/24 07:00 01/08/24 02:34 4 MLS/HR Fentanyl Citrate 250 ml @ 2.5 mls/hr Q24H IV 01/06/24 08:30 01/07/24 21:33 25 MLS/HR Sodium Chloride 10 ml Q8HR IV 01/06/24 14:00 01/10/24 07:30 10 ML Phenylephrine HCl 250 ml @ 30 mls/hr Q8H20M IV 01/06/24 10:00 01/07/24 08:32 67.5 MLS/HR Propofol 100 ml @ 3.135 mls/ hr Q24H IV 01/06/24 10:00 Vasopressin 20 units/Sodium Chloride 100 ml @ 9 mls/hr Q11H7M IV 01/06/24 19:45 01/07/24 22:56 9 MLS/HR Meropenem 50 ml @ 17 mls/hr Q8HR IV 01/07/24 14:00 01/10/24 05:36 17 MLS/HR Norepinephrine Bitartrate 250 ml @ 3.75 mls/hr Q24H IV 01/07/24 08:15 01/09/24 06:00 18.75 MLS/HR Pantoprazole Sodium 40 mg BID IV 01/07/24 22:00 01/10/24 07:29 40 MG Rifaximin 550 mg BID PO 01/07/24 22:00 01/10/24 07:30 550 MG Diagnostic Test (Pha) 1 strip Q12HR 01/08/24 10:00 01/10/24 07:30 1 STRIP Doxycycline Hyclate 250 ml @ 125 mls/hr Q12H IV 01/08/24 12:00 01/09/24 23:56 125 MLS/HR Polyethylene Glycol 17 gm DAILYPRN PRN PO 01/08/24 12:00 Octreotide Acetate 100 mcg TID SUBCUT 01/08/24 22:00 01/10/24 05:36 100 MCG Albumin Human 100 ml @ 100 mls/hr Q8H IV 01/08/24 19:30 01/09/24 12:29 Cancel Furosemide 20 mg DAILY IV 01/10/24 10:00 01/10/24 07:30 20 MG Lactulose 300 ml Q6H [place] 01/10/24 14:00 Examination: LUNGS:Normal, CVS:Normal, ABDOMEN:Abnormal, MSK:Abnormal laboratory and microbiology Laboratory Tests 01/10/24 05:00 Test 01/10/24 05:00 Range/Units Serum Glucose 123 H 74-106 mg/dL Microbiology Date/Time Source Procedure Growth Status 01/07/24 19:28 Voided Urine Urine Culture - Preliminary Resulted 01/07/24 14:10 Ascities Fluid Gram Stain - Final Resulted 01/07/24 14:10 Ascities Fluid Body Fluid Culture - Preliminary Resulted 01/06/24 16:13 Nose MRSA Screen - Final Complete 01/06/24 07:15 Blood Blood Culture - Preliminary NO GROWTH AFTER 72 HOURS OF INCUBATION. Resulted 01/06/24 07:10 Sputum Gram Stain - Final Complete 01/06/24 07:10 Sputum Respiratory Culture - Final Complete Problem List/Assessment/Plan Problem List/Assessment/Plan Acute kidney injury superimposed Chronic Kidney Disease secondary hemodynamic mediated Hepatorenal syndrome Acute respiratory failure, patient intubated on ventilator Decompensated liver cirrhosis Hepatic encephalopathy Septic shock GI bleeding Anemia due to blood loss Thrombocytopenia Metabolic acidosis Hyponatremia due to insensible water loss Status post large volume paracentesis Recommendations Kidney function is improving Increased urine output Sunshine catheter Kidney reported within normal limit on the CT scan Octreotide IV pressors Albumin 25% IV piggyback Transfused packed red blood cell p.r.n. Lactulose Free water 200 cc NG tube q.4 hours We will continue to follow Plan discussed with: Other (Nurse) Dietary Evaluation Review Comments: 1) I GI is accessible consider Jevity 1.2 @ 45ml/hr goal rate as tolerated 2) If pt remains NPO >7 days consider TPN to meet at least 75% of estimated needs 3) Continue current plan of care Expected Outcomes/Goals: 1) Pt to receive nutrition support within 7 days of NPO status 2) F/U in 2-3 days ZAC GENAO MD Jan 10, 2024 10:06
[2024-01-10] MEDS: D5W 5% 1,000 ML IV SCH (12:28)
[2024-01-10] MEDS: LACTULOSE 10g/15ml SOLN 473ML PR SCH (13:14)
--- NOTE | 2024-01-10 13:39 | DVHPN2 ---
Progress Note - Dictate Date Seen: Jan 10, 2024 Has the PT tested + for MRSA If YES, has PT been informed?: No Medical Necessity Reason Pt with a Central, PICC or Fol: No Subjective Patient seen and examined at bedside. Off sedation On mechanical ventilator Overnight events reviewed vital signs Vital Sign Date Time Temp Pulse Resp B/P (MAP) Pulse Ox O2 Delivery O2 Flow Rate FiO2 01/10/24 13:09 78 22 110/48 (68) 95 40 01/10/24 11:15 98.9 98.9 01/10/24 07:56 Mechanical Ventilator+ Total Intake and Output 01/09/24 01/09/24 01/10/24 15:00 23:00 07:00 Intake Total 505.00 ml 598.75 ml 468.75 ml Output Total 2650 ml 4700 ml Balance 505.00 ml -2051.25 ml -4231.25 ml medications Current Medications Medications Dose Ordered Sig/Salena Route Start Time Stop Time Status Last Admin Dose Admin Midazolam HCl 50 ml @ 1 mls/hr Q24H IV 01/06/24 07:00 01/08/24 02:34 4 MLS/HR Fentanyl Citrate 250 ml @ 2.5 mls/hr Q24H IV 01/06/24 08:30 01/07/24 21:33 25 MLS/HR Sodium Chloride 10 ml Q8HR IV 01/06/24 14:00 01/10/24 07:30 10 ML Phenylephrine HCl 250 ml @ 30 mls/hr Q8H20M IV 01/06/24 10:00 01/07/24 08:32 67.5 MLS/HR Propofol 100 ml @ 3.135 mls/ hr Q24H IV 01/06/24 10:00 Vasopressin 20 units/Sodium Chloride 100 ml @ 9 mls/hr Q11H7M IV 01/06/24 19:45 01/07/24 22:56 9 MLS/HR Meropenem 50 ml @ 17 mls/hr Q8HR IV 01/07/24 14:00 01/10/24 12:43 17 MLS/HR Norepinephrine Bitartrate 250 ml @ 3.75 mls/hr Q24H IV 01/07/24 08:15 01/09/24 06:00 18.75 MLS/HR Pantoprazole Sodium 40 mg BID IV 01/07/24 22:00 11/9/24 07:29 40 MG Rifaximin 550 mg BID PO 01/07/24 22:00 01/10/24 07:30 550 MG Diagnostic Test (Pha) 1 strip Q12HR 01/08/24 10:00 01/10/24 07:30 1 STRIP Doxycycline Hyclate 250 ml @ 125 mls/hr Q12H IV 01/08/24 12:00 01/10/24 10:49 125 MLS/HR Polyethylene Glycol 17 gm DAILYPRN PRN PO 01/08/24 12:00 Octreotide Acetate 100 mcg TID SUBCUT 01/08/24 22:00 01/10/24 13:14 100 MCG Albumin Human 100 ml @ 100 mls/hr Q8H IV 01/08/24 19:30 01/09/24 12:29 Cancel Furosemide 20 mg DAILY IV 01/10/24 10:00 01/10/24 07:30 20 MG Lactulose 300 ml Q6H DC 01/10/24 14:00 01/10/24 13:14 300 ML Dextrose 1,000 ml @ 50 mls/hr Q20H IV 01/10/24 12:30 01/10/24 12:28 50 MLS/HR objective Gen.: Patient lying in bed in medical ICU. Intubated on mechanical ventilator. Head: Normocephalic, atraumatic. Eyes: PERRLA. Ears: Normal external anatomy. Throat: Endotracheal tube and orogastric tube in place. Neck: Supple, trachea midline. Chest: Transmitted breath sounds bilaterally. Decreased air entry bilaterally. No wheezing. Bibasilar crackles. Cardio vascular: Positive S1, positive S2. Regular rate and rhythm. Abdomen: Positive bowel sounds in all 4 quadrants. Soft, nontender, nondistended. : Sunshine in place. Normal external genitalia. Rectal: Deferred Skin: Warm, dry. Intact. Extremities: 2+ radial pulses bilaterally. No lower extremity edema. Neuro: Off sedation. laboratory and microbiology Laboratory Tests 01/10/24 05:00 Test 01/10/24 05:00 Range/Units Serum Glucose 123 H 74-106 mg/dL Assessment/Plan Impression: Acute hypoxic respiratory failure On mechanical ventilator Shock, improving Elevated ammonia Lactic acidosis Metabolic acidosis Lower GI hemorrhage Cirrhosis Ascites IV drug use (methamphetamine) Overweight, BMI 29.6 Atelectasis, bibasilar Plan: s/p intubation on mechanical ventilator. CXR image and report reviewed. Devices in place. Atelectasis in the lung bases. No focal consolidation. No pneumothorax. No pleural effusion. ABG reviewed. Compensated. Off sedation. Awaiting for mentation to improve for CPAP trial. On AC mode; RR 18, VT 500, PEEP 5, FiO2 of 40%. Titrate FIO2 to keep O2 saturation above 90%. VAP bundle. Daily ABG and CXR while intubated Bronchodilators. Continue antibiotics - Zosyn. WBC within normal limits. Blood cultures: No growth after 72 hours. Ascitic fluid no growth. Urine culture no growth after 48 hours. Hemodynamically stable Monitor hemoglobin Transfuse if less than 7.0 g/dL Monitor renal function Creatinine trending down. Monitor electrolytes. Supplement as necessary. Monitor ins and outs. Maintain euvolemia. GI prophylaxis. DVT prophylaxis. Prognosis: Poor given patient's multiple co-morbidities. Condition: Critical Rest of plan per hospitalist and other consultants. A total of 35 minutes of critical care time was spent reviewing the patient record, examining the patient, making a diagnostic and therapeutic plan, discussing this plan with the medical personnel, following up on diagnostic studies and following the patient for clinical stability excluding any and all procedures. At least 50% of this time was spent in direct, [id number] contact. Thank you Dr Wallace for allowing me to participate in this patient's care. Further recommendations will depend on the patient's clinical course. Please do not hesitate to contact me if you have any questions or concerns. This medical document was created using an electronic medical record system with [employer] dictation system. Although these documentations are being carefully reviewed, there may still be some phonetic and typographical changes. The errors are purely typographical, due to imperfection on the software program, and do not reflect any compromise in the patient's medical care. Dietary Evaluation Review Comments: 1) I GI is accessible consider Jevity 1.2 @ 45ml/hr goal rate as tolerated 2) If pt remains NPO >7 days consider TPN to meet at least 75% of estimated needs 3) Continue current plan of care Expected Outcomes/Goals: 1) Pt to receive nutrition support within 7 days of NPO status 2) F/U in 2-3 days Plan discussed with: Other (KIRILL Gudino RT MD Leidy) Critical Care Time(min): 35 PETEY SOLANO MD Jan 10, 2024 13:39
--- NOTE | 2024-01-10 17:06 | DVHPN2 ---
Subjective A 63-year-old with past medical history of cirrhosis previous alcohol abuse GERD, COPD, who came to the ED for altered mental status. Patient was admitted on on January 03 for paracentesis, 4 L removed. Due to your the use of accessory muscles and unable to maintain airway patient was intubated in the ED. Home meds furosemide spironolactone omeprazole Trelegy Intubated in ICU Reviewed: Care Plan Changes from previous H/P or p: No Changes General: Per HPI Eyes: No Pain, No Vision change, No Conjunctivae inflammation, No Eyelid inflammation, No Other, No Redness ENT: No Ear pain, No Ear discharge, No Nose pain, No Nose discharge, No Nose congestion, No Mouth pain, No Mouth swelling, No Throat pain, No Throat swelling, No Other Cardiovascular: No Chest Pain, No Palpitations, No Orthopnea, No Paroxysmal Noc. Dyspnea, No Edema, No Lt Headedness, No Other Respiratory: No Cough, No Dry; Shortness of breath, SOB with excertion; No Wheezing, No Hemoptysis, No Pleuritic Pain, No Sputum, No Other Gastrointestinal: No Nausea, No Vomiting, No Abdominal Pain, No Diarrhea, No Constipation, No Melena, No Hematochezia, No Other Genitourinary: No Dysuria, No Frequency, No Incontinence, No Hematuria, No Retention, No Other Musculoskeletal: No other, No neck pain, No shoulder pain, No arm pain, No back pain, No hand pain, No leg pain, No foot pain Skin: No Rash, No Lesions, No Jaundice, No Bruising, No Other Psych: Per HPI, Anxiety, Behavioral Changes, Depression, Hallucination, H omicidal Ideation, Memory Problems, Poor Concentration, Sadness, Sleep Problems, Suicidal Ideation, Other Objective Vitals Vital Signs Date Time Temp Pulse Resp B/P (MAP) Pulse Ox O2 Delivery O2 Flow Rate FiO2 01/10/24 16:30 99.3 84 23 122/59 (80) 95 99.3 01/10/24 15:43 40 01/10/24 07:56 Mechanical Ventilator+ Intake/Output Intake and Output 01/10/24 05:00 Intake Total 2051.25 ml Output Total 3450 ml Balance -1398.75 ml Intake Oral 810 ml IV Total 1241.25 ml Output Urine Total 2400 ml Urine/Stool Mix 400 ml Gastric Drainage Total 650 ml Other Physical Findings GEN: intubated -Head: ETT on place NECK: Supple, with no masses. CV: RRR, no m/r/g. LUNGS: diminished breath sound in bases ABD: Anasarca. Fat containing umbilical hernia. EXT: edema 4 ext NEURO:unable to asses Medications Current Medications Medications Dose Ordered Sig/Salena Route Start Time Stop Time Status Last Admin Dose Admin Midazolam HCl 50 ml @ 1 mls/hr Q24H IV 01/06/24 07:00 01/08/24 02:34 4 MLS/HR Fentanyl Citrate 250 ml @ 2.5 mls/hr Q24H IV 01/06/24 08:30 01/07/24 21:33 25 MLS/HR Sodium Chloride 10 ml Q8HR IV 01/06/24 14:00 01/10/24 07:30 10 ML Phenylephrine HCl 250 ml @ 30 mls/hr Q8H20M IV 01/06/24 10:00 01/07/24 08:32 67.5 MLS/HR Propofol 100 ml @ 3.135 mls/ hr Q24H IV 01/06/24 10:00 Vasopressin 20 units/Sodium Chloride 100 ml @ 9 mls/hr Q11H7M IV 01/06/24 19:45 01/07/24 22:56 9 MLS/HR Meropenem 50 ml @ 17 mls/hr Q8HR IV 01/07/24 14:00 01/10/24 12:43 17 MLS/HR Norepinephrine Bitartrate 250 ml @ 3.75 mls/hr Q24H IV 01/07/24 08:15 01/09/24 06:00 18.75 MLS/HR Pantoprazole Sodium 40 mg BID IV 01/07/24 22:00 01/10/24 07:29 40 MG Rifaximin 550 mg BID PO 01/07/24 22:00 01/10/24 07:30 550 MG Diagnostic Test (Pha) 1 strip Q12HR 01/08/24 10:00 01/10/24 07:30 1 STRIP Doxycycline Hyclate 250 ml @ 125 mls/hr Q12H IV 01/08/24 12:00 01/10/24 10:49 125 MLS/HR Polyethylene Glycol 17 gm DAILYPRN PRN PO 01/08/24 12:00 Octreotide Acetate 100 mcg TID SUBCUT 01/08/24 22:00 01/10/24 13:14 100 MCG Albumin Human 100 ml @ 100 mls/hr Q8H IV 01/08/24 19:30 01/09/24 12:29 Cancel Furosemide 20 mg DAILY IV 01/10/24 10:00 01/10/24 07:30 20 MG Lactulose 300 ml Q6H CO 01/10/24 14:00 01/10/24 13:14 300 ML Dextrose 1,000 ml @ 50 mls/hr Q20H IV 01/10/24 12:30 01/10/24 12:28 50 MLS/HR Laboratory Results Laboratory Tests 01/10/24 05:00 Chemistry Test 01/10/24 05:00 Albumin 2.9 g/dL (3.2-4.8) L Calcium Level 9.2 mg/dL (8.7-10.4) Magnesium Level 2.5 mg/dL (1.6-2.6) Phosphorus Level 2.4 mg/dL (2.4-5.1) Total Protein 5.5 g/dL (5.7-8.2) L LFT Test 01/10/24 05:00 Alanine Aminotransferase (ALT) 26 U/L (7-40) Alkaline Phosphatase 100 U/L (46-116) Aspartate Amino Transferase (AST) 54 U/L (13-40) H Total Bilirubin 5.1 mg/dL (0.2-1.0) H Urinalysis Test 01/06/24 08:42 01/09/24 11:28 Urine Color Yellow (Yellow) Urine Clarity Clear (Clear) Urine pH 6.5 (5.0-9.0) Urine Specific [place] 1.025 (1.001-1.035) Urine Protein Trace (Negative) H Urine Ketones Trace (Negative) Urine Blood Negative /uL (Negative) Urine Nitrite Negative (Negative) Urine Bilirubin Negative (Negative) Urine Urobilinogen 8 mg/dL (Negative) H Urine Leukocyte Esterase Negative /uL (Negative) Urine RBC 1 /hpf (0 - 3) Urine WBC 2 /hpf (0 - 3) Urine Squamous Epithelial Cells Few /hpf (<5) Urine Bacteria None seen /hpf (None Seen) Urine Hyaline Casts Many /lpf (0 - 2) Urine Mucus Few (None Seen) Urine Glucose Normal mg/dL (Normal) Urine Creatinine 70.72 mg/dL (30.0-125.0) Urine Protein/Creatinine Ratio 0.26 Urine Sodium 40 mmol/L (40-220) Urine Total Protein 18.1 mg/dL (1-14) H Blood Gas Results Test 01/10/24 06:50 01/10/24 12:42 Arterial Blood pH 7.417 (7.350-7.450) 7.335 (7.350-7.450) FiO2 % 40.0 40.0 Microbiology Microbiology Date/Time Source Procedure Growth Status 01/07/24 19:28 Voided Urine Urine Culture - Final Complete 01/07/24 14:10 Ascities Fluid Gram Stain - Final Resulted 01/07/24 14:10 Ascities Fluid Body Fluid Culture - Preliminary Resulted 01/06/24 16:13 Nose MRSA Screen - Final Complete 01/06/24 07:15 Blood Blood Culture - Preliminary NO GROWTH AFTER 72 HOURS OF INCUBATION. Resulted 01/06/24 07:10 Sputum Gram Stain - Final Complete 01/06/24 07:10 Sputum Respiratory Culture - Final Complete Assessment/Plan Assessment/Plan #Acute metabolic encephalopathy due to hyperammonemia and septic shock. Ammonia level: [id number] Lactulose 30 ml q4h Rifaximin 550 mg BID Normal head CT scan Pt is off sedation: miralax and enema prescribed Rectal lactulose per Dr Britt Respiratory: # Acute hypoxic respiratory failure secondary to septic shock and decompensated cirrhosis. #Septic shock due to pneumonia gram+/gram - mechanical ventilation RR 18 VT 500 PEEP 5 Fio2 40% xray: Bilateral lower lung zone hazy opacification which may represent pleural effusions or atelectasis with superimposed infection not excluded. No pneumothorax. Ct scan: Bibasilar consolidation is seen with trace pleural effusion. Pt is on meropenem and doxycicline Cardiovascular: #Septic shock due to pneumonia gram+/gram - Patient on Levophed ECHO: Normal left ventricular size and dimension. Normal left ventricular systolic function estimated ejection fraction 55%. 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 Vitamin K per gastro # Lower GI bleeding: episode of hematochezia no new episodes rectal exam: small amount of blood in the stool, no external hemorroids hb: 11.5 - 9.6 - 11.9 - 11 stool occult blood pending GI on the case #Gallstone at the neck of the gallbladder. #Thickened colonic galeas likely secondary to decompression or portal colopathy. #Umbilical hernia No mass seen at the pancreas. Endocrine/Metabolic: # Severe metabolic acidosis due to septic shock resolved # Hyperkalemia #Hyperphosphatemia resolved #Hyperparathyroidism hyperkalemia protocol furosemide, calcium Nephrology on board Infectious Disease: # septic shock due to pneumonia Continue Meropenem , monitor culture results, and adjust antibiotics based on sensitivities. Renal: # Acute kidney injury hemodinamically mediated #Hepatorenal syndrome Creatinine 1.53 urinary output improving Nephrology on board Albumin and octeotride per nephrology Hematology: # Thrombocytopenia secondary to liver cirrhosis and hypersplenism . Hold on DVT prophylaxis General: Full code until now Critical care spent 81 min Plan discussed with: Other (nurse) Date of Service: Jan 10, 2024 Billing Provider: NICCI VARELA MD Common Visit Codes: 53964-ENMMGSSK CARE 30-74 MIN NICCI VARELA MD Jan 10, 2024 17:06
--- NOTE | 2024-01-10 19:28 | DVHPN2 ---
Progress Note - Dictate Date Seen: Jan 10, 2024 Has the PT tested + for MRSA If YES, has PT been informed?: No Medical Necessity Reason Pt with a Central, PICC or Fol: No Subjective Leukocytosis improved; ammonia level down to 57 Patient is intubated off sedation FiO2 40% peep of 5 History of liver cirrhosis due to alcohol sober for one year ; Bilirubin 5.1; AST 54 Underwent paracentesis with removal of 3 L, ascitic fluid did not show evidence of any bacterial peritonitis Patient admitted with hepatic encephalopathy and respiratory failure requiring intubation Small amount of rectal bleeding that has since resolved NG tube output is bilious;output 600-700 ml/day; hemoglobin stable at 11.0 Patient had a bowel movement after lactulose enema vital signs Vital Sign Date Time Temp Pulse Resp B/P (MAP) Pulse Ox O2 Delivery O2 Flow Rate FiO2 01/10/24 18:30 80 13 123/58 (79) 96 01/10/24 18:29 40 01/10/24 16:30 99.3 99.3 01/10/24 07:56 Mechanical Ventilator+ Total Intake and Output 01/09/24 01/09/24 01/10/24 15:00 23:00 07:00 Intake Total 505.00 ml 598.75 ml 468.75 ml Output Total 2650 ml 4700 ml Balance 505.00 ml -2051.25 ml -4231.25 ml medications Current Medications Medications Dose Ordered Sig/Salena Route Start Time Stop Time Status Last Admin Dose Admin Midazolam HCl 50 ml @ 1 mls/hr Q24H IV 01/06/24 07:00 01/08/24 02:34 4 MLS/HR Fentanyl Citrate 250 ml @ 2.5 mls/hr Q24H IV 01/06/24 08:30 01/07/24 21:33 25 MLS/HR Sodium Chloride 10 ml Q8HR IV 01/06/24 14:00 01/10/24 07:30 10 ML Phenylephrine HCl 250 ml @ 30 mls/hr Q8H20M IV 01/06/24 10:00 01/07/24 08:32 67.5 MLS/HR Propofol 100 ml @ 3.135 mls/ hr Q24H IV 01/06/24 10:00 Vasopressin 20 units/Sodium Chloride 100 ml @ 9 mls/hr Q11H7M IV 01/06/24 19:45 01/07/24 22:56 9 MLS/HR Meropenem 50 ml @ 17 mls/hr Q8HR IV 01/07/24 14:00 01/10/24 12:43 17 MLS/HR Norepinephrine Bitartrate 250 ml @ 3.75 mls/hr Q24H IV 01/07/24 08:15 01/09/24 06:00 18.75 MLS/HR Pantoprazole Sodium 40 mg BID IV 01/07/24 22:00 01/10/24 07:29 40 MG Rifaximin 550 mg BID PO 01/07/24 22:00 01/10/24 07:30 550 MG Diagnostic Test (Pha) 1 strip Q12HR 01/08/24 10:00 01/10/24 07:30 1 STRIP Doxycycline Hyclate 250 ml @ 125 mls/hr Q12H IV 01/08/24 12:00 01/10/24 10:49 125 MLS/HR Polyethylene Glycol 17 gm DAILYPRN PRN PO 01/08/24 12:00 Octreotide Acetate 100 mcg TID SUBCUT 01/08/24 22:00 01/10/24 13:14 100 MCG Albumin Human 100 ml @ 100 mls/hr Q8H IV 01/08/24 19:30 01/09/24 12:29 Cancel Furosemide 20 mg DAILY IV 01/10/24 10:00 01/10/24 07:30 20 MG Lactulose 300 ml Q6H GA 01/10/24 14:00 01/10/24 13:14 300 ML Dextrose 1,000 ml @ 50 mls/hr Q20H IV 01/10/24 12:30 01/10/24 12:28 50 MLS/HR objective General: NAD, AAOX3 Chest: lung lópez clear to auscultation Heart: RRR, no murmur Abdomen: Mild-distended, soft, +BS laboratory and microbiology Laboratory Tests 01/10/24 05:00 Test 01/10/24 05:00 Range/Units Serum Glucose 123 H 74-106 mg/dL Problems(with codes): (1) Elevated liver enzymes (2) Acute respiratory failure with hypoxia (3) Elevated lactic acid level (4) Generalized weakness (5) Hepatic encephalopathy (6) Liver disease (7) Acute respiratory failure Prognosis PLAN Continue Lactulose enema until gastric residuals improve Cut back on narcotics and sedation Continue current medical management Monitor labs; platelets down to 39 Dietary Evaluation Review Comments: 1) I GI is accessible consider Jevity 1.2 @ 45ml/hr goal rate as tolerated 2) If pt remains NPO >7 days consider TPN to meet at least 75% of estimated needs 3) Continue current plan of care Expected Outcomes/Goals: 1) Pt to receive nutrition support within 7 days of NPO status 2) F/U in 2-3 days Plan discussed with: Other (None) JOSÉ MIGUEL COLLIER MD Jan 10, 2024 19:28
[2024-01-11] VITALS (110 sets, daily range): BP systolic 76–137; BP diastolic 34–72; PULSE 51–116; RESP 11–25; TEMP 98.1–98.9; O2SAT 91–99
[2024-01-11 03:23] LABS: Basophils # (auto) 0 10 ^3/uL (0-0.2); Lymphocytes # (auto) 0.5 10 ^3/uL (0.4-5.4); Monocytes # (auto) 0.6 10 ^3/uL (0-1.3); Nucleated Red Blood Cells % 0.2 %; White Blood Cell 4.6 10^3/uL (4.4-10.8)
[2024-01-11 03:26] LABS: Basophils % (auto) 0.2 % (0.0-2.0); Eosinophils # (auto) 0.2 10 ^3/uL (0-0.8); Eosinophils % (auto) 5.2 % (0.0-7.0); Hematocrit 32.7 % (41.0-53.0); Lymphocytes % (auto) 10.9 % (10.0-50.0); Mean Corpuscular Hemoglobin 37.5 pg (28.0-32.0); Mean Corpuscular Hgb Conc. 33.8 g/dL (32.0-36.0); Mean Corpuscular Volume 110.8 fL (80.0-100.0); Monocytes % (auto) 12.9 % (0.0-12.0); Neutrophils # (auto) 3.3 10 ^3/uL (1.6-8.6); Neutrophils % (auto) 70.8 % (37.0-80.0); Platelet Count (auto) 33 10^3/uL (140-450); Red Blood Cells 2.95 10^6/uL (4.5-5.90)
[2024-01-11 03:39] LABS: Alanine Aminotransferase 25 U/L (7-40); Albumin 2.6 g/dL (3.2-4.8); Alkaline Phosphatase 93 U/L (46-116); Anion Gap 2 (5-15); Aspartate Aminotransferase 56 U/L (13-40); Bilirubin, Total 6.3 mg/dL (0.2-1.0); Blood Urea Nitrogen 41 mg/dL (9-23); Calcium 8.9 mg/dL (8.7-10.4); Carbon Dioxide 32 mmol/L (20-31); Chloride 115 mmol/L (98-107); Glucose 127 mg/dL (74-106); Magnesium 2.3 mg/dL (1.6-2.6); Sodium 149 mmol/L (136-145); Total Protein 5.2 g/dL (5.7-8.2)
--- NOTE | 2024-01-11 05:27 | DVH ---
CHEST RADIOGRAPH Indication:intubated Technique: Single frontal view of the chest was obtained Comparison: XY CHEST PORTABLE on DOS: 01/10/24, XY CHEST XRAY 1 VIEW on DOS: 01/09/24, XY CHEST XRAY 1 VIEW on DOS: 01/08/24, XY CHEST XRAY 1 VIEW on DOS: 01/07/24, XY CHEST PORTABLE on DOS: 01/07/24, XY [address] PORTABLE on DOS: 01/10/24 FINDINGS: Lines and Tubes: Endotracheal tube, enteric catheter and left central venous catheter in satisfactory position. Lungs: Multifocal airspace disease. Pleura: No effusion. No pneumothorax. Cardiomediastinal contours: Unremarkable Bones: Unremarkable IMPRESSION: Lines and tubes in satisfactory position. No significant interval change.
[2024-01-11 05:44] LABS: Macrocytosis Moderate
[2024-01-11 05:45] LABS: Large Platelets FEW; Platelet Estimate Decrea
[2024-01-11 07:27] LABS: Base Excess 4.9 mmol/L (-2.0-3.0)
[2024-01-11] MEDS: D5W 5% 1,000 ML IV SCH (10:00)
--- NOTE | 2024-01-11 10:32 | DVHPN2 ---
Progress Note Date Seen: Jan 11, 2024 Has the PT tested + for MRSA If YES, has PT been informed?: No Medical Necessity Reason Pt with a Central, PICC or Fol: No Subjective Review of Systems: RESPIRATORY:Abnormal Other Systems: Patient seen and examined by myself on follow-up today, patient remained intubated on ventilator Objective vital signs Vital Sign Date Time Temp Pulse Resp B/P (MAP) Pulse Ox O2 Delivery O2 Flow Rate FiO2 01/11/24 10:15 97 15 114/59 (77) 93 01/11/24 09:32 40 01/11/24 08:00 Mechanical Ventilator+ 01/11/24 08:00 98.7 98.7 Total Intake and Output 01/10/24 01/10/24 01/11/24 15:00 23:00 07:00 Intake Total 450 ml 584 ml 750 ml Output Total 4450 ml 625 ml Balance 450 ml -3866 ml 125 ml medications Current Medications Medications Dose Ordered Sig/Salena Route Start Time Stop Time Status Last Admin Dose Admin Midazolam HCl 50 ml @ 1 mls/hr Q24H IV 01/06/24 07:00 01/08/24 02:34 4 MLS/HR Fentanyl Citrate 250 ml @ 2.5 mls/hr Q24H IV 01/06/24 08:30 01/07/24 21:33 25 MLS/HR Sodium Chloride 10 ml Q8HR IV 01/06/24 14:00 01/11/24 07:35 10 ML Phenylephrine HCl 250 ml @ 30 mls/hr Q8H20M IV 01/06/24 10:00 01/07/24 08:32 67.5 MLS/HR Propofol 100 ml @ 3.135 mls/ hr Q24H IV 01/06/24 10:00 Vasopressin 20 units/Sodium Chloride 100 ml @ 9 mls/hr Q11H7M IV 01/06/24 19:45 01/07/24 22:56 9 MLS/HR Meropenem 50 ml @ 17 mls/hr Q8HR IV 01/07/24 14:00 01/11/24 05:30 17 MLS/HR Norepinephrine Bitartrate 250 ml @ 3.75 mls/hr Q24H IV 01/07/24 08:15 01/09/24 06:00 18.75 MLS/HR Pantoprazole Sodium 40 mg BID IV 01/07/24 22:00 01/11/24 07:35 40 MG Rifaximin 550 mg BID PO 01/07/24 22:00 01/11/24 07:34 550 MG Diagnostic Test (Pha) 1 strip Q12HR 01/08/24 10:00 01/11/24 07:35 1 STRIP Doxycycline Hyclate 250 ml @ 125 mls/hr Q12H IV 01/08/24 12:00 01/11/24 00:11 125 MLS/HR Polyethylene Glycol 17 gm DAILYPRN PRN PO 01/08/24 12:00 Octreotide Acetate 100 mcg TID SUBCUT 01/08/24 22:00 01/11/24 05:30 100 MCG Albumin Human 100 ml @ 100 mls/hr Q8H IV 01/08/24 19:30 01/09/24 12:29 Cancel Furosemide 20 mg DAILY IV 01/10/24 10:00 01/11/24 07:35 20 MG Lactulose 300 ml Q6H MT 01/10/24 14:00 01/11/24 07:35 300 ML Dextrose 1,000 ml @ 120 mls/hr Q8H20M IV 01/11/24 09:30 01/11/24 10:00 120 MLS/HR Examination: LUNGS:Normal, CVS:Normal, MSK:Normal laboratory and microbiology Laboratory Tests 01/11/24 03:04 Test 01/11/24 03:04 Range/Units Serum Glucose 127 H 74-106 mg/dL Microbiology Date/Time Source Procedure Growth Status 01/07/24 19:28 Voided Urine Urine Culture - Final Complete 01/07/24 14:10 Ascities Fluid Gram Stain - Final Resulted 01/07/24 14:10 Ascities Fluid Body Fluid Culture - Preliminary Resulted 01/06/24 16:13 Nose MRSA Screen - Final Complete 01/06/24 07:15 Blood Blood Culture - Final NO GROWTH AFTER 5 DAYS OF INCUBATION. Complete 01/06/24 07:10 Sputum Gram Stain - Final Complete 01/06/24 07:10 Sputum Respiratory Culture - Final Complete Problem List/Assessment/Plan Problem List/Assessment/Plan Acute kidney injury superimposed Chronic Kidney Disease secondary hemodynamic mediated Hepatorenal syndrome Acute respiratory failure, patient intubated on ventilator Decompensated liver cirrhosis Hepatic encephalopathy Septic shock GI bleeding Anemia due to blood loss Thrombocytopenia Metabolic acidosis Hypernatremia due to insensible water loss Status post large volume paracentesis Recommendations Kidney function is improving Increased urine output Sunshine catheter Kidney reported within normal limit on the CT scan Octreotide IV pressors Albumin 25% IV piggyback Transfused packed red blood cell p.r.n. Lactulose IVF D5W at 120 cc/hour We will continue to follow Plan discussed with: Other (Nurse) My Orders My Orders Orders - ZAC GENAO MD Procedure Category Date Status Time D5w 5% (Dextrose 5%) PHA 01/11/24 In Process 09:30 Dietary Evaluation Review Comments: 1) I GI is accessible consider Jevity 1.2 @ 45ml/hr goal rate as tolerated 2) If pt remains NPO >7 days consider TPN to meet at least 75% of estimated needs 3) Continue current plan of care Expected Outcomes/Goals: 1) Pt to receive nutrition support within 7 days of NPO status 2) F/U in 2-3 days ZAC GENAO MD Jan 11, 2024 10:32
[2024-01-11] MEDS ORDERED: TPN PER PHARMACY 0 ML IV SCH (11:00)
[2024-01-11] MEDS: MIDAZOLAM HCL 2MG/2ML 2ml VIAL (1mg/ml) IM ONE (11:03)
--- NOTE | 2024-01-11 11:29 | DVHNC2 ---
Procedure - Bronchoscopy procedure note: Indications: Bilateral lower lobe atelectasis, Possible mucous plugging. Bloody secretions via Medicines: See [employer] notes. Complications: None Procedure: Patient medications and allergies reviewed. The risks and benefits of the procedure and the sedation options and risk were discussed with the patient's healthcare proxy. All questions were answered and informed consent was obtained. Patient identification and proposed procedure were verified prior to the procedure by the physician, and a nurse, and the respiratory therapist in ICU room. The heart rate, respiratory rate, oxygen saturations, blood pressure, adequacy of pulmonary ventilation, and response to care were monitored throughout the procedure. The physical status of the patient was reassessed after the procedure. After obtaining informed consent, the bronchoscope was introduced through the endotracheal tube and advanced into the trachea bronchial tree of both lungs. The procedure was accomplished without difficulty. The patient tolerated the procedure well. Findings: The trachea is in normal caliber. The john is sharp. The tracheobronchial tree of the right lung was examined to at least the first subsegmental level. The bronchial mucosa was inflamed and erythematous. The anatomy in the right lung are normal. There are no endobronchial lesions. There was copious blood tinged secretions from right main stem bronchus onward throughout R4-R10. Right middle lobe (RML) Bronchoalveolar lavage (BAL) obtained. RML BAL sent for gram stain and culture. The left upper lobe, lingula, and left lower lobe were examined to at least the first subsegmental level. Bronchial mucosa and anatomy in the left upper lobe and lingula are normal. There were no endobronchial lesions. There was copious whitish secretions from left main stem bronchus onward throughout L6-L10. Mucous plugging removed from L6-L10. There was no active bleeding at the completion of the procedure. Estimated blood loss: Less than 5 mL. Impression: Left lower lobe atelectasis due to mucous plugging Mucous plugging from L6-L10 Right middle/lower lobe mucous plugging from R4-R10 RML BAL performed Recommendation: Follow-up RML BAL results. Procedure codes: 09994, bronchoscopy, rigid and flexible, including fluoroscopic guidance, one performed; with bronchial endobronchial broncho-alveolar lavage, single or multiple sites PETEY SOLANO MD Jan 11, 2024 11:29
[2024-01-11 12:28] LABS: INR 2.14 (0.9-1.15); Partial Thromboplastin Time 49.9 SEC (24.5-34.5); Prothrombin Time 21.4 sec (9.3-11.8)
[2024-01-11] MEDS ORDERED: DEXTROSE (50%) 50ML SYRG IV SCH (12:30)
[2024-01-11] MEDS: ACCU-CHEK COMFORT CURVE STRIP VI SCH (13:10)
--- NOTE | 2024-01-11 16:07 | DVHPN2 ---
Subjective A 63-year-old with past medical history of cirrhosis previous alcohol abuse GERD, COPD, who came to the ED for altered mental status. Patient was admitted on on January 03 for paracentesis, 4 L removed. Due to your the use of accessory muscles and unable to maintain airway patient was intubated in the ED. Home meds furosemide spironolactone omeprazole Trelegy Intubated in ICU Reviewed: Care Plan Changes from previous H/P or p: No Changes General: Per HPI Eyes: No Pain, No Vision change, No Conjunctivae inflammation, No Eyelid inflammation, No Other, No Redness ENT: No Ear pain, No Ear discharge, No Nose pain, No Nose discharge, No Nose congestion, No Mouth pain, No Mouth swelling, No Throat pain, No Throat swelling, No Other Cardiovascular: No Chest Pain, No Palpitations, No Orthopnea, No Paroxysmal Noc. Dyspnea, No Edema, No Lt Headedness, No Other Respiratory: No Cough, No Dry; Shortness of breath, SOB with excertion; No Wheezing, No Hemoptysis, No Pleuritic Pain, No Sputum, No Other Gastrointestinal: No Nausea, No Vomiting, No Abdominal Pain, No Diarrhea, No Constipation, No Melena, No Hematochezia, No Other Genitourinary: No Dysuria, No Frequency, No Incontinence, No Hematuria, No Retention, No Other Musculoskeletal: No other, No neck pain, No shoulder pain, No arm pain, No back pain, No hand pain, No leg pain, No foot pain Skin: No Rash, No Lesions, No Jaundice, No Bruising, No Other Psych: Per HPI, Anxiety, Behavioral Changes, Depression, Hallucination, H omicidal Ideation, Memory Problems, Poor Concentration, Sadness, Sleep Problems, Suicidal Ideation, Other Objective Vitals Vital Signs Date Time Temp Pulse Resp B/P (MAP) Pulse Ox O2 Delivery O2 Flow Rate FiO2 01/11/24 15:33 40 01/11/24 15:30 92 14 122/62 (82) 95 01/11/24 12:00 98.3 98.3 01/11/24 08:00 Mechanical Ventilator+ Intake/Output Intake and Output 01/11/24 05:00 Intake Total 1750 ml Output Total 9150 ml Balance -7400 ml Intake Oral 250 ml IV Total 1500 ml Output Urine Total 2850 ml Stool Total 6000 ml Gastric Drainage Total 300 ml Other Physical Findings GEN: intubated -Head: ETT on place NECK: Supple, with no masses. CV: RRR, no m/r/g. LUNGS: diminished breath sound in bases ABD: Anasarca. Fat containing umbilical hernia. EXT: edema 4 ext NEURO:unable to asses Medications Current Medications Medications Dose Ordered Sig/Salena Route Start Time Stop Time Status Last Admin Dose Admin Midazolam HCl 50 ml @ 1 mls/hr Q24H IV 01/06/24 07:00 01/08/24 02:34 4 MLS/HR Fentanyl Citrate 250 ml @ 2.5 mls/hr Q24H IV 01/06/24 08:30 01/07/24 21:33 25 MLS/HR Sodium Chloride 10 ml Q8HR IV 01/06/24 14:00 01/11/24 07:35 10 ML Phenylephrine HCl 250 ml @ 30 mls/hr Q8H20M IV 01/06/24 10:00 01/07/24 08:32 67.5 MLS/HR Propofol 100 ml @ 3.135 mls/ hr Q24H IV 01/06/24 10:00 Vasopressin 20 units/Sodium Chloride 100 ml @ 9 mls/hr Q11H7M IV 01/06/24 19:45 01/07/24 22:56 9 MLS/HR Meropenem 50 ml @ 17 mls/hr Q8HR IV 01/07/24 14:00 01/11/24 13:09 17 MLS/HR Norepinephrine Bitartrate 250 ml @ 3.75 mls/hr Q24H IV 01/07/24 08:15 01/09/24 06:00 18.75 MLS/HR Pantoprazole Sodium 40 mg BID IV 01/07/24 22:00 01/11/24 07:35 40 MG Rifaximin 550 mg BID PO 01/07/24 22:00 01/11/24 07:34 550 MG Doxycycline Hyclate 250 ml @ 125 mls/hr Q12H IV 01/08/24 12:00 01/11/24 11:01 125 MLS/HR Polyethylene Glycol 17 gm DAILYPRN PRN PO 01/08/24 12:00 Octreotide Acetate 100 mcg TID SUBCUT 01/08/24 22:00 01/11/24 13:09 100 MCG Albumin Human 100 ml @ 100 mls/hr Q8H IV 01/08/24 19:30 01/09/24 12:29 Cancel Furosemide 20 mg DAILY IV 01/10/24 10:00 01/11/24 07:35 20 MG Dextrose 1,000 ml @ 120 mls/hr Q8H20M IV 01/11/24 09:30 01/11/24 15:21 120 MLS/HR Dexmedetomidine HCl 400 mcg/ Dextrose 100 ml @ 5.225 mls/ hr Q19H9M IV 01/11/24 11:00 01/11/24 15:21 5.225 MLS/HR Lactulose 300 ml Q12H MT 01/11/24 20:00 Amino Acids 0 ml @ 0 mls/hr PER PHARMACY IV 01/11/24 11:00 Diagnostic Test (Pha) 1 strip Q6HR 01/11/24 18:00 01/11/24 13:10 1 STRIP Insulin Human Regular FOLLOW SLIDING SCALE Q6HR SC 01/11/24 18:00 Dextrose 50 ml UD IV 01/11/24 12:30 Fat Emulsion Intravenous 100 ml/Potassium Phosphate 22 meq/ Multivitamins 10 ml/Amino Acids/ Dextrose 1,015 ml @ 42 mls/hr [id number] IV 01/11/24 22:00 01/12/24 21:59 Laboratory Results Laboratory Tests 01/11/24 03:04 Chemistry Test 01/11/24 03:04 Albumin 2.6 g/dL (3.2-4.8) L Calcium Level 8.9 mg/dL (8.7-10.4) Magnesium Level 2.3 mg/dL (1.6-2.6) Total Protein 5.2 g/dL (5.7-8.2) L Coagulation Test 01/11/24 11:50 Prothrombin Time 21.4 sec (9.3-11.8) H Prothrombin Time INR 2.14 (0.9-1.15) H Activated Partial Thromboplast Time 49.9 SEC (24.5-34.5) H LFT Test 01/11/24 03:04 Alanine Aminotransferase (ALT) 25 U/L (7-40) Alkaline Phosphatase 93 U/L (46-116) Aspartate Amino Transferase (AST) 56 U/L (13-40) H Total Bilirubin 6.3 mg/dL (0.2-1.0) H Urinalysis Test 01/06/24 08:42 01/09/24 11:28 Urine Color Yellow (Yellow) Urine Clarity Clear (Clear) Urine pH 6.5 (5.0-9.0) Urine Specific [place] 1.025 (1.001-1.035) Urine Protein Trace (Negative) H Urine Ketones Trace (Negative) Urine Blood Negative /uL (Negative) Urine Nitrite Negative (Negative) Urine Bilirubin Negative (Negative) Urine Urobilinogen 8 mg/dL (Negative) H Urine Leukocyte Esterase Negative /uL (Negative) Urine RBC 1 /hpf (0 - 3) Urine WBC 2 /hpf (0 - 3) Urine Squamous Epithelial Cells Few /hpf (<5) Urine Bacteria None seen /hpf (None Seen) Urine Hyaline Casts Many /lpf (0 - 2) Urine Mucus Few (None Seen) Urine Glucose Normal mg/dL (Normal) Urine Creatinine 70.72 mg/dL (30.0-125.0) Urine Protein/Creatinine Ratio 0.26 Urine Sodium 40 mmol/L (40-220) Urine Total Protein 18.1 mg/dL (1-14) H Blood Gas Results Test 01/11/24 07:16 Arterial Blood pH 7.446 (7.350-7.450) FiO2 % 40.0 Microbiology Microbiology Date/Time Source Procedure Growth Status 01/07/24 19:28 Voided Urine Urine Culture - Final Complete 01/07/24 14:10 Ascities Fluid Gram Stain - Final Resulted 01/07/24 14:10 Ascities Fluid Body Fluid Culture - Preliminary Resulted 01/06/24 16:13 Nose MRSA Screen - Final Complete 01/06/24 07:15 Blood Blood Culture - Final NO GROWTH AFTER 5 DAYS OF INCUBATION. Complete 01/06/24 07:10 Sputum Gram Stain - Final Complete 01/06/24 07:10 Sputum Respiratory Culture - Final Complete Assessment/Plan Assessment/Plan #Acute metabolic encephalopathy due to hyperammonemia and septic shock. Ammonia level: [id number] Lactulose 30 ml q4h Rifaximin 550 mg BID Normal head CT scan Pt is off sedation: miralax and enema prescribed Rectal lactulose per Dr Britt Respiratory: # Acute hypoxic respiratory failure secondary to septic shock and decompensated cirrhosis. #Septic shock due to pneumonia gram+/gram - mechanical ventilation RR 18 VT 500 PEEP 5 Fio2 40% xray: Bilateral lower lung zone hazy opacification which may represent pleural effusions or atelectasis with superimposed infection not excluded. No pneumothorax. Ct scan: Bibasilar consolidation is seen with trace pleural effusion. Pt is on meropenem and doxycicline Going for bronchoscopy per pulmonary today Cardiovascular: #Septic shock due to pneumonia gram+/gram - Patient on Levophed ECHO: Normal left ventricular size and dimension. Normal left ventricular systolic function estimated ejection fraction 55%. 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 Vitamin K per gastro # Lower GI bleeding: episode of hematochezia no new episodes rectal exam: small amount of blood in the stool, no external hemorroids hb: 11.5 - 9.6 - 11.9 - 11 stool occult blood pending GI on the case #Gallstone at the neck of the gallbladder. #Thickened colonic galeas likely secondary to decompression or portal colopathy. #Umbilical hernia No mass seen at the pancreas. Endocrine/Metabolic: # Severe metabolic acidosis due to septic shock resolved # Hyperkalemia #Hyperphosphatemia resolved #Hyperparathyroidism hyperkalemia protocol furosemide, calcium Nephrology on board Infectious Disease: # septic shock due to pneumonia Continue Meropenem , monitor culture results, and adjust antibiotics based on sensitivities. Renal: # Acute kidney injury hemodinamically mediated #Hepatorenal syndrome Creatinine 1.53 urinary output improving Nephrology on board Albumin and octeotride per nephrology Hematology: # Thrombocytopenia secondary to liver cirrhosis and hypersplenism . Hold on DVT prophylaxis General: Full code until now Critical care spent 81 min Plan discussed with: Other (nurse) Date of Service: Jan 11, 2024 Billing Provider: NICCI VARELA MD Common Visit Codes: 38713-SHMPUTLY CARE 30-74 MIN NICCI VARELA MD Jan 11, 2024 16:07
--- NOTE | 2024-01-11 16:12 | DVHPN2 ---
Progress Note - Dictate Date Seen: Jan 11, 2024 Has the PT tested + for MRSA If YES, has PT been informed?: No Medical Necessity Reason Pt with a Central, PICC or Fol: No Subjective Patient underwent bronchoscopy today for removal of mucus plugs FiO2 40% peep of 5 History of liver cirrhosis due to alcohol sober for one year ; Bilirubin 6.3; AST 55 Underwent paracentesis with removal of 3 L, ascitic fluid did not show evidence of any bacterial peritonitis Patient admitted with hepatic encephalopathy and respiratory failure requiring intubation ; hepatitis profile negative Small amount of rectal bleeding that has since resolved NG tube output is bilious;output 600-700 ml/day; hemoglobin stable at 11.0 Patient had a bowel movement after lactulose enema and has been moving his bowels Ammonia level is normal at 29 vital signs Vital Sign Date Time Temp Pulse Resp B/P (MAP) Pulse Ox O2 Delivery O2 Flow Rate FiO2 01/11/24 15:33 40 01/11/24 15:30 92 14 122/62 (82) 95 01/11/24 12:00 98.3 98.3 01/11/24 08:00 Mechanical Ventilator+ Total Intake and Output 01/10/24 01/10/24 01/11/24 15:00 23:00 07:00 Intake Total 450 ml 584 ml 750 ml Output Total 4450 ml 625 ml Balance 450 ml -3866 ml 125 ml medications Current Medications Medications Dose Ordered Sig/Salena Route Start Time Stop Time Status Last Admin Dose Admin Midazolam HCl 50 ml @ 1 mls/hr Q24H IV 01/06/24 07:00 01/08/24 02:34 4 MLS/HR Fentanyl Citrate 250 ml @ 2.5 mls/hr Q24H IV 01/06/24 08:30 01/07/24 21:33 25 MLS/HR Sodium Chloride 10 ml Q8HR IV 01/06/24 14:00 01/11/24 07:35 10 ML Phenylephrine HCl 250 ml @ 30 mls/hr Q8H20M IV 01/06/24 10:00 01/07/24 08:32 67.5 MLS/HR Propofol 100 ml @ 3.135 mls/ hr Q24H IV 01/06/24 10:00 Vasopressin 20 units/Sodium Chloride 100 ml @ 9 mls/hr Q11H7M IV 01/06/24 19:45 01/07/24 22:56 9 MLS/HR Meropenem 50 ml @ 17 mls/hr Q8HR IV 01/07/24 14:00 01/11/24 13:09 17 MLS/HR Norepinephrine Bitartrate 250 ml @ 3.75 mls/hr Q24H IV 01/07/24 08:15 01/09/24 06:00 18.75 MLS/HR Pantoprazole Sodium 40 mg BID IV 01/07/24 22:00 01/11/24 07:35 40 MG Rifaximin 550 mg BID PO 01/07/24 22:00 01/11/24 07:34 550 MG Doxycycline Hyclate 250 ml @ 125 mls/hr Q12H IV 01/08/24 12:00 01/11/24 11:01 125 MLS/HR Polyethylene Glycol 17 gm DAILYPRN PRN PO 01/08/24 12:00 Octreotide Acetate 100 mcg TID SUBCUT 01/08/24 22:00 01/11/24 13:09 100 MCG Albumin Human 100 ml @ 100 mls/hr Q8H IV 01/08/24 19:30 01/09/24 12:29 Cancel Furosemide 20 mg DAILY IV 01/10/24 10:00 01/11/24 07:35 20 MG Dextrose 1,000 ml @ 120 mls/hr Q8H20M IV 01/11/24 09:30 01/11/24 15:21 120 MLS/HR Dexmedetomidine HCl 400 mcg/ Dextrose 100 ml @ 5.225 mls/ hr Q19H9M IV 01/11/24 11:00 01/11/24 15:21 5.225 MLS/HR Lactulose 300 ml Q12H AR 01/11/24 20:00 Amino Acids 0 ml @ 0 mls/hr PER PHARMACY IV 01/11/24 11:00 Diagnostic Test (Pha) 1 strip Q6HR 01/11/24 18:00 01/11/24 13:10 1 STRIP Insulin Human Regular FOLLOW SLIDING SCALE Q6HR SC 01/11/24 18:00 Dextrose 50 ml UD IV 01/11/24 12:30 Fat Emulsion Intravenous 100 ml/Potassium Phosphate 22 meq/ Multivitamins 10 ml/Amino Acids/ Dextrose 1,015 ml @ 42 mls/hr [id number] IV 01/11/24 22:00 11/11/24 21:59 objective General: NAD, AAOX3 Chest: lung lópez clear to auscultation Heart: RRR, no murmur Abdomen: Mild-distended, soft, +BS laboratory and microbiology Laboratory Tests 01/11/24 03:04 Test 01/11/24 03:04 Range/Units Serum Glucose 127 H 74-106 mg/dL Problems(with codes): (1) Elevated liver enzymes (2) Acute respiratory failure with hypoxia (3) Elevated lactic acid level (4) Hypoalbuminemia (5) Generalized weakness (6) Hepatic encephalopathy (7) Liver disease (8) Acute respiratory failure Prognosis Plan Continue current medical management Continue Lactulose 30 mL via NG tube Cut back on narcotics and sedation Monitor labs; platelets down to 33 CPAP trial when patient is more stable from a pulmonary point of view Appreciate pulmonary consult input Dietary Evaluation Review Comments: 1) I GI is accessible consider Jevity 1.2 @ 45ml/hr goal rate as tolerated 2) If pt remains NPO >7 days consider TPN to meet at least 75% of estimated needs 3) Continue current plan of care Expected Outcomes/Goals: 1) Pt to receive nutrition support within 7 days of NPO status 2) F/U in 2-3 days Plan discussed with: Other (None) JOSÉ MIGUEL COLLIER MD Jan 11, 2024 16:12
[2024-01-11] MEDS: InsuLIN REG 1unit/0.01ml Soln (100units/ml) SC SCH (16:45)
[2024-01-11 18:09] LABS: Basophils # (auto) 0 10 ^3/uL (0-0.2); Basophils % (auto) 0.2 % (0.0-2.0); Eosinophils # (auto) 0.2 10 ^3/uL (0-0.8); Eosinophils % (auto) 5.5 % (0.0-7.0); Hematocrit 28.7 % (41.0-53.0); Hemoglobin 10.1 g/dL (13.5-17.5); Lymphocytes # (auto) 0.4 10 ^3/uL (0.4-5.4); Lymphocytes % (auto) 8.8 % (10.0-50.0); Mean Corpuscular Hemoglobin 38.7 pg (28.0-32.0); Mean Corpuscular Hgb Conc. 35.2 g/dL (32.0-36.0); Monocytes # (auto) 0.5 10 ^3/uL (0-1.3); Monocytes % (auto) 11.9 % (0.0-12.0); Neutrophils % (auto) 73.6 % (37.0-80.0); Nucleated Red Blood Cells % 0.1 %; Platelet Count (auto) 43 10^3/uL (140-450); Red Blood Cells 2.61 10^6/uL (4.5-5.90); Red Cell Distribution Width 15.1 % (11.8-14.3); White Blood Cell 4.1 10^3/uL (4.4-10.8)
--- NOTE | 2024-01-11 18:15 | DVHPN2 ---
Progress Note - Dictate Date Seen: Jan 11, 2024 Has the PT tested + for MRSA If YES, has PT been informed?: No Medical Necessity Reason Pt with a Central, PICC or Fol: Yes The following are medically ne: Ackerman Catheter Reason for ackerman catheter: Strict I&O Subjective Patient seen and examined at bedside. Off sedation On mechanical ventilator Overnight events reviewed vital signs Vital Sign Date Time Temp Pulse Resp B/P (MAP) Pulse Ox O2 Delivery O2 Flow Rate FiO2 01/11/24 18:08 56 01/11/24 18:06 40 01/11/24 18:00 15 103/52 (69) 96 01/11/24 16:00 98.1 98.1 01/11/24 08:00 Mechanical Ventilator+ Total Intake and Output 01/10/24 01/10/24 01/11/24 15:00 23:00 07:00 Intake Total 450 ml 584 ml 750 ml Output Total 4450 ml 625 ml Balance 450 ml -3866 ml 125 ml medications Current Medications Medications Dose Ordered Sig/Salena Route Start Time Stop Time Status Last Admin Dose Admin Midazolam HCl 50 ml @ 1 mls/hr Q24H IV 01/06/24 07:00 01/08/24 02:34 4 MLS/HR Fentanyl Citrate 250 ml @ 2.5 mls/hr Q24H IV 01/06/24 08:30 01/07/24 21:33 25 MLS/HR Sodium Chloride 10 ml Q8HR IV 01/06/24 14:00 01/11/24 07:35 10 ML Phenylephrine HCl 250 ml @ 30 mls/hr Q8H20M IV 01/06/24 10:00 01/07/24 08:32 67.5 MLS/HR Propofol 100 ml @ 3.135 mls/ hr Q24H IV 01/06/24 10:00 Vasopressin 20 units/Sodium Chloride 100 ml @ 9 mls/hr Q11H7M IV 01/06/24 19:45 01/07/24 22:56 9 MLS/HR Meropenem 50 ml @ 17 mls/hr Q8HR IV 01/07/24 14:00 01/11/24 13:09 17 MLS/HR Norepinephrine Bitartrate 250 ml @ 3.75 mls/hr Q24H IV 01/07/24 08:15 01/11/24 17:49 3.75 MLS/HR Pantoprazole Sodium 40 mg BID IV 01/07/24 22:00 01/11/24 07:35 40 MG Rifaximin 550 mg BID PO 01/07/24 22:00 01/11/24 07:34 550 MG Doxycycline Hyclate 250 ml @ 125 mls/hr Q12H IV 01/08/24 12:00 01/11/24 11:01 125 MLS/HR Polyethylene Glycol 17 gm DAILYPRN PRN PO 01/08/24 12:00 Octreotide Acetate 100 mcg TID SUBCUT 01/08/24 22:00 01/11/24 13:09 100 MCG Albumin Human 100 ml @ 100 mls/hr Q8H IV 01/08/24 19:30 01/09/24 12:29 Cancel Furosemide 20 mg DAILY IV 01/10/24 10:00 01/11/24 07:35 20 MG Dextrose 1,000 ml @ 120 mls/hr Q8H20M IV 01/11/24 09:30 01/11/24 15:21 120 MLS/HR Dexmedetomidine HCl 400 mcg/ Dextrose 100 ml @ 5.225 mls/ hr Q19H9M IV 01/11/24 11:00 01/11/24 15:21 5.225 MLS/HR Lactulose 300 ml Q12H MD 01/11/24 20:00 Amino Acids 0 ml @ 0 mls/hr PER PHARMACY IV 01/11/24 11:00 Diagnostic Test (Pha) 1 strip Q6HR 01/11/24 18:00 01/11/24 13:10 1 STRIP Insulin Human Regular FOLLOW SLIDING SCALE Q6HR SC 01/11/24 18:00 Dextrose 50 ml UD IV 01/11/24 12:30 Fat Emulsion Intravenous 100 ml/Potassium Phosphate 22 meq/ Multivitamins 10 ml/Amino Acids/ Dextrose 1,015 ml @ 42 mls/hr [id number] IV 01/11/24 22:00 01/12/24 21:59 objective Gen.: Patient lying in bed in medical ICU. Intubated on mechanical ventilator. Head: Normocephalic, atraumatic. Eyes: PERRLA. Ears: Normal external anatomy. Throat: Endotracheal tube and orogastric tube in place. Neck: Supple, trachea midline. Chest: Transmitted breath sounds bilaterally. Decreased air entry bilaterally. No wheezing. Bibasilar crackles. Cardio vascular: Positive S1, positive S2. Regular rate and rhythm. Abdomen: Positive bowel sounds in all 4 quadrants. Soft, nontender, nondistended. : Ackerman in place. Normal external genitalia. Rectal: Deferred Skin: Warm, dry. Intact. Extremities: 2+ radial pulses bilaterally. No lower extremity edema. Neuro: Off sedation. laboratory and microbiology Laboratory Tests 01/11/24 17:55 01/11/24 03:04 Test 01/11/24 03:04 Range/Units Serum Glucose 127 H 74-106 mg/dL Assessment/Plan Impression: Acute hypoxic respiratory failure On mechanical ventilator Shock, improving Elevated ammonia Lactic acidosis Metabolic acidosis Lower GI hemorrhage Cirrhosis Ascites IV drug use (methamphetamine) Overweight, BMI 29.6 Atelectasis, bibasilar Events: Remains on vent support On AC mode; RR 18, VT 500, PEEP 5, FiO2 of 40%. ABG reviewed. Compensated. CXR demonstrates multifocal opacities. Devices in place. No pleural effusion or pneumothorax. Bronchoscopy done to r/o active hemorrhage due to increased bloody secretions - see separate procedure note for details. Continue lactulose q.12 hours Ammonia trending down. Continue antibiotics IV fluid hydration at 120 ml/hr. Monitor platelets d/t thrombocytopenia. Transfuse if less than 30 K Labs and imaging reviewed. Rest of plan as noted below. Plan: s/p intubation on mechanical ventilator. CXR image and report reviewed. Devices in place. Atelectasis in the lung bases. No focal consolidation. No pneumothorax. No pleural effusion. ABG reviewed. Compensated. Off sedation. Awaiting for mentation to improve for CPAP trial. On AC mode; RR 18, VT 500, PEEP 5, FiO2 of 40%. Titrate FIO2 to keep O2 saturation above 90%. VAP bundle. Daily ABG and CXR while intubated Bronchodilators. Continue antibiotics WBC within normal limits. Blood cultures: No growth thus far. Ascitic fluid no growth. Urine culture no growth after 48 hours. Hemodynamically stable Monitor hemoglobin Transfuse if less than 7.0 g/dL Monitor renal function Creatinine trending down. Monitor electrolytes. Supplement as necessary. Monitor ins and outs. Maintain euvolemia. GI prophylaxis. DVT prophylaxis. Prognosis: Poor given patient's multiple co-morbidities. Condition: Critical Rest of plan per hospitalist and other consultants. A total of 35 minutes of critical care time was spent reviewing the patient record, examining the patient, making a diagnostic and therapeutic plan, discussing this plan with the medical personnel, following up on diagnostic studies and following the patient for clinical stability excluding any and all procedures. At least 50% of this time was spent in direct, [id number] contact. Thank you Dr Wallace for allowing me to participate in this patient's care. Further recommendations will depend on the patient's clinical course. Please do not hesitate to contact me if you have any questions or concerns. This medical document was created using an electronic medical record system with [employer] dictation system. Although these documentations are being carefully reviewed, there may still be some phonetic and typographical changes. The errors are purely typographical, due to imperfection on the software program, and do not reflect any compromise in the patient's medical care. Dietary Evaluation Review Comments: 1) I GI is accessible consider Jevity 1.2 @ 45ml/hr goal rate as tolerated 2) If pt remains NPO >7 days consider TPN to meet at least 75% of estimated needs 3) Continue current plan of care Expected Outcomes/Goals: 1) Pt to receive nutrition support within 7 days of NPO status 2) F/U in 2-3 days Plan discussed with: Other (KIRILL Gudino) Critical Care Time(min): 35 PETEY SOLANO MD Jan 11, 2024 18:15
[2024-01-11] MEDS ORDERED: TPN PER PHARMACY IV NR (22:00)
[2024-01-11] MEDS: TPN PER PHARMACY IV NR (22:00)
[2024-01-11] MEDS: LACTULOSE 10g/15ml SOLN 473ML PR SCH (22:54)
[2024-01-12] VITALS (108 sets, daily range): BP systolic 97–137; BP diastolic 40–92; PULSE 49–65; RESP 9–24; TEMP 98–98.5; O2SAT 94–100
[2024-01-12 03:28] LABS: Basophils # (auto) 0 10 ^3/uL (0-0.2); Basophils % (auto) 0.2 % (0.0-2.0); Eosinophils # (auto) 0.8 10 ^3/uL (0-0.8); Neutrophils # (auto) 5.9 10 ^3/uL (1.6-8.6); Nucleated Red Blood Cells % 0.1 %
[2024-01-12 03:30] LABS: Eosinophils % (auto) 10.1 % (0.0-7.0); Hematocrit 30.1 % (41.0-53.0); Hemoglobin 10.4 g/dL (13.5-17.5); Lymphocytes # (auto) 0.6 10 ^3/uL (0.4-5.4); Lymphocytes % (auto) 7.6 % (10.0-50.0); Mean Corpuscular Hemoglobin 38.2 pg (28.0-32.0); Mean Corpuscular Hgb Conc. 34.5 g/dL (32.0-36.0); Monocytes % (auto) 11.4 % (0.0-12.0); Neutrophils % (auto) 70.7 % (37.0-80.0); Platelet Count (auto) 34 10^3/uL (140-450); Red Blood Cells 2.71 10^6/uL (4.5-5.90); Red Cell Distribution Width 15.6 % (11.8-14.3); White Blood Cell 8.4 10^3/uL (4.4-10.8)
[2024-01-12 03:50] LABS: Alanine Aminotransferase 25 U/L (7-40); Albumin 2.1 g/dL (3.2-4.8); Alkaline Phosphatase 89 U/L (46-116); Anion Gap 3 (5-15); Aspartate Aminotransferase 57 U/L (13-40); BUN/Creatinine Ratio 32.5 (10.0-20.0); Blood Urea Nitrogen 39 mg/dL (9-23); Calcium 8.5 mg/dL (8.7-10.4); Carbon Dioxide 33 mmol/L (20-31); Chloride 113 mmol/L (98-107); Glucose 150 mg/dL (74-106); Phosphorus 2.2 mg/dL (2.4-5.1); Sodium 149 mmol/L (136-145); Triglycerides 55 mg/dL (< 150)
[2024-01-12 03:51] LABS: Bilirubin, Total 8.4 mg/dL (0.2-1.0); Total Protein 4.7 g/dL (5.7-8.2)
--- NOTE | 2024-01-12 05:02 | DVH ---
CHEST RADIOGRAPH Indication:INTUBATED Technique: Single frontal view of the chest was obtained COMPARISON: XY CHEST PORTABLE on DOS: 01/11/24, XY CHEST PORTABLE on DOS: 01/10/24, XY CHEST XRAY 1 EW on DOS: 01/09/24, XY CHEST PORTABLE on DOS: 01/11/24 FINDINGS: Lines and Tubes: Endotracheal tube, enteric catheter and left central venous catheter in satisfactory position. Lungs: Multifocal airspace disease. Pleura: No effusion. No pneumothorax. Cardiomediastinal contours: Unremarkable Bones: Unremarkable IMPRESSION: Lines and tubes in satisfactory position. No significant interval change.
[2024-01-12 08:49] LABS: Base Excess 4.9 mmol/L (-2.0-3.0)
[2024-01-12] MEDS: FUROSEMIDE 40 MG/4 ML VIAL IV ONE (10:12)
[2024-01-12] MEDS: LACTULOSE 20Gm/30ML SOLN PO SCH (10:12)
--- NOTE | 2024-01-12 10:23 | DVH ---
Bilateral Upper Extremity Venous Duplex Clinical History: sever edema rule out dvt upper ext Comparison: None Technique: Duplex Doppler evaluation of the venous systems of the right and left lower neck and upper extremities including color Doppler and spectral/pulsed waveform analysis was performed. Findings: RIGHT SIDE: The internal jugular vein demonstrates appropriate compressibility and waveform variability . The subclavian vein is patent on color Doppler evaluation without intraluminal thrombus and demonstra paul waveform variability . The visualized portion of the brachiocephalic vein is patent on color Doppler evaluation without intr aluminal thrombus and demonstrates waveform variability . The axillary vein demonstrates appropriate compressibility and waveform variability . The brachial veins demonstrate appropriate compressibility and patency on Doppler evaluation. The basilic vein demonstrates appropriate compressibility and patency on Doppler evaluation. The cephalic vein demonstrates incomplete compressibility and absence of flow LEFT SIDE: The internal jugular vein demonstrates appropriate compressibility and waveform variability . The subclavian vein is patent on color Doppler evaluation without intraluminal thrombus and demonstra paul waveform variability . The visualized portion of the brachiocephalic vein is patent on color Doppler evaluation without intr aluminal thrombus and demonstrates waveform variability . The axillary vein demonstrates appropriate compressibility and waveform variability . The brachial veins demonstrate appropriate compressibility and patency on Doppler evaluation. The basilic vein demonstrates appropriate compressibility and patency on Doppler evaluation. The cephalic vein demonstrates incomplete compressibility and absence of flow. Impression: 1. Occlusive thrombus within the bilateral cephalic veins, which are part of the superficial venous s ystem. No deep venous thrombus identified in the right or left upper extremity vessels evaluated abov e. 2. If clinical concern/symptoms persist or worsen, short-interval follow-up study is suggested. HS:Y
[2024-01-12] MEDS ORDERED: SODIUM PHOSPHATES 20 MEQ in SODIUM CHL 0.9% 100 ML IV ONE (12:30)
--- NOTE | 2024-01-12 14:45 | DVHPNRES ---
Progress Note Date Seen: Jan 12, 2024 Resident Creating Document: GRACE MARROQUIN RESIDENT Has the PT tested + for MRSA If YES, has PT been informed?: No Medical Necessity Reason Pt with a Central, PICC or Fol: Yes The following are medically ne: Ackerman Catheter Reason for ackerman catheter: Strict I&O Subjective Review of Systems A 63-year-old with past medical history of cirrhosis previous alcohol abuse GERD, COPD, who came to the ED for altered mental status. Patient was admitted on send on January 03 for paracentesis, 4 L removed. Due to your the use of accessory muscles and unable to maintain airway patient was intubated in the ED. Home meds furosemide spironolactone omeprazole Trelegy Patient is being sober for 1 year Objective vital signs Vital Sign Date Time Temp Pulse Resp B/P (MAP) Pulse Ox O2 Delivery O2 Flow Rate FiO2 01/12/24 14:35 59 18 124/55 (78) 100 30 01/12/24 08:54 60.0 01/12/24 08:00 98.0 98.0 01/12/24 08:00 Mechanical Ventilator+ Total Intake and Output 01/11/24 01/11/24 01/12/24 15:00 23:00 07:00 Intake Total 1017 ml 1169.225 ml 1730.0 ml Output Total 1950 ml 1660 ml Balance 1017 ml -780.775 ml 70.0 ml medications Current Medications Medications Dose Ordered Sig/Salena Route Start Time Stop Time Status Last Admin Dose Admin Midazolam HCl 50 ml @ 1 mls/hr Q24H IV 01/06/24 07:00 01/08/24 02:34 4 MLS/HR Fentanyl Citrate 250 ml @ 2.5 mls/hr Q24H IV 01/06/24 08:30 01/07/24 21:33 25 MLS/HR Sodium Chloride 10 ml Q8HR IV 01/06/24 14:00 01/12/24 14:09 10 ML Phenylephrine HCl 250 ml @ 30 mls/hr Q8H20M IV 01/06/24 10:00 01/07/24 08:32 67.5 MLS/HR Propofol 100 ml @ 3.135 mls/ hr Q24H IV 01/06/24 10:00 Vasopressin 20 units/Sodium Chloride 100 ml @ 9 mls/hr Q11H7M IV 01/06/24 19:45 01/07/24 22:56 9 MLS/HR Norepinephrine Bitartrate 250 ml @ 3.75 mls/hr Q24H IV 01/07/24 08:15 01/11/24 20:22 7.5 MLS/HR Pantoprazole Sodium 40 mg BID IV 01/07/24 22:00 01/12/24 10:12 40 MG Rifaximin 550 mg BID PO 01/07/24 22:00 01/12/24 10:12 550 MG Polyethylene Glycol 17 gm DAILYPRN PRN PO 01/08/24 12:00 Octreotide Acetate 100 mcg TID SUBCUT 01/08/24 22:00 01/12/24 14:08 100 MCG Albumin Human 100 ml @ 100 mls/hr Q8H IV 01/08/24 19:30 01/09/24 12:29 Cancel Furosemide 20 mg DAILY IV 01/10/24 10:00 01/11/24 07:35 20 MG Dexmedetomidine HCl 400 mcg/ Dextrose 100 ml @ 5.225 mls/ hr Q19H9M IV 01/11/24 11:00 01/11/24 15:21 5.225 MLS/HR Lactulose 30 ml BID PO 01/12/24 10:00 01/12/24 10:12 30 ML Enteral Nutritional Formula 1,000 ml 30ML/HR GT 01/12/24 14:30 Purified Water 150 ml Q6HR GT 01/12/24 18:00 Examination GEN: intubated RASS 0 -Head: ETT on place NECK: Supple, with no masses. CV: RRR, no m/r/g. LUNGS: diminished breath sound in bases ABD: Anasarca. Fat containing umbilical hernia. EXT: edema 4 ext NEURO:unable to asses laboratory and microbiology Laboratory Tests 01/12/24 03:15 Test 01/12/24 03:15 Range/Units Serum Glucose 150 H 74-106 mg/dL Microbiology Date/Time Source Procedure Growth Status 01/11/24 11:19 Bronchial Washings Gram Stain - Final Resulted 01/11/24 11:19 Bronchial Washings Respiratory Culture - Preliminary Resulted 01/07/24 19:28 Voided Urine Urine Culture - Final Complete 01/07/24 14:10 Ascities Fluid Gram Stain - Final Complete 01/07/24 14:10 Ascities Fluid Body Fluid Culture - Final Complete 01/06/24 16:13 Nose MRSA Screen - Final Complete 01/06/24 07:15 Blood Blood Culture - Final NO GROWTH AFTER 5 DAYS OF INCUBATION. Complete Problem List/Assessment/Plan Problem List/Assessment/Plan Neurologic: #Acute metabolic encephalopathy due to hyperammonemia and septic shock. Ammonia level: [id number] - 57 - 29 -38 Lactulose 30 ml BID Rifaximin 550 mg BID Normal head CT scan Pt is off sedation Respiratory: # Acute hypoxic respiratory failure secondary to septic shock and decompensated cirrhosis. #Septic shock due to pneumonia gram+/gram - Pt was on cpap trial 5 h today, cpap trial tomorrow xray: Multifocal airspace disease. Ct scan: Bibasilar consolidation is seen with trace pleural effusion. Stop AB, completed course of AB Cardiovascular: #Septic shock due to pneumonia gram+/gram - levophed off ECHO: Normal left ventricular size and dimension. Normal left ventricular systolic function estimated ejection fraction 55%. 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 Vitamin K per gastro # Lower GI bleeding: episode of hematochezia ruled out SOB neg #Gallstone at the neck of the gallbladder. #Thickened colonic galeas likely secondary to decompression or portal colopathy. #Umbilical hernia No mass seen at the pancreas. Endocrine/Metabolic: #Hypernatremia 149 Free water # Severe metabolic acidosis due to septic shock resolved # Hyperkalemia resolved #Hyperphosphatemia resolved #Hyperparathyroidism Nephrology on board Infectious Disease: # septic shock due to pneumonia resolved Renal: # Acute kidney injury hemodinamically mediated #Hepatorenal syndrome Creatinine 0.96 urinary output improving Nephrology on board octeotride per nephrology Hematology: # Thrombocytopenia secondary to liver cirrhosis and hypersplenism . Hold on DVT prophylaxis General: Full code until now Critical care spent 81 min Case discussed with Dr Edwards Plan discussed with: Patient, Other (rn) My Orders My Orders Orders - GRACE MARROQUIN Procedure Category Date Status Time Lactulose Oral PHA 01/12/24 In Process 10:00 Bi Lat Upper Dvt US 01/12/24 Resulted 09:28 Nutritional PHA 01/12/24 In Process Supplements (Nepro 14:30 Free Water PHA 01/12/24 In Process 18:00 Cpap Trial For Am ORDERS 01/13/24 Transmitted 08:00 Dietary Evaluation Review Comments: 1) I GI is accessible consider Jevity 1.2 @ 45ml/hr goal rate as tolerated 2) If pt remains NPO >7 days consider TPN to meet at least 75% of estimated needs 3) Continue current plan of care Expected Outcomes/Goals: 1) Pt to receive nutrition support within 7 days of NPO status 2) F/U in 2-3 days Date of Service: Jan 12, 2024 Billing Provider: STALIN EDWARDS MD Common Visit Codes: 40995-[id number] CARE 30-74 MIN, 20811-[id number] CARE-EACH +30MIN GRACE MARROQUIN RESIDENT Jan 12, 2024 14:45 STALIN EDWARDS MD Jan 13, 2024 13:39
[2024-01-12] MEDS: FREE WATER GT SCH (18:37)
[2024-01-12] MEDS ORDERED: TPN PER PHARMACY IV NR (22:00)
[2024-01-13] VITALS (121 sets, daily range): BP systolic 78–150; BP diastolic 34–74; PULSE 45–107; RESP 5–28; TEMP 97.7–98.2; O2SAT 89–100
[2024-01-13 04:03] LABS: Basophils # (auto) 0 10 ^3/uL (0-0.2); Basophils % (auto) 0.2 % (0.0-2.0); Eosinophils # (auto) 0.9 10 ^3/uL (0-0.8); Hemoglobin 11.2 g/dL (13.5-17.5); Monocytes # (auto) 0.8 10 ^3/uL (0-1.3)
[2024-01-13 04:06] LABS: Eosinophils % (auto) 12.5 % (0.0-7.0); Mean Corpuscular Hemoglobin 38.4 pg (28.0-32.0); Mean Corpuscular Hgb Conc. 34.9 g/dL (32.0-36.0); Mean Corpuscular Volume 110.1 fL (80.0-100.0); Monocytes % (auto) 11.6 % (0.0-12.0); Neutrophils # (auto) 4.2 10 ^3/uL (1.6-8.6); Neutrophils % (auto) 61.7 % (37.0-80.0); Nucleated Red Blood Cells % 0.2 %; Platelet Count (auto) 37 10^3/uL (140-450); Red Blood Cells 2.91 10^6/uL (4.5-5.90); Red Cell Distribution Width 15.5 % (11.8-14.3); White Blood Cell 6.8 10^3/uL (4.4-10.8)
--- NOTE | 2024-01-13 04:08 | DVH ---
CHEST RADIOGRAPH Indication:dyspnea Technique: Single frontal view of the chest was obtained Comparison: XY CHEST PORTABLE on DOS: 01/12/24, XY CHEST PORTABLE on DOS: 01/11/24, XY CHEST PORTABLE on DOS: 01/10/24, XY CHEST XRAY 1 VIEW on DOS: 01/09/24, XY CHEST XRAY 1 VIEW on DOS: 01/08/24, XY CHES T PORTABLE on DOS: 01/12/24 FINDINGS: Lines and Tubes: Endotracheal tube, enteric catheter and left central venous catheter in satisfactory position. Lungs: Multifocal airspace disease. Pleura: No effusion. No pneumothorax. Cardiomediastinal contours: Unremarkable Bones: Unremarkable IMPRESSION: Lines and tubes in satisfactory position. No significant interval change.
[2024-01-13 04:17] LABS: Alanine Aminotransferase 30 U/L (7-40); Albumin 2.2 g/dL (3.2-4.8); Alkaline Phosphatase 98 U/L (46-116); Anion Gap 1 (5-15); Aspartate Aminotransferase 68 U/L (13-40); Blood Urea Nitrogen 42 mg/dL (9-23); Calcium 8.5 mg/dL (8.7-10.4); Carbon Dioxide 36 mmol/L (20-31); Chloride 112 mmol/L (98-107); Glucose 91 mg/dL (74-106); Sodium 149 mmol/L (136-145)
[2024-01-13 04:18] LABS: Bilirubin, Total 10.1 mg/dL (0.2-1.0); Phosphorus 2.3 mg/dL (2.4-5.1)
[2024-01-13 04:26] LABS: BUN/Creatinine Ratio 43.8 (10.0-20.0)
[2024-01-13] MEDS: PANTOPRAZOLE 40 MG/10 ML VIAL INJ IV ONE (10:00)
--- NOTE | 2024-01-13 11:19 | DVHPN2 ---
Progress Note - Dictate Date Seen: Jan 12, 2024 Has the PT tested + for MRSA If YES, has PT been informed?: No Medical Necessity Reason Pt with a Central, PICC or Fol: Yes The following are medically ne: Ackerman Catheter Reason for ackerman catheter: Strict I&O vital signs Vital Sign Date Time Temp Pulse Resp B/P (MAP) Pulse Ox O2 Delivery O2 Flow Rate FiO2 01/13/24 10:50 115/50 01/13/24 10:04 70 12 95 30 01/13/24 04:00 98.2 98.2 01/12/24 20:00 Mechanical Ventilator+ 01/12/24 08:54 60.0 Total Intake and Output 01/12/24 01/12/24 01/13/24 15:00 23:00 07:00 Intake Total 802.50 ml 373.00 ml 407.5 ml Output Total 1150 ml 470 ml Balance 802.50 ml -777.00 ml -62.5 ml medications Current Medications Medications Dose Ordered Sig/Salena Route Start Time Stop Time Status Last Admin Dose Admin Midazolam HCl 50 ml @ 1 mls/hr Q24H IV 01/06/24 07:00 01/08/24 02:34 4 MLS/HR Fentanyl Citrate 250 ml @ 2.5 mls/hr Q24H IV 01/06/24 08:30 01/12/24 17:15 2.5 MLS/HR Sodium Chloride 10 ml Q8HR IV 01/06/24 14:00 01/13/24 05:14 10 ML Phenylephrine HCl 250 ml @ 30 mls/hr Q8H20M IV 01/06/24 10:00 01/07/24 08:32 67.5 MLS/HR Propofol 100 ml @ 3.135 mls/ hr Q24H IV 01/06/24 10:00 Vasopressin 20 units/Sodium Chloride 100 ml @ 9 mls/hr Q11H7M IV 01/06/24 19:45 01/07/24 22:56 9 MLS/HR Norepinephrine Bitartrate 250 ml @ 3.75 mls/hr Q24H IV 01/07/24 08:15 01/11/24 20:22 7.5 MLS/HR Pantoprazole Sodium 40 mg BID IV 01/07/24 22:00 01/13/24 10:50 40 MG Rifaximin 550 mg BID PO 01/07/24 22:00 01/13/24 10:49 550 MG Polyethylene Glycol 17 gm DAILYPRN PRN PO 01/08/24 12:00 Octreotide Acetate 100 mcg TID SUBCUT 01/08/24 22:00 01/13/24 05:41 100 MCG Albumin Human 100 ml @ 100 mls/hr Q8H IV 01/08/24 19:30 01/09/24 12:29 Cancel Furosemide 20 mg DAILY IV 01/10/24 10:00 01/13/24 10:50 20 MG Dexmedetomidine HCl 400 mcg/ Dextrose 100 ml @ 5.225 mls/ hr Q19H9M IV 01/11/24 11:00 01/11/24 15:21 5.225 MLS/HR Lactulose 30 ml BID PO 01/12/24 10:00 01/13/24 11:13 30 ML Enteral Nutritional Formula 1,000 ml 30ML/HR GT 01/12/24 14:30 Purified Water 150 ml Q6HR GT 01/12/24 18:00 01/12/24 23:56 150 ML objective Remains intubated but awake Agitated For malnourished Diffuse anasarca Distended abdomen Ackerman catheter has brownish colored urine laboratory and microbiology Laboratory Tests 01/13/24 03:38 Test 01/13/24 03:38 Range/Units Serum Glucose 91 74-106 mg/dL Assessment/Plan Acute kidney injury superimposed Chronic Kidney Disease secondary hemodynamic mediated Hepatorenal syndrome Acute respiratory failure, patient intubated on ventilator Decompensated liver cirrhosis Hepatic encephalopathy Septic shock GI bleeding Anemia due to blood loss Thrombocytopenia Metabolic acidosis Hypernatremia due to insensible water loss Status post large volume paracentesis Dietary Evaluation Review Comments: 1) I GI is accessible consider Jevity 1.2 @ 45ml/hr goal rate as tolerated 2) If pt remains NPO >7 days consider TPN to meet at least 75% of estimated needs 3) Continue current plan of care Expected Outcomes/Goals: 1) Pt to receive nutrition support within 7 days of NPO status 2) F/U in 2-3 days Plan discussed with: Patient Critical Care Time(min): 33 RUPALI SINGLETON MD Jan 13, 2024 11:19
--- NOTE | 2024-01-13 11:20 | DVHPN2 ---
Progress Note - Dictate Date Seen: Jan 13, 2024 Has the PT tested + for MRSA If YES, has PT been informed?: No Medical Necessity Reason Pt with a Central, PICC or Fol: Yes The following are medically ne: Ackerman Catheter Reason for ackerman catheter: Strict I&O Subjective Remains intubated was unable to wean yesterday vital signs Vital Sign Date Time Temp Pulse Resp B/P (MAP) Pulse Ox O2 Delivery O2 Flow Rate FiO2 01/13/24 10:50 115/50 01/13/24 10:04 70 12 95 30 01/13/24 04:00 98.2 98.2 01/12/24 20:00 Mechanical Ventilator+ 01/12/24 08:54 60.0 Total Intake and Output 01/12/24 01/12/24 01/13/24 15:00 23:00 07:00 Intake Total 802.50 ml 373.00 ml 407.5 ml Output Total 1150 ml 470 ml Balance 802.50 ml -777.00 ml -62.5 ml medications Current Medications Medications Dose Ordered Sig/Salena Route Start Time Stop Time Status Last Admin Dose Admin Midazolam HCl 50 ml @ 1 mls/hr Q24H IV 01/06/24 07:00 01/08/24 02:34 4 MLS/HR Fentanyl Citrate 250 ml @ 2.5 mls/hr Q24H IV 01/06/24 08:30 01/12/24 17:15 2.5 MLS/HR Sodium Chloride 10 ml Q8HR IV 01/06/24 14:00 01/13/24 05:14 10 ML Phenylephrine HCl 250 ml @ 30 mls/hr Q8H20M IV 01/06/24 10:00 01/07/24 08:32 67.5 MLS/HR Propofol 100 ml @ 3.135 mls/ hr Q24H IV 01/06/24 10:00 Vasopressin 20 units/Sodium Chloride 100 ml @ 9 mls/hr Q11H7M IV 01/06/24 19:45 01/07/24 22:56 9 MLS/HR Norepinephrine Bitartrate 250 ml @ 3.75 mls/hr Q24H IV 01/07/24 08:15 01/11/24 20:22 7.5 MLS/HR Pantoprazole Sodium 40 mg BID IV 01/07/24 22:00 01/13/24 10:50 40 MG Rifaximin 550 mg BID PO 01/07/24 22:00 01/13/24 10:49 550 MG Polyethylene Glycol 17 gm DAILYPRN PRN PO 01/08/24 12:00 Octreotide Acetate 100 mcg TID SUBCUT 01/08/24 22:00 01/13/24 05:41 100 MCG Albumin Human 100 ml @ 100 mls/hr Q8H IV 01/08/24 19:30 01/09/24 12:29 Cancel Furosemide 20 mg DAILY IV 01/10/24 10:00 01/13/24 10:50 20 MG Dexmedetomidine HCl 400 mcg/ Dextrose 100 ml @ 5.225 mls/ hr Q19H9M IV 01/11/24 11:00 01/11/24 15:21 5.225 MLS/HR Lactulose 30 ml BID PO 01/12/24 10:00 01/13/24 11:13 30 ML Enteral Nutritional Formula 1,000 ml 30ML/HR GT 01/12/24 14:30 Purified Water 150 ml Q6HR GT 01/12/24 18:00 01/12/24 23:56 150 ML objective Remains intubated but awake Agitated For malnourished Diffuse anasarca Distended abdomen Ackerman catheter has brownish colored urine laboratory and microbiology Laboratory Tests 01/13/24 03:38 Test 01/13/24 03:38 Range/Units Serum Glucose 91 74-106 mg/dL Assessment/Plan Acute kidney injury superimposed Chronic Kidney Disease secondary hemodynamic mediated Hepatorenal syndrome Acute respiratory failure, patient intubated on ventilator Decompensated liver cirrhosis Hepatic encephalopathy Septic shock GI bleeding Anemia due to blood loss Thrombocytopenia Hypernatremia due to insensible water loss Status post large volume paracentesis Recommend increasing ultrafiltration with increased dose of diuretic Strict Is&Os Monitor electrolytes Rest of care as per critical care team Dietary Evaluation Review Comments: 1) I GI is accessible consider Jevity 1.2 @ 45ml/hr goal rate as tolerated 2) If pt remains NPO >7 days consider TPN to meet at least 75% of estimated needs 3) Continue current plan of care Expected Outcomes/Goals: 1) Pt to receive nutrition support within 7 days of NPO status 2) F/U in 2-3 days Plan discussed with: Patient RUPALI SINGLETON MD Jan 13, 2024 11:20
--- NOTE | 2024-01-13 11:39 | DVHPNRES ---
Progress Note Date Seen: Jan 13, 2024 Resident Creating Document: GRACE MARROQUIN RESIDENT Has the PT tested + for MRSA If YES, has PT been informed?: No Medical Necessity Reason Pt with a Central, PICC or Fol: Yes The following are medically ne: Ackerman Catheter Reason for ackerman catheter: Strict I&O Subjective Review of Systems A 63-year-old with past medical history of cirrhosis previous alcohol abuse GERD, COPD, who came to the ED for altered mental status. Patient was admitted on on January 03 for paracentesis, 4 L removed. Due to your the use of accessory muscles and unable to maintain airway patient was intubated in the ED. Home meds furosemide spironolactone omeprazole Trelegy Patient is being sober for 1 year Objective vital signs Vital Sign Date Time Temp Pulse Resp B/P (MAP) Pulse Ox O2 Delivery O2 Flow Rate FiO2 01/13/24 10:50 115/50 01/13/24 10:04 70 12 95 30 01/13/24 04:00 98.2 98.2 01/12/24 20:00 Mechanical Ventilator+ 01/12/24 08:54 60.0 Total Intake and Output 01/12/24 01/12/24 01/13/24 15:00 23:00 07:00 Intake Total 802.50 ml 373.00 ml 407.5 ml Output Total 1150 ml 470 ml Balance 802.50 ml -777.00 ml -62.5 ml medications Current Medications Medications Dose Ordered Sig/Salena Route Start Time Stop Time Status Last Admin Dose Admin Midazolam HCl 50 ml @ 1 mls/hr Q24H IV 01/06/24 07:00 01/08/24 02:34 4 MLS/HR Fentanyl Citrate 250 ml @ 2.5 mls/hr Q24H IV 01/06/24 08:30 01/12/24 17:15 2.5 MLS/HR Sodium Chloride 10 ml Q8HR IV 01/06/24 14:00 01/13/24 05:14 10 ML Phenylephrine HCl 250 ml @ 30 mls/hr Q8H20M IV 01/06/24 10:00 01/07/24 08:32 67.5 MLS/HR Propofol 100 ml @ 3.135 mls/ hr Q24H IV 01/06/24 10:00 Vasopressin 20 units/Sodium Chloride 100 ml @ 9 mls/hr Q11H7M IV 01/06/24 19:45 01/07/24 22:56 9 MLS/HR Norepinephrine Bitartrate 250 ml @ 3.75 mls/hr Q24H IV 01/07/24 08:15 01/11/24 20:22 7.5 MLS/HR Pantoprazole Sodium 40 mg BID IV 01/07/24 22:00 01/13/24 10:50 40 MG Rifaximin 550 mg BID PO 01/07/24 22:00 01/13/24 10:49 550 MG Polyethylene Glycol 17 gm DAILYPRN PRN PO 01/08/24 12:00 Octreotide Acetate 100 mcg TID SUBCUT 01/08/24 22:00 01/13/24 05:41 100 MCG Albumin Human 100 ml @ 100 mls/hr Q8H IV 01/08/24 19:30 01/09/24 12:29 Cancel Furosemide 20 mg DAILY IV 01/10/24 10:00 01/13/24 10:50 20 MG Dexmedetomidine HCl 400 mcg/ Dextrose 100 ml @ 5.225 mls/ hr Q19H9M IV 01/11/24 11:00 01/11/24 15:21 5.225 MLS/HR Lactulose 30 ml BID PO 01/12/24 10:00 01/13/24 11:13 30 ML Enteral Nutritional Formula 1,000 ml 30ML/HR GT 01/12/24 14:30 Purified Water 150 ml Q6HR GT 01/12/24 18:00 01/12/24 23:56 150 ML Examination GEN: intubated combative RASS 3 -Head: ETT on place NECK: Supple, with no masses. CV: RRR, no m/r/g. LUNGS: diminished breath sound in bases ABD: Anasarca. Fat containing umbilical hernia. EXT: edema 4 ext NEURO:unable to asses laboratory and microbiology Laboratory Tests 01/13/24 03:38 Test 01/13/24 03:38 Range/Units Serum Glucose 91 74-106 mg/dL Microbiology Date/Time Source Procedure Growth Status 01/11/24 11:19 Bronchial Washings Gram Stain - Final Resulted 01/11/24 11:19 Bronchial Washings Respiratory Culture - Preliminary Resulted 01/07/24 19:28 Voided Urine Urine Culture - Final Complete 01/07/24 14:10 Ascities Fluid Gram Stain - Final Complete 01/07/24 14:10 Ascities Fluid Body Fluid Culture - Final Complete 01/06/24 16:13 Nose MRSA Screen - Final Complete 01/06/24 07:15 Blood Blood Culture - Final NO GROWTH AFTER 5 DAYS OF INCUBATION. Complete Problem List/Assessment/Plan Problem List/Assessment/Plan Neurologic: #Acute metabolic encephalopathy due to hyperammonemia and septic shock. Ammonia level: [id number] - 57 - 29 -38 - 21 Lactulose 30 ml BID Rifaximin 550 mg BID Normal head CT scan Pt was combative, cpap trial failed at 25 min: pt was placed again on sedation Respiratory: # Acute hypoxic respiratory failure secondary to septic shock and decompensated cirrhosis. #Septic shock due to pneumonia gram+/gram - Pt was on cpap trial failed at 25 min xray: Multifocal airspace disease. Ct scan: Bibasilar consolidation is seen with trace pleural effusion. Stop AB, completed course of AB x ray more congestive: lasix 60 mg per nephro once Cardiovascular: #Septic shock due to pneumonia gram+/gram - resolving levophed on and off ECHO: Normal left ventricular size and dimension. Normal left ventricular systolic function estimated ejection fraction 55%. 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 Vitamin K per gastro # Lower GI bleeding: episode of hematochezia ruled out SOB neg #Gallstone at the neck of the gallbladder. #Thickened colonic galeas likely secondary to decompression or portal colopathy. #Umbilical hernia Ordered new ultrasound due to elevated bilirubins Endocrine/Metabolic: #Hypernatremia 147 Free water # Severe metabolic acidosis due to septic shock resolved # Hyperkalemia resolved #Hyperphosphatemia resolved #Hyperparathyroidism Nephrology on board Infectious Disease: # septic shock due to pneumonia resolved Renal: # Acute kidney injury hemodinamically mediated #Hepatorenal syndrome Creatinine 1.04 urinary output improving Nephrology on board Hematology: # Thrombocytopenia secondary to liver cirrhosis and hypersplenism . Hold on DVT prophylaxis General: Full code until now Critical care spent 81 min Case discussed with Dr Edwards Plan discussed with: Patient, Other (RN) My Orders My Orders Orders - GRACE MARROQUIN RESIDENT Procedure Category Date Status Time Nutritional PHA 01/12/24 In Process Supplements (Nepro 14:30 Free Water PHA 01/12/24 In Process 18:00 Cpap Trial For Am ORDERS 01/13/24 Transmitted 08:00 Chest Xray 1 View XY 01/13/24 Resulted 04:00 Abg W/ Co-Ox RT 01/13/24 Logged 04:00 Dietary Evaluation Review Comments: 1) I GI is accessible consider Jevity 1.2 @ 45ml/hr goal rate as tolerated 2) If pt remains NPO >7 days consider TPN to meet at least 75% of estimated needs 3) Continue current plan of care Expected Outcomes/Goals: 1) Pt to receive nutrition support within 7 days of NPO status 2) F/U in 2-3 days Date of Service: Jan 13, 2024 Billing Provider: STALIN EDWARDS MD Common Visit Codes: [id number] CARE 30-74 MIN GRACE MARROQUIN RESIDENT Jan 13, 2024 11:39 STALIN EDWARDS MD Jan 14, 2024 13:23
[2024-01-13] MEDS: FUROSEMIDE 100 MG/10ML VIAL IV ONE (12:10)
[2024-01-13] MEDS: PROPOFOL 100 ML IV SCH (14:45)
[2024-01-13] MEDS: fentaNYL Drip 2500mCg/250mlNS 250 ML IV SCH (15:48)
[2024-01-13 18:18] LABS: Chloride 112 mmol/L (98-107); Potassium 4.2 mmol/L (3.5-5.1); Sodium 148 mmol/L (136-145)
[2024-01-13 18:19] LABS: Anion Gap 2 (5-15); Calcium 8.7 mg/dL (8.7-10.4); Carbon Dioxide 34 mmol/L (20-31)
[2024-01-13 18:24] LABS: Blood Urea Nitrogen 43 mg/dL (9-23); Glucose 98 mg/dL (74-106)
[2024-01-13 18:33] LABS: BUN/Creatinine Ratio 38.4 (10.0-20.0)
--- NOTE | 2024-01-13 19:35 | DVH ---
INDICATION: Pain. TECHNIQUE: Multiple real-time sonographic images of the abdomen were obtained. COMPARISON: 01/07/2024 FINDINGS: The liver is unchanged from 01/07/2024. The gallbladder wall measures 0.29 cm and is unremarkable. There is sludge in the gallbladder. The common duct measures 0.43 cm and is unremarkable. Moderate amount of ascites. IMPRESSION: 1. Sludge in the gallbladder. 2. Gallbladder wall measures 2.94 mm which is at the upper limits of normal. 3. Common bile duct measures 4.28 mm.
[2024-01-13] MEDS: PROPOFOL 100 ML IV ONE (20:27)
--- NOTE | 2024-01-13 20:32 | DVHPN2 ---
Progress Note - Dictate Date Seen: Jan 13, 2024 Has the PT tested + for MRSA If YES, has PT been informed?: No Medical Necessity Reason Pt with a Central, PICC or Fol: Yes The following are medically ne: Ackerman Catheter Reason for ackerman catheter: Strict I&O Subjective Patient is still unstable He is having periodic episodes of hypoxia He needed to be started back on IV Levophed History of liver cirrhosis due to alcohol sober for one year ; Bilirubin 10.1; AST 68 Underwent paracentesis with removal of 3 L, ascitic fluid did not show evidence of any bacterial peritonitis Patient admitted with hepatic encephalopathy and respiratory failure requiring intubation ; hepatitis profile negative Small amount of rectal bleeding that has since resolved NG tube output is bilious;output 600-700 ml/day; hemoglobin stable at 11.0 Patient has been moving his bowels Ammonia level is normal at 29 Patient is on IV TPN vital signs Vital Sign Date Time Temp Pulse Resp B/P (MAP) Pulse Ox O2 Delivery O2 Flow Rate FiO2 01/13/24 20:18 49 18 111/43 (65) 97 40 01/13/24 18:00 Mechanical Ventilator 01/13/24 04:00 98.2 98.2 01/12/24 08:54 60.0 Total Intake and Output 01/12/24 01/12/24 01/13/24 15:00 23:00 07:00 Intake Total 802.50 ml 373.00 ml 407.5 ml Output Total 1150 ml 470 ml Balance 802.50 ml -777.00 ml -62.5 ml medications Current Medications Medications Dose Ordered Sig/Salena Route Start Time Stop Time Status Last Admin Dose Admin Midazolam HCl 50 ml @ 1 mls/hr Q24H IV 01/06/24 07:00 01/08/24 02:34 4 MLS/HR Sodium Chloride 10 ml Q8HR IV 01/06/24 14:00 01/13/24 14:00 10 ML Phenylephrine HCl 250 ml @ 30 mls/hr Q8H20M IV 01/06/24 10:00 01/07/24 08:32 67.5 MLS/HR Vasopressin 20 units/Sodium Chloride 100 ml @ 9 mls/hr Q11H7M IV 01/06/24 19:45 01/07/24 22:56 9 MLS/HR Norepinephrine Bitartrate 250 ml @ 3.75 mls/hr Q24H IV 01/07/24 08:15 01/11/24 20:22 7.5 MLS/HR Rifaximin 550 mg BID PO 01/07/24 22:00 01/13/24 10:49 550 MG Polyethylene Glycol 17 gm DAILYPRN PRN PO 01/08/24 12:00 Albumin Human 100 ml @ 100 mls/hr Q8H IV 01/08/24 19:30 01/09/24 12:29 Cancel Furosemide 20 mg DAILY IV 01/10/24 10:00 01/13/24 10:50 20 MG Dexmedetomidine HCl 400 mcg/ Dextrose 100 ml @ 5.225 mls/ hr Q19H9M IV 01/11/24 11:00 01/11/24 15:21 5.225 MLS/HR Lactulose 30 ml BID PO 01/12/24 10:00 01/13/24 11:13 30 ML Enteral Nutritional Formula 1,000 ml 30ML/HR GT 01/12/24 14:30 Purified Water 150 ml Q6HR GT 01/12/24 18:00 01/13/24 18:27 150 ML Fentanyl Citrate 250 ml @ 2.5 mls/hr Q24H IV 01/13/24 19:30 Propofol 100 ml @ 3.135 mls/ hr Q24H IV 01/13/24 20:00 objective General: NAD, AAOX3 Chest: lung lópez clear to auscultation Heart: RRR, no murmur Abdomen: Mild-distended, soft, +BS laboratory and microbiology Laboratory Tests 01/13/24 17:30 01/13/24 03:38 Test 01/13/24 17:30 Range/Units Serum Glucose 98 74-106 mg/dL Liver USG IMPRESSION: 1. Sludge in the gallbladder. 2. Gallbladder wall measures 2.94 mm which is at the upper limits of normal. 3. Common bile duct measures 4.28 mm. Problems(with codes): (1) Elevated liver enzymes (2) Hepatic encephalopathy (3) Generalized weakness (4) Gallbladder sludge Prognosis Plan Continue current medical management Continue Lactulose 30 mL via NG tube Cut back on narcotics and sedation Monitor labs; platelets down to 37 CPAP trial when patient is more stable from a pulmonary point of view Appreciate pulmonary consult input Dietary Evaluation Review Comments: 1) I GI is accessible consider Jevity 1.2 @ 45ml/hr goal rate as tolerated 2) If pt remains NPO >7 days consider TPN to meet at least 75% of estimated needs 3) Continue current plan of care Expected Outcomes/Goals: 1) Pt to receive nutrition support within 7 days of NPO status 2) F/U in 2-3 days Plan discussed with: Other (None) JOSÉ MIGUEL COLLIER MD Jan 13, 2024 20:32
[2024-01-13] MEDS: Nepro With Carb Steady 1 Liter Bottle GT SCH (22:23)
[2024-01-14] VITALS (100 sets, daily range): BP systolic 95–135; BP diastolic 37–68; PULSE 45–97; RESP 6–22; TEMP 97.7–98.7; O2SAT 88–100
[2024-01-14 03:42] LABS: Hematocrit 32.8 % (41.0-53.0); Hemoglobin 11.2 g/dL (13.5-17.5); Mean Corpuscular Hemoglobin 37.7 pg (28.0-32.0); Mean Corpuscular Hgb Conc. 34.1 g/dL (32.0-36.0); Mean Corpuscular Volume 110.7 fL (80.0-100.0); Platelet Count (auto) 44 10^3/uL (140-450); Red Blood Cells 2.97 10^6/uL (4.5-5.90); White Blood Cell 7.8 10^3/uL (4.4-10.8)
[2024-01-14 03:55] LABS: INR 2.01 (0.9-1.15); Partial Thromboplastin Time 45.3 SEC (24.5-34.5); Prothrombin Time 20.2 sec (9.3-11.8)
[2024-01-14 03:56] LABS: Alanine Aminotransferase 34 U/L (7-40); Albumin 2.2 g/dL (3.2-4.8); Alkaline Phosphatase 102 U/L (46-116); Anion Gap 5 (5-15); Aspartate Aminotransferase 85 U/L (13-40); Blood Urea Nitrogen 44 mg/dL (9-23); Calcium 8.7 mg/dL (8.7-10.4); Carbon Dioxide 31 mmol/L (20-31); Chloride 111 mmol/L (98-107); Glucose 103 mg/dL (74-106); Sodium 147 mmol/L (136-145)
[2024-01-14 03:57] LABS: Bilirubin, Total 10.9 mg/dL (0.2-1.0); Total Protein 5.1 g/dL (5.7-8.2)
[2024-01-14 04:01] LABS: BUN/Creatinine Ratio 42.3 (10.0-20.0)
[2024-01-14 04:11] LABS: Band Neutrophils % (manual) 0; Basophils % (manual) 0 (0.0-2.0); Blast Cells 0; Metamyelocytes % 0; Myelocytes % 0; Promyelocytes % 0; Reactive Lymphocytes 0
[2024-01-14] MEDS: fentaNYL Drip 2500mCg/250mlNS 250 ML IV SCH (04:13)
--- NOTE | 2024-01-14 04:45 | DVH ---
EXAM: XY CHEST PORTABLE Indication:VENTILATED Technique: Single frontal view of the chest was obtained Comparison: XY CHEST XRAY 1 VIEW on DOS: 01/13/24, XY CHEST PORTABLE on DOS: 01/12/24, XY CHEST MONAE BLE on DOS: 01/11/24, XY CHEST PORTABLE on DOS: 01/10/24, XY CHEST XRAY 1 VIEW on DOS: 01/09/24, XY [address] XRAY 1 VIEW on DOS: 01/13/24 FINDINGS: Lines and Tubes: Endotracheal tube, enteric catheter and left central venous catheter in satisfactory position. Lungs: Multifocal airspace disease. Pleura: No effusion. No pneumothorax. Cardiomediastinal contours: Unremarkable Bones: Unremarkable IMPRESSION: Lines and tubes in satisfactory position. No significant interval change.
[2024-01-14 05:07] LABS: Anisocytosis Slight; Eosinophils % (manual) 17 (0-7); Lymphocytes % (manual) 11 (10.0-50.0); Macrocytosis Marked; Monocytes % (manual) 10 (0-12); Platelet Estimate Decreased
[2024-01-14] MEDS: FUROSEMIDE 100 MG/10ML VIAL IV ONE ×2 (07:03→17:21)
[2024-01-14 09:24] LABS: Albumin 2.2 g/dL (3.2-4.8); Bilirubin, Direct 4.3 mg/dL (<0.3); Bilirubin, Total 10.3 mg/dL (0.2-1.0); Total Protein 5.1 g/dL (5.7-8.2)
[2024-01-14] MEDS: metOLazone 5 MG TAB PO ONE (10:29)
--- NOTE | 2024-01-14 13:15 | DVHPNRES ---
Progress Note Date Seen: Jan 14, 2024 Resident Creating Document: GRACE MARROQUIN RESIDENT Has the PT tested + for MRSA If YES, has PT been informed?: No Medical Necessity Reason Pt with a Central, PICC or Fol: Yes The following are medically ne: Ackerman Catheter Reason for ackerman catheter: Strict I&O Subjective Review of Systems A 63-year-old with past medical history of cirrhosis previous alcohol abuse GERD, COPD, who came to the ED for altered mental status. Patient was admitted on on January 03 for paracentesis, 4 L removed. Due to your the use of accessory muscles and unable to maintain airway patient was intubated in the ED. Home meds furosemide spironolactone omeprazole Trelegy Patient is being sober for 1 year Objective vital signs Vital Sign Date Time Temp Pulse Resp B/P (MAP) Pulse Ox O2 Delivery O2 Flow Rate FiO2 01/14/24 12:35 95 01/14/24 12:33 16 01/14/24 12:00 30 01/14/24 12:00 71 01/14/24 11:46 119/48 01/14/24 08:00 Mechanical Ventilator+ 01/14/24 04:00 98.5 98.5 01/12/24 08:54 60.0 Total Intake and Output 01/13/24 01/13/24 01/14/24 15:00 23:00 07:00 Intake Total 108.8 ml 909.535 ml 756.83 ml Output Total 1230 ml 440 ml Balance 108.8 ml -320.465 ml 316.83 ml medications Current Medications Medications Dose Ordered Sig/Salena Route Start Time Stop Time Status Last Admin Dose Admin Midazolam HCl 50 ml @ 1 mls/hr Q24H IV 01/06/24 07:00 01/08/24 02:34 4 MLS/HR Sodium Chloride 10 ml Q8HR IV 01/06/24 14:00 01/14/24 05:22 10 ML Phenylephrine HCl 250 ml @ 30 mls/hr Q8H20M IV 01/06/24 10:00 01/14/24 09:40 4.5 MLS/HR Vasopressin 20 units/Sodium Chloride 100 ml @ 9 mls/hr Q11H7M IV 01/06/24 19:45 01/07/24 22:56 9 MLS/HR Norepinephrine Bitartrate 250 ml @ 3.75 mls/hr Q24H IV 01/07/24 08:15 01/14/24 05:52 18.75 MLS/HR Rifaximin 550 mg BID PO 01/07/24 22:00 01/14/24 10:28 550 MG Polyethylene Glycol 17 gm DAILYPRN PRN PO 01/08/24 12:00 Albumin Human 100 ml @ 100 mls/hr Q8H IV 01/08/24 19:30 01/09/24 12:29 Cancel Dexmedetomidine HCl 400 mcg/ Dextrose 100 ml @ 5.225 mls/ hr Q19H9M IV 01/11/24 11:00 01/11/24 15:21 5.225 MLS/HR Lactulose 30 ml BID PO 01/12/24 10:00 01/14/24 10:28 30 ML Enteral Nutritional Formula 1,000 ml 30ML/HR GT 01/12/24 14:30 01/13/24 22:23 1,000 ML Purified Water 150 ml Q6HR GT 01/12/24 18:00 01/14/24 11:40 150 ML Fentanyl Citrate 250 ml @ 2.5 mls/hr Q24H IV 01/13/24 19:30 01/14/24 04:13 15 MLS/HR Propofol 100 ml @ 3.135 mls/ hr Q24H IV 01/13/24 20:00 01/14/24 00:57 9.405 MLS/HR Furosemide 20 mg BIDD IV 01/14/24 18:00 Examination GEN: extubated, still confused but more alert NECK: Supple, with no masses. CV: RRR, no m/r/g. LUNGS: diminished breath sound in bases ABD: Anasarca. Fat containing umbilical hernia. EXT: edema 4 ext laboratory and microbiology Laboratory Tests 01/14/24 03:15 Test 01/14/24 03:15 Range/Units Serum Glucose 103 74-106 mg/dL Microbiology Date/Time Source Procedure Growth Status 01/11/24 11:19 Bronchial Washings Gram Stain - Final Resulted 01/11/24 11:19 Bronchial Washings Respiratory Culture - Preliminary Resulted 01/07/24 19:28 Voided Urine Urine Culture - Final Complete 01/07/24 14:10 Ascities Fluid Gram Stain - Final Complete 01/07/24 14:10 Ascities Fluid Body Fluid Culture - Final Complete 01/06/24 16:13 Nose MRSA Screen - Final Complete 01/06/24 07:15 Blood Blood Culture - Final NO GROWTH AFTER 5 DAYS OF INCUBATION. Complete Problem List/Assessment/Plan Problem List/Assessment/Plan Neurologic: #Acute metabolic encephalopathy due to hyperammonemia and septic shock resolving Ammonia level: 837-20-96-86 - 57 - 29 -38 - 21 Lactulose 30 ml BID Rifaximin 550 mg BID Normal head CT scan Pt was extubated at 11 am Respiratory: # Acute hypoxic respiratory failure secondary to septic shock and decompensated cirrhosis. #Septic shock due to pneumonia gram+/gram - Pt was extubated at 11 am xray: Multifocal airspace disease. Ct scan: Bibasilar consolidation is seen with trace pleural effusion. Stop AB, completed course of AB x ray still congestive but levophed was restarted, furosemide 20 mg daily Cardiovascular: #Septic shock due to pneumonia gram+/gram - resolving levophed on ECHO: Normal left ventricular size and dimension. Normal left ventricular systolic function estimated ejection fraction 55%. 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 Vitamin K per gastro No new ascites to drain # Lower GI bleeding: episode of hematochezia ruled out SOB neg #Gallstone at the neck of the gallbladder. #Thickened colonic galeas likely secondary to decompression or portal colopathy. #Umbilical hernia borderline gallbladder galeas f/u Endocrine/Metabolic: #Hypernatremia 147 Free water # Severe metabolic acidosis due to septic shock resolved # Hyperkalemia resolved #Hyperphosphatemia resolved #Hyperparathyroidism Nephrology on board Infectious Disease: # septic shock due to pneumonia resolved Renal: # Acute kidney injury hemodinamically mediated #Hepatorenal syndrome Creatinine 1.04 urinary output improving Nephrology on board Hematology: # Thrombocytopenia secondary to liver cirrhosis and hypersplenism . Hold on DVT prophylaxis General: Full code until now Critical care spent 81 min Case discussed with Dr Edwards Plan discussed with: Patient, Other (rn) My Orders My Orders Orders - GRACE MARROQUIN RESIDENT Procedure Category Date Status Time Abg W/ Co-Ox RT 01/14/24 Logged 04:00 Furosemide Injection PHA 01/14/24 In Process (Lasix Injection) 18:00 Communication Order ORDERS 01/14/24 Transmitted 09:00 Dietary Evaluation Review Comments: 1) I GI is accessible consider Jevity 1.2 @ 45ml/hr goal rate as tolerated 2) If pt remains NPO >7 days consider TPN to meet at least 75% of estimated needs 3) Continue current plan of care Expected Outcomes/Goals: 1) Pt to receive nutrition support within 7 days of NPO status 2) F/U in 2-3 days Date of Service: Jan 15, 2024 Billing Provider: STALIN EDWARDS MD Common Visit Codes: [id number] INP/OBS CARE(HIGH) GRACE MARROQUIN RESIDENT Jan 14, 2024 13:15 STALIN EDWARDS MD Jan 15, 2024 15:33
--- NOTE | 2024-01-14 15:52 | DVHPN2 ---
Progress Note - Dictate Date Seen: Jan 14, 2024 Has the PT tested + for MRSA If YES, has PT been informed?: No Medical Necessity Reason Pt with a Central, PICC or Fol: Yes The following are medically ne: Ackerman Catheter Reason for ackerman catheter: Strict I&O Subjective Extubated vital signs Vital Sign Date Time Temp Pulse Resp B/P (MAP) Pulse Ox O2 Delivery O2 Flow Rate FiO2 01/14/24 14:30 112/45 01/14/24 14:00 71 01/14/24 13:15 12 95 01/14/24 12:30 98.7 98.7 01/14/24 12:00 30 01/14/24 08:00 Mechanical Ventilator+ 01/12/24 08:54 60.0 Total Intake and Output 01/13/24 01/13/24 01/14/24 15:00 23:00 07:00 Intake Total 108.8 ml 909.535 ml 756.83 ml Output Total 1230 ml 440 ml Balance 108.8 ml -320.465 ml 316.83 ml medications Current Medications Medications Dose Ordered Sig/Salena Route Start Time Stop Time Status Last Admin Dose Admin Midazolam HCl 50 ml @ 1 mls/hr Q24H IV 01/06/24 07:00 01/08/24 02:34 4 MLS/HR Sodium Chloride 10 ml Q8HR IV 01/06/24 14:00 01/14/24 05:22 10 ML Phenylephrine HCl 250 ml @ 30 mls/hr Q8H20M IV 01/06/24 10:00 01/14/24 09:40 4.5 MLS/HR Vasopressin 20 units/Sodium Chloride 100 ml @ 9 mls/hr Q11H7M IV 01/06/24 19:45 01/07/24 22:56 9 MLS/HR Norepinephrine Bitartrate 250 ml @ 3.75 mls/hr Q24H IV 01/07/24 08:15 01/14/24 05:52 18.75 MLS/HR Rifaximin 550 mg BID PO 01/07/24 22:00 01/14/24 10:28 550 MG Polyethylene Glycol 17 gm DAILYPRN PRN PO 01/08/24 12:00 Albumin Human 100 ml @ 100 mls/hr Q8H IV 01/08/24 19:30 01/09/24 12:29 Cancel Dexmedetomidine HCl 400 mcg/ Dextrose 100 ml @ 5.225 mls/ hr Q19H9M IV 01/11/24 11:00 01/11/24 15:21 5.225 MLS/HR Lactulose 30 ml BID PO 01/12/24 10:00 01/14/24 10:28 30 ML Enteral Nutritional Formula 1,000 ml 30ML/HR GT 01/12/24 14:30 01/13/24 22:23 1,000 ML Purified Water 150 ml Q6HR GT 01/12/24 18:00 01/14/24 11:40 150 ML Fentanyl Citrate 250 ml @ 2.5 mls/hr Q24H IV 01/13/24 19:30 01/14/24 04:13 15 MLS/HR Propofol 100 ml @ 3.135 mls/ hr Q24H IV 01/13/24 20:00 01/14/24 00:57 9.405 MLS/HR Furosemide 20 mg BIDD IV 01/14/24 18:00 objective Awake and alert Extubated Has cough with phlegm Diffuse anasarca Distended abdomen Ackerman catheter has brownish colored urine laboratory and microbiology Laboratory Tests 01/14/24 03:15 Test 01/14/24 03:15 Range/Units Serum Glucose 103 74-106 mg/dL Assessment/Plan Acute kidney injury superimposed Chronic Kidney Disease secondary hemodynamic mediated Hepatorenal syndrome Acute respiratory failure, patient intubated on ventilator Decompensated liver cirrhosis Hepatic encephalopathy Septic shock GI bleeding Anemia due to blood loss Thrombocytopenia Hypernatremia due to insensible water loss Status post large volume paracentesis Recommend increasing ultrafiltration with increased dose of diuretic Goal to achieve negative fluid balance Strict Is&Os Monitor electrolytes Rest of care as per critical care team Dietary Evaluation Review Comments: 1) I GI is accessible consider Jevity 1.2 @ 45ml/hr goal rate as tolerated 2) If pt remains NPO >7 days consider TPN to meet at least 75% of estimated needs 3) Continue current plan of care Expected Outcomes/Goals: 1) Pt to receive nutrition support within 7 days of NPO status 2) F/U in 2-3 days Plan discussed with: Patient RUPALI SINGLETON MD Jan 14, 2024 15:52
[2024-01-14] MEDS: FUROSEMIDE 20 MG/2 ML VIAL IV SCH (17:22)
[2024-01-14] MEDS ORDERED: ACETAMINOPHEN 325 MG TAB PO PRN (18:30)
--- NOTE | 2024-01-14 19:54 | DVHPN2 ---
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 for one year ; Bilirubin 10.3; AST 87 Underwent paracentesis with removal of 3 L, ascitic fluid did not show evidence of any bacterial peritonitis Small amount of rectal bleeding that has since resolved NG tube output is bilious;output 600-700 ml/day; hemoglobin stable at 11.0 Patient has been moving his bowels Ammonia level is up to 38 Patient is on enteral tube feedings His gastric residuals are high today The enteral tube feedings are on hold or possible CPAP trial vital signs Vital Sign Date Time Temp Pulse Resp B/P (MAP) Pulse Ox O2 Delivery O2 Flow Rate FiO2 01/14/24 18:45 93 11 128/58 (81) 92 01/14/24 16:00 98.6 98.6 01/14/24 12:00 30 01/14/24 08:00 Mechanical Ventilator+ 01/12/24 08:54 60.0 Total Intake and Output 01/13/24 01/13/24 01/14/24 15:00 23:00 07:00 Intake Total 108.8 ml 909.535 ml 756.83 ml Output Total 1230 ml 440 ml Balance 108.8 ml -320.465 ml 316.83 ml medications Current Medications Medications Dose Ordered Sig/Salena Route Start Time Stop Time Status Last Admin Dose Admin Midazolam HCl 50 ml @ 1 mls/hr Q24H IV 01/06/24 07:00 01/08/24 02:34 4 MLS/HR Sodium Chloride 10 ml Q8HR IV 01/06/24 14:00 01/14/24 17:07 10 ML Phenylephrine HCl 250 ml @ 30 mls/hr Q8H20M IV 01/06/24 10:00 01/07/24 08:32 67.5 MLS/HR Vasopressin 20 units/Sodium Chloride 100 ml @ 9 mls/hr Q11H7M IV 01/06/24 19:45 01/07/24 22:56 9 MLS/HR Norepinephrine Bitartrate 250 ml @ 3.75 mls/hr Q24H IV 01/07/24 08:15 01/14/24 05:52 18.75 MLS/HR Rifaximin 550 mg BID PO 01/07/24 22:00 01/14/24 10:28 550 MG Polyethylene Glycol 17 gm DAILYPRN PRN PO 01/08/24 12:00 Albumin Human 100 ml @ 100 mls/hr Q8H IV 01/08/24 19:30 01/09/24 12:29 Cancel Dexmedetomidine HCl 400 mcg/ Dextrose 100 ml @ 5.225 mls/ hr Q19H9M IV 01/11/24 11:00 01/11/24 15:21 5.225 MLS/HR Lactulose 30 ml BID PO 01/12/24 10:00 01/14/24 10:28 30 ML Enteral Nutritional Formula 1,000 ml 30ML/HR GT 01/12/24 14:30 01/13/24 22:23 1,000 ML Purified Water 150 ml Q6HR GT 01/12/24 18:00 01/14/24 11:40 150 ML Fentanyl Citrate 250 ml @ 2.5 mls/hr Q24H IV 01/13/24 19:30 01/14/24 04:13 15 MLS/HR Propofol 100 ml @ 3.135 mls/ hr Q24H IV 01/13/24 20:00 01/14/24 00:57 9.405 MLS/HR Furosemide 20 mg BIDD IV 01/14/24 18:00 Acetaminophen 650 mg Q8HP PRN PO 01/14/24 18:30 objective General: NAD, AAOX3 Chest: lung lópez clear to auscultation Heart: RRR, no murmur Abdomen: Mild-distended, soft, +BS laboratory and microbiology Laboratory Tests 01/14/24 03:15 Test 01/14/24 03:15 Range/Units Serum Glucose 103 74-106 mg/dL Problems(with codes): (1) Gallbladder sludge (2) Elevated liver enzymes (3) Acute respiratory failure with hypoxia (4) Elevated lactic acid level (5) Hypoalbuminemia (6) Generalized weakness (7) Hepatic encephalopathy (8) Liver disease Prognosis Plan Patient was extubated this evening Patient underwent a swallow evaluation and he is able to tolerate pureed food Continue supportive care IV diuretics Lactulose and Xifaxan Put him on Reglan 5 mg IV q.8 hours increased gastric residuals Monitor liver enzymes Dietary Evaluation Review Comments: 1) I GI is accessible consider Jevity 1.2 @ 45ml/hr goal rate as tolerated 2) If pt remains NPO >7 days consider TPN to meet at least 75% of estimated needs 3) Continue current plan of care Expected Outcomes/Goals: 1) Pt to receive nutrition support within 7 days of NPO status 2) F/U in 2-3 days Plan discussed with: Other (ICU Nurse) JOSÉ MIGUEL COLLIER MD Jan 14, 2024 19:54
[2024-01-15] VITALS (21 sets, daily range): BP systolic 108–140; BP diastolic 42–78; PULSE 74–90; RESP 10–34; TEMP 98–99; O2SAT 83–99
[2024-01-15 03:30] LABS: Basophils # (auto) 0 10 ^3/uL (0-0.2); Eosinophils # (auto) 0.3 10 ^3/uL (0-0.8); Lymphocytes # (auto) 0.6 10 ^3/uL (0.4-5.4); Monocytes # (auto) 0.6 10 ^3/uL (0-1.3); Neutrophils # (auto) 3.7 10 ^3/uL (1.6-8.6); Nucleated Red Blood Cells % 0.1 %; White Blood Cell 5.2 10^3/uL (4.4-10.8)
[2024-01-15 03:48] LABS: Alanine Aminotransferase 48 U/L (7-40); Albumin 2.2 g/dL (3.2-4.8); Alkaline Phosphatase 105 U/L (46-116); Anion Gap 8 (5-15); Aspartate Aminotransferase 129 U/L (13-40); Calcium 9.2 mg/dL (8.7-10.4); Carbon Dioxide 32 mmol/L (20-31); Chloride 107 mmol/L (98-107); Glucose 108 mg/dL (74-106); Potassium 3.7 mmol/L (3.5-5.1); Sodium 147 mmol/L (136-145)
[2024-01-15 03:49] LABS: Bilirubin, Total 11.5 mg/dL (0.2-1.0); Total Protein 5.2 g/dL (5.7-8.2)
[2024-01-15 04:12] LABS: Basophils % (auto) 0.1 % (0.0-2.0); Eosinophils % (auto) 6.2 % (0.0-7.0); Hematocrit 30.7 % (41.0-53.0); Hemoglobin 10.5 g/dL (13.5-17.5); Lymphocytes % (auto) 11.6 % (10.0-50.0); Mean Corpuscular Hemoglobin 37.4 pg (28.0-32.0); Mean Corpuscular Hgb Conc. 34.1 g/dL (32.0-36.0); Mean Corpuscular Volume 109.7 fL (80.0-100.0); Monocytes % (auto) 11.1 % (0.0-12.0); Platelet Count (auto) 30 10^3/uL (140-450); Red Cell Distribution Width 15.8 % (11.8-14.3)
[2024-01-15 04:20] LABS: Blood Urea Nitrogen 34 mg/dL (9-23)
[2024-01-15 04:30] LABS: BUN/Creatinine Ratio 33.3 (10.0-20.0)
--- NOTE | 2024-01-15 05:42 | DVH ---
CHEST RADIOGRAPH Indication:dyspnea Technique: Single frontal view of the chest was obtained COMPARISON: XY CHEST PORTABLE on DOS: 01/14/24, XY CHEST XRAY 1 VIEW on DOS: 01/13/24, XY CHEST MONAE BLE on DOS: 01/12/24 FINDINGS: Lines and Tubes: Left central venous catheter in satisfactory position. Lungs: Patchy bilateral airspace disease. Pleura: No effusion. No pneumothorax. Cardiomediastinal contours: Unremarkable Bones: Unremarkable IMPRESSION: Left central venous catheter in satisfactory position. Patchy bilateral airspace disease.
[2024-01-15] MEDS: URSODIOL 300 MG CAP PO SCH (08:50)
--- NOTE | 2024-01-15 14:54 | DVHPN2 ---
Progress Note - Dictate Date Seen: Jan 15, 2024 Has the PT tested + for MRSA If YES, has PT been informed?: No Medical Necessity Reason Pt with a Central, PICC or Fol: Yes The following are medically ne: Ackerman Catheter Reason for ackerman catheter: Strict I&O Subjective Extubated Transferred to [facility] floor Urine output noted to be 4.9L with diuretic vital signs Vital Sign Date Time Temp Pulse Resp B/P (MAP) Pulse Ox O2 Delivery O2 Flow Rate FiO2 01/15/24 14:00 80 01/15/24 12:00 11 126/56 (79) 83 01/15/24 08:00 99.0 99.0 01/15/24 07:42 Oxymizer 7 N/A Total Intake and Output 01/14/24 01/14/24 01/15/24 15:00 23:00 07:00 Intake Total 65.00 ml 300 ml 489 ml Output Total 2400 ml 2550 ml Balance 65.00 ml -2100 ml -2061 ml medications Current Medications Medications Dose Ordered Sig/Salena Route Start Time Stop Time Status Last Admin Dose Admin Sodium Chloride 10 ml Q8HR IV 01/06/24 14:00 01/15/24 05:45 10 ML Rifaximin 550 mg BID PO 01/07/24 22:00 01/15/24 08:50 550 MG Polyethylene Glycol 17 gm DAILYPRN PRN PO 01/08/24 12:00 Albumin Human 100 ml @ 100 mls/hr Q8H IV 01/08/24 19:30 01/09/24 12:29 Cancel Lactulose 30 ml BID PO 01/12/24 10:00 01/15/24 08:50 30 ML Enteral Nutritional Formula 1,000 ml 30ML/HR GT 01/12/24 14:30 01/13/24 22:23 1,000 ML Furosemide 20 mg BIDD IV 01/14/24 18:00 01/15/24 05:43 20 MG Acetaminophen 650 mg Q8HP PRN PO 01/14/24 18:30 Ursodiol 300 mg BID PO 01/15/24 10:00 01/15/24 08:50 300 MG Metoclopramide HCl 5 mg Q8HR IV 01/15/24 14:00 objective Awake and alert Extubated Has cough with phlegm Diffuse anasarca Distended abdomen Ackerman catheter has brownish colored urine laboratory and microbiology Laboratory Tests 01/15/24 03:13 Test 01/15/24 03:13 Range/Units Serum Glucose 108 H 74-106 mg/dL Assessment/Plan Acute kidney injury superimposed Chronic Kidney Disease secondary hemodynamic mediated Hepatorenal syndrome Acute respiratory failure, patient intubated on ventilator Decompensated liver cirrhosis Hepatic encephalopathy Septic shock GI bleeding Anemia due to blood loss Thrombocytopenia Hypernatremia due to insensible water loss Status post large volume paracentesis Continue daily IV diuretics at current lower dose Encourage p.o. Potassium replacement Goal to achieve negative fluid balance Strict Is&Os Monitor electrolytes Dietary Evaluation Review Comments: 1) I GI is accessible consider Jevity 1.2 @ 45ml/hr goal rate as tolerated 2) If pt remains NPO >7 days consider TPN to meet at least 75% of estimated needs 3) Continue current plan of care Expected Outcomes/Goals: 1) Pt to receive nutrition support within 7 days of NPO status 2) F/U in 2-3 days Plan discussed with: Patient RUPALI SINGLETON MD Jan 15, 2024 14:54
[2024-01-15] MEDS: METOCLOPRAMIDE HCL 5MG/ml INJ 2ml VIAL IV SCH (17:04)
--- NOTE | 2024-01-15 17:32 | DVHPNRES ---
Progress Note Date Seen: Jan 15, 2024 Resident Creating Document: GRACE MARROQUIN RESIDENT Has the PT tested + for MRSA If YES, has PT been informed?: No Medical Necessity Reason Pt with a Central, PICC or Fol: Yes The following are medically ne: Ackerman Catheter Reason for ackerman catheter: Strict I&O Subjective Review of Systems A 63-year-old with past medical history of cirrhosis previous alcohol abuse GERD, COPD, who came to the ED for altered mental status. Patient was admitted on send on January 03 for paracentesis, 4 L removed. Due to your the use of accessory muscles and unable to maintain airway patient was intubated in the ED. Home meds furosemide spironolactone omeprazole Trelegy Patient is being sober for 1 year Objective vital signs Vital Sign Date Time Temp Pulse Resp B/P (MAP) Pulse Ox O2 Delivery O2 Flow Rate FiO2 01/15/24 17:00 98.0 80 18 108/61 (77) 96 98.0 01/15/24 07:42 Oxymizer 7 N/A Total Intake and Output 01/14/24 01/14/24 01/15/24 15:00 23:00 07:00 Intake Total 65.00 ml 300 ml 489 ml Output Total 2400 ml 2550 ml Balance 65.00 ml -2100 ml -2061 ml medications Current Medications Medications Dose Ordered Sig/Salena Route Start Time Stop Time Status Last Admin Dose Admin Sodium Chloride 10 ml Q8HR IV 01/06/24 14:00 01/15/24 17:02 10 ML Rifaximin 550 mg BID PO 01/07/24 22:00 01/15/24 08:50 550 MG Polyethylene Glycol 17 gm DAILYPRN PRN PO 01/08/24 12:00 Albumin Human 100 ml @ 100 mls/hr Q8H IV 01/08/24 19:30 01/09/24 12:29 Cancel Lactulose 30 ml BID PO 01/12/24 10:00 01/15/24 08:50 30 ML Enteral Nutritional Formula 1,000 ml 30ML/HR GT 01/12/24 14:30 01/13/24 22:23 1,000 ML Furosemide 20 mg BIDD IV 01/14/24 18:00 01/15/24 05:43 20 MG Acetaminophen 650 mg Q8HP PRN PO 01/14/24 18:30 Ursodiol 300 mg BID PO 01/15/24 10:00 01/15/24 08:50 300 MG Metoclopramide HCl 5 mg Q8HR IV 01/15/24 14:00 01/15/24 17:04 5 MG Examination GEN: extubated, still confused but more alert NECK: Supple, with no masses. CV: RRR, no m/r/g. LUNGS: diminished breath sound in bases ABD: Anasarca. Fat containing umbilical hernia. EXT: edema 4 ext laboratory and microbiology Laboratory Tests 01/15/24 03:13 Test 01/15/24 03:13 Range/Units Serum Glucose 108 H 74-106 mg/dL Microbiology Date/Time Source Procedure Growth Status 01/11/24 11:19 Bronchial Washings Gram Stain - Final Resulted 01/11/24 11:19 Respiratory Culture - Preliminary Presumptive Kamryn albicans Resulted 01/07/24 19:28 Voided Urine Urine Culture - Final Complete 01/07/24 14:10 Ascities Fluid Gram Stain - Final Complete 01/07/24 14:10 Ascities Fluid Body Fluid Culture - Final Complete 01/06/24 16:13 Nose MRSA Screen - Final Complete 01/06/24 07:15 Blood Blood Culture - Final NO GROWTH AFTER 5 DAYS OF INCUBATION. Complete Problem List/Assessment/Plan Problem List/Assessment/Plan Neurologic: #Acute metabolic encephalopathy due to hyperammonemia and septic shock resolving Ammonia levels trending down Lactulose 30 ml BID Rifaximin 550 mg BID Normal head CT scan Pt was extubated yesterday at 11 am Respiratory: # Acute hypoxic respiratory failure secondary to septic shock and decompensated cirrhosis. #Septic shock due to pneumonia gram+/gram - Pt was extubated yesterday at 11 am xray: Multifocal airspace disease. Ct scan: Bibasilar consolidation is seen with trace pleural effusion. Stop AB, completed course of AB furosemide 20 mg BID PATIENT CAN BE DOWNGRADE TO THE FLOOR Cardiovascular: #Septic shock due to pneumonia gram+/gram - resolved ECHO: Normal left ventricular size and dimension. Normal left ventricular systolic function estimated ejection fraction 55%. There is a grade 1 diastolic dysfunction Bradycardia resolved Improved when sedation was stopped GI: #Decompensated Cirrhosis due to alcohol-related liver disease with a MELD score of 21 Drainage 3lt of ascites Peritoneal fluid: ph 8 wbc 191 rbc [address] scan: Shrunken cirrhotic liver with small adjacent portosytemic collaterals. Vitamin K per gastro No new ascites to drain # Lower GI bleeding: episode of hematochezia ruled out SOB neg #Gallstone at the neck of the gallbladder. #Thickened colonic galeas likely secondary to decompression or portal colopathy. #Umbilical hernia borderline gallbladder galeas f/u Endocrine/Metabolic: #Hypernatremia 147 Free water # Severe metabolic acidosis due to septic shock resolved # Hyperkalemia resolved #Hyperphosphatemia resolved #Hyperparathyroidism Nephrology on board Infectious Disease: # septic shock due to pneumonia resolved Renal: # Acute kidney injury hemodinamically mediated #Hepatorenal syndrome Creatinine 1.02 urinary output improving Nephrology on board Hematology: # Thrombocytopenia secondary to liver cirrhosis and hypersplenism . Hold on DVT prophylaxis General: Full code until now Critical care spent 81 min Case discussed with Dr Edwards Plan discussed with: Patient, Other (rn) My Orders My Orders Orders - GRACE MARROQUIN Procedure Category Date Status Time Metoclopramide PHA 01/15/24 In Process Injection (Reglan 14:00 Dietary Evaluation Review Comments: 1) I GI is accessible consider Jevity 1.2 @ 45ml/hr goal rate as tolerated 2) If pt remains NPO >7 days consider TPN to meet at least 75% of estimated needs 3) Continue current plan of care Expected Outcomes/Goals: 1) Pt to receive nutrition support within 7 days of NPO status 2) F/U in 2-3 days Date of Service: Jan 15, 2024 Billing Provider: STALIN EDWARDS MD Common Visit Codes: [id number] INP/OBS CARE(HIGH) GRACE MARROQUIN RESIDENT Jan 15, 2024 17:32 STALIN EDWARDS MD Jan 16, 2024 13:03
--- NOTE | 2024-01-15 22:02 | DVHPN2 ---
Progress Note - Dictate Date Seen: Jan 15, 2024 Has the PT tested + for MRSA If YES, has PT been informed?: No Medical Necessity Reason Pt with a Central, PICC or Fol: Yes The following are medically ne: Ackerman Catheter Reason for ackerman catheter: Strict I&O Subjective Patient is extubated and more awake Downgraded to the floor Bilirubin level 11.5 History of liver cirrhosis due to alcohol sober for one year ; Bilirubin 11.5; AST 129 Underwent paracentesis with removal of 3 L, ascitic fluid did not show evidence of any bacterial peritonitis Small amount of rectal bleeding that has since resolved Patient has been moving his bowels Ammonia level is up to 38 Patient has passed swallow evaluation and has started taking diet and is pleased by mouth vital signs Vital Sign Date Time Temp Pulse Resp B/P (MAP) Pulse Ox O2 Delivery O2 Flow Rate FiO2 01/15/24 17:46 104/34 01/15/24 17:00 98.0 80 18 96 98.0 01/15/24 07:42 Oxymizer 7 N/A Total Intake and Output 01/14/24 01/14/24 01/15/24 15:00 23:00 07:00 Intake Total 65.00 ml 300 ml 489 ml Output Total 2400 ml 2550 ml Balance 65.00 ml -2100 ml -2061 ml medications Current Medications Medications Dose Ordered Sig/Salena Route Start Time Stop Time Status Last Admin Dose Admin Sodium Chloride 10 ml Q8HR IV 01/06/24 14:00 01/15/24 17:02 10 ML Rifaximin 550 mg BID PO 01/07/24 22:00 01/15/24 08:50 550 MG Polyethylene Glycol 17 gm DAILYPRN PRN PO 01/08/24 12:00 Albumin Human 100 ml @ 100 mls/hr Q8H IV 01/08/24 19:30 01/09/24 12:29 Cancel Lactulose 30 ml BID PO 01/12/24 10:00 01/15/24 08:50 30 ML Enteral Nutritional Formula 1,000 ml 30ML/HR GT 01/12/24 14:30 01/13/24 22:23 1,000 ML Furosemide 20 mg BIDD IV 01/14/24 18:00 01/15/24 05:43 20 MG Acetaminophen 650 mg Q8HP PRN PO 01/14/24 18:30 Ursodiol 300 mg BID PO 01/15/24 10:00 01/15/24 08:50 300 MG Metoclopramide HCl 5 mg Q8HR IV 01/15/24 14:00 01/15/24 17:04 5 MG objective General: NAD, AAOX3 Chest: lung lópez clear to auscultation Heart: RRR, no murmur Abdomen: Mild-distended, soft, +BS laboratory and microbiology Laboratory Tests 01/15/24 03:13 Test 01/15/24 03:13 Range/Units Serum Glucose 108 H 74-106 mg/dL Problems(with codes): (1) Gallbladder sludge (2) Elevated liver enzymes (3) Acute respiratory failure with hypoxia (4) Elevated lactic acid level (5) Hypoalbuminemia (6) Generalized weakness (7) Acute respiratory failure (8) Liver disease (9) Hepatic encephalopathy Prognosis PLAN Continue supportive care IV diuretics Lactulose and Xifaxan Patient started on Actigall 300 mg p.o. twice a day MELD score was 23 points Monitor liver enzymes Dietary Evaluation Review Comments: 1) I GI is accessible consider Jevity 1.2 @ 45ml/hr goal rate as tolerated 2) If pt remains NPO >7 days consider TPN to meet at least 75% of estimated needs 3) Continue current plan of care Expected Outcomes/Goals: 1) Pt to receive nutrition support within 7 days of NPO status 2) F/U in 2-3 days Plan discussed with: Patient, Other (ICU Nurse) JOSÉ MIGUEL COLLIER MD Jan 15, 2024 22:02
[2024-01-15] MEDS: LORazepam 2MG/ML-1ML VIAL IV ONE (23:14)
[2024-01-16] VITALS (8 sets, daily range): BP systolic 99–116; BP diastolic 30–61; PULSE 69–89; RESP 16–18; TEMP 97.8–98.6; O2SAT 95–96
[2024-01-16 09:07] LABS: Basophils # (auto) 0 10 ^3/uL (0-0.2); Eosinophils # (auto) 0.4 10 ^3/uL (0-0.8); Hematocrit 32.1 % (41.0-53.0); Hemoglobin 11.2 g/dL (13.5-17.5); Monocytes # (auto) 0.5 10 ^3/uL (0-1.3); Nucleated Red Blood Cells % 0.1 %; Red Cell Distribution Width 15.3 % (11.8-14.3)
[2024-01-16 09:09] LABS: Basophils % (auto) 0.3 % (0.0-2.0); Eosinophils % (auto) 6.3 % (0.0-7.0); Lymphocytes # (auto) 0.8 10 ^3/uL (0.4-5.4); Lymphocytes % (auto) 11.8 % (10.0-50.0); Mean Corpuscular Hemoglobin 38.1 pg (28.0-32.0); Neutrophils # (auto) 4.9 10 ^3/uL (1.6-8.6); Neutrophils % (auto) 74.6 % (37.0-80.0); Platelet Count (auto) 41 10^3/uL (140-450); Red Blood Cells 2.94 10^6/uL (4.5-5.90); White Blood Cell 6.6 10^3/uL (4.4-10.8)
[2024-01-16 09:22] LABS: Alanine Aminotransferase 61 U/L (7-40); Albumin 2.2 g/dL (3.2-4.8); Alkaline Phosphatase 114 U/L (46-116); Anion Gap 7 (5-15); Aspartate Aminotransferase 154 U/L (13-40); Blood Urea Nitrogen 32 mg/dL (9-23); Calcium 9.4 mg/dL (8.7-10.4); Carbon Dioxide 38 mmol/L (20-31); Chloride 102 mmol/L (98-107); Glucose 93 mg/dL (74-106); Potassium 3.3 mmol/L (3.5-5.1); Sodium 147 mmol/L (136-145)
[2024-01-16 09:23] LABS: Bilirubin, Total 13.3 mg/dL (0.2-1.0); Total Protein 5.5 g/dL (5.7-8.2)
[2024-01-16 10:44] LABS: BUN/Creatinine Ratio 28.8 (10.0-20.0)
--- NOTE | 2024-01-16 12:51 | DVHPNRES ---
Progress Note Date Seen: Jan 16, 2024 Resident Creating Document: GRACE MARROQUIN RESIDENT Has the PT tested + for MRSA If YES, has PT been informed?: No Medical Necessity Reason Pt with a Central, PICC or Fol: Yes The following are medically ne: Ackerman Catheter Reason for ackerman catheter: Strict I&O Subjective Review of Systems A 63-year-old with past medical history of cirrhosis previous alcohol abuse GERD, COPD, who came to the ED for altered mental status. Patient was admitted on send on January 03 for paracentesis, 4 L removed. Due to your the use of accessory muscles and unable to maintain airway patient was intubated in the ED. Home meds furosemide spironolactone omeprazole Trelegy Patient is being sober for 1 year Objective vital signs Vital Sign Date Time Temp Pulse Resp B/P (MAP) Pulse Ox O2 Delivery O2 Flow Rate FiO2 01/16/24 09:00 97.9 78 18 102/51 (68) 95 97.9 01/15/24 07:42 Oxymizer 7 N/A Total Intake and Output 01/15/24 01/15/24 01/16/24 15:00 23:00 07:00 Intake Total 1040 ml Output Total 1300 ml 250 ml 800 ml Balance -1300 ml 790 ml -800 ml medications Current Medications Medications Dose Ordered Sig/Salena Route Start Time Stop Time Status Last Admin Dose Admin Sodium Chloride 10 ml Q8HR IV 01/06/24 14:00 01/15/24 22:00 10 ML Rifaximin 550 mg BID PO 01/07/24 22:00 01/16/24 11:54 550 MG Polyethylene Glycol 17 gm DAILYPRN PRN PO 01/08/24 12:00 Albumin Human 100 ml @ 100 mls/hr Q8H IV 01/08/24 19:30 01/09/24 12:29 Cancel Lactulose 30 ml BID PO 01/12/24 10:00 01/16/24 11:54 30 ML Enteral Nutritional Formula 1,000 ml 30ML/HR GT 01/12/24 14:30 01/13/24 22:23 1,000 ML Furosemide 20 mg BIDD IV 01/14/24 18:00 01/16/24 05:56 20 MG Acetaminophen 650 mg Q8HP PRN PO 01/14/24 18:30 Ursodiol 300 mg BID PO 01/15/24 10:00 01/15/24 08:50 300 MG Metoclopramide HCl 5 mg Q8HR IV 01/15/24 14:00 01/16/24 05:56 5 MG Potassium Chloride 40 meq/ Dextrose 1,020 ml @ 75 mls/hr [id number] IV 01/16/24 12:00 UNV Examination GEN: extubated, still confused but more alert NECK: Supple, with no masses. CV: RRR, no m/r/g. LUNGS: diminished breath sound in bases ABD: Anasarca. Fat containing umbilical hernia. EXT: edema 4 ext laboratory and microbiology Laboratory Tests 01/16/24 08:41 Test 01/16/24 08:41 Range/Units Serum Glucose 93 74-106 mg/dL Microbiology Date/Time Source Procedure Growth Status 01/11/24 11:19 Bronchial Washings Gram Stain - Final Complete 01/11/24 11:19 Respiratory Culture - Final Presumptive Kamryn albicans Complete 01/07/24 19:28 Voided Urine Urine Culture - Final Complete 01/07/24 14:10 Ascities Fluid Gram Stain - Final Complete 01/07/24 14:10 Ascities Fluid Body Fluid Culture - Final Complete 01/06/24 16:13 Nose MRSA Screen - Final Complete 01/06/24 07:15 Blood Blood Culture - Final NO GROWTH AFTER 5 DAYS OF INCUBATION. Complete Problem List/Assessment/Plan Problem List/Assessment/Plan Neurologic: #Acute metabolic encephalopathy due to hyperammonemia and septic shock resolving Dementia?? Ammonia levels trending down Lactulose 30 ml BID Rifaximin 550 mg BID Normal head CT scan Pt was extubated 2 days ago Respiratory: # Acute hypoxic respiratory failure secondary to septic shock and decompensated cirrhosis resolved #Septic shock due to pneumonia gram+/gram - resolved xray: Multifocal airspace disease. Ct scan: Bibasilar consolidation is seen with trace pleural effusion. Stop AB, completed course of AB furosemide 20 mg BID Cardiovascular: #Septic shock due to pneumonia gram+/gram - resolved ECHO: Normal left ventricular size and dimension. Normal left ventricular systolic function estimated ejection fraction 55%. There is a grade 1 diastolic dysfunction Bradycardia resolved GI: #Decompensated Cirrhosis due to alcohol-related liver disease with a MELD score of 21 Drainage 3lt of ascites Peritoneal fluid: ph 8 wbc 191 rbc [address] scan: Shrunken cirrhotic liver with small adjacent portosytemic collaterals. Vitamin K per gastro No new ascites to drain # Lower GI bleeding: episode of hematochezia ruled out SOB neg #Gallstone at the neck of the gallbladder. #Thickened colonic galeas likely secondary to decompression or portal colopathy. #Umbilical hernia borderline gallbladder galeas f/u Endocrine/Metabolic: #Hypernatremia 147 #Hypokalemia K with D5W # Severe metabolic acidosis due to septic shock resolved # Hyperkalemia resolved #Hyperphosphatemia resolved #Hyperparathyroidism Nephrology on board Infectious Disease: # septic shock due to pneumonia resolved Renal: # Acute kidney injury hemodinamically mediated resolving #Hepatorenal syndrome resolved urinary output improving Nephrology on board Hematology: # Thrombocytopenia secondary to liver cirrhosis and hypersplenism . Hold on DVT prophylaxis General: Full code until now Critical care spent 81 min Case discussed with Dr Edwards Plan discussed with: Patient, Other (rn) My Orders My Orders Orders - GRACE MARROQUIN RESIDENT Procedure Category Date Status Time Pt Request For Service PT 01/16/24 Logged 08:03 * Roll Tender CONS 01/16/24 Transmitted Consult D5w 5% (Dextrose 5%) PHA 01/16/24 Logged W/Potassium Chlorid 12:00 Dietary Evaluation Review Comments: 1) I GI is accessible consider Jevity 1.2 @ 45ml/hr goal rate as tolerated 2) If pt remains NPO >7 days consider TPN to meet at least 75% of estimated needs 3) Continue current plan of care Expected Outcomes/Goals: 1) Pt to receive nutrition support within 7 days of NPO status 2) F/U in 2-3 days Date of Service: Jan 16, 2024 Billing Provider: STALIN EDWARDS MD Common Visit Codes: [id number] INP/OBS CARE(HIGH) GRACE MARROQUIN RESIDENT Jan 16, 2024 12:51 STALIN EDWARDS MD Jan 16, 2024 13:50
--- NOTE | 2024-01-16 13:40 | DVHTSRES ---
Transfer Summary Transfer Summary Resident Creating Document: GRACE MARROQUIN RESIDENT Date of Admission Jan 06, 2024 at 10:54 Date of Transfer: Jan 16, 2024 Transfer Diagnosis septic shock due to pneumonia decompensated cirrhosis Brief Hx & Hospital Course: A 63-year-old with past medical history of cirrhosis previous alcohol abuse GERD, COPD, who came to the ED for altered mental status due to hyperammonemia. In this admission, pneumonia with septic shock was found, patient was on multiple vasopressors and intubated for airway protection, patient developed hepatorrenal syndrome which improved with octeotride and albumin, patient completed his course of AB, now in his first day dowgrade from the icu Pt was ordered and SS for SNF He lives alone but his girlfriend and brother are around Transfer Status stable GRACE MARROQUIN RESIDENT Jan 16, 2024 13:40 STALIN REINOSO MD Jan 16, 2024 13:51
[2024-01-16] MEDS: POTASSIUM CHLORIDE 40 MEQ in D5W 5% 1,000 ML IV SCH (17:03)
--- NOTE | 2024-01-16 17:18 | DVHPN2 ---
Progress Note - Dictate Date Seen: Jan 16, 2024 Has the PT tested + for MRSA If YES, has PT been informed?: No Medical Necessity Reason Pt with a Central, PICC or Fol: Yes The following are medically ne: Ackerman Catheter Reason for ackerman catheter: Strict I&O Subjective Extubated Transferred to the [facility] floor vital signs Vital Sign Date Time Temp Pulse Resp B/P (MAP) Pulse Ox O2 Delivery O2 Flow Rate FiO2 01/16/24 16:15 86 01/16/24 13:00 97.8 16 116/61 (79) 95 97.8 01/16/24 08:20 Room Air* 6 N/A Nasal Cannula* Total Intake and Output 01/15/24 01/15/24 01/16/24 15:00 23:00 07:00 Intake Total 1040 ml Output Total 1300 ml 250 ml 800 ml Balance -1300 ml 790 ml -800 ml medications Current Medications Medications Dose Ordered Sig/Salena Route Start Time Stop Time Status Last Admin Dose Admin Sodium Chloride 10 ml Q8HR IV 01/06/24 14:00 01/16/24 14:00 10 ML Rifaximin 550 mg BID PO 01/07/24 22:00 01/16/24 11:54 550 MG Polyethylene Glycol 17 gm DAILYPRN PRN PO 01/08/24 12:00 Albumin Human 100 ml @ 100 mls/hr Q8H IV 01/08/24 19:30 01/09/24 12:29 Cancel Lactulose 30 ml BID PO 01/12/24 10:00 01/16/24 11:54 30 ML Enteral Nutritional Formula 1,000 ml 30ML/HR GT 01/12/24 14:30 01/13/24 22:23 1,000 ML Furosemide 20 mg BIDD IV 01/14/24 18:00 01/16/24 05:56 20 MG Acetaminophen 650 mg Q8HP PRN PO 01/14/24 18:30 Ursodiol 300 mg BID PO 01/15/24 10:00 01/16/24 13:50 300 MG Metoclopramide HCl 5 mg Q8HR IV 01/15/24 14:00 01/16/24 17:02 5 MG Potassium Chloride 40 meq/ Dextrose 1,020 ml @ 75 mls/hr [id number] IV 01/16/24 12:00 01/16/24 17:03 75 MLS/HR objective Awake and alert Extubated Has cough with phlegm Diffuse anasarca Distended abdomen Ackerman catheter has brownish colored urine laboratory and microbiology Laboratory Tests 01/16/24 08:41 Test 01/16/24 08:41 Range/Units Serum Glucose 93 74-106 mg/dL Assessment/Plan Acute kidney injury superimposed Chronic Kidney Disease secondary hemodynamic mediated Hepatorenal syndrome Acute respiratory failure, patient intubated on ventilator Decompensated liver cirrhosis Hepatic encephalopathy Septic shock GI bleeding Anemia due to blood loss Thrombocytopenia Hypernatremia due to insensible water loss Status post large volume paracentesis Continue daily IV diuretics at current lower dose Encourage p.o. Potassium replacement hypotonic fluid for Na consider starting low dose aldactone to improve potassium retention Goal to achieve negative fluid balance Strict Is&Os Monitor electrolytes stable from renal standpoint Dietary Evaluation Review Comments: 1) I GI is accessible consider Jevity 1.2 @ 45ml/hr goal rate as tolerated 2) If pt remains NPO >7 days consider TPN to meet at least 75% of estimated needs 3) Continue current plan of care Expected Outcomes/Goals: 1) Pt to receive nutrition support within 7 days of NPO status 2) F/U in 2-3 days Plan discussed with: Patient RUPALI SINGLETON MD Jan 16, 2024 17:18
--- NOTE | 2024-01-16 19:34 | DVHPN2 ---
Progress Note - Dictate Date Seen: Jan 16, 2024 Has the PT tested + for MRSA If YES, has PT been informed?: No Medical Necessity Reason Pt with a Central, PICC or Fol: Yes The following are medically ne: Ackerman Catheter Reason for ackerman catheter: Strict I&O Subjective No new complaints Tolerating diet vital signs Vital Sign Date Time Temp Pulse Resp B/P (MAP) Pulse Ox O2 Delivery O2 Flow Rate FiO2 01/16/24 17:35 113/60 01/16/24 17:00 98.6 89 18 96 98.6 01/16/24 08:20 Room Air* 6 N/A Nasal Cannula* Total Intake and Output 01/15/24 01/15/24 01/16/24 15:00 23:00 07:00 Intake Total 1040 ml Output Total 1300 ml 250 ml 800 ml Balance -1300 ml 790 ml -800 ml medications Current Medications Medications Dose Ordered Sig/Salena Route Start Time Stop Time Status Last Admin Dose Admin Sodium Chloride 10 ml Q8HR IV 01/06/24 14:00 01/16/24 14:00 10 ML Rifaximin 550 mg BID PO 01/07/24 22:00 01/16/24 11:54 550 MG Polyethylene Glycol 17 gm DAILYPRN PRN PO 01/08/24 12:00 Albumin Human 100 ml @ 100 mls/hr Q8H IV 01/08/24 19:30 01/09/24 12:29 Cancel Lactulose 30 ml BID PO 01/12/24 10:00 01/16/24 11:54 30 ML Enteral Nutritional Formula 1,000 ml 30ML/HR GT 01/12/24 14:30 01/13/24 22:23 1,000 ML Furosemide 20 mg BIDD IV 01/14/24 18:00 01/16/24 17:35 20 MG Acetaminophen 650 mg Q8HP PRN PO 01/14/24 18:30 Ursodiol 300 mg BID PO 01/15/24 10:00 01/16/24 13:50 300 MG Metoclopramide HCl 5 mg Q8HR IV 01/15/24 14:00 01/16/24 17:02 5 MG Potassium Chloride 40 meq/ Dextrose 1,020 ml @ 75 mls/hr [id number] IV 01/16/24 12:00 01/16/24 17:03 75 MLS/HR objective General: NAD, AAOX3 Chest: lung lpóez clear to auscultation Heart: RRR, no murmur Abdomen: Mild-distended, soft, +BS laboratory and microbiology Laboratory Tests 01/16/24 08:41 Test 01/16/24 08:41 Range/Units Serum Glucose 93 74-106 mg/dL Problems(with codes): (1) Gallbladder sludge (2) Elevated liver enzymes (3) Acute respiratory failure with hypoxia (4) Generalized weakness (5) Hepatic encephalopathy (6) Liver disease (7) Elevated lactic acid level (8) Acute respiratory failure Prognosis PLAN Continue supportive care IV diuretics Off antibiotics Lactulose and Xifaxan Patient started on Actigall 300 mg p.o. twice a day MELD score was 23 points; 19.6% estimated three month mortality Monitor liver enzymes Dietary Evaluation Review Comments: 1) I GI is accessible consider Jevity 1.2 @ 45ml/hr goal rate as tolerated 2) If pt remains NPO >7 days consider TPN to meet at least 75% of estimated needs 3) Continue current plan of care Expected Outcomes/Goals: 1) Pt to receive nutrition support within 7 days of NPO status 2) F/U in 2-3 days Plan discussed with: Other (None) JOSÉ MIGUEL COLLIER MD Jan 16, 2024 19:34
[2024-01-16] MEDS: LORazepam 2MG/ML-1ML VIAL IV PRN (20:59)
[2024-01-17] VITALS (7 sets, daily range): BP systolic 100–117; BP diastolic 40–71; PULSE 71–93; RESP 16–18; TEMP 98–98.9; O2SAT 90–95
[2024-01-17 06:06] LABS: Basophils # (auto) 0 10 ^3/uL (0-0.2); Basophils % (auto) 0.4 % (0.0-2.0); Eosinophils # (auto) 0.2 10 ^3/uL (0-0.8); Lymphocytes # (auto) 0.5 10 ^3/uL (0.4-5.4); Monocytes # (auto) 0.4 10 ^3/uL (0-1.3); Neutrophils # (auto) 3.2 10 ^3/uL (1.6-8.6); White Blood Cell 4.4 10^3/uL (4.4-10.8)
[2024-01-17 06:10] LABS: Eosinophils % (auto) 5.5 % (0.0-7.0); Hematocrit 25.8 % (41.0-53.0); Hemoglobin 9.1 g/dL (13.5-17.5); Lymphocytes % (auto) 12.6 % (10.0-50.0); Mean Corpuscular Hemoglobin 38.5 pg (28.0-32.0); Mean Corpuscular Hgb Conc. 35.3 g/dL (32.0-36.0); Monocytes % (auto) 8.8 % (0.0-12.0); Neutrophils % (auto) 72.7 % (37.0-80.0); Nucleated Red Blood Cells % 0.3 %; Platelet Count (auto) 29 10^3/uL (140-450); Red Blood Cells 2.37 10^6/uL (4.5-5.90); Red Cell Distribution Width 14.8 % (11.8-14.3)
[2024-01-17 06:52] LABS: Alanine Aminotransferase 55 U/L (7-40); Albumin 1.9 g/dL (3.2-4.8); Alkaline Phosphatase 102 U/L (46-116); Aspartate Aminotransferase 141 U/L (13-40); Blood Urea Nitrogen 33 mg/dL (9-23); Calcium 9.3 mg/dL (8.7-10.4); Chloride 102 mmol/L (98-107); Glucose 106 mg/dL (74-106); Potassium 3.5 mmol/L (3.5-5.1); Sodium 145 mmol/L (136-145)
[2024-01-17 06:53] LABS: Bilirubin, Total 10.4 mg/dL (0.2-1.0)
[2024-01-17 06:54] LABS: Total Protein 4.8 g/dL (5.7-8.2)
[2024-01-17 07:00] LABS: Anion Gap 2.99999 (5-15); Carbon Dioxide > 40 mmol/L (20-31)
[2024-01-17 07:09] LABS: BUN/Creatinine Ratio 27.7 (10.0-20.0)
[2024-01-17 07:59] LABS: Anisocytosis Slight; Macrocytosis Moderate; Platelet Estimate Decreased
--- NOTE | 2024-01-17 09:50 | DVH ---
CHEST RADIOGRAPH Indication:dyspnea Technique: Single frontal view of the chest was obtained COMPARISON: XY CHEST XRAY 1 VIEW on DOS: 01/15/24, XY CHEST PORTABLE on DOS: 01/14/24, XY CHEST XRAY 1 VIEW on DOS: 01/13/24 FINDINGS: Lines and Tubes: None Lungs: Multifocal airspace disease Pleura: No effusion. No pneumothorax. Cardiomediastinal contours: Unremarkable Bones: Unremarkable IMPRESSION: Unchanged multifocal airspace disease.
--- NOTE | 2024-01-17 11:26 | DVHPN2 ---
Progress Note - Dictate Date Seen: Jan 17, 2024 Has the PT tested + for MRSA If YES, has PT been informed?: No Medical Necessity Reason Pt with a Central, PICC or Fol: Yes The following are medically ne: Ackerman Catheter Reason for ackerman catheter: Strict I&O vital signs Vital Sign Date Time Temp Pulse Resp B/P (MAP) Pulse Ox O2 Delivery O2 Flow Rate FiO2 01/17/24 09:00 98.1 74 16 106/51 (69) 92 98.1 01/16/24 20:00 Nasal Cannula* 6 44 Total Intake and Output 01/16/24 01/16/24 01/17/24 15:00 23:00 07:00 Intake Total 880 ml 982 ml Output Total 1800 ml 850 ml Balance -920 ml 132 ml medications Current Medications Medications Dose Ordered Sig/Salena Route Start Time Stop Time Status Last Admin Dose Admin Sodium Chloride 10 ml Q8HR IV 01/06/24 14:00 01/17/24 06:26 10 ML Rifaximin 550 mg BID PO 01/07/24 22:00 01/17/24 10:49 550 MG Polyethylene Glycol 17 gm DAILYPRN PRN PO 01/08/24 12:00 Albumin Human 100 ml @ 100 mls/hr Q8H IV 01/08/24 19:30 01/09/24 12:29 Cancel Lactulose 30 ml BID PO 01/12/24 10:00 01/17/24 10:50 30 ML Enteral Nutritional Formula 1,000 ml 30ML/HR GT 01/12/24 14:30 01/13/24 22:23 1,000 ML Furosemide 20 mg BIDD IV 01/14/24 18:00 01/16/24 17:35 20 MG Acetaminophen 650 mg Q8HP PRN PO 01/14/24 18:30 Ursodiol 300 mg BID PO 01/15/24 10:00 01/16/24 22:00 300 MG Metoclopramide HCl 5 mg Q8HR IV 01/15/24 14:00 01/17/24 06:25 5 MG Potassium Chloride 40 meq/ Dextrose 1,020 ml @ 75 mls/hr [id number] IV 01/16/24 12:00 01/16/24 17:03 75 MLS/HR Lorazepam 1 mg Q6HP PRN IV 01/16/24 20:30 01/16/24 20:59 1 MG objective Awake and alert Extubated Has cough with phlegm Diffuse anasarca Distended abdomen Ackerman catheter has brownish colored urine laboratory and microbiology Laboratory Tests 01/17/24 05:08 Test 01/17/24 05:08 Range/Units Serum Glucose 106 74-106 mg/dL Assessment/Plan Acute kidney injury superimposed Chronic Kidney Disease secondary hemodynamic mediated Hepatorenal syndrome Acute respiratory failure, patient intubated on ventilator Decompensated liver cirrhosis Hepatic encephalopathy Septic shock GI bleeding Anemia due to blood loss Thrombocytopenia Hypernatremia due to insensible water loss Status post large volume paracentesis hold diuretics today. check VBG to correlate metabolic acidosis. consider diamox based on results Encourage p.o. Potassium replacement as needed hypotonic fluid for Na consider starting low dose aldactone to improve potassium retention Goal to achieve negative fluid balance Strict Is&Os Monitor electrolytes Dietary Evaluation Review Comments: 1) I GI is accessible consider Jevity 1.2 @ 45ml/hr goal rate as tolerated 2) If pt remains NPO >7 days consider TPN to meet at least 75% of estimated needs 3) Continue current plan of care Expected Outcomes/Goals: 1) Pt to receive nutrition support within 7 days of NPO status 2) F/U in 2-3 days Plan discussed with: Patient RUPALI SINGLETON MD Jan 17, 2024 11:26
[2024-01-17 13:13] LABS: Base Excess 9.1 mmol/L (-2.0-3.0)
[2024-01-17] MEDS: acetaZOLAMIDE 250 MG TAB PO ONE (15:03)
[2024-01-17] MEDS: PANTOPRAZOLE 40 MG TAB PO ONE (19:19)
[2024-01-17] MEDS: SPIRONOLACTONE 25 MG TAB PO ONE (19:19)
--- NOTE | 2024-01-17 21:17 | DVHPN2 ---
Subjective alert/awake/denies any complaints Reviewed: Care Plan Changes from previous H/P or p: No Changes, Changes General: Per HPI Eyes: No Pain, No Vision change, No Conjunctivae inflammation, No Eyelid inflammation, No Other, No Redness ENT: No Ear pain, No Ear discharge, No Nose pain, No Nose discharge, No Nose congestion, No Mouth pain, No Mouth swelling, No Throat pain, No Throat swelling, No Other Cardiovascular: No Chest Pain, No Palpitations, No Orthopnea, No Paroxysmal Noc. Dyspnea, No Edema, No Lt Headedness, No Other Respiratory: No Cough, No Dry; Shortness of breath, SOB with excertion; No Wheezing, No Hemoptysis, No Pleuritic Pain, No Sputum, No Other Gastrointestinal: No Nausea, No Vomiting, No Abdominal Pain, No Diarrhea, No Constipation, No Melena, No Hematochezia, No Other Genitourinary: No Dysuria, No Frequency, No Incontinence, No Hematuria, No Retention, No Other Musculoskeletal: No other, No neck pain, No shoulder pain, No arm pain, No back pain, No hand pain, No leg pain, No foot pain Skin: No Rash, No Lesions, No Jaundice, No Bruising, No Other Psych: Per HPI, Anxiety, Behavioral Changes, Depression, Hallucination, H omicidal Ideation, Memory Problems, Poor Concentration, Sadness, Sleep Problems, Suicidal Ideation, Other Objective Vitals Vital Signs Date Time Temp Pulse Resp B/P (MAP) Pulse Ox O2 Delivery O2 Flow Rate FiO2 01/17/24 20:00 Nasal Cannula* 3 32 01/17/24 17:00 71 16 117/71 (86) 95 01/17/24 13:00 98.0 98.0 Intake/Output Intake and Output 01/17/24 07:00 Intake Total 1862 ml Output Total 2650 ml Balance -788 ml Intake Oral 920 ml IV Total 942 ml Output Urine Total 2650 ml General Appearance: Alert, Oriented X3, Cooperative Lungs: Clear to auscultation Cardiovascular: Regular rate, Normal S1, Normal S2 Abdomen: Normal bowel sounds, No tenderness, No hepatospenomegaly Musculoskeletal: Normal sensory function, Normal motor function Neuro: Normal speech, Strength at 5/5 X4 ext, Sensation intact, Cranial nerves 3-12 NL Psych/Mental Status: Mental status NL Medications Current Medications Medications Dose Ordered Sig/Salena Route Start Time Stop Time Status Last Admin Dose Admin Sodium Chloride 10 ml Q8HR IV 01/06/24 14:00 01/17/24 15:03 10 ML Rifaximin 550 mg BID PO 01/07/24 22:00 01/17/24 10:49 550 MG Albumin Human 100 ml @ 100 mls/hr Q8H IV 01/08/24 19:30 01/09/24 12:29 Cancel Lactulose 30 ml BID PO 01/12/24 10:00 01/17/24 10:50 30 ML Spironolactone 25 mg DAILY PO 01/18/24 10:00 Pantoprazole Sodium 40 mg DAILY@0600 PO 01/18/24 06:00 Laboratory Results Laboratory Tests 01/17/24 05:08 Chemistry Test 01/17/24 05:08 Albumin 1.9 g/dL (3.2-4.8) L Calcium Level 9.3 mg/dL (8.7-10.4) Total Protein 4.8 g/dL (5.7-8.2) L LFT Test 01/17/24 05:08 Alanine Aminotransferase (ALT) 55 U/L (7-40) H Alkaline Phosphatase 102 U/L (46-116) Aspartate Amino Transferase (AST) 141 U/L (13-40) H Total Bilirubin 10.4 mg/dL (0.2-1.0) H Urinalysis Test 01/06/24 08:42 01/09/24 11:28 Urine Color Yellow (Yellow) Urine Clarity Clear (Clear) Urine pH 6.5 (5.0-9.0) Urine Specific [place] 1.025 (1.001-1.035) Urine Protein Trace (Negative) H Urine Ketones Trace (Negative) Urine Blood Negative /uL (Negative) Urine Nitrite Negative (Negative) Urine Bilirubin Negative (Negative) Urine Urobilinogen 8 mg/dL (Negative) H Urine Leukocyte Esterase Negative /uL (Negative) Urine RBC 1 /hpf (0 - 3) Urine WBC 2 /hpf (0 - 3) Urine Squamous Epithelial Cells Few /hpf (<5) Urine Bacteria None seen /hpf (None Seen) Urine Hyaline Casts Many /lpf (0 - 2) Urine Mucus Few (None Seen) Urine Glucose Normal mg/dL (Normal) Urine Creatinine 70.72 mg/dL (30.0-125.0) Urine Protein/Creatinine Ratio 0.26 Urine Sodium 40 mmol/L (40-220) Urine Total Protein 18.1 mg/dL (1-14) H Blood Gas Results Test 01/17/24 13:03 Arterial Blood pH 7.504 (7.350-7.450) FiO2 % 32.0 Microbiology Microbiology Date/Time Source Procedure Growth Status 01/11/24 11:19 Bronchial Washings Gram Stain - Final Complete 01/11/24 11:19 Respiratory Culture - Final Presumptive Kamryn albicans Complete 01/07/24 19:28 Voided Urine Urine Culture - Final Complete 01/07/24 14:10 Ascities Fluid Gram Stain - Final Complete 01/07/24 14:10 Ascities Fluid Body Fluid Culture - Final Complete 01/06/24 16:13 Nose MRSA Screen - Final Complete 01/06/24 07:15 Blood Blood Culture - Final NO GROWTH AFTER 5 DAYS OF INCUBATION. Complete Labs and/or images reviewed: Labs reviewed by me, Image(s) reviewed by me Assessment/Plan Assessment/Plan aloc secondary to hepatic encephalopathy resolved sepsis secondary to sbp/-resolved alcoholic liver cirrhosis coagulopathy secondary to above thrombocytopenia due to above Plan discussed with: Patient, Other My Orders Orders - BRENDA ALARCON MD Procedure Category Date Status Time Spironolactone PHA 01/18/24 In Process (Aldactone) 10:00 Pantoprazole Tablet PHA 01/18/24 In Process (Protonix Tablet) 06:00 Complete Blood Count LAB 01/18/24 Verified 04:00 Potassium LAB 01/18/24 Verified 04:00 Date of Service: Jan 17, 2024 Billing Provider: BRENDA ALARCON MD Common Visit Codes: [id number] INP/OBS CARE(HIGH) BRENDA ALARCON MD Jan 17, 2024 21:17
--- NOTE | 2024-01-17 23:15 | DVHPN2 ---
Progress Note - Dictate Date Seen: Jan 17, 2024 (Patient seen at 9:30 a.m.) Has the PT tested + for MRSA If YES, has PT been informed?: No Medical Necessity Reason Pt with a Central, PICC or Fol: Yes The following are medically ne: Ackerman Catheter Reason for ackerman catheter: Strict I&O Subjective No new complaints Sitter at the bedside Patient is complaining of feeling cold He has difficulty articulating Tolerating diet vital signs Vital Sign Date Time Temp Pulse Resp B/P (MAP) Pulse Ox O2 Delivery O2 Flow Rate FiO2 01/17/24 20:00 Nasal Cannula* 3 32 01/17/24 17:00 71 16 117/71 (86) 95 01/17/24 13:00 98.0 98.0 Total Intake and Output 01/16/24 01/16/24 01/17/24 15:00 23:00 07:00 Intake Total 880 ml 982 ml Output Total 1800 ml 850 ml Balance -920 ml 132 ml medications Current Medications Medications Dose Ordered Sig/Salena Route Start Time Stop Time Status Last Admin Dose Admin Sodium Chloride 10 ml Q8HR IV 01/06/24 14:00 01/17/24 21:38 10 ML Rifaximin 550 mg BID PO 01/07/24 22:00 01/17/24 21:46 550 MG Albumin Human 100 ml @ 100 mls/hr Q8H IV 01/08/24 19:30 01/09/24 12:29 Cancel Lactulose 30 ml BID PO 01/12/24 10:00 01/17/24 21:46 30 ML Spironolactone 25 mg DAILY PO 01/18/24 10:00 Pantoprazole Sodium 40 mg DAILY@0600 PO 01/18/24 06:00 objective General: NAD, AAOX3 Chest: lung lópez clear to auscultation Heart: RRR, no murmur Abdomen: Mild-distended, soft, +BS laboratory and microbiology Laboratory Tests 01/17/24 05:08 Test 01/17/24 05:08 Range/Units Serum Glucose 106 74-106 mg/dL Problems(with codes): (1) Gallbladder sludge (2) Elevated liver enzymes (3) Acute respiratory failure with hypoxia (4) Elevated lactic acid level (5) Hypoalbuminemia (6) Generalized weakness (7) Hepatic encephalopathy (8) Liver disease (9) Acute respiratory failure Prognosis PLAN Continue supportive care IV diuretics Off antibiotics Lactulose and Xifaxan Patient started on Actigall 300 mg p.o. twice a day MELD score was 23 points; 19.6% estimated three month mortality Monitor liver enzymes Dietary Evaluation Review Comments: 1) I GI is accessible consider Jevity 1.2 @ 45ml/hr goal rate as tolerated 2) If pt remains NPO >7 days consider TPN to meet at least 75% of estimated needs 3) Continue current plan of care Expected Outcomes/Goals: 1) Pt to receive nutrition support within 7 days of NPO status 2) F/U in 2-3 days Plan discussed with: Patient, Other (Sitter) JOSÉ MIGUEL COLLIER MD Jan 17, 2024 23:15
[2024-01-18] VITALS (9 sets, daily range): BP systolic 102–122; BP diastolic 36–65; PULSE 82–93; RESP 19–20; TEMP 97.6–98.6; O2SAT 91–95
[2024-01-18] MEDS: PANTOPRAZOLE 40 MG TAB PO SCH (06:08)
[2024-01-18 08:41] LABS: Basophils # (auto) 0 10 ^3/uL (0-0.2); Eosinophils # (auto) 0.2 10 ^3/uL (0-0.8); Hemoglobin 10.8 g/dL (13.5-17.5); Lymphocytes # (auto) 0.8 10 ^3/uL (0.4-5.4); Monocytes # (auto) 0.6 10 ^3/uL (0-1.3); White Blood Cell 7.2 10^3/uL (4.4-10.8)
[2024-01-18 08:43] LABS: Basophils % (auto) 0.2 % (0.0-2.0); Hematocrit 31.6 % (41.0-53.0); Lymphocytes % (auto) 10.9 % (10.0-50.0); Mean Corpuscular Hemoglobin 38.2 pg (28.0-32.0); Mean Corpuscular Hgb Conc. 34.3 g/dL (32.0-36.0); Mean Corpuscular Volume 111.2 fL (80.0-100.0); Monocytes % (auto) 8.8 % (0.0-12.0); Neutrophils # (auto) 5.6 10 ^3/uL (1.6-8.6); Neutrophils % (auto) 77.1 % (37.0-80.0); Nucleated Red Blood Cells % 0.2 %; Platelet Count (auto) 47 10^3/uL (140-450); Red Blood Cells 2.84 10^6/uL (4.5-5.90); Red Cell Distribution Width 15.6 % (11.8-14.3)
[2024-01-18] MEDS: SPIRONOLACTONE 25 MG TAB PO SCH (09:47)
--- NOTE | 2024-01-18 14:28 | DVHPN2 ---
Progress Note - Dictate Date Seen: Jan 18, 2024 Has the PT tested + for MRSA If YES, has PT been informed?: No Medical Necessity Reason Pt with a Central, PICC or Fol: Yes The following are medically ne: Ackerman Catheter Reason for ackerman catheter: Strict I&O vital signs Vital Sign Date Time Temp Pulse Resp B/P (MAP) Pulse Ox O2 Delivery O2 Flow Rate FiO2 01/18/24 13:54 98.3 93 19 110/63 (79) 93 98.3 01/18/24 08:20 Nasal Cannula* 3 32 Total Intake and Output 01/17/24 01/17/24 01/18/24 15:00 23:00 07:00 Intake Total 360 ml 456 ml Output Total 740 ml 700 ml Balance -380 ml -244 ml medications Current Medications Medications Dose Ordered Sig/Salena Route Start Time Stop Time Status Last Admin Dose Admin Sodium Chloride 10 ml Q8HR IV 01/06/24 14:00 01/18/24 06:08 10 ML Rifaximin 550 mg BID PO 01/07/24 22:00 01/18/24 09:47 550 MG Albumin Human 100 ml @ 100 mls/hr Q8H IV 01/08/24 19:30 01/09/24 12:29 Cancel Lactulose 30 ml BID PO 01/12/24 10:00 01/18/24 09:47 30 ML Spironolactone 25 mg DAILY PO 01/18/24 10:00 01/18/24 09:47 25 MG Pantoprazole Sodium 40 mg DAILY@0600 PO 01/18/24 06:00 01/18/24 06:08 40 MG objective alert agitated breathing well Distended abdomen Ackerman laboratory and microbiology Laboratory Tests 01/18/24 08:16 01/17/24 05:08 Test 01/17/24 05:08 Range/Units Serum Glucose 106 74-106 mg/dL Assessment/Plan Acute kidney injury superimposed Chronic Kidney Disease secondary hemodynamic mediated Hepatorenal syndrome Acute respiratory failure, patient intubated on ventilator Decompensated liver cirrhosis Hepatic encephalopathy Septic shock GI bleeding Anemia due to blood loss Thrombocytopenia Hypernatremia due to insensible water loss Status post large volume paracentesis hold diuretics today. check ABG tomorrow, s/p diamox yesterday. labs pending today Encourage p.o. Potassium replacement as needed aldactone to improve potassium retention Goal to achieve negative fluid balance Strict Is&Os Monitor electrolytes Dietary Evaluation Review Comments: 1) I GI is accessible consider Jevity 1.2 @ 45ml/hr goal rate as tolerated 2) If pt remains NPO >7 days consider TPN to meet at least 75% of estimated needs 3) Continue current plan of care Expected Outcomes/Goals: 1) Pt to receive nutrition support within 7 days of NPO status 2) F/U in 2-3 days Plan discussed with: Patient RUPALI SINGLETON MD Jan 18, 2024 14:28
--- NOTE | 2024-01-18 14:32 | DVHPN2 ---
Progress Note - Dictate Date Seen: Jan 18, 2024 Has the PT tested + for MRSA If YES, has PT been informed?: No Medical Necessity Reason Pt with a Central, PICC or Fol: Yes The following are medically ne: Ackerman Catheter Reason for ackerman catheter: Strict I&O Subjective No new complaints Sitter at the bedside Patient is altered and somewhat agitated He is requiring mittens Patient is able to eat with the assistance No GI bleeding reported Patient had a bowel movement today vital signs Vital Sign Date Time Temp Pulse Resp B/P (MAP) Pulse Ox O2 Delivery O2 Flow Rate FiO2 01/18/24 13:54 98.3 93 19 110/63 (79) 93 98.3 01/18/24 08:20 Nasal Cannula* 3 32 Total Intake and Output 01/17/24 01/17/24 01/18/24 14:59 22:59 06:59 Intake Total 360 ml 456 ml Output Total 740 ml 700 ml Balance -380 ml -244 ml medications Current Medications Medications Dose Ordered Sig/Salena Route Start Time Stop Time Status Last Admin Dose Admin Sodium Chloride 10 ml Q8HR IV 01/06/24 14:00 01/18/24 06:08 10 ML Rifaximin 550 mg BID PO 01/07/24 22:00 01/18/24 09:47 550 MG Albumin Human 100 ml @ 100 mls/hr Q8H IV 01/08/24 19:30 01/09/24 12:29 Cancel Lactulose 30 ml BID PO 01/12/24 10:00 01/18/24 09:47 30 ML Spironolactone 25 mg DAILY PO 01/18/24 10:00 01/18/24 09:47 25 MG Pantoprazole Sodium 40 mg DAILY@0600 PO 01/18/24 06:00 01/18/24 06:08 40 MG objective General: NAD, AAOX3 Chest: lung lópez clear to auscultation Heart: RRR, no murmur Abdomen: Mild-distended, soft, +BS laboratory and microbiology Laboratory Tests 01/18/24 08:16 01/17/24 05:08 Test 01/17/24 05:08 Range/Units Serum Glucose 106 74-106 mg/dL Problems(with codes): (1) Gallbladder sludge (2) Elevated liver enzymes (3) Acute respiratory failure with hypoxia (4) Elevated lactic acid level (5) Generalized weakness (6) Hepatic encephalopathy (7) Liver disease Prognosis Plan Decompensated liver cirrhosis and hepatorenal syndrome improving Patient had sepsis Gram-positive which is also resolving Check repeat ammonia level; cbc; cmp Patient's labs yesterday were showing some hypercapnia On lactulose, Xifaxan, ursodiol;spirinolactone Supplement with thiamine and folic acid If ammonia level is normal and if encephalopathy persists consider neurology consult Prognosis remains guarded Dietary Evaluation Review Comments: 1) I GI is accessible consider Jevity 1.2 @ 45ml/hr goal rate as tolerated 2) If pt remains NPO >7 days consider TPN to meet at least 75% of estimated needs 3) Continue current plan of care Expected Outcomes/Goals: 1) Pt to receive nutrition support within 7 days of NPO status 2) F/U in 2-3 days Plan discussed with: Other (Nurse) JOSÉ MIGUEL COLLIER MD Jan 18, 2024 14:31
[2024-01-18 14:43] LABS: Chloride 103 mmol/L (98-107); Potassium 3.2 mmol/L (3.5-5.1); Sodium 143 mmol/L (136-145)
[2024-01-18 14:44] LABS: Anion Gap 8 (5-15); Calcium 9.6 mg/dL (8.7-10.4); Carbon Dioxide 32 mmol/L (20-31)
[2024-01-18 14:49] LABS: Blood Urea Nitrogen 26 mg/dL (9-23); Glucose 92 mg/dL (74-106)
[2024-01-18] MEDS: POTASSIUM CHL 10 Meq TABLET PO ONE (19:16)
--- NOTE | 2024-01-18 19:43 | DVHPN2 ---
Subjective alert/awake/denies any complaints/BUT ONLY ORIENTED TO SELF Reviewed: Care Plan Changes from previous H/P or p: No Changes General: Per HPI Eyes: No Pain, No Vision change, No Conjunctivae inflammation, No Eyelid inflammation, No Other, No Redness ENT: No Ear pain, No Ear discharge, No Nose pain, No Nose discharge, No Nose congestion, No Mouth pain, No Mouth swelling, No Throat pain, No Throat swelling, No Other Cardiovascular: No Chest Pain, No Palpitations, No Orthopnea, No Paroxysmal Noc. Dyspnea, No Edema, No Lt Headedness, No Other Respiratory: No Cough, No Dry; Shortness of breath, SOB with excertion; No Wheezing, No Hemoptysis, No Pleuritic Pain, No Sputum, No Other Gastrointestinal: No Nausea, No Vomiting, No Abdominal Pain, No Diarrhea, No Constipation, No Melena, No Hematochezia, No Other Genitourinary: No Dysuria, No Frequency, No Incontinence, No Hematuria, No Retention, No Other Musculoskeletal: No other, No neck pain, No shoulder pain, No arm pain, No back pain, No hand pain, No leg pain, No foot pain Skin: No Rash, No Lesions, No Jaundice, No Bruising, No Other Psych: Per HPI, Anxiety, Behavioral Changes, Depression, Hallucination, H omicidal Ideation, Memory Problems, Poor Concentration, Sadness, Sleep Problems, Suicidal Ideation, Other Objective Vitals Vital Signs Date Time Temp Pulse Resp B/P (MAP) Pulse Ox O2 Delivery O2 Flow Rate FiO2 01/18/24 17:00 98.2 91 19 117/65 (82) 91 98.2 01/18/24 08:20 Nasal Cannula* 3 32 Intake/Output Intake and Output 01/18/24 07:00 Intake Total 816 ml Output Total 1440 ml Balance -624 ml Intake Oral 816 ml Output Urine Total 1440 ml # Bowel Movements 2 General Appearance: Alert, Cooperative, Other (only oriented to self) Lungs: Clear to auscultation Cardiovascular: Regular rate, Normal S1, Normal S2 Abdomen: Normal bowel sounds, No tenderness, No hepatospenomegaly Musculoskeletal: Normal sensory function, Normal motor function Neuro: Normal speech, Strength at 5/5 X4 ext, Sensation intact, Cranial nerves 3-12 NL Medications Current Medications Medications Dose Ordered Sig/Salena Route Start Time Stop Time Status Last Admin Dose Admin Sodium Chloride 10 ml Q8HR IV 01/06/24 14:00 01/18/24 19:16 10 ML Rifaximin 550 mg BID PO 01/07/24 22:00 01/18/24 09:47 550 MG Albumin Human 100 ml @ 100 mls/hr Q8H IV 01/08/24 19:30 01/09/24 12:29 Cancel Lactulose 30 ml BID PO 01/12/24 10:00 01/18/24 09:47 30 ML Spironolactone 25 mg DAILY PO 01/18/24 10:00 01/18/24 09:47 25 MG Pantoprazole Sodium 40 mg DAILY@0600 PO 01/18/24 06:00 01/18/24 06:08 40 MG Thiamine HCl 100 mg DAILY PO 01/19/24 10:00 Folic Acid 1 mg DAILY PO 01/19/24 10:00 Laboratory Results Laboratory Tests 01/18/24 08:16 Chemistry Test 01/18/24 08:16 Calcium Level 9.6 mg/dL (8.7-10.4) Urinalysis Test 01/06/24 08:42 01/09/24 11:28 Urine Color Yellow (Yellow) Urine Clarity Clear (Clear) Urine pH 6.5 (5.0-9.0) Urine Specific [place] 1.025 (1.001-1.035) Urine Protein Trace (Negative) H Urine Ketones Trace (Negative) Urine Blood Negative /uL (Negative) Urine Nitrite Negative (Negative) Urine Bilirubin Negative (Negative) Urine Urobilinogen 8 mg/dL (Negative) H Urine Leukocyte Esterase Negative /uL (Negative) Urine RBC 1 /hpf (0 - 3) Urine WBC 2 /hpf (0 - 3) Urine Squamous Epithelial Cells Few /hpf (<5) Urine Bacteria None seen /hpf (None Seen) Urine Hyaline Casts Many /lpf (0 - 2) Urine Mucus Few (None Seen) Urine Glucose Normal mg/dL (Normal) Urine Creatinine 70.72 mg/dL (30.0-125.0) Urine Protein/Creatinine Ratio 0.26 Urine Sodium 40 mmol/L (40-220) Urine Total Protein 18.1 mg/dL (1-14) H Microbiology Microbiology Date/Time Source Procedure Growth Status 01/11/24 11:19 Bronchial Washings Gram Stain - Final Complete 01/11/24 11:19 Respiratory Culture - Final Presumptive Kamryn albicans Complete 01/07/24 19:28 Voided Urine Urine Culture - Final Complete 01/07/24 14:10 Ascities Fluid Gram Stain - Final Complete 01/07/24 14:10 Ascities Fluid Body Fluid Culture - Final Complete 01/06/24 16:13 Nose MRSA Screen - Final Complete 01/06/24 07:15 Blood Blood Culture - Final NO GROWTH AFTER 5 DAYS OF INCUBATION. Complete Labs and/or images reviewed: Labs reviewed by me, Image(s) reviewed by me Assessment/Plan Assessment/Plan aloc secondary to hepatic encephalopathy resolved-but still not fully oriented- consult neuro/once cleared d by neuro may be dc- lives with girl friend sepsis secondary to sbp/-resolved alcoholic liver cirrhosis coagulopathy secondary to above thrombocytopenia due to above Plan discussed with: Other My Orders Orders - BRENDA ALARCON MD Procedure Category Date Status Time * Neurology Consult CONS 01/18/24 Verified 19:35 Date of Service: Jan 18, 2024 Billing Provider: BRENDA ALARCON MD Common Visit Codes: [id number] INP/OBS CARE(MOD) BRENDA ALARCON MD Jan 18, 2024 19:43
--- NOTE | 2024-01-19 01:46 | DVH ---
CLINICAL HISTORY: right arm swelling TECHNIQUE: Color and duplex doppler imaging of the right upper extremity veins and right subclavian v ein was performed. Vessel compression if possible was also performed. WID: COMPARISON: US BI LAT UPPER DVT on DOS: 01/12/24 FINDINGS: The right internal jugular, axillary, and brachial, radial, and ulnar veins are patent and demonstra te normal compressibility and flow. Cephalic and basilic veins are not visualized. The right subclavian is patent. IMPRESSION: 1. NO SONOGRAPHIC EVIDENCE FOR DEEP VENOUS THROMBOSIS IN THE RIGHT UPPER EXTREMITY VEINS. 2. Cephalic and basilic veins are not visualized
[2024-01-19 05:00] VITALS: BP 109/58; PULSE 83; RESP 19; TEMP 97.9; O2SAT 91
[2024-01-19 06:49] LABS: Alanine Aminotransferase 69 U/L (7-40); Alkaline Phosphatase 121 U/L (46-116); Anion Gap 7 (5-15); Blood Urea Nitrogen 29 mg/dL (9-23); Calcium 9.4 mg/dL (8.7-10.4); Carbon Dioxide 32 mmol/L (20-31); Chloride 103 mmol/L (98-107); Glucose 88 mg/dL (74-106); Potassium 2.9 mmol/L (3.5-5.1); Sodium 142 mmol/L (136-145)
[2024-01-19 06:50] LABS: Albumin 2.1 g/dL (3.2-4.8); Aspartate Aminotransferase 161 U/L (13-40); Bilirubin, Total 12.4 mg/dL (0.2-1.0); INR 1.88 (0.9-1.15); Total Protein 5.4 g/dL (5.7-8.2)
[2024-01-19] MEDS ORDERED: POTASSIUM CHL 20MEQ/100ML 100 ML IV SCH (07:00)
[2024-01-19 07:20] LABS: BUN/Creatinine Ratio 22.1 (10.0-20.0)
[2024-01-19] MEDS: LACTULOSE 10g/15ml SOLN 473ML PR ONE (08:00)
[2024-01-19] MEDS: POTASSIUM CHL 20 Meq TABLET PO ONE (08:00)
[2024-01-19] MEDS: THIAMINE HCL 100 MG TAB PO SCH (10:00)
[2024-01-19] MEDS: FOLIC ACID 1 MG TAB PO SCH (10:00)
[2024-01-19] MEDS: LACTULOSE 20Gm/30ML SOLN PO SCH (12:00)
[2024-01-19] MEDS: POTASSIUM CHL 20MEQ/100ML 100 ML IV SCH (12:15)
--- NOTE | 2024-01-19 13:24 | DVHPN2 ---
Progress Note Date Seen: Jan 19, 2024 Has the PT tested + for MRSA If YES, has PT been informed?: No Medical Necessity Reason Pt with a Central, PICC or Fol: Yes The following are medically ne: Ackerman Catheter Reason for ackerman catheter: Strict I&O Subjective Patient reports: Other (Poor historian poor historian, RN reports episodic confusion, patient refusing plan of care per RN) Review of Systems: Deferred Objective vital signs Vital Sign Date Time Temp Pulse Resp B/P (MAP) Pulse Ox O2 Delivery O2 Flow Rate FiO2 01/19/24 05:00 97.9 83 19 109/58 (75) 91 97.9 01/18/24 20:00 Nasal Cannula* 3 32 Total Intake and Output 01/18/24 01/18/24 01/19/24 14:59 22:59 06:59 Intake Total 325 ml 200 ml Output Total 700 ml 350 ml Balance -375 ml -150 ml medications Current Medications Medications Dose Ordered Sig/Salena Route Start Time Stop Time Status Last Admin Dose Admin Sodium Chloride 10 ml Q8HR IV 01/06/24 14:00 01/18/24 19:16 10 ML Rifaximin 550 mg BID PO 01/07/24 22:00 01/18/24 21:10 550 MG Albumin Human 100 ml @ 100 mls/hr Q8H IV 01/08/24 19:30 01/09/24 12:29 Cancel Spironolactone 25 mg DAILY PO 01/18/24 10:00 01/18/24 09:47 25 MG Pantoprazole Sodium 40 mg DAILY@0600 PO 01/18/24 06:00 01/19/24 05:39 40 MG Thiamine HCl 100 mg DAILY PO 01/19/24 10:00 Folic Acid 1 mg DAILY PO 01/19/24 10:00 Lactulose 30 ml Q3H PO 01/19/24 12:00 Furosemide 40 mg DAILY PO 01/20/24 10:00 Potassium Chloride 100 ml @ 50 mls/hr Q2H IV 01/19/24 12:15 01/19/24 20:14 Examination: GENERAL:Abnormal, NEURO:Abnormal laboratory and microbiology Laboratory Tests 01/19/24 05:58 01/18/24 08:16 Test 01/19/24 05:58 Range/Units Serum Glucose 88 74-106 mg/dL Microbiology Date/Time Source Procedure Growth Status 11/10/24 11:19 Bronchial Washings Gram Stain - Final Complete 01/11/24 11:19 Respiratory Culture - Final Presumptive Kamryn albicans Complete 01/07/24 19:28 Voided Urine Urine Culture - Final Complete 01/07/24 14:10 Ascities Fluid Gram Stain - Final Complete 01/07/24 14:10 Ascities Fluid Body Fluid Culture - Final Complete 01/06/24 16:13 Nose MRSA Screen - Final Complete 01/06/24 07:15 Blood Blood Culture - Final NO GROWTH AFTER 5 DAYS OF INCUBATION. Complete Problem List/Assessment/Plan Problem List/Assessment/Plan Acute kidney injury superimposed Chronic Kidney Disease secondary hemodynamic mediated Hepatorenal syndrome Acute respiratory failure, patient intubated on ventilator Decompensated liver cirrhosis Hepatic encephalopathy Septic shock-resolved GI bleeding Anemia due to blood loss Thrombocytopenia Hypernatremia due to insensible water loss Hypokalemia Status post large volume paracentesis Recommendations Hold spironolactone Potassium replace Plan discussed with: Other Dietary Evaluation Review Comments: 1) I GI is accessible consider Jevity 1.2 @ 45ml/hr goal rate as tolerated 2) If pt remains NPO >7 days consider TPN to meet at least 75% of estimated needs 3) Continue current plan of care Expected Outcomes/Goals: 1) Pt to receive nutrition support within 7 days of NPO status 2) F/U in 2-3 days YUAN AYERS MD Jan 19, 2024 13:23
[2024-01-19 17:00] VITALS: BP 112/64; PULSE 87; RESP 19; TEMP 97.9; O2SAT 93
--- NOTE | 2024-01-19 18:16 | DVHPN2 ---
Progress Note - Dictate Date Seen: Jan 19, 2024 Has the PT tested + for MRSA If YES, has PT been informed?: No Medical Necessity Reason Pt with a Central, PICC or Fol: Yes The following are medically ne: Ackerman Catheter Reason for ackerman catheter: Strict I&O Subjective No new complaints Sitter at the bedside Patient is altered and somewhat agitated He is requiring mittens Patient is able to eat with the assistance No GI bleeding reported Patient had a bowel movement today vital signs Vital Sign Date Time Temp Pulse Resp B/P (MAP) Pulse Ox O2 Delivery O2 Flow Rate FiO2 01/19/24 17:00 97.9 87 19 112/64 (80) 93 97.9 01/19/24 08:10 Room Air* 0 N/A Nasal Cannula* Total Intake and Output 01/18/24 01/18/24 01/19/24 15:00 23:00 07:00 Intake Total 325 ml 200 ml Output Total 700 ml 350 ml Balance -375 ml -150 ml medications Current Medications Medications Dose Ordered Sig/Salena Route Start Time Stop Time Status Last Admin Dose Admin Sodium Chloride 10 ml Q8HR IV 01/06/24 14:00 01/19/24 14:00 10 ML Rifaximin 550 mg BID PO 01/07/24 22:00 01/18/24 21:10 550 MG Albumin Human 100 ml @ 100 mls/hr Q8H IV 01/08/24 19:30 01/09/24 12:29 Cancel Pantoprazole Sodium 40 mg DAILY@0600 PO 01/18/24 06:00 01/19/24 05:39 40 MG Thiamine HCl 100 mg DAILY PO 01/19/24 10:00 Folic Acid 1 mg DAILY PO 01/19/24 10:00 Lactulose 30 ml Q3H PO 01/19/24 12:00 Furosemide 40 mg DAILY PO 01/20/24 10:00 Potassium Chloride 100 ml @ 50 mls/hr Q2H IV 01/19/24 12:15 01/19/24 20:14 objective General: NAD, AAOX3 Chest: lung lópez clear to auscultation Heart: RRR, no murmur Abdomen: Mild-distended, soft, +BS laboratory and microbiology Laboratory Tests 01/19/24 05:58 01/18/24 08:16 Test 01/19/24 05:58 Range/Units Serum Glucose 88 74-106 mg/dL Problems(with codes): (1) Gallbladder sludge (2) Elevated liver enzymes (3) Acute respiratory failure with hypoxia (4) Elevated lactic acid level (5) Hypoalbuminemia (6) Generalized weakness (7) Hepatic encephalopathy (8) Liver disease (9) Acute respiratory failure Prognosis Plan Decompensated liver cirrhosis and hepatorenal syndrome improving Patient had sepsis Gram-positive which is also resolving Check repeat ammonia level; cbc; cmp Patient's labs yesterday were showing some hypercapnia On lactulose, Xifaxan, ursodiol; Spironolactone discontinued, potassium replaced Supplement with thiamine and folic acid If ammonia level is normal and if encephalopathy persists consider neurology consult Prognosis remains guarded I will sign out from this case today If any further GI involvement or input is required please contact [facility] on-call physician Dietary Evaluation Review Comments: 1) I GI is accessible consider Jevity 1.2 @ 45ml/hr goal rate as tolerated 2) If pt remains NPO >7 days consider TPN to meet at least 75% of estimated needs 3) Continue current plan of care Expected Outcomes/Goals: 1) Pt to receive nutrition support within 7 days of NPO status 2) F/U in 2-3 days Plan discussed with: Other (None) JOSÉ MIGUEL COLLIER MD Jan 19, 2024 18:16
--- NOTE | 2024-01-19 19:10 | DVHPNRES ---
Progress Note Date Seen: Jan 19, 2024 Resident Creating Document: GRACE MARROQUIN RESIDENT Has the PT tested + for MRSA If YES, has PT been informed?: No Medical Necessity Reason Pt with a Central, PICC or Fol: Yes The following are medically ne: Ackerman Catheter Reason for ackerman catheter: Strict I&O Subjective Review of Systems A 63-year-old with past medical history of cirrhosis previous alcohol abuse GERD, COPD, who came to the ED for altered mental status. Patient was admitted on send on January 03 for paracentesis, 4 L removed. Due to your the use of accessory muscles and unable to maintain airway patient was intubated in the ED. Home meds furosemide spironolactone omeprazole Trelegy Patient is being sober for 1 year Objective vital signs Vital Sign Date Time Temp Pulse Resp B/P (MAP) Pulse Ox O2 Delivery O2 Flow Rate FiO2 01/19/24 17:00 97.9 87 19 112/64 (80) 93 97.9 01/19/24 08:10 Room Air* 0 N/A Nasal Cannula* Total Intake and Output 01/18/24 01/18/24 01/19/24 15:00 23:00 07:00 Intake Total 325 ml 200 ml Output Total 700 ml 350 ml Balance -375 ml -150 ml medications Current Medications Medications Dose Ordered Sig/Salena Route Start Time Stop Time Status Last Admin Dose Admin Sodium Chloride 10 ml Q8HR IV 01/06/24 14:00 01/19/24 14:00 10 ML Rifaximin 550 mg BID PO 01/07/24 22:00 01/18/24 21:10 550 MG Albumin Human 100 ml @ 100 mls/hr Q8H IV 01/08/24 19:30 01/09/24 12:29 Cancel Pantoprazole Sodium 40 mg DAILY@0600 PO 01/18/24 06:00 01/19/24 05:39 40 MG Thiamine HCl 100 mg DAILY PO 01/19/24 10:00 Folic Acid 1 mg DAILY PO 01/19/24 10:00 Lactulose 30 ml Q3H PO 01/19/24 12:00 Furosemide 40 mg DAILY PO 01/20/24 10:00 Potassium Chloride 100 ml @ 50 mls/hr Q2H IV 01/19/24 12:15 01/19/24 20:14 Examination GEN: confused NECK: Supple, with no masses. CV: RRR, no m/r/g. LUNGS: diminished breath sound in bases ABD: Anasarca. Fat containing umbilical hernia. EXT: edema 4 ext laboratory and microbiology Laboratory Tests 01/19/24 05:58 01/18/24 08:16 Test 01/19/24 05:58 Range/Units Serum Glucose 88 74-106 mg/dL Microbiology Date/Time Source Procedure Growth Status 01/11/24 11:19 Bronchial Washings Gram Stain - Final Complete 01/11/24 11:19 Respiratory Culture - Final Presumptive Kamryn albicans Complete 01/07/24 19:28 Voided Urine Urine Culture - Final Complete 01/07/24 14:10 Ascities Fluid Gram Stain - Final Complete 01/07/24 14:10 Ascities Fluid Body Fluid Culture - Final Complete 01/06/24 16:13 Nose MRSA Screen - Final Complete 01/06/24 07:15 Blood Blood Culture - Final NO GROWTH AFTER 5 DAYS OF INCUBATION. Complete Problem List/Assessment/Plan Problem List/Assessment/Plan Neurologic: #Acute metabolic encephalopathy due to hyperammonemia and septic shock resolving Dementia?? Ammonia levels trending high Lactulose 30 ml TID Lactulose rectal: no bowel movements Rifaximin 550 mg BID Normal head CT scan at admission Pt was extubated on 01/12/2024 Possible SNF transfer Respiratory: # Acute hypoxic respiratory failure secondary to septic shock and decompensated cirrhosis resolved #Septic shock due to pneumonia gram+/gram - resolved xray: Multifocal airspace disease. Ct scan: Bibasilar consolidation is seen with trace pleural effusion. Stop AB, completed course of AB furosemide 20 mg BID Cardiovascular: #Septic shock due to pneumonia gram+/gram - resolved ECHO: Normal left ventricular size and dimension. Normal left ventricular systolic function estimated ejection fraction 55%. There is a grade 1 diastolic dysfunction Bradycardia resolved GI: #Decompensated Cirrhosis due to alcohol-related liver disease with a MELD score of 21 Drainage 3lt of ascites Peritoneal fluid: ph 8 wbc 191 rbc [address] scan: Shrunken cirrhotic liver with small adjacent portosytemic collaterals. Vitamin K per gastro No new ascites to drain # Lower GI bleeding: episode of hematochezia ruled out SOB neg #Gallstone at the neck of the gallbladder. #Thickened colonic galeas likely secondary to decompression or portal colopathy. #Umbilical hernia borderline gallbladder galeas f/u Endocrine/Metabolic: #Hypernatremia resolved #Hypokalemia today K IV # Severe metabolic acidosis due to septic shock resolved # Hyperkalemia resolved #Hyperphosphatemia resolved #Hyperparathyroidism Nephrology on board Infectious Disease: # septic shock due to pneumonia resolved Renal: # Acute kidney injury hemodinamically mediated resolving #Hepatorenal syndrome resolved urinary output improving Nephrology on board Hematology: # Thrombocytopenia secondary to liver cirrhosis and hypersplenism . Hold on DVT prophylaxis General: Full code until now Case discussed with Dr Curtis Time spent on care 23 min Plan discussed with: Other (rn) My Orders My Orders Orders - GRACE MARROQUIN RESIDENT Procedure Category Date Status Time Discontinue Tele RAKESH 01/19/24 In Process 07:54 Communication Order ORDERS 01/19/24 Transmitted 07:54 Lactulose Oral PHA 01/19/24 In Process 12:00 Furosemide Tablet PHA 01/20/24 In Process (Lasix Tablet) 10:00 Potassium Chl PHA 01/19/24 In Process 20meq/100ml 12:15 Place Ng ORDERS 01/19/24 Transmitted 12:06 Abg W/ Co-Ox RT 01/19/24 Logged 14:44 Dietary Evaluation Review Comments: 1) I GI is accessible consider Jevity 1.2 @ 45ml/hr goal rate as tolerated 2) If pt remains NPO >7 days consider TPN to meet at least 75% of estimated needs 3) Continue current plan of care Expected Outcomes/Goals: 1) Pt to receive nutrition support within 7 days of NPO status 2) F/U in 2-3 days Date of Service: Jan 19, 2024 Billing Provider: VENKATESH CURTIS MD Common Visit Codes: [id number] INP/OBS CARE(HIGH) Coding Comment Comment Attending Attestation I saw and evaluated the patient. I reviewed the residents note and agree with findings and plan as documented in the residents note except as documented below. Patient pending placement, unable to reach family member, patient will benefit from hospice/palliative care GRACE MARROQUIN RESIDENT Jan 19, 2024 19:10 VENKATESH CURTIS MD Jan 19, 2024 19:14
[2024-01-20 01:00] VITALS: BP 111/51; PULSE 70; RESP 17; TEMP 97.8; O2SAT 94
[2024-01-20 05:00] VITALS: BP 111/45; PULSE 67; RESP 17; TEMP 97.8; O2SAT 94
[2024-01-20 05:59] LABS: Basophils # (auto) 0 10 ^3/uL (0-0.2); Basophils % (auto) 0.5 % (0.0-2.0); Eosinophils # (auto) 0.3 10 ^3/uL (0-0.8); Hematocrit 26.4 % (41.0-53.0); Hemoglobin 9.3 g/dL (13.5-17.5); Lymphocytes # (auto) 0.7 10 ^3/uL (0.4-5.4); Lymphocytes % (auto) 14.1 % (10.0-50.0); Mean Corpuscular Hemoglobin 38.8 pg (28.0-32.0); Mean Corpuscular Hgb Conc. 35.1 g/dL (32.0-36.0); Mean Corpuscular Volume 110.7 fL (80.0-100.0); Monocytes # (auto) 0.5 10 ^3/uL (0-1.3); Monocytes % (auto) 10.3 % (0.0-12.0); Neutrophils # (auto) 3.4 10 ^3/uL (1.6-8.6); Neutrophils % (auto) 69.1 % (37.0-80.0); Nucleated Red Blood Cells % 0.1 %; Platelet Count (auto) 54 10^3/uL (140-450); Red Blood Cells 2.38 10^6/uL (4.5-5.90); Red Cell Distribution Width 16.3 % (11.8-14.3); White Blood Cell 4.9 10^3/uL (4.4-10.8)
[2024-01-20 06:20] LABS: Alanine Aminotransferase 60 U/L (7-40); Albumin 1.8 g/dL (3.2-4.8); Alkaline Phosphatase 108 U/L (46-116); Anion Gap 5 (5-15); Aspartate Aminotransferase 140 U/L (13-40); Bilirubin, Total 10.5 mg/dL (0.2-1.0); Blood Urea Nitrogen 32 mg/dL (9-23); Carbon Dioxide 33 mmol/L (20-31); Chloride 104 mmol/L (98-107); Glucose 96 mg/dL (74-106); Potassium 3.1 mmol/L (3.5-5.1); Sodium 142 mmol/L (136-145)
[2024-01-20 06:21] LABS: Total Protein 4.7 g/dL (5.7-8.2)
[2024-01-20 06:24] LABS: BUN/Creatinine Ratio 23.4 (10.0-20.0)
[2024-01-20] MEDS: LACTULOSE 10g/15ml SOLN 473ML PR ONE (07:15)
[2024-01-20] MEDS: POTASSIUM CHL 20MEQ/100ML 100 ML IV SCH (07:15)
[2024-01-20 09:00] VITALS: BP 106/53; PULSE 72; RESP 17; TEMP 98.2; O2SAT 93
[2024-01-20] MEDS: FUROSEMIDE 40 MG TAB PO SCH (09:27)
[2024-01-20 13:00] VITALS: BP 110/65; PULSE 76; RESP 16; TEMP 97.8; O2SAT 94
--- NOTE | 2024-01-20 16:55 | DVHPN2 ---
Progress Note Date Seen: Jan 20, 2024 Has the PT tested + for MRSA If YES, has PT been informed?: No Medical Necessity Reason Pt with a Central, PICC or Fol: Yes The following are medically ne: Cakerman Catheter Reason for ackerman catheter: Strict I&O Subjective Patient reports: Other (lethargic) Review of Systems: Deferred Objective vital signs Vital Sign Date Time Temp Pulse Resp B/P (MAP) Pulse Ox O2 Delivery O2 Flow Rate FiO2 01/20/24 09:27 106/53 01/20/24 09:00 98.2 72 17 93 98.2 01/20/24 08:00 Room Air* 0 N/A Nasal Cannula* Total Intake and Output 01/19/24 01/19/24 01/20/24 15:00 23:00 07:00 Intake Total 0 ml 234 ml 455 ml Output Total 200 ml 275 ml Balance 0 ml 34 ml 180 ml medications Current Medications Medications Dose Ordered Sig/Salena Route Start Time Stop Time Status Last Admin Dose Admin Sodium Chloride 10 ml Q8HR IV 01/06/24 14:00 01/20/24 12:00 10 ML Rifaximin 550 mg BID PO 01/07/24 22:00 01/20/24 09:14 550 MG Albumin Human 100 ml @ 100 mls/hr Q8H IV 01/08/24 19:30 01/09/24 12:29 Cancel Pantoprazole Sodium 40 mg DAILY@0600 PO 01/18/24 06:00 01/20/24 05:40 40 MG Thiamine HCl 100 mg DAILY PO 01/19/24 10:00 01/20/24 09:14 100 MG Folic Acid 1 mg DAILY PO 01/19/24 10:00 01/20/24 09:14 1 MG Lactulose 30 ml Q3H PO 01/19/24 12:00 01/20/24 09:14 30 ML Furosemide 40 mg DAILY PO 01/20/24 10:00 01/20/24 09:27 40 MG Albumin Human 100 ml @ 100 mls/hr Q8H IV 01/20/24 17:00 01/21/24 09:59 UNV Examination: NEURO:Abnormal laboratory and microbiology Laboratory Tests 01/20/24 04:25 Test 01/20/24 04:25 Range/Units Serum Glucose 96 74-106 mg/dL Microbiology Date/Time Source Procedure Growth Status 01/11/24 11:19 Bronchial Washings Gram Stain - Final Complete 01/11/24 11:19 Respiratory Culture - Final Presumptive Kamryn albicans Complete 01/07/24 19:28 Voided Urine Urine Culture - Final Complete 01/07/24 14:10 Ascities Fluid Gram Stain - Final Complete 01/07/24 14:10 Ascities Fluid Body Fluid Culture - Final Complete 01/06/24 16:13 Nose MRSA Screen - Final Complete 01/06/24 07:15 Blood Blood Culture - Final NO GROWTH AFTER 5 DAYS OF INCUBATION. Complete Problem List/Assessment/Plan Problem List/Assessment/Plan Acute kidney injury superimposed Chronic Kidney Disease secondary hemodynamic mediated Hepatorenal syndrome??less likely as [place]win 40 Acute respiratory failure, patient intubated on ventilator Decompensated liver cirrhosis Hepatic encephalopathy Septic shock-resolved GI bleeding Anemia due to blood loss Thrombocytopenia Hypernatremia due to insensible water loss Hypokalemia Status post large volume paracentesis Recommendations Hold spironolactone Potassium replace albumin iv Plan discussed with: Other My Orders My Orders Orders - YUAN AYERS MD Procedure Category Date Status Time Albumin 25% ([place]) PHA 01/20/24 Logged 17:00 Dietary Evaluation Review Comments: 1) I GI is accessible consider Jevity 1.2 @ 45ml/hr goal rate as tolerated 2) If pt remains NPO >7 days consider TPN to meet at least 75% of estimated needs 3) Continue current plan of care Expected Outcomes/Goals: 1) Pt to receive nutrition support within 7 days of NPO status 2) F/U in 2-3 days YUAN AYERS MD Jan 20, 2024 16:55
[2024-01-20 17:00] VITALS: BP 112/62; PULSE 74; RESP 17; TEMP 98.7; O2SAT 93
[2024-01-20] MEDS: ALBUMIN 25% 100 ML IV SCH (18:01)
[2024-01-20] MEDS: POTASSIUM EFFERVESENT TAB 25 MEQ GT ONE (18:29)
--- NOTE | 2024-01-20 18:55 | DVHPNRES ---
Progress Note Date Seen: Jan 20, 2024 Resident Creating Document: GRACE MARROQUIN RESIDENT Has the PT tested + for MRSA If YES, has PT been informed?: No Medical Necessity Reason Pt with a Central, PICC or Fol: Yes The following are medically ne: Ackerman Catheter Reason for ackerman catheter: Strict I&O Subjective Review of Systems A 63-year-old with past medical history of cirrhosis previous alcohol abuse GERD, COPD, who came to the ED for altered mental status. Patient was admitted on on January 03 for paracentesis, 4 L removed. Due to your the use of accessory muscles and unable to maintain airway patient was intubated in the ED. Home meds furosemide spironolactone omeprazole Trelegy Patient is being sober for 1 year Objective vital signs Vital Sign Date Time Temp Pulse Resp B/P (MAP) Pulse Ox O2 Delivery O2 Flow Rate FiO2 01/20/24 17:00 98.7 74 17 112/62 (79) 93 98.7 01/20/24 08:00 Room Air* 0 N/A Nasal Cannula* Total Intake and Output 01/19/24 01/19/24 01/20/24 15:00 23:00 07:00 Intake Total 0 ml 234 ml 455 ml Output Total 200 ml 275 ml Balance 0 ml 34 ml 180 ml medications Current Medications Medications Dose Ordered Sig/Salena Route Start Time Stop Time Status Last Admin Dose Admin Sodium Chloride 10 ml Q8HR IV 01/06/24 14:00 01/20/24 12:00 10 ML Rifaximin 550 mg BID PO 01/07/24 22:00 01/20/24 09:14 550 MG Albumin Human 100 ml @ 100 mls/hr Q8H IV 01/08/24 19:30 01/09/24 12:29 Cancel Pantoprazole Sodium 40 mg DAILY@0600 PO 01/18/24 06:00 01/20/24 05:40 40 MG Thiamine HCl 100 mg DAILY PO 01/19/24 10:00 01/20/24 09:14 100 MG Folic Acid 1 mg DAILY PO 01/19/24 10:00 01/20/24 09:14 1 MG Lactulose 30 ml Q3H PO 01/19/24 12:00 01/20/24 18:17 30 ML Furosemide 40 mg DAILY PO 01/20/24 10:00 01/20/24 09:27 40 MG Albumin Human 100 ml @ 100 mls/hr Q8H IV 01/20/24 17:00 01/21/24 09:59 01/20/24 18:01 100 MLS/HR Examination GEN: confused NECK: Supple, with no masses. CV: RRR, no m/r/g. LUNGS: diminished breath sound in bases ABD: Anasarca. Fat containing umbilical hernia. EXT: edema +1 4 ext laboratory and microbiology Laboratory Tests 01/20/24 04:25 Test 01/20/24 04:25 Range/Units Serum Glucose 96 74-106 mg/dL Microbiology Date/Time Source Procedure Growth Status 01/11/24 11:19 Bronchial Washings Gram Stain - Final Complete 01/11/24 11:19 Respiratory Culture - Final Presumptive Kamryn albicans Complete 01/07/24 19:28 Voided Urine Urine Culture - Final Complete 01/07/24 14:10 Ascities Fluid Gram Stain - Final Complete 01/07/24 14:10 Ascities Fluid Body Fluid Culture - Final Complete 01/06/24 16:13 Nose MRSA Screen - Final Complete 01/06/24 07:15 Blood Blood Culture - Final NO GROWTH AFTER 5 DAYS OF INCUBATION. Complete Problem List/Assessment/Plan Problem List/Assessment/Plan Neurologic: #Acute metabolic encephalopathy due to hyperammonemia and septic shock resolving #Dementia Ammonia levels trending high Lactulose 30 ml TID Lactulose rectal: no bowel movements Rifaximin 550 mg BID Normal head CT scan at admission Pt was extubated on 01/12/2024 Talking today with the caregiver patient has baseline dementia, also DC the sitter will not be possible, so DC to home with home health PT will be the best option for him Respiratory: # Acute hypoxic respiratory failure secondary to septic shock and decompensated cirrhosis resolved #Septic shock due to pneumonia gram+/gram - resolved xray: Multifocal airspace disease. Ct scan: Bibasilar consolidation is seen with trace pleural effusion. Stop AB, completed course of AB furosemide 20 mg BID Cardiovascular: #Septic shock due to pneumonia gram+/gram - resolved ECHO: Normal left ventricular size and dimension. Normal left ventricular systolic function estimated ejection fraction 55%. There is a grade 1 diastolic dysfunction Bradycardia resolved GI: #Decompensated Cirrhosis due to alcohol-related liver disease with a MELD score of 21 Drainage 3lt of ascites Peritoneal fluid: ph 8 wbc 191 rbc [address] scan: Shrunken cirrhotic liver with small adjacent portosytemic collaterals. Vitamin K per gastro No new ascites to drain # Lower GI bleeding: episode of hematochezia ruled out SOB neg #Gallstone at the neck of the gallbladder. #Thickened colonic galeas likely secondary to decompression or portal colopathy. #Umbilical hernia borderline gallbladder gaelas f/u Endocrine/Metabolic: #Hypernatremia resolved #Hypokalemia today K oral # Severe metabolic acidosis due to septic shock resolved # Hyperkalemia resolved #Hyperphosphatemia resolved #Hyperparathyroidism Nephrology on board Infectious Disease: # septic shock due to pneumonia resolved Renal: # Acute kidney injury hemodinamically mediated resolving #Hepatorenal syndrome resolved urinary output improving Nephrology on board Hematology: # Thrombocytopenia secondary to liver cirrhosis and hypersplenism . Hold on DVT prophylaxis General: Full code until now Case discussed with Dr Curtis Time spent on care 23 min Plan discussed with: Spouse, Other (rn) My Orders My Orders Orders - GRACE MARROQUIN RESIDENT Procedure Category Date Status Time * Roof Panel [facility] CONS 01/20/24 Transmitted Consult Pt Request For Service PT 01/20/24 Logged 18:16 Dietary Evaluation Review Comments: 1) I GI is accessible consider Jevity 1.2 @ 45ml/hr goal rate as tolerated 2) If pt remains NPO >7 days consider TPN to meet at least 75% of estimated needs 3) Continue current plan of care Expected Outcomes/Goals: 1) Pt to receive nutrition support within 7 days of NPO status 2) F/U in 2-3 days Date of Service: Jan 20, 2024 Billing Provider: VENKATESH CURTIS MD Common Visit Codes: [id number] INP/OBS CARE(MOD) Coding Comment Comment Attending Attestation I saw and evaluated the patient. I reviewed the residents note and agree with findings and plan as documented in the residents note except as documented below. Patient pending transfer [facility] GRACE MARROQUIN RESIDENT Jan 20, 2024 18:55 VENKATESH CURTIS MD Jan 20, 2024 19:54
[2024-01-20 21:00] VITALS: BP 98/50; PULSE 74; RESP 17; O2SAT 94
[2024-01-21 05:52] LABS: Basophils # (auto) 0 10 ^3/uL (0-0.2); Eosinophils # (auto) 0.3 10 ^3/uL (0-0.8); Monocytes # (auto) 0.5 10 ^3/uL (0-1.3); Platelet Count (auto) 63 10^3/uL (140-450)
[2024-01-21 05:56] LABS: Basophils % (auto) 0.5 % (0.0-2.0); Eosinophils % (auto) 5.8 % (0.0-7.0); Hematocrit 29.5 % (41.0-53.0); Hemoglobin 10.3 g/dL (13.5-17.5); Lymphocytes # (auto) 0.7 10 ^3/uL (0.4-5.4); Lymphocytes % (auto) 12.3 % (10.0-50.0); Mean Corpuscular Hgb Conc. 34.8 g/dL (32.0-36.0); Monocytes % (auto) 8.8 % (0.0-12.0); Neutrophils % (auto) 72.6 % (37.0-80.0); Nucleated Red Blood Cells % 0.1 %; Red Blood Cells 2.63 10^6/uL (4.5-5.90); Red Cell Distribution Width 16.8 % (11.8-14.3); White Blood Cell 5.4 10^3/uL (4.4-10.8)
[2024-01-21 06:45] VITALS: BP 108/56; PULSE 70; RESP 18; TEMP 98; O2SAT 95
[2024-01-21 08:56] VITALS: BP 103/62; PULSE 73; RESP 17; RESP 8; TEMP 98.2; O2SAT 93
[2024-01-21 10:58] LABS: Alanine Aminotransferase 75 U/L (7-40); Albumin 2.1 g/dL (3.2-4.8); Alkaline Phosphatase 125 U/L (46-116); Anion Gap 7 (5-15); Aspartate Aminotransferase 161 U/L (13-40); Blood Urea Nitrogen 31 mg/dL (9-23); Calcium 9.5 mg/dL (8.7-10.4); Carbon Dioxide 32 mmol/L (20-31); Chloride 104 mmol/L (98-107); Glucose 92 mg/dL (74-106); Sodium 143 mmol/L (136-145)
[2024-01-21 10:59] LABS: Bilirubin, Total 11.7 mg/dL (0.2-1.0); Total Protein 5.5 g/dL (5.7-8.2)
[2024-01-21 11:04] LABS: BUN/Creatinine Ratio 22.5 (10.0-20.0)
[2024-01-21] MEDS: POTASSIUM EFFERVESENT TAB 25 MEQ PO ONE (11:46)
[2024-01-21] MEDS ORDERED: RIFA550T PO (15:11)
[2024-01-21] MEDS ORDERED: THIA100T10 PO (15:11)
[2024-01-21] MEDS ORDERED: LACT10SO3 PO (15:11)
[2024-01-21] MEDS ORDERED: FURO40TA4 PO (15:11)
[2024-01-21] MEDS ORDERED: SPIR25TA PO (15:11)
[2024-01-21] MEDS ORDERED: PANT40T PO (15:11)
[2024-01-21] MEDS ORDERED: FOLI-119 PO (15:11)
[2024-01-21 15:58] LABS: Base Excess 6.7 mmol/L (-2.0-3.0)
[2024-01-21 17:30] VITALS: BP 121/60; PULSE 73; RESP 20; TEMP 98.2; O2SAT 96
--- NOTE | 2024-01-21 18:39 | DVHDSRES ---
Discharge Summary Date of Admission Resident Creating Document: GRACE MARROQUIN RESIDENT Jan 06, 2024 at 10:54 Date of Discharge: Jan 16, 2024 Labs/Diagnostic Data: Laboratory Results Test 01/21/24 15:53 01/21/24 05:14 01/20/24 04:35 01/19/24 15:28 Blood Gas Specimen Type Arterial Blood Gas Sample Site Right radial Blood Gas Patient Temperature 37.0 Arterial Blood Date Drawn [id number] Arterial Blood pH 7.516 (7.350-7.450) Arterial Blood Partial Pressure CO2 37.9 mmHg (35.0-48.0) Arterial Blood Partial Pressure O2 52.7 mmHg (83.0-108.0) Arterial Blood HCO3 30.0 mmol/L (21.0-28.0) Arterial Blood Oxygen Saturation 86.0 % (94.0-98.0) Arterial Blood Base Excess 6.7 mmol/L (-2.0-3.0) Arterial Blood Oxyhemoglobin 83.9 % (94.0-98.0) Arterial Blood Carboxyhemoglobin 1.8 % (0.5-1.5) Arterial Blood Methemoglobin 0.6 % (0.0-1.5) Dusty Test Yes Blood Gas Total Hemoglobin 10.60 g/dL (13.5-17.5) Blood Gas Modality Room air FiO2 % 21.0 Blood Gas Critical Value Read Back Yes Blood Gas Notified Whom sierra Jones md Blood Gas Notified Time [id number] Blood Gas Notified By [employer] johnnie tatum White Blood Count 5.4 10^3/uL (4.4-10.8) Red Blood Count 2.63 10^6/uL (4.5-5.90) Hemoglobin 10.3 g/dL (13.5-17.5) Hematocrit 29.5 % (41.0-53.0) Mean Corpuscular Volume 112.0 fL (80.0-100.0) Mean Corpuscular Hemoglobin 39.0 pg (28.0-32.0) Mean Corpuscular Hemoglobin Concent 34.8 g/dL (32.0-36.0) Red Cell Distribution Width 16.8 % (11.8-14.3) Platelet Count 63 10^3/uL (140-450) Mean Platelet Volume 9.9 fL (6.9-10.8) Neutrophils (%) (Auto) 72.6 % (37.0-80.0) Lymphocytes (%) (Auto) 12.3 % (10.0-50.0) Monocytes (%) (Auto) 8.8 % (0.0-12.0) Eosinophils (%) (Auto) 5.8 % (0.0-7.0) Basophils (%) (Auto) 0.5 % (0.0-2.0) Neutrophils # (Auto) 4.0 10 ^3/uL (1.6-8.6) Lymphocytes # (Auto) 0.7 10 ^3/uL (0.4-5.4) Monocytes # (Auto) 0.5 10 ^3/uL (0-1.3) Eosinophils # (Auto) 0.3 10 ^3/uL (0-0.8) Basophils # (Auto) 0 10 ^3/uL (0-0.2) Nucleated Red Blood Cells 0.1 % Sodium Level 143 mmol/L (136-145) Potassium Level 3.0 mmol/L (3.5-5.1) Chloride Level 104 mmol/L (98-107) Carbon Dioxide Level 32 mmol/L (20-31) Anion Gap 7 (5-15) Blood Urea Nitrogen 31 mg/dL (9-23) Creatinine 1.38 mg/dL (0.700-1.30) Glomerular Filtration Rate Calc 57 mL/min (>90) BUN/Creatinine Ratio 22.5 (10.0-20.0) Serum Glucose 92 mg/dL (74-106) Calcium Level 9.5 mg/dL (8.7-10.4) Total Bilirubin 11.7 mg/dL (0.2-1.0) Aspartate Amino Transferase (AST) 161 U/L (13-40) Alanine Aminotransferase (ALT) 75 U/L (7-40) Alkaline Phosphatase 125 U/L (46-116) Total Protein 5.5 g/dL (5.7-8.2) Albumin 2.1 g/dL (3.2-4.8) Ammonia 65 umol/L (11-32) Blood Gas Liter Flow 3.00 Test 01/19/24 05:58 01/17/24 05:08 01/14/24 12:00 01/14/24 08:50 Prothrombin Time 19.0 sec (9.3-11.8) Prothrombin Time INR 1.88 (0.9-1.15) Platelet Estimate Decreased Anisocytosis (manual) Slight Macrocytosis Moderate Blood Gas Spontaneous Rate 16 Blood Gas Pressure Support 8 Blood Gas PEEP or CPAP 5.0 Direct Bilirubin 0.3 mg/dL (<0.3) Test 01/14/24 03:15 01/13/24 17:51 01/13/24 03:38 01/12/24 18:00 Differential Total Cells Counted 100.0 (100) Neutrophils % (Manual) 62 (37.0-80.0) Band Neutrophils % (Manual) 0 Lymphocytes % (Manual) 11 (10.0-50.0) Monocytes % (Manual) 10 (0-12) Eosinophils % (Manual) 17 (0-7) Basophils % (Manual) 0 (0.0-2.0) Metamyelocytes % (manual) 0 Myelocytes % (Manual) 0 Promyelocytes % (Manual) 0 Blast Cells % (Manual) 0 Reactive Lymphocytes 0 Schistocytes Few Activated Partial Thromboplast Time 45.3 SEC (24.5-34.5) Magnesium Level 2.0 mg/dL (1.6-2.6) Gamma Glutamyl Transpeptidase 14 U/L (<73) POC Glucose 97 mg/dl (70-106) Phosphorus Level 2.3 mg/dL (2.4-5.1) Stool Occult Blood Negative (Negative) Stool Occult Blood Sample #3 (Negative) Test 01/12/24 08:32 01/12/24 03:15 01/11/24 07:16 01/11/24 03:04 Blood Gas Spontaneous Tidal Volume 800 Specimen 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 Triglycerides Level 55 mg/dL (< 150) Blood Gas Set Respiration Rate 18.0 Blood Gas Tidal Volume 500.0 Large Platelets Few Test 01/10/24 12:42 01/09/24 11:28 01/08/24 03:17 01/07/24 14:10 Blood Gas Inspiratory Pressure 25.0 Bl Gas Inspiratory/Expiratory Ratio 1:1.6 Urine Creatinine 70.72 mg/dL (30.0-125.0) Urine Protein/Creatinine Ratio 0.26 Urine Sodium 40 mmol/L (40-220) Urine Total Protein 18.1 mg/dL (1-14) Vitamin D 25-Hydroxy 25.5 ng/mL (30.0-100) Body Fluid Source Peritoneal fluid Body Fluid pH 8.0 Body Fluid WBC (Manual) 191 CUMM (0-200) Body Fluid RBC (Manual) 77 CUMM (0-2000) Body Fluid Mononuclear Cells 10 % Body Fluid Polymorphonuclear Cells 90 % (0-25) Body Fluid Glucose 156 mg/dL (.) Body Fluid Total Protein 0.8 g/dL (.) Body Fluid Lactate Dehydrogenase 56 IU/L (.) Test 01/07/24 12:15 01/06/24 08:42 01/06/24 07:15 Hemoglobin A1c < 4.0 % A1C (<5.7) Lactic Acid Level 2.9 mmol/L (0.4-2.0) Thyroid Stimulating Hormone (TSH) 0.19 uIU/mL (0.55-4.78) Parathyroid Hormone (Intact) 91.8 pg/mL (18.4-80.1) Hepatitis A Antibody Total Negative (Negative) Hepatitis B Surface Antigen Negative (Negative) Hepatitis B Surface Antibody Negative (Negative) Hepatitis B Core Total Antibody Negative (Negative) Hepatitis C Antibody Negative (Negative) Urine Color Yellow (Yellow) Urine Clarity Clear (Clear) Urine pH 6.5 (5.0-9.0) Urine Specific [place] 1.025 (1.001-1.035) Urine Protein Trace (Negative) Urine Ketones Trace (Negative) Urine Blood Negative /uL (Negative) Urine Nitrite Negative (Negative) Urine Bilirubin Negative (Negative) Urine Urobilinogen 8 mg/dL (Negative) Urine Leukocyte Esterase Negative /uL (Negative) Urine RBC 1 /hpf (0 - 3) Urine WBC 2 /hpf (0 - 3) Urine Squamous Epithelial Cells Few /hpf (<5) Urine Bacteria None seen /hpf (None Seen) Urine Hyaline Casts Many /lpf (0 - 2) Urine Mucus Few (None Seen) Urine Glucose Normal mg/dL (Normal) Urine Opiates Screen Neg (NEGATIVE) Urine Fentanyl Screen Neg (NEGATIVE) Urine Barbiturates Screen Neg (NEGATIVE) Urine Phencyclidine Screen Neg (NEGATIVE) Urine Amphetamines Screen Neg (NEGATIVE) Urine Benzodiazepines Screen Pos (NEGATIVE) Urine Cocaine Screen Neg (NEGATIVE) Urine Cannabinoids Screen Neg (NEGATIVE) Troponin I High Sensitivity 6 ng/L (</=54) Plasma/Serum Blood Alcohol < 3.0 mg/dL (<10) Other Laboratory Tests 01/21/24 05:14 Brief Hx & Hospital Course: A 63-year-old with past medical history of advance cirrhosis previous alcohol abuse GERD, COPD, who came to the ED for altered mental status. Patient was admitted on send [facility] on January 03 for paracentesis, 4 L removed. Patient was on hospice before but it was revoked Home meds furosemide spironolactone omeprazole Trelegy Patient is being sober for 1 year Due to your the use of accessory muscles and unable to maintain airway patient was intubated in the ED jan 05 also was admitted to the ICU due to septic shock due to pneumonia which improved with AB, patient was on levophed. Pt had hyperammonemia which improved with lactulose and rifaximin. Also, patient developed hepatorenal syndrome which improved with octreotide, albumin and midodrine, ascites was drainage as well 3 lt, patient developed hyperbilirubinemia, last abdominal US showed Sludge in the gallbladder. Gallbladder wall measures 2.94 mm which is at the upper limits of normal. Patient was downgraded to the floor on jan 15. Talking with his girlfriend and caregiver, patient has baseline advance dementia. Patient was with sitter on his stay on the floor Patient will need home health for PT and home oxygen Patient can be discharge with new prescription and f/u in dc clinic GEN: confused NECK: Supple, with no masses. CV: RRR, no m/r/g. LUNGS: diminished breath sound in bases ABD: Anasarca. Fat containing umbilical hernia. EXT: edema +1 3 ext, edema 3+ on right upper extremity Case discussed Dr Curtis Consults/Reason for consult nephrology: due to hepatorenal syndrome GI: liver cirrhosis pulmonology: septic shock due to pneumonia Operations or Procedures Indications: Bilateral lower lobe atelectasis, Possible mucous plugging. Bloody secretions via Medicines: See [employer] notes. Complications: None Procedure: Patient medications and allergies reviewed. The risks and benefits of the procedure and the sedation options and risk were discussed with the patient's healthcare proxy. All questions were answered and informed consent was obtained. Patient identification and proposed procedure were verified prior to the procedure by the physician, and a nurse, and the respiratory therapist in ICU room. The heart rate, respiratory rate, oxygen saturations, blood pressure, adequacy of pulmonary ventilation, and response to care were monitored throughout the procedure. The physical status of the patient was reassessed after the procedure. After obtaining informed consent, the bronchoscope was introduced through the endotracheal tube and advanced into the trachea bronchial tree of both lungs. The procedure was accomplished without difficulty. The patient tolerated the procedure well. Findings: The trachea is in normal caliber. The john is sharp. The tracheobronchial tree of the right lung was examined to at least the first subsegmental level. The bronchial mucosa was inflamed and erythematous. The anatomy in the right lung are normal. There are no endobronchial lesions. There was copious blood tinged secretions from right main stem bronchus onward throughout R4-R10. Right middle lobe (RML) Bronchoalveolar lavage (BAL) obtained. RML BAL sent for gram stain and culture. The left upper lobe, lingula, and left lower lobe were examined to at least the first subsegmental level. Bronchial mucosa and anatomy in the left upper lobe and lingula are normal. There were no endobronchial lesions. There was copious whitish secretions from left main stem bronchus onward throughout L6-L10. Mucous plugging removed from L6-L10. There was no active bleeding at the completion of the procedure. Estimated blood loss: Less than 5 mL. Impression: Left lower lobe atelectasis due to mucous plugging Mucous plugging from L6-L10 Right middle/lower lobe mucous plugging from R4-R10 RML BAL performed Recommendation: Follow-up RML BAL results. Procedure codes: 64811, bronchoscopy, rigid and flexible, including fluoroscopic guidance, one performed; with bronchial endobronchial broncho-alveolar lavage, single or multiple sites PETEY SOLANO MD Jan 11, 2024 11:29 DICTATED BY: PETEY SOLANO MD DICATED DATE/TIME: 01/11/[address] AB PEL WO CON-NO ORAL OR IV INDICATION: : 63 old Male PANCREATIC MASS EXAM DATE: 01/07/2024 02:38 PM COMPARISON: 01/06 RADIATION DOSE: CTDIvol: 25.2 mGy, DLP: 1764.09 mGy*cm PROCEDURE: Helical CT images were obtained of the abdomen and pelvis without IV contrast Sagittal and coronal reconstructions are provided. ORAL CONTRAST: None. ADDITIONAL IMAGES / REFORMATS: None All CT scans at this medical facility are performed using dose modulation techniques as appropriate to a performed exam including the following: Automated exposure control was utilized; adjustment of the MA and/or KV according to patient size; and use of iterative reconstruction technique. FINDINGS: LUNG BASE: Bibasilar consolidation is seen with trace pleural effusion. LIVER: Shrunken cirrhotic liver with small adjacent portosytemic collaterals. GALLBLADDER AND BILIARY TREE: Gallstone at the neck of the gallbladder. No intra- or extrahepatic biliary ductal dilation. PANCREAS: Normal. SPLEEN: Normal. BOWEL: No small bowel dilation. Thickened colonic galeas likely secondary to decompression. ADRENALS: Normal. KIDNEYS AND URETER: Normal. BLADDER: Sunshine in the bladder. REPRODUCTIVE ORGANS: Normal. LYMPH NODES:No lymphadenopathy. PERITONEUM: Trace ascites. VESSELS: Scattered atherosclerotic calcifications are noted. RETROPERITONEUM: Normal. ABDOMINAL WALL: Anasarca. Fat containing umbilical hernia. BONES: Scattered osseous degenerative changes are noted. IMPRESSION: Shrunken cirrhotic liver with small adjacent portosytemic collaterals. Trace ascites. Gallstone at the neck of the gallbladder. Bibasilar consolidation is seen with trace pleural effusion. Thickened colonic galeas likely secondary to decompression or portal colopathy. No mass seen at the pancreas. ECHO: Normal left ventricular size and dimension. Normal left ventricular systolic function estimated ejection fraction 55%. There is a grade 1 diastolic dysfunction. Normal right ventricular size and dimension. Normal right ventricular systolic function. Normal biatrial size and dimension. Normal aortic valve structure and function. Normal mitral valve structure and function. Normal tricuspid valve structure and function. The pulmonary valve is grossly normal. No pericardial effusion. Condition at Discharge: Stable Final Diagnosis/Problems List #Acute metabolic encephalopathy due to hyperammonemia and septic shock resolving #Dementia #Occlusive thrombus within the bilateral cephalic veins (superficial) # Acute hypoxic respiratory failure secondary to septic shock and decompensated cirrhosis resolved #Septic shock due to pneumonia gram+/gram - resolved #s/p intubation #Decompensated Cirrhosis due to alcohol-related liver disease with a MELD score of 21 # Lower GI bleeding: episode of hematochezia ruled out #Gallstone at the neck of the gallbladder. #Thickened colonic galeas likely secondary to decompression or portal colopathy. #Umbilical hernia #Hypernatremia resolved #Hypokalemia resolved # Severe metabolic acidosis due to septic shock resolved # Hyperkalemia resolved #Hyperphosphatemia resolved #Hyperparathyroidism # Acute kidney injury hemodinamically mediated resolving #Hepatorenal syndrome resolved # Thrombocytopenia secondary to liver cirrhosis and hypersplenism . Discharge Disposition: Home with Health Services Discharge Instruct/Medications Diet: Consistent carbohydrate, Cardiac 2g Na,low cholest Activity: Light activity Follow Up/Referral: dc clinic Medications: see prescription Discharge Statement: "Patient was advised to return to the ER or call 911 if any headaches, dizziness, shortness of breath, chest pain, abdominal pain, bleeding, fevers, or worsening of medical condition. Patient was counseled about treatment plan, medications, possible side effects, patientverbalized understanding. All questions were answered to the best of my ability. This discharge took greater then 30 minutes in planning, reviewing documentation, counseling the patient, and discussing with other team members." ASSESSMENT ASSESSMENT Assessment s/p intubation septic shock due to pneumonia cirrhosis baseline dementia Date of Service: Jan 21, 2024 Billing Provider: VENKATESH CURTIS MD Common Visit Codes: [id number] DISCH DAY >30min Coding Comment Comment Attending Attestation I saw and evaluated the patient. I reviewed the residents note and agree with findings and plan as documented in the residents note except as documented below. GRACE MARROQUIN RESIDENT Jan 21, 2024 18:39 VENKATESH CURTIS MD Jan 21, 2024 20:15
--- NOTE | 2024-01-21 18:56 | DVHPN2 ---
Progress Note Date Seen: Jan 21, 2024 Has the PT tested + for MRSA If YES, has PT been informed?: No Medical Necessity Reason Pt with a Central, PICC or Fol: Yes The following are medically ne: Ackerman Catheter Reason for ackerman catheter: Strict I&O Subjective Patient reports: No new complaints, Feels better Review of Systems: Deferred Objective vital signs Vital Sign Date Time Temp Pulse Resp B/P (MAP) Pulse Ox O2 Delivery O2 Flow Rate FiO2 01/21/24 17:30 98.2 73 20 96 01/21/24 10:05 109/68 01/21/24 08:00 Nasal Cannula* 3 32 Total Intake and Output 01/20/24 01/20/24 01/21/24 15:00 23:00 07:00 Intake Total 50 ml 400 ml 650 ml Output Total 250 ml 300 ml Balance 50 ml 150 ml 350 ml medications Current Medications Medications Dose Ordered Sig/Salena Route Start Time Stop Time Status Last Admin Dose Admin Sodium Chloride 10 ml Q8HR IV 01/06/24 14:00 01/21/24 14:32 10 ML Rifaximin 550 mg BID PO 01/07/24 22:00 01/21/24 09:54 550 MG Albumin Human 100 ml @ 100 mls/hr Q8H IV 01/08/24 19:30 01/09/24 12:29 Cancel Pantoprazole Sodium 40 mg DAILY@0600 PO 01/18/24 06:00 01/21/24 09:54 40 MG Thiamine HCl 100 mg DAILY PO 01/19/24 10:00 01/21/24 09:54 100 MG Folic Acid 1 mg DAILY PO 01/19/24 10:00 01/21/24 09:54 1 MG Lactulose 30 ml Q3H PO 01/19/24 12:00 01/21/24 17:10 30 ML Furosemide 40 mg DAILY PO 01/20/24 10:00 01/21/24 10:05 40 MG Spironolactone 12.5 mg DAILY PO 01/22/24 10:00 Examination: GENERAL:Normal, LUNGS:Normal, ABDOMEN:Abnormal, NEURO:Normal laboratory and microbiology Laboratory Tests 01/21/24 05:14 Test 01/21/24 05:14 Range/Units Serum Glucose 92 74-106 mg/dL Microbiology Date/Time Source Procedure Growth Status 01/11/24 11:19 Bronchial Washings Gram Stain - Final Complete 01/11/24 11:19 Respiratory Culture - Final Presumptive Kamryn albicans Complete 01/07/24 19:28 Voided Urine Urine Culture - Final Complete 01/07/24 14:10 Ascities Fluid Gram Stain - Final Complete 01/07/24 14:10 Ascities Fluid Body Fluid Culture - Final Complete 01/06/24 16:13 Nose MRSA Screen - Final Complete 01/06/24 07:15 Blood Blood Culture - Final NO GROWTH AFTER 5 DAYS OF INCUBATION. Complete Problem List/Assessment/Plan Problem List/Assessment/Plan Acute kidney injury superimposed Chronic Kidney Disease secondary hemodynamic mediated Hepatorenal syndrome??less likely as irwin 40 Acute respiratory failure, patient intubated on ventilator Decompensated liver cirrhosis Hepatic encephalopathy Septic shock-resolved GI bleeding Anemia due to blood loss Thrombocytopenia Hypernatremia due to insensible water loss Hypokalemia Status post large volume paracentesis Recommendations Renal function stable Potassium replace Okay to resume low-dose spironolactone Plan discussed with: Patient, Other Dietary Evaluation Review Comments: 1) I GI is accessible consider Jevity 1.2 @ 45ml/hr goal rate as tolerated 2) If pt remains NPO >7 days consider TPN to meet at least 75% of estimated needs 3) Continue current plan of care Expected Outcomes/Goals: 1) Pt to receive nutrition support within 7 days of NPO status 2) F/U in 2-3 days YUAN AYERS MD Jan 21, 2024 18:56
[2024-01-22] MEDS ORDERED: SPIRONOLACTONE 25 MG TAB PO SCH (10:00)
== END 2024-01-21 19:00 | disposition home health service (06) | DRG 720 ==
LOC: EDBD 06:36 → ER 06:36 → TELE 10:54 → ICU WEST 12:50 → TELE-WESTW 01-15 14:00
PROVIDERS: ADMIT Student in an Organized Health Care Education/Training Program; ATTEND Student in an Organized Health Care Education/Training Program
PROC: 0BH17EZ Insertion of Endotracheal Airway into Trachea, Via Natural or Artificial Opening (ICD-10-PCS; principal; 2024-01-06)
PROC: 5A1955Z Respiratory Ventilation, Greater than 96 Consecutive Hours (ICD-10-PCS; 2024-01-06)
PROC: 03HY32Z Insertion of Monitoring Device into Upper Artery, Percutaneous Approach (ICD-10-PCS; 2024-01-06)
PROC: 05HM33Z Insertion of Infusion Device into Right Internal Jugular Vein, Percutaneous Approach (ICD-10-PCS; 2024-01-06)
PROC: 02HV33Z Insertion of Infusion Device into Superior Vena Cava, Percutaneous Approach (ICD-10-PCS; 2024-01-07)
PROC: B548ZZA Ultrasonography of Superior Vena Cava, Guidance (ICD-10-PCS; 2024-01-07)
PROC: 0W9G3ZX Drainage of Peritoneal Cavity, Percutaneous Approach, Diagnostic (ICD-10-PCS; 2024-01-07)
PROC: 0BC78ZZ Extirpation of Matter from Left Main Bronchus, Via Natural or Artificial Opening Endoscopic (ICD-10-PCS; 2024-01-11)
PROC: 0B9D8ZX Drainage of Right Middle Lung Lobe, Via Natural or Artificial Opening Endoscopic, Diagnostic (ICD-10-PCS; 2024-01-11)
PROC: 0BC38ZZ Extirpation of Matter from Right Main Bronchus, Via Natural or Artificial Opening Endoscopic (ICD-10-PCS; 2024-01-11)
PROC: 05H933Z Insertion of Infusion Device into Right Brachial Vein, Percutaneous Approach (ICD-10-PCS; 2024-01-15)
PROC: B54MZZA Ultrasonography of Right Upper Extremity Veins, Guidance (ICD-10-PCS; 2024-01-15)
DX: A41.59 Other Gram-negative sepsis (principal); J96.01 Acute respiratory failure with hypoxia; K76.7 Hepatorenal syndrome; R65.21 Severe sepsis with septic shock; G93.41 Metabolic encephalopathy; J15.69 Pneumonia due to other Gram-negative bacteria; J44.0 Chronic obstructive pulmonary disease with (acute) lower respiratory infection; J15.9 Unspecified bacterial pneumonia; D68.9 Coagulation defect, unspecified; E88.09 Other disorders of plasma-protein metabolism, not elsewhere classified; E87.20 Acidosis, unspecified; K76.82 Hepatic encephalopathy; N17.9 Acute kidney failure, unspecified; K70.31 Alcoholic cirrhosis of liver with ascites; E87.0 Hyperosmolality and hypernatremia; E87.1 Hypo-osmolality and hyponatremia; I82.613 Acute embolism and thrombosis of superficial veins of upper extremity, bilateral; K42.9 Umbilical hernia without obstruction or gangrene; E87.5 Hyperkalemia; D69.59 Other secondary thrombocytopenia; E21.3 Hyperparathyroidism, unspecified; E87.6 Hypokalemia; D50.0 Iron deficiency anemia secondary to blood loss (chronic); D73.1 Hypersplenism; F15.90 Other stimulant use, unspecified, uncomplicated; K80.20 Calculus of gallbladder without cholecystitis without obstruction; N18.9 Chronic kidney disease, unspecified; K21.9 Gastro-esophageal reflux disease without esophagitis; F03.90 Unspecified dementia, unspecified severity, without behavioral disturbance, psychotic disturbance, mood disturbance, and anxiety; E66.3 Overweight; Z68.29 Body mass index [BMI] 29.0-29.9, adult; Z79.899 Other long term (current) drug therapy; W18.39XA Other fall on same level, initial encounter; Y93.89 Activity, other specified; Y92.89 Other specified places as the place of occurrence of the external cause; Y99.8 Other external cause status
CPT/HCPCS: 36415; 36600; 49083; 70450; 71045; 74176; 76700; 76705; 76942; 80048; 80053; 80076; 80307; 80320; 81001; 82140; 82248; 82270; 82306; 82570; 82805; 82962; 82977; 83036; 83605; 83735; 83970; 83986; 84100; 84132; 84156; 84300; 84443; 84478; 84484; 85007; 85025; 85027; 85610; 85730; 86704; 86706; 86708; 86803; 87040; 87070; 87077; 87081; 87086; 87205; 87340; 89051; 92610; 93005; 93306; 93970; 93971; 94002; 94003; 94640; 94644; 96365; 96375; 97110; 97116; 97163; 97530; 99291; G0378; J2185; J2250; J2470; J2543; J2704; J3430; J3480; J3490; J7060; P9047